=== PATIENT | male | born 1965 | race African-American/Black ===

== ENCOUNTER 2016-10-13 15:29 | Observation (INO) ==
[2016-10-13] MEDS ORDERED: BISACODYL 5 MG TABLET PO PRN (16:00)
[2016-10-13] MEDS ORDERED: DOCUSATE SODIUM 100 MG CAPSULE PO PRN (16:00)
[2016-10-13] MEDS ORDERED: ONDANSETRON 4 MG/2 ML VIAL IV PRN (16:00)
[2016-10-13] MEDS ORDERED: MAGNESIUM SULF RIDER 2 GM in PREMIX 1 EACH IV PRN (16:00)
[2016-10-13] MEDS ORDERED: MAGNESIUM SULF RIDER 4 GM in PREMIX 1 EACH IV PRN (16:00)
[2016-10-13] MEDS ORDERED: ZALEPLON 5 MG CAPSULE PO PRN (16:00)
[2016-10-13] MEDS ORDERED: ACETAMINOPHEN 325 MG TABLET PO PRN (16:00)
[2016-10-13] MEDS: FUROSEMIDE 40 MG/4 ML VIAL IV SCH (17:54)
[2016-10-13 17:57] LABS: Basophils % 0.6 % (0.0-0.8); Eosinophils # 0.1 10*3/uL (0.0-0.87); Eosinophils % 0.8 % (0.00-10.9); Hematocrit 37.4 VOL% (42.0-52.0); Hemoglobin 12.1 GM/DL (14.0-18.0); Immature Granulocytes % 0.4 %; Immature Granulocytes Absolute 0.03 #; Lymphocytes # 1.8 10*3/uL (1.4-4.0); Lymphocytes % 24.3 % (21.2-54.2); Mean Corpuscular HGB Conc 32.4 GM/DL (32-36); Mean Corpuscular Hemoglobin 22 PG (27-34); Mean Corpuscular Volume 68.5 FL (87-102); Mean Platelet Volume 10.6 FL (9.6-12.0); Monocytes # 0.6 10*3/uL (0.11-0.8); Monocytes % 7.9 % (1.7-12.7); NRBC # 0.02 10*3/uL; Neutrophils # 4.8 10*3/uL (1.4-7.4); Platelet Count 204 10*3/uL (130-400); Red Blood Count 5.46 10*6/uL (3.8-5.5); Red Cell Distribution Width 19.4 % (9.3-17.3); White Blood Count 7.2 10*3/uL (4.5-13.71)
--- NOTE | 2016-10-13 18:23 | XRay Report ---
Portable chest. Indication: Shortness of breath. Comparison: August 28, 2016. The cardiac silhouette is enlarged. The pulmonary vasculature is normal. There are mild basilar interstitial infiltrates and a small right pleural effusion. Impression: Findings suggesting congestive heart failure. PROCEDURE INTERPRETED AT [facility] DEPARTMENT OF RADIOLOGY Final Report Signed by: Dr. Libby Renee
[2016-10-13 18:26] LABS: Albumin 3.2 G/DL (3.4-5.0); Osmolality,Calculated 296.7 MOS/KG (273-304); Potassium 4.5 MMOL/L (3.5-5.1); Total Protein 6.6 G/DL (6.4-8.3)
[2016-10-13] MEDS: ENOXAPARIN 40 MG/0.4 ML SYRINGE SUBCUT SCH (18:36)
--- NOTE | 2016-10-13 22:26 | Cardiology History & Physical ---
Assessment and Plan - Time spent with patient Time spent with patient: Greater than 30 minutes (1) Acute on chronic systolic and diastolic heart failure, NYHA class 3 Status: Acute Assessment and plan: He is worsening heart failure is probably due to him not taking his medication and having no LV systolic and diastolic dysfunction. I am suspicious he has some sleep apnea and that may be exacerbating his diastolic dysfunction. Plan/ recommendation : Admit to a monitored bed. Restart home meds. Since he has tachycardia, will increase his carvedilol to 6.25 mg p.o. 4 times daily. We will adjusted to a twice daily dose at some point. Will consult social work regarding help with get medications paid for or supplied. Elevate head of bed. EKG now and every morning [address] Cathi Solitario regarding evaluation and treatment of obstructive sleep apnea. IV Lasix. Check albumin. Restart spironolactone. BMP every morning 3. Current Visit: No (2) Overweight Status: Acute Current Visit: Yes (3) Obstructive sleep apnea Status: Acute Current Visit: Yes (4) Bilateral lower extremity edema Status: Acute Current Visit: Yes (5) CHF exacerbation Status: Acute Current Visit: No Qualifiers: Congestive heart failure type: combined Qualified Code(s): I50.43 - Acute on chronic combined systolic (congestive) and diastolic (congestive) heart failure (6) CKD (chronic kidney disease) stage 2, GFR 60-89 ml/min Status: Acute Current Visit: No (7) Cardiomyopathy Status: Acute Current Visit: No (8) DM2 (diabetes mellitus, type 2) Status: Acute Current Visit: No History of Present Illness Chief complaint: I have been more short of breath and I am out of my medicines History of present illness: Mr. Drummond is a 51 year old male Cardiology: Dr. Bossman Mariano Patient is 51. He has a known nonischemic cardiomyopathy. He has been out of his meds lately. Apparently he was taken off Medicaid. He comes in to see Dr. Bossman Mariano. He has increasing swelling of his legs. He is more short of breath. He has to sleep propped up. Dr. Mariano send him over to be evaluated. He is admitted. He does have a cough. Otherwise no palpitations, syncope wheezing or phlegm. Does have snoring, apnea and excess daytime somnolence. Has never had an evaluation for sleep apnea Home Medications Medication Instructions Recorded Confirmed Type Ascorbic Acid Tab [Vitamin C Tab] 1,000 mg PO BID tablet 09/04/16 Rx Aspirin EC Tab 81 mg PO DAILY tablet 09/04/16 Rx Carvedilol [Coreg] 6.25 mg PO BID #60 tablet 09/04/16 Rx Furosemide Tab [Lasix Tab] 40 mg PO BID DIURETIC #60 tablet 09/04/16 Rx Potassium Chloride Cap/Tab [K Dur] 10 meq PO BID #60 tablet 09/04/16 Rx Spironolactone [Aldactone] 12.5 mg PO DAILY #30 tablet 09/04/16 Rx hydrALAZINE TAB [Apresoline Tab] 10 mg PO TID #90 tablet 09/04/16 Rx Allergies Allergy/AdvReac Type Severity Reaction Status Date / Time Shellfish Allergy SHORTNESS Verified 08/28/16 17:28 OF BREATH 12 point system: reviewed and no additional remarkable complaints except as stated (A 12 point review of systems is negative except for as mentioned in HPI. ) Medical,Surgical,& Family Hx - Medical History Cardio: History of: CHF, CAD, Hypertension, Cardiovascular Problems ("Two blocked arteries per Dr Mariano") No history of: [place], Pacemaker Psychological: No history of: Anxiety Disorders, Bipolar Disorder, Depression HEENT: No history of: Dental Problems Endocrine: No history of: Diabetes Mellitus (IDDM) (states he was told last admission DM but nothing follow up with), Diabetes Mellitus (NIDDM) Respiratory: History of: Asthma, Bronchitis No history of: Pulmonary Embolism, Pneumonia Renal: History of: Renal Failure (RI) No history of: Renal (Kidney) Cancer, Renal Problems Genitourinary: No history of: Bladder Problem, Kidney Stones Gastrointestinal: History of: GERD (recent just started having trouble with reflux) No history of: Hemorrhoids, Liver Problems Musculoskeletal: History of: Musculoskeletal Problems (Right Knee Surg) No history of: Amputation, Back/Neck Problems, Osteoporosis Hematology: No history of: Anemia, Blood Transfusion Reaction, Sickle Cell Disease, Blood Disorders Other: No history of: Anesthesia Reactions, HIV, MRSA, Skin Problems - Surgical History Cardiac Surgeries: Patient Denies: Cardiac Catheterization, Cardiac Surgery Thoracic Surgeries: Patient denies;: Organ Transplant, Lobectomy Neurologic Surgeries: Patient denies: Neurologic Surgery HEENT Surgeries: Patient denies: Tonsilectomy & Adenoidectomy Abdominal Surgeries: Patient denies: Abdominal Surgery Orthopedic Surgeries: Patient denies;: Total Knee Replacement - Family History Family History: Reports;: Family Cancer (mom, type unknown), Family Heart Disease (mom), Family Hypertension - Social History Smoking Status: Current some day smoker Frequency of Alcohol Use: None Type of Drug Use: None Functional capacity: independent ambulation Cardiology Physical Exam - Constitutional Vitals: Vital Signs Temp Pulse Resp BP Pulse Ox 96.7 F L 118 H 21 112/81 93 L 10/13/16 17:33 10/13/16 19:51 10/13/16 19:51 10/13/16 19:51 10/13/16 19:51 Intake and Output 10/13/16 10/13/16 10/13/16 07:59 15:59 23:59 Other: Weight 93.5 kg Patient Weight 10/13/16 23:59 Weight 93.5 kg Exam: HEENT: Pupils equal, reactive to light and accommodation Neck: NoJVD or bruit Lungs clear to auscultation Heart: Regular rhythm rate with normal S1 and S2. Apical S4, 2/6 systolic ejection murmur. Abdomen: No hepatosplenomegaly Spine/extremities: No clubbing, cyanosis, ; 2-3+ lower extremity edema. Neuro: Nonfocal Psych: No depression or anxiety Result/EKG - Labs CBC & BMP: 10/13/16 17:47 10/13/16 17:47 Lab Results: I have reviewed the past 24 hour labs Labs: Laboratory Results - last 24 hr 10/13/16 10/13/16 10/13/16 17:47 17:47 17:47 WBC 7.2 RBC 5.46 Hgb 12.1 L Hct 37.4 L MCV 68.5 L MCH 22 L MCHC 32.4 RDW 19.4 H Plt Count 204 MPV 10.6 Neut % (Auto) 66.0 Lymph % (Auto) 24.3 [place] % (Auto) 7.9 Eos % (Auto) 0.8 Baso % (Auto) 0.6 Neut # (Auto) 4.8 Lymph # (Auto) 1.8 [place] # (Auto) 0.6 Eos # (Auto) 0.1 Baso # (Auto) 0.0 Immature Gran % 0.4 Nucleated RBC % 0.3 Immature Gran # 0.03 Nucleated RBCs # 0.02 Sodium 145 Potassium 4.5 Chloride 109 H Carbon Dioxide 23 Anion Gap 17.5 H BUN 40 H Creatinine 2.10 H GFR Calculation 48 BUN/Creatinine Ratio 19.00 Glucose 83 Calculated Osmolality 296.7 Calcium 9.0 Total Bilirubin 3.00 H AST 75 H ALT 70 H Alkaline Phosphatase 143 H B-Natriuretic Peptide 1859 H Total Protein 6.6 Albumin 3.2 L Globulin 3.4 Albumin/Globulin Ratio 0.9 L TSH 3rd Generation 10/13/16 17:47 WBC RBC Hgb Hct MCV MCH MCHC RDW Plt Count MPV Neut % (Auto) Lymph % (Auto) [place] % (Auto) Eos % (Auto) Baso % (Auto) Neut # (Auto) Lymph # (Auto) [place] # (Auto) Eos # (Auto) Baso # (Auto) Immature Gran % Nucleated RBC % Immature Gran # Nucleated RBCs # Sodium Potassium Chloride Carbon Dioxide Anion Gap BUN Creatinine GFR Calculation BUN/Creatinine Ratio Glucose Calculated Osmolality Calcium Total Bilirubin AST ALT Alkaline Phosphatase B-Natriuretic Peptide Total Protein Albumin Globulin Albumin/Globulin Ratio TSH 3rd Generation 3.820 H
[2016-10-13] MEDS: CARVEDILOL 6.25 MG TABLET PO SCH (22:51)
[2016-10-14 04:57] LABS: Basophils % 0.3 % (0.0-0.8); Eosinophils # 0.1 10*3/uL (0.0-0.87); Hematocrit 33.3 VOL% (42.0-52.0); Hemoglobin 10.8 GM/DL (14.0-18.0); Immature Granulocytes % 0.5 %; Immature Granulocytes Absolute 0.03 #; Lymphocytes # 1.4 10*3/uL (1.4-4.0); Lymphocytes % 24.1 % (21.2-54.2); Mean Corpuscular HGB Conc 32.4 GM/DL (32-36); Mean Corpuscular Hemoglobin 22 PG (27-34); Mean Corpuscular Volume 66.5 FL (87-102); Mean Platelet Volume 10.9 FL (9.6-12.0); Monocytes # 0.4 10*3/uL (0.11-0.8); Monocytes % 7.3 % (1.7-12.7); NRBC # 0.02 10*3/uL; Neutrophils # 3.9 10*3/uL (1.4-7.4); Neutrophils % 66.8 % (38.7-73.9); Platelet Count 233 10*3/uL (130-400); Red Blood Count 5.01 10*6/uL (3.8-5.5); Red Cell Distribution Width 18.7 % (9.3-17.3); White Blood Count 5.9 10*3/uL (4.5-13.71)
[2016-10-14 05:31] LABS: Platelet Estimate Adequate; Target Cells 1+
[2016-10-14 05:32] LABS: Burr Cells Few; Polychromasia Slight
[2016-10-14 05:35] LABS: Albumin 2.6 G/DL (3.4-5.0); Bilirubin,Total 2.5 MG/DL (0.2-1.0); Calcium 8.2 MG/DL (8.5-10.1); Osmolality,Calculated 294.8 MOS/KG (273-304); Potassium 4.3 MMOL/L (3.5-5.1); Total Protein 5.7 G/DL (6.4-8.3)
[2016-10-14 05:36] LABS: Troponin I Only 0.107 NG/ML (0.00-0.045)
--- NOTE | 2016-10-14 07:38 | EKG Report ---
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
[2016-10-14] MEDS: FUROSEMIDE 40 MG/4 ML VIAL IV SCH ×2 (08:59→19:15)
[2016-10-14] MEDS ORDERED: INFLUENZA VIRUS VACCINE 0.5 ML SYRINGE IM ONE (09:00)
[2016-10-14] MEDS ORDERED: PNEUMOCOCCAL VACCINE (23 VALENT) 0.5 ML VIAL IM ONE (09:00)
[2016-10-14] MEDS: ASPIRIN EC 81 MG TABLET PO SCH (09:06)
[2016-10-14] MEDS: SPIRONOLACTONE 25 MG TABLET PO SCH (09:06)
[2016-10-14] MEDS: CARVEDILOL 6.25 MG TABLET PO SCH ×4 (09:07→20:41)
[2016-10-14] MEDS: PANTOPRAZOLE 40 MG TABLET PO SCH (09:07)
--- NOTE | 2016-10-14 11:12 | Cardiology Progress Note ---
Assessment and Plan - Time spent with patient Time spent with patient: Less than 30 minutes (1) NICM (nonischemic cardiomyopathy) Status: Acute Current Visit: Yes (2) CKD (chronic kidney disease) stage 2, GFR 60-89 ml/min Status: Acute Current Visit: No (3) Sleep disturbance Status: Chronic Assessment and plan: COnsider sleep study eval when patient has insurance benefits Current Visit: Yes (4) Tachycardia Status: Acute Assessment and plan: Improved with reintroduction of a beta niharika. Current Visit: Yes (5) Hypertension Status: Chronic Assessment and plan: Overall adequately controlled. Avoiding Jacoby inhibitors due to fear of worsening his renal insufficiency. Current Visit: Yes (6) Dyslipidemia Status: Chronic Assessment and plan: Continue current plan of care. Current Visit: Yes (7) CKD (chronic kidney disease) stage 3, GFR 30-59 ml/min Status: Chronic Assessment and plan: Improved overnight. Continue current plan of care. Current Visit: Yes (8) Bilateral lower extremity edema Status: Acute Current Visit: Yes (9) Acute on chronic systolic and diastolic heart failure, NYHA class 3 Status: Acute Assessment and plan: Continue with diuresis, strict I&O and daily weights. Tolerating beta- blockade. Avoiding Jacoby inhibitors due to fear of worsening his renal insufficiency. Current Visit: No (10) DM2 (diabetes mellitus, type 2) Status: Acute Current Visit: No Cardiology - PN: Subj Interval history: Mr. Drummond, 51-year-old [place] male, was directly admitted on recommendation from Dr. Leeroy Mariano. He was admitted last evening for CHF with history of nonischemic cardiomyopathy, EF 20%. This is an acute on chronic exacerbation secondary to severely reduced LVEF and medication noncompliance. On admission, he is considered [place] heart Association Classification III-IV. Overnight he has improved to NYHA Classication III. Atrial fibrillation and had been out of his medications as he was taken off of Medicaid. He had increased edema of his lower extremities and increased abdominal girth. He was orthopneic though no apparent jugular vein distention. He was admitted and has diuresed overnight. His breathing has improved. He remains orthopneic but this too has also improved. He states he actually slept relatively well last night for the first time in over one week. He denies chest pain, heaviness or tightness. ASSESSMENT/PLAN: 1. CHF - acute on chronic CHF secondary to severely reduced LVEF, 20%. Also secondary to medication noncompliance. He has diuresed well overnight losing 2 kg. At this point, will not repeat echo 2. NICM - continue current plan of care 3. Tachycardia - initially, upon arrival, patient's heart rate was in the 130s. Coreg has been reintroduced and it has improved. 4. Hypertension - overall adequately controlled 5. Non-compliance - asking Case Management to assist 6. CKD - improved overnight. Stage III. Continue current plan of care. 7. Hyperlipidemia - continue current plan of care. Exam (Progress Note) - Constitutional Vitals: Period Temp Pulse Resp BP Sys/English Pulse Ox Last 24 Hr 96.7 F-97.2 F 99-130 18-35 107-118/68-97 93-98 Exam: General: Appears well with no apparent distress. Pleasant and cooperative. Appears comfortable. HEENT: PERRL, normocephalic, atraumatic. Mucous membranes moist. No jaundice noted. Conjunctiva moist and clear, sclerae anicteric Neck: No JVD/HJR, no thyromegaly or lymphadenopathy noted. No carotid bruit appreciated Cardiac: Regular rate and rhythm. II/ YUMIKO heard best at BUSB. Lungs: Decreased sounds posteriorly without wheezing. Still requiring oxygen. Abdomen: Round, soft, bowel sounds normoactive. Nontender. No abdominal bruit or thrill noted. No masses noted. Musculoskeletal: No fluid collection. Decreased range of motion is noted. Extremities: No clubbing, cyanosis noted. 2+pitting edema. Upper extremity pulses 2+. Lower extremity pulses 2+. Capillary refill less than 3 seconds. Skin: No unusual lesions or rashes. No skin breakdown appreciated. Neuro: Awake, alert and oriented 3. Moves all extremities well without hemiparesis or paralysis. No essential tremor is appreciated. Result/EKG - Labs CBC & BMP: 10/14/16 04:47 10/14/16 04:47 Lab Results: I have reviewed the past 24 hour labs Labs: Laboratory Results - last 24 hr 10/13/16 10/13/16 10/13/16 17:47 17:47 17:47 WBC 7.2 RBC 5.46 Hgb 12.1 L Hct 37.4 L MCV 68.5 L MCH 22 L MCHC 32.4 RDW 19.4 H Plt Count 204 MPV 10.6 Neut % (Auto) 66.0 Lymph % (Auto) 24.3 [place] % (Auto) 7.9 Eos % (Auto) 0.8 Baso % (Auto) 0.6 Neut # (Auto) 4.8 Lymph # (Auto) 1.8 [place] # (Auto) 0.6 Eos # (Auto) 0.1 Baso # (Auto) 0.0 Immature Gran % 0.4 Nucleated RBC % 0.3 Immature Gran # 0.03 Nucleated RBCs # 0.02 Platelet Estimate Polychromasia Target Cells [place] Cells Sodium 145 Potassium 4.5 Chloride 109 H Carbon Dioxide 23 Anion Gap 17.5 H BUN 40 H Creatinine 2.10 H GFR Calculation 48 BUN/Creatinine Ratio 19.00 Glucose 83 Calculated Osmolality 296.7 Calcium 9.0 Total Bilirubin 3.00 H AST 75 H ALT 70 H Alkaline Phosphatase 143 H Total Creatine Kinase CK-MB (CK-2) Troponin I B-Natriuretic Peptide 1859 H Total Protein 6.6 Albumin 3.2 L Globulin 3.4 Albumin/Globulin Ratio 0.9 L TSH 3rd Generation 10/13/16 10/14/16 10/14/16 17:47 04:47 04:47 WBC 5.9 RBC 5.01 Hgb 10.8 L Hct 33.3 L MCV 66.5 L MCH 22 L MCHC 32.4 RDW 18.7 H Plt Count 233 MPV 10.9 Neut % (Auto) 66.8 Lymph % (Auto) 24.1 [place] % (Auto) 7.3 Eos % (Auto) 1.0 Baso % (Auto) 0.3 Neut # (Auto) 3.9 Lymph # (Auto) 1.4 [place] # (Auto) 0.4 Eos # (Auto) 0.1 Baso # (Auto) 0.0 Immature Gran % 0.5 Nucleated RBC % 0.3 Immature Gran # 0.03 Nucleated RBCs # 0.02 Platelet Estimate Adequate Polychromasia Slight Target Cells 1+ [place] Cells Few Sodium Potassium Chloride Carbon Dioxide Anion Gap BUN Creatinine GFR Calculation BUN/Creatinine Ratio Glucose Calculated Osmolality Calcium Total Bilirubin AST ALT Alkaline Phosphatase Total Creatine Kinase 106 CK-MB (CK-2) 1.7 Troponin I 0.107 H B-Natriuretic Peptide Total Protein Albumin Globulin Albumin/Globulin Ratio TSH 3rd Generation 3.820 H 10/14/16 10/14/16 04:47 04:47 WBC RBC Hgb Hct MCV MCH MCHC RDW Plt Count MPV Neut % (Auto) Lymph % (Auto) [place] % (Auto) Eos % (Auto) Baso % (Auto) Neut # (Auto) Lymph # (Auto) [place] # (Auto) Eos # (Auto) Baso # (Auto) Immature Gran % Nucleated RBC % Immature Gran # Nucleated RBCs # Platelet Estimate Polychromasia Target Cells [place] Cells Sodium 144 Potassium 4.3 Chloride 110 H Carbon Dioxide 21 Anion Gap 17.3 H BUN 41 H Creatinine 1.90 H GFR Calculation 54 BUN/Creatinine Ratio 21.00 H Glucose 83 Calculated Osmolality 294.8 Calcium 8.2 L Total Bilirubin 2.50 H AST 75 H ALT 73 H Alkaline Phosphatase 130 H Total Creatine Kinase CK-MB (CK-2) Troponin I B-Natriuretic Peptide 2615 H Total Protein 5.7 L Albumin 2.6 L Globulin 3.1 Albumin/Globulin Ratio 0.8 L TSH 3rd Generation - Diagnostic Findings Procedure: Chest x-ray: report reviewed by me - EKG EKG results: interpreted by me EKG shows: tachycardia
--- NOTE | 2016-10-14 17:32 | Sleep Medicine Consult ---
Assessment and Plan (1) Unspecified sleep apnea Status: Acute Assessment and plan: This patient certainly could have sleep apnea based on his history of physical features. With his cardiomyopathy, he may have primary central sleep apnea. This can be very difficult to treat and associated with poor prognosis. He usually is associated with severe cardiomyopathy. We will try to obtain HST evaluation on him while hospitalized. Current Visit: Yes (2) DM2 (diabetes mellitus, type 2) Status: Acute Assessment and plan: The prevalence rate for obstructive sleep apnea in patients with type 2 diabetes can be as high as 86%. Those patients with moderate to severe obstructive sleep apnea are at a greater risk for diabetic nephropathy and neuropathy. Compliance with CPAP therapy for these patients can lead to improvement in glycemic control and improvement in insulin sensitivity. Current Visit: No (3) CHF exacerbation Status: Acute Assessment and plan: Untreated obstructive sleep apnea can certainly be an exacerbating factor for CHF. Studies have shown the CPAP therapy can improve ejection fraction in those with systolic dysfunction. CPAP therapy has been shown in one study to reduce readmission rate in patients with MONY with CHF when compliant with CPAP compared to those noncompliant. Current Visit: No Qualifiers: Congestive heart failure type: combined Qualified Code(s): I50.43 - Acute on chronic combined systolic (congestive) and diastolic (congestive) heart failure History of Present Illness Chief complaint: sleep apnea History of present illness: Mr. Drummond is a 51 year old male with a history of ischemic cardiomyopathy. He has been admitted for congestive heart failure. He apparently had run out of his medications. He lost his insurance. He was noted to have a history of snoring and abnormal breathing during sleep with witnessed apneas. He also has problems with daytime fatigue and sleepiness, having an [place] sleepiness score of 15. He awakens from sleep short of breath. He is not aware of any restlessness of his legs or leg jerks. Home Medications Medication Instructions Recorded Confirmed Type Ascorbic Acid Tab [Vitamin C Tab] 1,000 mg PO BID tablet 09/04/16 10/14/16 Rx Aspirin EC Tab 81 mg PO DAILY tablet 09/04/16 10/14/16 Rx Carvedilol [Coreg] 6.25 mg PO BID #60 tablet 09/04/16 10/14/16 Rx Furosemide Tab [Lasix Tab] 40 mg PO BID DIURETIC #60 tablet 09/04/16 10/14/16 Rx Potassium Chloride Cap/Tab [K Dur] 10 meq PO BID #60 tablet 09/04/16 10/14/16 Rx Spironolactone [Aldactone] 12.5 mg PO DAILY #30 tablet 09/04/16 10/14/16 Rx hydrALAZINE TAB [Apresoline Tab] 10 mg PO TID #90 tablet 09/04/16 10/14/16 Rx Allergies Allergy/AdvReac Type Severity Reaction Status Date / Time Shellfish Allergy SHORTNESS Verified 08/28/16 17:28 OF BREATH Review of systems: Other than as noted in HPI and of that and Dr. Owusu's extensive review of systems, no other significant history is notable from a sleep standpoint. Exam (Pulmonay) H&P - Constitutional Vitals: Period Temp Pulse Resp BP Sys/English Pulse Ox Last 24 Hr 96.7 F-97.2 F 85-127 18-35 96-118/64-97 93-99 Exam: He is alert and responsive in no distress. Pupils equal round reactive to light and accommodation. Extraocular movements intact. Oropharynx with class IV Mallampati exam. Neck is supple without adenopathy or thyromegaly. No supraclavicular adenopathy is noted. Chest was symmetrical breath sounds without focal wheezes, rhonchi, or rales. Cardiac exam reveals a regular rhythm without murmur or gallop. Abdomen soft nontender without palpable hepatosplenomegaly or mass. Extremities with pitting edema bilaterally. Neurologically, he is grossly intact. He moves all extremities Medical,Surgical,& Family Hx - Medical History Cardio: History of: CHF, CAD, Hypertension, Cardiovascular Problems ("Two blocked arteries per Dr Mariano") No history of: [place], Pacemaker Psychological: No history of: Anxiety Disorders, Bipolar Disorder, Depression HEENT: No history of: Dental Problems Endocrine: No history of: Diabetes Mellitus (IDDM) (states he was told last admission DM but nothing follow up with), Diabetes Mellitus (NIDDM) Respiratory: History of: Asthma, Bronchitis No history of: Pulmonary Embolism, Pneumonia Renal: History of: Renal Failure (RI) No history of: Renal (Kidney) Cancer, Renal Problems Genitourinary: No history of: Bladder Problem, Kidney Stones Gastrointestinal: History of: GERD (recent just started having trouble with reflux) No history of: Hemorrhoids, Liver Problems Musculoskeletal: History of: Musculoskeletal Problems (Right Knee Surg) No history of: Amputation, Back/Neck Problems, Osteoporosis Hematology: No history of: Anemia, Blood Transfusion Reaction, Sickle Cell Disease, Blood Disorders Other: No history of: Anesthesia Reactions, HIV, MRSA, Skin Problems - Surgical History Cardiac Surgeries: Patient Denies: Cardiac Catheterization, Cardiac Surgery Thoracic Surgeries: Patient denies;: Organ Transplant, Lobectomy Neurologic Surgeries: Patient denies: Neurologic Surgery HEENT Surgeries: Patient denies: Tonsilectomy & Adenoidectomy Abdominal Surgeries: Patient denies: Abdominal Surgery Orthopedic Surgeries: Patient denies;: Total Knee Replacement - Family History Family History: Reports;: Family Cancer (mom, type unknown), Family Heart Disease (mom), Family Hypertension - Social History Smoking Status: Current some day smoker Frequency of Alcohol Use: None Type of Drug Use: None Results - Labs CBC & BMP: 10/14/16 04:47 10/14/16 04:47 Lab Results: I have reviewed the past 24 hour labs
[2016-10-14] MEDS: ENOXAPARIN 40 MG/0.4 ML SYRINGE SUBCUT SCH (19:15)
[2016-10-14] MEDS ORDERED: metOLazone 5 MG TABLET PO ONE (19:21)
[2016-10-15 06:20] LABS: Basophils % 0.4 % (0.0-0.8); Eosinophils # 0.1 10*3/uL (0.0-0.87); Eosinophils % 1.3 % (0.00-10.9); Hematocrit 35.1 VOL% (42.0-52.0); Hemoglobin 11.1 GM/DL (14.0-18.0); Immature Granulocytes % 0.2 %; Immature Granulocytes Absolute 0.01 #; Lymphocytes # 1.6 10*3/uL (1.4-4.0); Lymphocytes % 29.5 % (21.2-54.2); Mean Corpuscular HGB Conc 31.6 GM/DL (32-36); Mean Corpuscular Hemoglobin 21 PG (27-34); Monocytes # 0.5 10*3/uL (0.11-0.8); Monocytes % 9.3 % (1.7-12.7); Neutrophils # 3.2 10*3/uL (1.4-7.4); Neutrophils % 59.3 % (38.7-73.9); Platelet Count 252 10*3/uL (130-400); Red Blood Count 5.24 10*6/uL (3.8-5.5); White Blood Count 5.4 10*3/uL (4.5-13.71)
[2016-10-15 06:45] LABS: Hypochromasia Slight; Target Cells 2+
[2016-10-15 06:46] LABS: Platelet Estimate Normal
[2016-10-15 06:48] LABS: Calcium 8.2 MG/DL (8.5-10.1); Potassium 3.7 MMOL/L (3.5-5.1)
--- NOTE | 2016-10-15 10:02 | Discharge Summary ---
Diagnosis - Discharge Diagnosis (1) Acute on chronic systolic and diastolic heart failure, NYHA class 3 Status: Acute (2) Overweight Status: Acute (3) Obstructive sleep apnea Status: Acute (4) Bilateral lower extremity edema Status: Acute (5) CHF exacerbation Status: Acute (6) CKD (chronic kidney disease) stage 2, GFR 60-89 ml/min Status: Acute (7) Cardiomyopathy Status: Acute (8) DM2 (diabetes mellitus, type 2) Status: Acute Discharge Plan - Discharge Medications No Action Carvedilol [Coreg] 6.25 mg PO BID #60 tablet Spironolactone [Aldactone] 12.5 mg PO DAILY #30 tablet Ascorbic Acid Tab [Vitamin C Tab] 1,000 mg PO BID tablet Aspirin EC Tab 81 mg PO DAILY tablet Furosemide Tab [Lasix Tab] 40 mg PO BID DIURETIC #60 tablet Potassium Chloride Cap/Tab [K Dur] 10 meq PO BID #60 tablet hydrALAZINE TAB [Apresoline Tab] 10 mg PO TID #90 tablet - Follow Up or Referral - Forms/Instructions Exam - Constitutional Vitals: Period Temp Pulse Resp BP Sys/English Pulse Ox Last 24 Hr 96.4 F-97.8 F 73-92 18-20 96-107/64-76 96-100 Discharge Results Labs on day of discharge: Labs from last 24 hours 10/15/16 10/15/16 05:11 05:11 WBC 5.4 RBC 5.24 Hgb 11.1 L Hct 35.1 L MCV 67.0 L MCH 21 L MCHC 31.6 L RDW 19.0 H Plt Count 252 Neut % (Auto) 59.3 Lymph % (Auto) 29.5 [place] % (Auto) 9.3 Eos % (Auto) 1.3 Baso % (Auto) 0.4 Neut # (Auto) 3.2 Lymph # (Auto) 1.6 [place] # (Auto) 0.5 Eos # (Auto) 0.1 Baso # (Auto) 0.0 Immature Gran % 0.2 Nucleated RBC % 0.0 Immature Gran # 0.01 Nucleated RBCs # 0.00 Platelet Estimate Normal Hypochromasia Slight Target Cells 2+ Sodium 143 Potassium 3.7 Chloride 107 Carbon Dioxide 22 Anion Gap 17.7 H BUN 44 H Creatinine 2.00 H GFR Calculation 51 BUN/Creatinine Ratio 22.00 H Glucose 91 Calculated Osmolality 295.0 Calcium 8.2 L Magnesium 2.0 DS: Provider Date of admission: 10/13/16 16:00 Primary care physician: . No PCP Attending physician on admission: Leeroy Mariano MD Consults: 10/13/16 18:30 Consult to Case Mgmt/Social Srvs [CONS] Routine Reason for Case Mgmt/Social Srvs: Other Consult Comment: help with getting meds 10/13/16 18:33 Consult to Sleep Center [CONS] Routine Reason for Sleep Center: Sleep Center Physician Consult Comment: possible has sleep apnea, hx of CHF 10/13/16 19:03 Consult to Pharmacy [CONS] Routine Reason for Pharmacy Consult: Adjust Meds Renal Funct Discharging clinician: Nazario Owusu MD
[2016-10-15] MEDS: FUROSEMIDE 40 MG/4 ML VIAL IV SCH (11:20)
[2016-10-15] MEDS: SPIRONOLACTONE 25 MG TABLET PO SCH (11:20)
[2016-10-15] MEDS: ASPIRIN EC 81 MG TABLET PO SCH (11:21)
[2016-10-15] MEDS: CARVEDILOL 6.25 MG TABLET PO SCH (11:21)
[2016-10-15] MEDS: PANTOPRAZOLE 40 MG TABLET PO SCH (11:21)
[2016-10-15 12:12] VITALS: BP 101/70
--- NOTE | 2016-10-15 12:14 | Discharge Summary ---
Hospital Course - Hospital Course Hospital Course: Mr. Drummond, 51BM, admitted from Dr. Mariano's office for acute on chronic congestive heart failure. History of nonischemic cardiomyopathy. EF 20%. He was deemed that his acute congestive heart failure was secondary to severely reduced LVEF, 20% ejection fraction noted. Also contributed to his medication noncompliance as he had been out of his medications for several weeks due to loss of insurance. On arrival, we considered him [place] [employer] classification III-IV. At discharge today, he is considered [place] [employer] classification II. During the hospital stay, he was diuresed and responded appropriately. His electrolytes were monitored closely. We had a long discussion regarding medication compliance in the importance thereof. After reviewing his medications, he tells me that he can afford medications on the $4 list at [facility]. The records reflect that we will discharge him home on medications he can afford her [facility]. History of medications include the following: Aspirin 81 mg orally daily Furosemide 40 mg orally twice a day Coreg 12.5 mg orally twice a day Spironolactone 12.5mg orally daily Apresoline 10 mg orally 3 times a day Ascorbic Acid 1000mg orally BID Patient is being given a follow-up appointment with Dr. Mariano in approximately 2-3 weeks. At that visit the following labs will be obtained, BMP, magnesium Patient was also seen by Dr. Judith Solitario for possible sleep disorder. We will give him a follow-up appointment with Dr. Judith Solitario in approximately 2 -3 weeks as well. Having felt he met maximal medical therapy, patient is being discharged home in stable condition. - Time spent with patient Time with patient DS: Less than 30 minutes Diagnosis - Discharge Diagnosis (1) NICM (nonischemic cardiomyopathy) Status: Chronic (2) CKD (chronic kidney disease) stage 2, GFR 60-89 ml/min Status: Chronic (3) Sleep disturbance Status: Chronic (4) Tachycardia Status: Resolved (5) Hypertension Status: Chronic (6) Dyslipidemia Status: Chronic (7) CKD (chronic kidney disease) stage 3, GFR 30-59 ml/min Status: Chronic (8) Bilateral lower extremity edema Status: Resolved (9) Acute on chronic systolic and diastolic heart failure, NYHA class 3 Status: Acute (10) DM2 (diabetes mellitus, type 2) Status: Chronic Discharge Plan - Discharge Data Disposition: Disch To Home/Self Care Condition at Discharge: Stable Discharge Diet: heart healthy Activity: ambulate only with your walker Hygiene: no restrictions Weight Bearing at Discharge: full weight bearing Driving: not until seen by doctor Contact your physician if you experience:: fever over 101, Difficulty voiding, Redness or swelling, Nausea/Vomiting, Shortness of breath, Bleeding, pain uncontrolled by pain medications - Discharge Medications New Carvedilol [Coreg] 12.5 mg PO BID #60 tablet Continue Ascorbic Acid Tab [Vitamin C Tab] 1,000 mg PO BID #60 tablet Aspirin EC Tab 81 mg PO DAILY #30 tablet Furosemide Tab [Lasix Tab] 40 mg PO BID DIURETIC #60 tablet Spironolactone [Aldactone] 12.5 mg PO DAILY #30 tablet hydrALAZINE TAB [Apresoline Tab] 10 mg PO TID #90 tablet Discontinued Carvedilol [Coreg] 6.25 mg PO BID #60 tablet Potassium Chloride Cap/Tab [K Dur] 10 meq PO BID #60 tablet - Follow Up or Referral Follow Up: Leeroy Mariano MD [Physician] - (3-4 weeks. BMP, Mg) Judith Solitario MD [Physician] - (2-3 weeks) - Forms/Instructions Exam - Constitutional Vitals: Period Temp Pulse Resp BP Sys/English Pulse Ox Last 24 Hr 96.4 F-97.8 F 73-92 18-20 96-107/66-76 96-100 Exam: General: Appears well with no apparent distress. Pleasant and cooperative. Appears comfortable. HEENT: PERRL, normocephalic, atraumatic. Mucous membranes moist. No jaundice noted. Conjunctiva moist and clear, sclerae anicteric Neck: No JVD/HJR, no thyromegaly or lymphadenopathy noted. No carotid bruit appreciated Cardiac: Regular rate and rhythm. II/ YUMIKO heard best at BUSB. Lungs: Relatively "clear to auscultation and not requiring oxygen. Abdomen: Round, soft, bowel sounds normoactive. Nontender. No abdominal bruit or thrill noted. No masses noted. Musculoskeletal: No fluid collection. Decreased range of motion is noted. Extremities: No clubbing, cyanosis noted. Trace bilateral lower extremity edema. Upper extremity pulses 2+. Lower extremity pulses 2+. Capillary refill less than 3 seconds. Skin: No unusual lesions or rashes. No skin breakdown appreciated. Neuro: Awake, alert and oriented 3. Moves all extremities well without hemiparesis or paralysis. No essential tremor is appreciated. Discharge Results Labs on day of discharge: Labs from last 24 hours 10/15/16 10/15/16 05:11 05:11 WBC 5.4 RBC 5.24 Hgb 11.1 L Hct 35.1 L MCV 67.0 L MCH 21 L MCHC 31.6 L RDW 19.0 H Plt Count 252 Neut % (Auto) 59.3 Lymph % (Auto) 29.5 [place] % (Auto) 9.3 Eos % (Auto) 1.3 Baso % (Auto) 0.4 Neut # (Auto) 3.2 Lymph # (Auto) 1.6 [place] # (Auto) 0.5 Eos # (Auto) 0.1 Baso # (Auto) 0.0 Immature Gran % 0.2 Nucleated RBC % 0.0 Immature Gran # 0.01 Nucleated RBCs # 0.00 Platelet Estimate Normal Hypochromasia Slight Target Cells 2+ Sodium 143 Potassium 3.7 Chloride 107 Carbon Dioxide 22 Anion Gap 17.7 H BUN 44 H Creatinine 2.00 H GFR Calculation 51 BUN/Creatinine Ratio 22.00 H Glucose 91 Calculated Osmolality 295.0 Calcium 8.2 L Magnesium 2.0 DS: Provider Date of admission: 10/13/16 16:00 Primary care physician: . No PCP Dr. Bossman Mariano Attending physician on admission: Leeroy Mariano MD Consults: 10/13/16 18:30 Consult to Case Mgmt/Social Srvs [CONS] Routine Reason for Case Mgmt/Social Srvs: Other Consult Comment: help with getting meds 10/13/16 18:33 Consult to Sleep Center [CONS] Routine Reason for Sleep Center: Sleep Center Physician Consult Comment: possible has sleep apnea, hx of CHF 10/13/16 19:03 Consult to Pharmacy [CONS] Routine Reason for Pharmacy Consult: Adjust Meds Renal Funct Discharging clinician: Juju Torres NP Expected date of discharge: 10/15/16
--- NOTE | 2016-10-15 12:41 | Sleep Medicine Progress Note ---
Assessment and Plan (1) Unspecified sleep apnea Status: Acute Assessment and plan: This patient certainly could have sleep apnea based on his history of physical features. With his cardiomyopathy, he may have primary central sleep apnea. This can be very difficult to treat and associated with poor prognosis. It usually is associated with severe cardiomyopathy. Given discharge plans, he will be set up for outpatient polysomnography. Current Visit: Yes (2) DM2 (diabetes mellitus, type 2) Status: Chronic Current Visit: No (3) CHF exacerbation Status: Acute Current Visit: No Qualifiers: Congestive heart failure type: combined Qualified Code(s): I50.43 - Acute on chronic combined systolic (congestive) and diastolic (congestive) heart failure Sleep Medicine Subjective Interval history: Patient is being discharged today. Given his discharge plans, we will set up outpatient sleep study at the next available date. He certainly needs to be evaluated. Exam (Progress Note) - Constitutional Vitals: Period Temp Pulse Resp BP Sys/English Pulse Ox Last 24 Hr 96.4 F-97.8 F 73-92 18-20 96-107/66-76 94-100 Exam: He is alert and responsive in no acute distress. HEENT notable for class III Mallampati exam. Neck supple without adenopathy. Chest with good air movement and no focal wheezes, rhonchi, or rales. Cardiac exam reveals a regular rhythm without murmur or gallop. Abdomen soft nontender without palpable hepatosplenomegaly or mass. Extremities are without clubbing or cyanosis but he does have 1+ pitting edema. Neurologically, he is grossly intact. Results - Labs CBC & BMP: 10/15/16 05:11 10/15/16 05:11 Lab Results: I have reviewed the past 24 hour labs Specialty Discharge - Follow Up or Referrals Follow up with: Judith Solitario MD [Physician] - (2-3 weeks) Leeroy Mariano MD [Physician] - (3-4 weeks. BMP, Mg)
[2016-10-15] MEDS ORDERED: CARVEDILOL 12.5 MG TABLET PO SCH (21:00)
== END 2016-10-15 16:18 | disposition home or self-care (01) ==
LOC: N.ICU → PREINTOOBSV 17:11 → N.TELES 20:09
PROVIDERS: ADMIT Internal Medicine Cardiovascular Disease; ATTEND Internal Medicine Cardiovascular Disease

== ENCOUNTER 2016-11-21 11:50 | Inpatient (IN) ==
--- NOTE | 2016-11-21 12:29 | EKG Report ---
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
[2016-11-21 12:53] LABS: Basophils % 0.4 % (0.0-0.8); Eosinophils # 0.1 10*3/uL (0.0-0.87); Hematocrit 39.1 VOL% (42.0-52.0); Hemoglobin 12.3 GM/DL (14.0-18.0); Immature Granulocytes % 0.4 %; Immature Granulocytes Absolute 0.03 #; Lymphocytes # 1.7 10*3/uL (1.4-4.0); Lymphocytes % 22.9 % (21.2-54.2); Mean Corpuscular HGB Conc 31.5 GM/DL (32-36); Mean Corpuscular Hemoglobin 21 PG (27-34); Mean Corpuscular Volume 66.5 FL (87-102); Monocytes # 0.5 10*3/uL (0.11-0.8); Monocytes % 7.2 % (1.7-12.7); NRBC # 0.05 10*3/uL; Neutrophils % 68.1 % (38.7-73.9); Platelet Count 225 T/CUMM (130-400); Red Blood Count 5.88 MC/CUMM (3.8-5.5); Red Cell Distribution Width 21.7 % (9.3-17.3); White Blood Count 7.3 T/CUMM (4-12)
[2016-11-21 13:14] LABS: Albumin 2.6 G/DL (3.4-5.0); Bilirubin,Total 3.9 MG/DL (0.2-1.0); Calcium 8.7 MG/DL (8.5-10.1); Magnesium 1.9 MG/DL (1.8-2.4); Osmolality,Calculated 285.4 MOS/KG (273-304); Potassium 3.5 MMOL/L (3.5-5.1); Total Protein 6.9 G/DL (6.4-8.3)
[2016-11-21 13:16] LABS: Troponin I Only 0.371 NG/ML (0.00-0.045)
--- NOTE | 2016-11-21 14:34 | XRay Report ---
Exam: Chest 2 views Date: November 21, 2016 at 1:53 PM Comparison: Chest one view portable October 13, 2016 Reason: Shortness of breath, swelling of lower extremity Findings: The cardiac silhouette is again enlarged, and there is scattered calcified plaque at the thoracic aorta. Opacities are present at the right lung base and likely represent atelectasis and possibly pneumonia. There is also mild right pleural fluid, and there may be venous congestion. No pneumothorax is identified. The osseous structures appear stable. Impression: 1. Cardiomegaly. 2. Opacities are again present at the right lung base. This likely represents atelectasis and possibly pneumonia. There is also mild to moderate right pleural fluid, and there may be venous congestion. This is similar to before when considering differences in imaging technique. PROCEDURE INTERPRETED AT [facility] DEPARTMENT OF RADIOLOGY Final Report Signed by: Dr. Rosemarie Le
[2016-11-21] MEDS ORDERED: FUROSEMIDE 100 MG/10 ML VIAL IV STA (14:38)
[2016-11-21] MEDS ORDERED: FUROSEMIDE 100 MG/10 ML VIAL ONE (14:42)
--- NOTE | 2016-11-21 17:07 | Emergency Department Note ---
IFelton Sierra, am scribing for, and in the presence of, Justice Hamilton MD 14:28. Alfonso Rosales Doug C, MD, personally performed the services described in this documentation, ascribed by Christianne Ya in my presence, and it is both accurate and complete 707 . Arrival - Arrival Chief Complaint: Shortness of Breath Stated Complaint: SOB, fluid ED Nursing Triage Note: Pt c/o SOB with swelling in lower ext for a while now but worse recently. Mode of Arrival: Ambulatory Limitations: No Limitations Source: Patient - History of Present Illness HPI Narrative: Patient is a 51-year-old black male presents emergency room complaining of increasing edema and shortness of breath for the last 4-5 weeks. Denies any chest pain, nausea, vomiting, fever or increased sputum production. He has typical symptoms of PND and orthopnea. He has been told in the past that he had congestive heart failure. He has not seen the doctor in many months because he ran out of his Medicaid. Patient states he is very short of breath with exertion and has severe swelling of his lower extremities. Onset (ago): week(s) Consistency: constant Severity: mild, moderate Severity scale (1-10): 4 Quality: other Allergies/Adverse Reactions: Allergies Allergy/AdvReac Type Severity Reaction Status Date / Time Shellfish Allergy SHORTNESS Verified 08/28/16 17:28 OF BREATH Home Medications: Home Medications Medication Instructions Recorded Confirmed Type Ascorbic Acid Tab [Vitamin C Tab] 1,000 mg PO BID #60 tablet 10/15/16 11/21/16 Rx Aspirin EC Tab 81 mg PO DAILY #30 tablet 10/15/16 11/21/16 Rx Carvedilol [Coreg] 12.5 mg PO BID #60 tablet 10/15/16 11/21/16 Rx Furosemide Tab [Lasix Tab] 40 mg PO BID DIURETIC #60 tablet 10/15/16 11/21/16 Rx Spironolactone [Aldactone] 12.5 mg PO DAILY #30 tablet 10/15/16 11/21/16 Rx hydrALAZINE TAB [Apresoline Tab] 10 mg PO TID #90 tablet 10/15/16 11/21/16 Rx Potassium Chloride 10 meq PO BID 11/21/16 11/21/16 History Review of System - Review of System 12 point system: reviewed and no additional remarkable complaints except as stated - Review of System Constitutional: Present: other (unable to sleep). Absent: chills, fever Respiratory: Present: cough (dry cough), other (SOB) Cardiovascular: Absent: chest pain Gastrointestinal: Present: nausea (occassionally), vomiting (occassionally) Musculoskeletal: Present: other (right hand and bilateral leg swelling) Skin: Absent: rash Neurological: Absent: headache Psychiatric: Absent: anxiety Medical,Surgical,& Family Hx - Medical History Cardio: History of: CHF, CAD, Hypertension, Cardiovascular Problems ("Two blocked arteries per Dr Mariano") No history of: [place], Pacemaker Psychological: No history of: Anxiety Disorders, Bipolar Disorder, Depression HEENT: No history of: Dental Problems Endocrine: No history of: Diabetes Mellitus (IDDM) (states he was told last admission DM but nothing follow up with), Diabetes Mellitus (NIDDM) Respiratory: History of: Asthma, Bronchitis No history of: Pulmonary Embolism, Pneumonia Renal: History of: Renal Failure (RI) No history of: Renal (Kidney) Cancer, Renal Problems Genitourinary: No history of: Bladder Problem, Kidney Stones Gastrointestinal: History of: GERD (recent just started having trouble with reflux) No history of: Hemorrhoids, Liver Problems Musculoskeletal: History of: Musculoskeletal Problems (Right Knee Surg) No history of: Amputation, Back/Neck Problems, Osteoporosis Hematology: No history of: Anemia, Blood Transfusion Reaction, Sickle Cell Disease, Blood Disorders Other: No history of: Anesthesia Reactions, HIV, MRSA, Skin Problems - Surgical History Cardiac Surgeries: Patient Denies: Cardiac Catheterization, Cardiac Surgery Thoracic Surgeries: Patient denies;: Organ Transplant, Lobectomy Neurologic Surgeries: Patient denies: Neurologic Surgery HEENT Surgeries: Patient denies: Tonsilectomy & Adenoidectomy Abdominal Surgeries: Patient denies: Abdominal Surgery Orthopedic Surgeries: Surgical HX of;: Orthopedic Surgery (Knee surgery) Patient denies;: Total Knee Replacement - Family History Family History: Reports;: Family Cancer (mom, type unknown), Family Heart Disease (Mother of congestive heart failure), Family Hypertension - Social History Smoking Status: Former smoker Exam Vital Signs: Vital Signs Temperature 98.6 F 11/21/16 13:35 Pulse Rate 121 H 11/21/16 16:30 Respiratory Rate 20 11/21/16 16:30 Blood Pressure 93/61 11/21/16 16:30 O2 Sat by Pulse Oximetry 100 11/21/16 16:30 - General General appearance: alert, in no apparent distress - Head Head exam: Present: atraumatic, normocephalic - Eye Eye exam: Present: PERRL, EOMI - ENT ENT exam: Present: mucous membranes moist. Absent: mucous membranes dry - Neck Neck exam: Present: full ROM. Absent: tenderness - Chest Chest inspection: Present: symmetric chest wall rise. Absent: tenderness - Respiratory Respiratory exam: Present: rales (bilateral rales) - Cardiovascular Cardiovascular exam: Present: regular rate, normal rhythm, murmur (3/6 systolic ejection murmur at apex), +S3, other (spcala) - Abdominal Exam Abdominal exam: Present: soft. Absent: tenderness - Extremities Exam Extremities exam: Present: full ROM, other (4+ edema). Absent: tenderness - Back Exam Back exam: Present: full ROM. Absent: tenderness - Neurological Exam Neurological exam: Present: alert, oriented X3, CN II-XII intact. Absent: motor sensory deficit - Psychiatric Psychiatric exam: Present: normal affect, normal mood - Skin Skin exam: Present: warm, dry Course Course Narrative: Patient's clinical presentation, laboratory and radiographic findings were discussed with Dr. Morton, she will evaluate the patient for admission. Results - Labs CBC & BMP: 11/21/16 12:42 11/21/16 12:42 Lab Results: I have reviewed the patients labs Labs: Laboratory Tests 11/21/16 11/21/16 11/21/16 12:42 12:42 12:42 RBC 5.88 H Hgb 12.3 L Hct 39.1 L MCV 66.5 L MCH 21 L MCHC 31.5 L RDW 21.7 H Anion Gap 18.5 H BUN 36 H Creatinine 2.00 H Total Bilirubin 3.90 H Alkaline Phosphatase 170 H Troponin I 0.371 H B-Natriuretic Peptide 2018 H Albumin 2.6 L Globulin 4.3 H Albumin/Globulin Ratio 0.6 L - EKG EKG results: interpreted by ERMD, sinus rhythm EKG shows: tachycardia (122 bpm) - Diagnostic Findings Procedure: Chest x-ray: report reviewed by me (1. Cardiomegaly. 2. Opacities are again present at the right lung base. This likely represents atelectasis and possible pneumonia. There is also mild to moderates right pleural fluid, and there may be venous congestion. This is similar to before when considering differences in imaging techniques. ) Disposition Clinical Impression: CHF exacerbation Case discussed with: patient Disposition: Still a Patient Condition: Guarded Time of Disposition: 17:06
--- NOTE | 2016-11-21 17:51 | EKG Report ---
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
--- NOTE | 2016-11-21 18:03 | Hospitalist History & Physical ---
Assessment and Plan (1) CHF exacerbation Status: Acute Current Visit: No Qualifiers: Congestive heart failure type: combined Qualified Code(s): I50.43 - Acute on chronic combined systolic (congestive) and diastolic (congestive) heart failure (2) CKD (chronic kidney disease) stage 2, GFR 60-89 ml/min Status: Chronic Current Visit: No (3) Coronary artery disease Status: Acute Current Visit: No (4) Acute on chronic systolic and diastolic heart failure, NYHA class 3 Status: Acute Current Visit: No (5) Bilateral lower extremity edema Status: Resolved Current Visit: No (6) NICM (nonischemic cardiomyopathy) Status: Chronic Current Visit: No (7) Tachycardia Status: Resolved Assessment and plan: We will admit the patient for close observation in the unit. Patient has been tachycardic in the 120s with a low blood pressure and poor response to the Lasix. Very concerned about this patient and do feel that we need to watch him closely. Ailyn Burgos discussed the case with cardiology and they will see him today. He has a EF of 20% per last admission. We'll repeat the troponins and see with a trend. He does have chronic kidney disease. Overall he has a very poor prognosis giving his medical noncompliance. We will try to diurese him the best we can. And see if he can tolerate a low-dose beta niharika. Current Visit: No History of Present Illness Chief complaint: shortness of breath increase in lower extremity edema History of present illness: Mr. Drummond is a 51 year old male with past medical history significant for congestive heart failure and coronary artery disease who was discharged from the hospital approximately 6 weeks ago. Patient reports ever since that time he 's been short of breath dyspnea on exertion increased lower extremity edema. When I questioned him about compliance with medications he says it he takes them as he cannot afford them. Therefore I do not think the patient's been taking any medications. He says that he can't lie down at night he denies chest pain or pressure. He says he gets short winded with least exertion. I was consulted to admit him Home Medications Medication Instructions Recorded Confirmed Type Ascorbic Acid Tab [Vitamin C Tab] 1,000 mg PO BID #60 tablet 10/15/16 11/21/16 Rx Aspirin EC Tab 81 mg PO DAILY #30 tablet 01/19/17 02/25/17 Rx Carvedilol [Coreg] 12.5 mg PO BID #60 tablet 10/15/16 11/21/16 Rx Furosemide Tab [Lasix Tab] 40 mg PO BID DIURETIC #60 tablet 10/15/16 11/21/16 Rx Spironolactone [Aldactone] 12.5 mg PO DAILY #30 tablet 10/15/16 11/21/16 Rx hydrALAZINE TAB [Apresoline Tab] 10 mg PO TID #90 tablet 10/15/16 11/21/16 Rx Potassium Chloride 10 meq PO BID 11/21/16 11/21/16 History Allergies Allergy/AdvReac Type Severity Reaction Status Date / Time Shellfish Allergy SHORTNESS Verified 08/28/16 17:28 OF BREATH Medical,Surgical,& Family Hx - Medical History Cardio: History of: CHF, CAD, Hypertension, Cardiovascular Problems ("Two blocked arteries per Dr Mariano") No history of: [place], Pacemaker Psychological: No history of: Anxiety Disorders, Bipolar Disorder, Depression HEENT: No history of: Dental Problems Endocrine: No history of: Diabetes Mellitus (IDDM) (states he was told last admission DM but nothing follow up with), Diabetes Mellitus (NIDDM) Respiratory: History of: Asthma, Bronchitis No history of: Pulmonary Embolism, Pneumonia Renal: History of: Renal Failure (RI) No history of: Renal (Kidney) Cancer, Renal Problems Genitourinary: No history of: Bladder Problem, Kidney Stones Gastrointestinal: History of: GERD (recent just started having trouble with reflux) No history of: Hemorrhoids, Liver Problems Musculoskeletal: History of: Musculoskeletal Problems (Right Knee Surg) No history of: Amputation, Back/Neck Problems, Osteoporosis Hematology: No history of: Anemia, Blood Transfusion Reaction, Sickle Cell Disease, Blood Disorders Other: No history of: Anesthesia Reactions, HIV, MRSA, Skin Problems - Surgical History Cardiac Surgeries: Patient Denies: Cardiac Catheterization, Cardiac Surgery Thoracic Surgeries: Patient denies;: Organ Transplant, Lobectomy Neurologic Surgeries: Patient denies: Neurologic Surgery HEENT Surgeries: Patient denies: Tonsilectomy & Adenoidectomy Abdominal Surgeries: Patient denies: Abdominal Surgery Orthopedic Surgeries: Surgical HX of;: Orthopedic Surgery (Knee surgery) Patient denies;: Total Knee Replacement - Family History Family History: Reports;: Family Cancer (mom, type unknown), Family Heart Disease (Mother of congestive heart failure), Family Hypertension - Social History Smoking Status: Former smoker Frequency of Alcohol Use: None Type of Drug Use: None 12 point system: reviewed and no additional remarkable complaints except as stated Exam - Constitutional Vitals: Period Temp Pulse Resp BP Sys/English Pulse Ox Last 24 Hr 96.8 F-98.6 F 117-126 20-24 90-111/61-88 96-100 - General General appearance: alert, in no apparent distress - Head Head exam: Present: atraumatic, normocephalic - Eye Eye exam: Present: PERRL, EOMI - ENT ENT exam: Present: mucous membranes moist. Absent: mucous membranes dry - Neck Neck exam: Present: full ROM. Absent: tenderness - Chest Chest inspection: Present: symmetric chest wall rise. Absent: tenderness - Respiratory Respiratory exam: Present: rales (bilateral rales) - Cardiovascular Cardiovascular exam: Present: tackyrate, normal rhythm, murmur (3/6 systolic ejection murmur at apex), +S3, - Abdominal Exam Abdominal exam: Present: soft. Absent: tenderness - Extremities Exam Extremities exam: Present: full ROM, other (4+ edema). Absent: tenderness - Back Exam Back exam: Present: full ROM. Absent: tenderness - Neurological Exam Neurological exam: Present: alert, oriented X3, CN II-XII intact. Absent: motor sensory deficit - Psychiatric Psychiatric exam: Present: normal affect, normal mood - Skin Skin exam: Present: warm, dry Results - Labs CBC & BMP: 11/21/16 12:42 11/21/16 12:42
[2016-11-21] MEDS ORDERED: POTASSIUM CHLORIDE 20 MEQ TABLET PO PRN (18:09)
[2016-11-21] MEDS ORDERED: MAGNESIUM SULF RIDER 2 GM in PREMIX 1 EACH IV PRN (18:09)
[2016-11-21] MEDS ORDERED: MAGNESIUM SULF RIDER 4 GM in PREMIX 1 EACH IV PRN (18:09)
[2016-11-21] MEDS ORDERED: ALBUTEROL 2.5 MG/3 ML NEB RESP TX PRN (18:09)
[2016-11-21] MEDS ORDERED: ENOXAPARIN 40 MG/0.4 ML SYRINGE SUBCUT SCH (18:30)
[2016-11-21] MEDS: FUROSEMIDE 40 MG/4 ML VIAL IV SCH (19:40)
[2016-11-21 20:07] LABS: Troponin I Only 0.373 NG/ML (0.00-0.045)
[2016-11-21] MEDS: CARVEDILOL 3.125 MG TABLET PO SCH (21:00)
[2016-11-21] MEDS: ENOXAPARIN 40 MG/0.4 ML SYRINGE SUBCUT SCH (21:00)
[2016-11-21] MEDS: DILTIAZEM INJ 100 MG in SODIUM CHLORIDE 0.9% 100 ML IV SCH (22:15)
--- NOTE | 2016-11-21 22:33 | Cardiology Consult Note ---
Assessment and Plan (1) CHF exacerbation Status: Acute Current Visit: Yes (2) Cardiomyopathy Status: Chronic Current Visit: No (3) Obstructive sleep apnea Status: Chronic Current Visit: No (4) Overweight Status: Chronic Current Visit: No (5) CKD (chronic kidney disease) stage 3, GFR 30-59 ml/min Status: Chronic Current Visit: No (6) DM2 (diabetes mellitus, type 2) Status: Chronic Current Visit: No (7) Dyslipidemia Status: Chronic Current Visit: No (8) Hypertension Status: Chronic Current Visit: No (9) Tachycardia Status: Acute Current Visit: No (10) Mitral regurgitation Status: Chronic Current Visit: Yes History of Present Illness - Data of Consult Patient: known to practice within the last 3 years Consult date: 11/21/16 Requesting Physician: Jorge Alberto Swan - Consult Narrative Reason for consult: CHF History of present illness: Mr. Drummond is a 51 year old male who is usually followed by Dr. Mariano. He has a history of nonischemic cardiomyopathy that is secondary to hypertension and alcohol use. I do not have records of one the patient previously underwent cardiac catheterization but I am obtaining this information from a previous note by Dr. Mariano. Echocardiogram in August 2016 demonstrated ejection fraction 15-20% with moderate to severe mitral regurgitation and 4 chamber enlargement. He has had multiple admissions for congestive heart failure, and these always appear to be in the setting of medication noncompliance. He was discharged from the hospital 6 weeks ago with congestive heart failure. It is unclear how many of his medications he was actually taking at any point in time, but it seems that he was taking only his diuretics until he ran out. He has had progressive shortness of breath and bilateral lower extremity edema since his discharge. He denies chest pain. He has a chronic cough that has been occurring for over one year and is nonproductive. He denies fevers or chills. Impression and plan: 1. Congestive heart failure-this is acute on chronic secondary to hypertensive heart disease, systolic dysfunction, valvular heart disease, medication noncompliance and renal insufficiency. We will restart his medications. I have spent some time The Patient on the [place] Importance of Medication Compliance Given His Condition. 2. Medication noncompliance-I have stressed the importance of compliance. 3. Tachycardia-we will restart medications including beta blockers. I will also temporally put him on IV Cardizem to better control his rate. 4. Chronic renal insufficiency. CC: Renita Orozco MD - Home Medications and Allergies Home Medications: Home Medications Medication Instructions Recorded Confirmed Type Ascorbic Acid Tab [Vitamin C Tab] 1,000 mg PO BID #60 tablet 10/15/16 11/21/16 Rx Aspirin EC Tab 81 mg PO DAILY #30 tablet 10/15/16 11/21/16 Rx Carvedilol [Coreg] 12.5 mg PO BID #60 tablet 10/15/16 11/21/16 Rx Furosemide Tab [Lasix Tab] 40 mg PO BID DIURETIC #60 tablet 10/15/16 11/21/16 Rx Spironolactone [Aldactone] 12.5 mg PO DAILY #30 tablet 10/15/16 11/21/16 Rx hydrALAZINE TAB [Apresoline Tab] 10 mg PO TID #90 tablet 10/15/16 11/21/16 Rx Potassium Chloride 10 meq PO BID 11/21/16 11/21/16 History Allergies/Adverse Reactions: Allergies Allergy/AdvReac Type Severity Reaction Status Date / Time Shellfish Allergy SHORTNESS Verified 08/28/16 17:28 OF BREATH 12 point system: reviewed and no additional remarkable complaints except as stated Medical,Surgical,& Family Hx - Medical History Cardio: History of: Cardiac Dysrhythmia (sinus tach), CHF, CAD, Hypertension, Cardiovascular Problems ("Two blocked arteries per Dr Mariano") No history of: AR, Pacemaker Psychological: No history of: Anxiety Disorders, Bipolar Disorder, Depression HEENT: No history of: Dental Problems Endocrine: No history of: Diabetes Mellitus (IDDM) (states he was told last admission DM but nothing follow up with), Diabetes Mellitus (NIDDM) Rheumatology: History of;: Gout Respiratory: History of: Asthma, Bronchitis, Obstructive Sleep Apnea No history of: Pulmonary Embolism, Pneumonia Renal: History of: Renal Failure ([place]), Renal Problems No history of: Renal (Kidney) Cancer Genitourinary: No history of: Bladder Problem, Kidney Stones Gastrointestinal: History of: GERD (recent just started having trouble with reflux) No history of: Hemorrhoids, Liver Problems Musculoskeletal: History of: Musculoskeletal Problems (Right Knee Surg) No history of: Amputation, Back/Neck Problems, Osteoporosis Hematology: No history of: Anemia, Blood Transfusion Reaction, Sickle Cell Disease, Blood Disorders Other: No history of: Anesthesia Reactions, HIV, MRSA, Skin Problems - Surgical History Cardiac Surgeries: Patient Denies: Cardiac Catheterization, Cardiac Surgery Thoracic Surgeries: Patient denies;: Organ Transplant, Lobectomy Neurologic Surgeries: Patient denies: Neurologic Surgery HEENT Surgeries: Patient denies: Tonsilectomy & Adenoidectomy Abdominal Surgeries: Surgical HX of: Colonoscopy Patient denies: Abdominal Surgery, Appendectomy, Splenectomy Orthopedic Surgeries: Surgical HX of;: Orthopedic Surgery (Knee surgery) Patient denies;: Total Knee Replacement - Family History Family History: Reports;: Family Cancer (mom, type unknown), Family Heart Disease, Family Hypertension Comment Only: Additional Family History (mom has chf,) - Social History Smoking Status: Former smoker Frequency of Alcohol Use: None Type of Drug Use: None Functional capacity: independent ambulation Physical Examination Vital Signs Temp Pulse Resp BP Pulse Ox 96.8 F L 118 H 24 105/83 96 11/21/16 12:22 11/21/16 12:22 11/21/16 12:22 11/21/16 12:22 11/21/16 12:22 Other: General appearance: Obese, no acute distress - Head Head exam: Present: normal inspection, normocephalic, atraumatic. Absent: hematoma, laceration - Eye Eye exam: Present: EOMI. Absent: conjunctival injection, nystagmus, periorbital swelling, scleral icterus, laceration to eyelids Pupils: Absent: constricted, dilated, fixed, irregular, unequal - ENT ENT exam: Present: normal exam, normal external ear exam - Neck Neck exam: Present: Jugular venous distention. Absent: lymphadenopathy, meningismus, tenderness, thyromegaly - Respiratory Respiratory exam: Present: Crackles in the bilateral bases. Absent: accessory muscle use, chest wall tenderness - Cardiovascular Cardiovascular exam: Present: Tachycardic rate rate and regular rhythm. Absent : carotid bruit, gallop, rubs - GI/Abdominal GI/Abdominal exam: Present: normal bowel sounds, soft. Absent: distended, firm , guarding, hernia, mass, tenderness, rebound. - Extremities Exam Extremities exam: Present: 3+ edema. Absent: calf tenderness - Back Exam Back exam: Present: normal inspection. Absent: muscle spasm, vertebral tenderness - Neurological Exam Neurological exam: Present: alert, oriented X3, grossly intact without resting or intention tremor - Psychiatric Psychiatric exam: Present: normal affect, normal mood - Skin Skin exam: Present: normal color, warm, dry, intact. Absent: cyanosis, diaphoretic, rash, urticaria Result/EKG - Labs CBC & BMP: 11/21/16 12:42 11/21/16 12:42 Lab Results: I have reviewed the past 24 hour labs Labs: Laboratory Results - last 24 hr 11/21/16 19:29 Total Creatine Kinase 52 CK-MB (CK-2) < 1.0 Troponin I 0.373 H - EKG EKG results: interpreted by me, sinus rhythm (sinus tachycardia with premature ventricular contractions, nonspecific ST and T-wave changes, left ventricular hypertrophy)
[2016-11-21 23:02] LABS: Troponin I Only 0.364 NG/ML (0.00-0.045)
[2016-11-22 01:50] LABS: Basophils % 0.5 % (0.0-0.8); Eosinophils # 0.1 10*3/uL (0.0-0.87); Eosinophils % 1.2 % (0.00-10.9); Hematocrit 35.8 VOL% (42.0-52.0); Hemoglobin 11.5 GM/DL (14.0-18.0); Immature Granulocytes % 0.7 %; Immature Granulocytes Absolute 0.05 #; Lymphocytes # 1.7 10*3/uL (1.4-4.0); Lymphocytes % 22.8 % (21.2-54.2); Mean Corpuscular HGB Conc 32.1 GM/DL (32-36); Mean Corpuscular Hemoglobin 21 PG (27-34); Mean Corpuscular Volume 65.6 FL (87-102); Monocytes # 0.5 10*3/uL (0.11-0.8); Monocytes % 7.3 % (1.7-12.7); NRBC # 0.04 10*3/uL; Neutrophils % 67.5 % (38.7-73.9); Platelet Count 246 T/CUMM (130-400); Red Blood Count 5.46 MC/CUMM (3.8-5.5); Red Cell Distribution Width 21.2 % (9.3-17.3); White Blood Count 7.4 T/CUMM (4-12)
[2016-11-22 02:24] LABS: Calcium 8.8 MG/DL (8.5-10.1); Osmolality,Calculated 287.5 MOS/KG (273-304)
[2016-11-22 02:38] LABS: Troponin I Only 0.333 NG/ML (0.00-0.045)
[2016-11-22 03:44] LABS: Burr Cells 1+; Elliptocytes Few; Platelet Estimate Normal; Target Cells 1+
--- NOTE | 2016-11-22 07:40 | EKG Report ---
Stationary ECG Study [facility] Test Date: 11/22/2016 7:39:43 AM Pat Name: CARITO TOMAS Department: Room: 124 Gender: M [employer]: : 1965 Requested by: Jorge Alberto Swan Order Number: [id number] Reading MD: RULA PARIS Intervals [place] Rate: 94 P: 59 OK: 136 QRS: 3 QRSD: 126 T: 197 QT: 451 QTc: 502 Interpretive Statements SINUS RHYTHM MODERATE INTRAVENTRICULAR CONDUCTION DELAY ST DEVIATION AND MODERATE T-WAVE ABNORMALITY, CONSIDER LATERAL ISCHEMIA ST DEVIATION AND MODERATE T-WAVE ABNORMALITY, CONSIDER INFERIOR ISCHEMIA Electronically Signed On 11-22-16 21:52:30 [employer]ACHINE by RULA PARIS [email or web address]
[2016-11-22] MEDS: PANTOPRAZOLE 40 MG TABLET PO SCH (09:37)
[2016-11-22] MEDS: ASPIRIN CHEW 81 MG TABLET PO SCH (09:41)
[2016-11-22] MEDS: CARVEDILOL 3.125 MG TABLET PO SCH ×2 (09:41→21:32)
[2016-11-22] MEDS: FUROSEMIDE 40 MG/4 ML VIAL IV SCH ×2 (09:42→17:32)
--- NOTE | 2016-11-22 09:53 | Cardiology Progress Note ---
Assessment and Plan (1) CHF exacerbation Status: Acute Current Visit: Yes (2) Cardiomyopathy Status: Chronic Current Visit: No (3) Obstructive sleep apnea Status: Chronic Current Visit: No (4) Overweight Status: Chronic Current Visit: No (5) CKD (chronic kidney disease) stage 3, GFR 30-59 ml/min Status: Chronic Current Visit: No (6) DM2 (diabetes mellitus, type 2) Status: Chronic Current Visit: No (7) Dyslipidemia Status: Chronic Current Visit: No (8) Hypertension Status: Chronic Current Visit: No (9) Tachycardia Status: Acute Current Visit: No (10) Mitral regurgitation Status: Chronic Current Visit: Yes (11) Abnormal thyroid function test Status: Acute Current Visit: Yes Cardiology - PN: Subj Interval history: PMHX: Mr. Drummond is a 51 year old male who is usually followed by Dr. Mariano. He has a history of nonischemic cardiomyopathy that is secondary to hypertension and alcohol use. I do not have records of one the patient previously underwent cardiac catheterization but I am obtaining this information from a previous note by Dr. Mariano. Echocardiogram in August 2016 demonstrated ejection fraction 15-20% with moderate to severe mitral regurgitation and 4 chamber enlargement. Subjective: He was admitted to the hospital with shortness of breath, medication noncompliance. Clinically he feels improved today. He denies any chest pain and believes the shortness of breath is improved. He has no acute complaints. Impression and plan: 1. Congestive heart failure-this is acute on chronic secondary to hypertensive heart disease, systolic dysfunction, valvular heart disease, medication noncompliance and renal insufficiency. I have spent some time The Patient on the [place] Importance of Medication Compliance Given His Condition. 2. Medication noncompliance-I have stressed the importance of compliance. 3. Tachycardia-we will transition him from the IV Cardizem to increasing his oral beta niharika to see if this improves his tachycardia. We will also add digoxin. 4. Chronic renal insufficiency-stable. 5. Mitral regurgitation-chronic. 6. Abnormal thyroid function-defer to hospitalist management. Exam (Progress Note) - Constitutional Vitals: Period Temp Pulse Resp BP Sys/English Pulse Ox Last 24 Hr 97.2 F-97.9 F 91-124 11-24 84-139/50-98 92-100 Exam: General appearance: Obese, no acute distress - Head Head exam: Present: normal inspection, normocephalic, atraumatic. Absent: hematoma, laceration - Eye Eye exam: Present: EOMI. Absent: conjunctival injection, nystagmus, periorbital swelling, scleral icterus, laceration to eyelids Pupils: Present: RACHEAL. Absent: constricted, dilated, fixed, irregular, unequal - ENT ENT exam: Present: normal exam, normal external ear exam - Neck Neck exam: Present: Exam limited by habitus, overall normal inspection. Absent : lymphadenopathy, meningismus, tenderness, thyromegaly - Respiratory Respiratory exam: Present: Exam limited by habitus, overall clear to auscultation bilaterally. Absent: accessory muscle use, chest wall tenderness - Cardiovascular Cardiovascular exam: Present: Exam limited by habitus, tense in general distant but overall regular rate and rhythm. Absent: carotid bruit, gallop, JVD, rubs - GI/Abdominal GI/Abdominal exam: Present: Exam limited by habitus, overall normal bowel sounds. Absent: distended, firm, guarding, hernia, mass, tenderness, rebound, soft - Extremities Exam Extremities exam: Present: Mild bilateral lower extremity edema.. Absent: calf tenderness. - Back Exam Back exam: Present: normal inspection. Absent: muscle spasm, vertebral tenderness - Neurological Exam Neurological exam: Present: alert, oriented X3, grossly intact without resting or intention tremor - Psychiatric Psychiatric exam: Present: normal affect, normal mood - Skin Skin exam: Present: normal color, warm, dry, intact. Absent: cyanosis, diaphoretic, rash, urticaria Result/EKG - Labs CBC & BMP: 11/22/16 00:55 11/22/16 00:55 Lab Results: I have reviewed the past 24 hour labs Labs: Laboratory Results - last 24 hr 11/21/16 11/21/16 11/22/16 19:29 22:28 00:55 WBC RBC Hgb Hct MCV MCH MCHC RDW Plt Count Neut % (Auto) Lymph % (Auto) [place] % (Auto) Eos % (Auto) Baso % (Auto) Neut # (Auto) Lymph # (Auto) [place] # (Auto) Eos # (Auto) Baso # (Auto) Immature Gran % Nucleated RBC % Immature Gran # Nucleated RBCs # Platelet Estimate Anisocytosis Target Cells Mariano Cells Elliptocytes Sodium Potassium Chloride Carbon Dioxide Anion Gap BUN Creatinine GFR Calculation BUN/Creatinine Ratio Glucose Calculated Osmolality Calcium Magnesium Total Creatine Kinase 52 51 58 CK-MB (CK-2) < 1.0 < 1.0 < 1.0 Troponin I 0.373 H 0.364 H 0.333 H B-Natriuretic Peptide 11/22/16 11/22/16 11/22/16 00:55 00:55 00:55 WBC 7.4 RBC 5.46 Hgb 11.5 L Hct 35.8 L MCV 65.6 L MCH 21 L MCHC 32.1 RDW 21.2 H Plt Count 246 Neut % (Auto) 67.5 Lymph % (Auto) 22.8 [place] % (Auto) 7.3 Eos % (Auto) 1.2 Baso % (Auto) 0.5 Neut # (Auto) 5.0 Lymph # (Auto) 1.7 [place] # (Auto) 0.5 Eos # (Auto) 0.1 Baso # (Auto) 0.0 Immature Gran % 0.7 Nucleated RBC % 0.5 Immature Gran # 0.05 Nucleated RBCs # 0.04 Platelet Estimate Normal Anisocytosis Target Cells 1+ Mariano Cells 1+ Elliptocytes Few Sodium 139 Potassium 4.0 Chloride 101 Carbon Dioxide 20 L Anion Gap 22.0 H BUN 42 H Creatinine 2.10 H GFR Calculation 49 BUN/Creatinine Ratio 20.00 Glucose 90 Calculated Osmolality 287.5 Calcium 8.8 Magnesium Total Creatine Kinase CK-MB (CK-2) Troponin I B-Natriuretic Peptide 1934 H 11/22/16 00:55 WBC RBC Hgb Hct MCV MCH MCHC RDW Plt Count Neut % (Auto) Lymph % (Auto) [place] % (Auto) Eos % (Auto) Baso % (Auto) Neut # (Auto) Lymph # (Auto) [place] # (Auto) Eos # (Auto) Baso # (Auto) Immature Gran % Nucleated RBC % Immature Gran # Nucleated RBCs # Platelet Estimate Anisocytosis Target Cells Mariano Cells Elliptocytes Sodium Potassium Chloride Carbon Dioxide Anion Gap BUN Creatinine GFR Calculation BUN/Creatinine Ratio Glucose Calculated Osmolality Calcium Magnesium 1.9 Total Creatine Kinase CK-MB (CK-2) Troponin I B-Natriuretic Peptide
--- NOTE | 2016-11-22 12:00 | Hospitalist Progress Note ---
Assessment and Plan - Time spent with patient Time spent with patient: Greater than 30 minutes (1) CHF exacerbation Status: Acute Assessment and plan: Continue current management. History of severely reduced ejection fraction. Echocardiogram pending. Patient stable to transfer to telemetry. Current Visit: Yes (2) Hypothyroidism Status: Acute Assessment and plan: We'll initiate Synthroid. Current Visit: Yes (3) Coronary artery disease Status: Acute Assessment and plan: Cardiology is involved. Troponins appear to be plateaued. Continue medical management. Current Visit: No (4) Tachycardia Status: Acute Assessment and plan: Continue diltiazem drip. Current Visit: No (5) CKD (chronic kidney disease) stage 3, GFR 30-59 ml/min Status: Chronic Assessment and plan: Stable. Current Visit: No Hospitalist: Subjective Interval history: No complaints, he was admitted overnight for congestive heart failure exacerbation. Blood pressures have remained stable at around 90 systolic. Currently on a diltiazem drip for heart rate control. Exam - Constitutional Vitals: Period Temp Pulse Resp BP Sys/[place] Pulse Ox Last 24 Hr 97.2 F-97.9 F 91-124 11-28 84-139/50-98 92-100 General appearance: no acute distress - Head Head exam: Present: normocephalic, atraumatic - Eye Eye exam: Present: EOMI Pupils: Present: RACHEAL - ENT ENT exam: Present: normal exam - Neck Neck exam: Present: normal inspection - Respiratory Respiratory exam: Present: clear to auscultation bilaterally. Absent: rhonchi, wheezes - Cardiovascular Cardiovascular exam: Present: regular rate and rhythm. Absent: gallop, rubs, systolic murmur - GI/Abdominal GI/Abdominal exam: Present: normal bowel sounds, soft. Absent: distended, firm , guarding, tenderness, rebound - Extremities Exam Extremities exam: Present: edema (2+). Absent: calf tenderness Results - Labs CBC & BMP: 11/22/16 00:55 11/22/16 00:55 Lab Results: I have reviewed the past 24 hour labs
[2016-11-22] MEDS ORDERED: LEVOTHYROXINE 100 MCG VIAL IV ONE (12:05)
[2016-11-22] MEDS: DILTIAZEM INJ 100 MG in SODIUM CHLORIDE 0.9% 100 ML IV SCH (13:09)
[2016-11-22] MEDS: ENOXAPARIN 40 MG/0.4 ML SYRINGE SUBCUT SCH (21:38)
[2016-11-23 05:17] LABS: Basophils % 0.5 % (0.0-0.8); Eosinophils # 0.1 10*3/uL (0.0-0.87); Eosinophils % 1.4 % (0.00-10.9); Hematocrit 35.1 VOL% (42.0-52.0); Hemoglobin 11.4 GM/DL (14.0-18.0); Immature Granulocytes % 0.4 %; Immature Granulocytes Absolute 0.03 #; Lymphocytes # 1.8 10*3/uL (1.4-4.0); Lymphocytes % 23.4 % (21.2-54.2); Mean Corpuscular HGB Conc 32.5 GM/DL (32-36); Mean Corpuscular Hemoglobin 21 PG (27-34); Mean Corpuscular Volume 63.9 FL (87-102); Monocytes # 0.4 10*3/uL (0.11-0.8); Monocytes % 5.8 % (1.7-12.7); NRBC # 0.02 10*3/uL; Neutrophils # 5.2 10*3/uL (1.4-7.4); Neutrophils % 68.5 % (38.7-73.9); Platelet Count 278 T/CUMM (130-400); Red Blood Count 5.49 MC/CUMM (3.8-5.5); Red Cell Distribution Width 21.4 % (9.3-17.3); White Blood Count 7.6 T/CUMM (4-12)
[2016-11-23 05:49] LABS: Calcium 8.6 MG/DL (8.5-10.1); Osmolality,Calculated 287.7 MOS/KG (273-304); Potassium 3.9 MMOL/L (3.5-5.1)
[2016-11-23 05:57] LABS: Burr Cells Slight; Elliptocytes Few; Hypochromasia Slight; Platelet Estimate Adequate; Target Cells Few
[2016-11-23] MEDS: LEVOTHYROXINE 50 MCG TABLET PO SCH (06:36)
[2016-11-23] MEDS: FUROSEMIDE 40 MG/4 ML VIAL IV SCH (08:15)
[2016-11-23] MEDS: ASPIRIN CHEW 81 MG TABLET PO SCH (09:42)
[2016-11-23] MEDS: CARVEDILOL 3.125 MG TABLET PO SCH ×2 (09:42→20:26)
[2016-11-23] MEDS: PANTOPRAZOLE 40 MG TABLET PO SCH (09:42)
--- NOTE | 2016-11-23 11:25 | Physician Query Form ---
CLICK EDIT DOCUMENT TO SELECT QUERY ANSWER --> OK --> SIGN Melany Sosa RN Clinical Java Systems Analyst W) [phone] (f) [phone] [email or web address]: Make your selection(s) from the choices in EACH section by typing an "x" and enter comments in the comment section. Please use your independent medical judgment in providing your response. This request does not imply that any particular answer is desired or expected. CLINICAL INDICATORS: (Providers should not edit this section) Pt. admitted with CHF and diuresed with IV Lasix. Creatinine on admission of 2.00 and increased to 2.80 with a GFR of 35. Pt. has documented CKD stage 2. Clarify which of the following most accurately represents the patient's renal status: ( ) Acute kidney injury (non-traumatic) ( ) Acute renal failure ( ) Acute renal failure with underlying Chronic Kidney Disease (CKD) - please provide stage below (x ) CKD - please provide stage below ( ) Other, please specify: ( ) Clinically unable to determine Chronic Kidney Disease Stages Source: National Kidney Disease Foundation ( ) Stage I (eGFR > or = 90) ( ) Stage II (eGFR 60 - 89) (x ) Stage III (eGFR 30 - 59) ( ) Stage IV (eGFR 15 - 29) ( ) Stage V (eGFR < 15 or dialysis) COMMENTS: Use of terms such as suspected, likely, or probable (associated with a specific diagnosis that is being evaluated, monitored, or treated as if it exists) are acceptable and can be restated in the discharge summary if not ruled out. MTDD
--- NOTE | 2016-11-23 14:20 | Cardiology Progress Note ---
I, Libby Figueroa RN, am scribing for, and in the presence of, Regino Loaiza MD 14:20. Assessment and Plan (1) CHF exacerbation Status: Acute Assessment and plan: This is acute on chronic secondary to hypertensive heart disease, systolic dysfunction, valvular heart disease, medication noncompliance and renal insufficiency. He is having worsening abdominal girth issues and poor urine output and were going to go up on his Lasix and reviewed with him per kilo. His EKG looks a little concerning for an atrial tachycardia and we will observe this for now. Also consist this may be a tachycardia and is compensatory related to his severe LV dysfunction I have discussed in detail the particulars of this case and I have examined the patient and reviewed the patient's chart both current and old. I was directly involved in this patient's evaluation and management I completely agree with Libby Figueroa regarding this patient's evaluation and treatment plan Current Visit: Yes (2) Elevated troponin Status: Chronic Assessment and plan: Troponin has been bumped this admission. However, after reviewing past records it seems patient has a chronically elevated troponin. This is most likely secondary to patient's heart failure. Current Visit: Yes (3) Tachycardia Status: Acute Assessment and plan: This is mildly controlled. Patient is no longer requiring IV diltiazem. May consider increasing beta niharika for better rate control. Current Visit: No (4) Nonischemic cardiomyopathy Status: Chronic Assessment and plan: Most recent EF is noted to be 15-20%. Current Visit: Yes (5) Abnormal thyroid function test Status: Acute Assessment and plan: Defer to hospitalist management. Current Visit: Yes (6) Mitral regurgitation Status: Chronic Current Visit: Yes (7) DM2 (diabetes mellitus, type 2) Status: Chronic Assessment and plan: Continue current plan of care. Current Visit: No (8) Dyslipidemia Status: Chronic Assessment and plan: Continue current plan of care. Current Visit: No (9) Hypertension Status: Chronic Assessment and plan: This is currently well controlled. Will continue current plan of care. Current Visit: No (10) Obstructive sleep apnea Status: Chronic Current Visit: No (11) Overweight Status: Chronic Assessment and plan: Counseled patient on the importance of weight loss. Current Visit: No (12) Noncompliance with medication regimen Status: Acute Assessment and plan: I have stressed the importance of medication compliance. Current Visit: Yes (13) Chronic renal insufficiency Status: Chronic Assessment and plan: Creatinine today is 2.8, this seems to be patient's baseline. Current Visit: Yes Cardiology - PN: Subj Interval history: Mr. Drummond is a 51 year old male who is usually followed by Dr. Mariano. He has a history of nonischemic cardiomyopathy that is secondary to hypertension and alcohol use. Echocardiogram in August 2016 demonstrated ejection fraction 15- 20% with moderate to severe mitral regurgitation and 4 chamber enlargement. He was admitted to the hospital with shortness of breath, medication noncompliance. He is being diuresed with Lasix 40 mg IV twice daily. Creatinine today is noted to be 2.8, this seems to be patient's baseline. He is up one pound from yesterday. He remains mildly tachycardic with heart rate of 106. He is no longer requiring IV diltiazem. May consider increasing beta niharika for better rate control. He complains today of abdominal distention and fullness. On exam, his abdomen is distended but is not tender with palpitation. He reports that he last had a BM this morning. He denies abdominal pain. However , he reports that this distention is contributing to his shortness of breath. His vital signs are stable today. BNP yesterday was 1934. Troponin has been bumped this admission. However, patient seems to have a chronically elevated troponin. Exam (Progress Note) - Constitutional Vitals: Period Temp Pulse Resp BP Sys/English Pulse Ox Last 24 Hr 96.7 F-98 F 90-105 18-20 91-111/50-72 94-100 General appearance: no acute distress, over weight - Head Head exam: Present: normal inspection, normocephalic, atraumatic - Respiratory Respiratory exam: Present: clear to auscultation bilaterally. Absent: accessory muscle use, chest wall tenderness, rales, rhonchi, stridor, wheezes - Cardiovascular Cardiovascular exam: Present: systolic murmur, tachycardia, other (Regular rhythm). Absent: gallop, rubs - GI/Abdominal GI/Abdominal exam: Present: normal bowel sounds, distended, firm. Absent: tenderness - Extremities Exam Extremities exam: Present: normal capillary refill, edema (2+ bilateral lower extremity edema). Absent: calf tenderness - Neurological Exam Neurological exam: Present: alert, oriented X3, normal gait - Skin Skin exam: Present: normal color, warm, dry Result/EKG - Labs CBC & BMP: 11/23/16 04:54 11/23/16 04:54 Lab Results: I have reviewed the past 24 hour labs Labs: Laboratory Results - last 24 hr 11/23/16 11/23/16 04:54 04:54 WBC 7.6 RBC 5.49 Hgb 11.4 L Hct 35.1 L MCV 63.9 L MCH 21 L MCHC 32.5 RDW 21.4 H Plt Count 278 Neut % (Auto) 68.5 Lymph % (Auto) 23.4 [place] % (Auto) 5.8 Eos % (Auto) 1.4 Baso % (Auto) 0.5 Neut # (Auto) 5.2 Lymph # (Auto) 1.8 [place] # (Auto) 0.4 Eos # (Auto) 0.1 Baso # (Auto) 0.0 Immature Gran % 0.4 Nucleated RBC % 0.3 Immature Gran # 0.03 Nucleated RBCs # 0.02 Platelet Estimate Adequate Hypochromasia Slight Target Cells Few Mariano Cells Slight Elliptocytes Few Morphology Comment Sodium 138 Potassium 3.9 Chloride 98 Carbon Dioxide 22 Anion Gap 21.9 H BUN 53 H Creatinine 2.80 H GFR Calculation 35 BUN/Creatinine Ratio 18.00 Glucose 88 Calculated Osmolality 287.7 Calcium 8.6 - EKG EKG results: interpreted by me, sinus rhythm I, Regino Loaiza MD, personally performed the services described in this documentation, ascribed by Libby Figueroa RN in my presence, and it is both accurate and complete 420 .
[2016-11-23] MEDS ORDERED: ONDANSETRON 4 MG/2 ML VIAL IV PRN (14:28)
[2016-11-23] MEDS ORDERED: ALUMINUM/MAGNES/SIMETH MAX STR 30 ML UDCUP PO PRN (14:28)
[2016-11-23] MEDS ORDERED: DOBUTamine 500 MG/250 ML PREMIX IV SCH (14:30)
[2016-11-23] MEDS: DOBUTamine 500 MG/250 ML PREMIX IV SCH (14:38)
--- NOTE | 2016-11-23 14:57 | EKG Report ---
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
--- NOTE | 2016-11-23 15:35 | Gastrointestinal Consult Note ---
<Krystal Dillon - Last Filed: 11/23/16 15:30> Assessment and Plan (1) Abdominal distension Status: Acute Assessment and plan: 11/23-Several month history of abd distention, discomfort with associated SOB. Hx of CHF, CAD. Long standing hx of alcohol use with recent abstinence in last 6 months. Check abd US in morning, hepatitis panel, LFT. Plan and addendum to follow by DR Hidalgo. Current Visit: Yes History of Present Illness Chief complaint: Abd pain, distention History of present illness: Mr. Drummond is a 51 year old male who was admitted to the hospital with onset of SOB and edema. Pt states that he has a history of CHF and CAD. He was discharged from our facility 6 weeks ago with exacerbation of this. Pt is a fair historian therefore information also obtained from chart review. Pt states that over the last several months he has had ongoing problems with abdominal distention and increasing SOB. He states that his abdomen stays swollen most of the time however at times it will go down some on its own. When his abdomen swells, it increases his SOB. He states that he has never had a problem with this until recently. He denies any weight loss, fever or chills. Denies any pain , nausea or vomiting. States that he has a significant alcohol history with drinking a case of beer every day since he was 18 years old and only recently in the last 6 months stopped drinking. He also smokes THC regular but denies any other drug use. Pt states that he has had no melena or hematochezia. States his bowels move regular as well. He is noted to have EF of 20% on his last admission. He has a noted history of CKD as well.His bilirubin was elevated on admission at 3.9 with AST 22, ALT 20, alk phos 170. His troponins have remains elevated since admission with slight trend downward and BNP 1934. Takes Lasix and Aldactone at home with report noted of questionable med compliance at home with diuretic therapy. Home Medications Medication Instructions Recorded Confirmed Type Ascorbic Acid Tab [Vitamin C Tab] 1,000 mg PO BID #60 tablet 10/15/16 11/21/16 Rx Aspirin EC Tab 81 mg PO DAILY #30 tablet 10/15/16 11/21/16 Rx Carvedilol [Coreg] 12.5 mg PO BID #60 tablet 10/15/16 11/21/16 Rx Furosemide Tab [Lasix Tab] 40 mg PO BID DIURETIC #60 tablet 10/15/16 11/21/16 Rx Spironolactone [Aldactone] 12.5 mg PO DAILY #30 tablet 10/15/16 11/21/16 Rx hydrALAZINE TAB [Apresoline Tab] 10 mg PO TID #90 tablet 10/15/16 11/21/16 Rx Potassium Chloride 10 meq PO BID 11/21/16 11/21/16 History Allergies Allergy/AdvReac Type Severity Reaction Status Date / Time Shellfish Allergy SHORTNESS Verified 08/28/16 17:28 OF BREATH Medical,Surgical,& Family Hx - Medical History Cardio: History of: Cardiac Dysrhythmia (sinus tach), CHF, CAD, Hypertension, Cardiovascular Problems ("Two blocked arteries per Dr Mariano") No history of: AK, Pacemaker Psychological: No history of: Anxiety Disorders, Bipolar Disorder, Depression HEENT: No history of: Dental Problems Endocrine: No history of: Diabetes Mellitus (IDDM) (states he was told last admission DM but nothing follow up with), Diabetes Mellitus (NIDDM) Rheumatology: History of;: Gout Respiratory: History of: Asthma, Bronchitis, Obstructive Sleep Apnea No history of: Pulmonary Embolism, Pneumonia Renal: History of: Renal Failure (RI), Renal Problems No history of: Renal (Kidney) Cancer Genitourinary: No history of: Bladder Problem, Kidney Stones Gastrointestinal: History of: GERD (recent just started having trouble with reflux) No history of: Hemorrhoids, Liver Problems Musculoskeletal: History of: Musculoskeletal Problems (Right Knee Surg) No history of: Amputation, Back/Neck Problems, Osteoporosis Hematology: No history of: Anemia, Blood Transfusion Reaction, Sickle Cell Disease, Blood Disorders Other: No history of: Anesthesia Reactions, HIV, MRSA, Skin Problems - Surgical History Cardiac Surgeries: Patient Denies: Cardiac Catheterization, Cardiac Surgery Thoracic Surgeries: Patient denies;: Organ Transplant, Lobectomy Neurologic Surgeries: Patient denies: Neurologic Surgery HEENT Surgeries: Patient denies: Tonsilectomy & Adenoidectomy Abdominal Surgeries: Surgical HX of: Colonoscopy Patient denies: Abdominal Surgery, Appendectomy, Splenectomy Orthopedic Surgeries: Surgical HX of;: Orthopedic Surgery (Knee surgery) Patient denies;: Total Knee Replacement - Family History Family History: Reports;: Family Cancer (mom, type unknown), Family Heart Disease, Family Hypertension Comment Only: Additional Family History (mom has chf,) - Social History Smoking Status: Former smoker Frequency of Alcohol Use: None Type of Drug Use: None 12 point system: reviewed and no additional remarkable complaints except as stated - Constitutional Constitutional: Present: as per HPI - EENT Eyes: Present: as per HPI Ears: Present: as per HPI Nose, mouth and throat: Present: as per HPI - Cardiovascular Cardiovascular: Present: as per HPI, dyspnea - Respiratory Respiratory: Present: as per HPI - Gastrointestinal Gastrointestinal: Present: as per HPI, bloating - Genitourinary Genitourinary: Present: as per HPI - Musculoskeletal Musculoskeletal: Present: as per HPI - Neurological Neurological: Present: as per HPI - Psychiatric Psychiatric: Present: as per HPI - Endocrine Endocrine: Present: as per HPI - Hematologic/Lymphatic Hematologic/Lymphatic: Present: as per HPI Exam - Constitutional Vitals: Period Temp Pulse Resp BP Sys/English Pulse Ox Last 24 Hr 97 F-98 F 90-105 18-20 95-111/58-72 94-100 General appearance: normal weight, no acute distress - Head Head exam: Present: normal inspection, normocephalic - Eye Eye exam: Present: other (lids and conjunctiva unremarkable). Absent: scleral icterus - ENT ENT exam: Present: normal exam, normal oropharynx - Neck Neck exam: Present: normal inspection - Respiratory Respiratory exam: Present: clear to auscultation bilaterally. Absent: rales, rhonchi, wheezes - Cardiovascular Cardiovascular exam: Present: regular rate and rhythm. Absent: diastolic murmur , JVD, systolic murmur - GI/Abdominal GI/Abdominal exam: Present: normal bowel sounds, ascites, distended, soft. Absent: mass, organomegaly, tenderness - Extremities Exam Extremities exam: Present: normal inspection, full ROM - Back Exam Back exam: Present: normal inspection - Neurological Exam Neurological exam: Present: alert, oriented X3 - Psychiatric Psychiatric exam: Present: normal affect, normal mood - Skin Skin exam: Present: normal color, warm, dry Results - Labs CBC & BMP: 11/23/16 04:54 11/23/16 04:54 Lab Results: I have reviewed the past 24 hour labs <Yoni Hidalgo - Last Filed: 11/23/16 17:24> History of Present Illness History of present illness: Mr. Drummond is a 51 year old male Exam - Constitutional Vitals: Period Temp Pulse Resp BP Sys/English Pulse Ox Last 24 Hr 96.9 F-98 F 90-105 18-20 95-111/58-72 94-100 Results - Labs CBC & BMP: 11/23/16 04:54 11/23/16 04:54
[2016-11-23] MEDS ORDERED: FUROSEMIDE 40 MG/4 ML VIAL IV SCH (16:00)
[2016-11-23 17:01] LABS: Hepatitis A Ab IgM Quant 0.11 Index; Hepatitis A Ab IgM Result Negative (Negative); Hepatitis B Core IgM Quant 0.31 Index; Hepatitis B Core IgM Result Negative (Negative); Hepatitis B Surface Ag Quant < 0.10 Index; Hepatitis B Surface Ag Result Negative (Negative); Hepatitis C Virus Ab Quant 0.17 Index; Hepatitis C Virus Ab Result Negative (Negative)
--- NOTE | 2016-11-23 17:51 | Hospitalist Progress Note ---
Assessment and Plan - Time spent with patient Time spent with patient: Greater than 30 minutes (1) CHF exacerbation Status: Acute Assessment and plan: Continue management as per cardiology. Current Visit: Yes (2) Hypothyroidism Status: Acute Assessment and plan: We'll initiate Synthroid. Current Visit: Yes (3) Coronary artery disease Status: Acute Assessment and plan: Cardiology is involved. Troponins appear to be plateaued. Continue medical management. Current Visit: No (4) Tachycardia Status: Acute Assessment and plan: Continue diltiazem drip. Current Visit: No (5) CKD (chronic kidney disease) stage 3, GFR 30-59 ml/min Status: Chronic Assessment and plan: Stable. Current Visit: No (6) Abdominal distension Status: Acute Assessment and plan: Gastroenterology involved for evaluation of gastric distention. This is concerning for congestive hepatopathy with ascites. Current Visit: Yes Hospitalist: Subjective Interval history: No complaints, no overnight events. Exam - Constitutional Vitals: Period Temp Pulse Resp BP Sys/English Pulse Ox Last 24 Hr 96.9 F-98 F 90-105 18-20 95-111/58-72 94-100 General appearance: no acute distress - Head Head exam: Present: normocephalic, atraumatic - Eye Eye exam: Present: EOMI Pupils: Present: RACHEAL - ENT ENT exam: Present: normal exam - Neck Neck exam: Present: normal inspection - Respiratory Respiratory exam: Present: clear to auscultation bilaterally. Absent: rhonchi, wheezes - Cardiovascular Cardiovascular exam: Present: regular rate and rhythm. Absent: gallop, rubs, systolic murmur - GI/Abdominal GI/Abdominal exam: Present: normal bowel sounds, soft. Absent: distended, firm , guarding, tenderness, rebound - Extremities Exam Extremities exam: Present: edema. Absent: calf tenderness Results - Labs CBC & BMP: 11/23/16 04:54 11/23/16 04:54 Lab Results: I have reviewed the past 24 hour labs
[2016-11-23] MEDS: DILTIAZEM INJ 100 MG in SODIUM CHLORIDE 0.9% 100 ML IV SCH ×2 (19:07→21:01)
[2016-11-23] MEDS: ENOXAPARIN 40 MG/0.4 ML SYRINGE SUBCUT SCH (20:26)
[2016-11-24] MEDS: DOBUTamine 500 MG/250 ML PREMIX IV SCH ×2 (01:53→13:13)
[2016-11-24 04:59] LABS: Basophils % 0.5 % (0.0-0.8); Eosinophils # 0.2 10*3/uL (0.0-0.87); Eosinophils % 2.3 % (0.00-10.9); Hematocrit 33.1 VOL% (42.0-52.0); Hemoglobin 10.9 GM/DL (14.0-18.0); Immature Granulocytes % 0.3 %; Immature Granulocytes Absolute 0.02 #; Lymphocytes # 1.6 10*3/uL (1.4-4.0); Mean Corpuscular HGB Conc 32.9 GM/DL (32-36); Mean Corpuscular Hemoglobin 21 PG (27-34); Monocytes # 0.5 10*3/uL (0.11-0.8); Monocytes % 7.2 % (1.7-12.7); Neutrophils # 4.3 10*3/uL (1.4-7.4); Neutrophils % 64.7 % (38.7-73.9); Platelet Count 201 T/CUMM (130-400); Red Blood Count 5.17 MC/CUMM (3.8-5.5); Red Cell Distribution Width 20.9 % (9.3-17.3); White Blood Count 6.6 T/CUMM (4-12)
[2016-11-24 05:22] LABS: Elliptocytes Few; Hypochromasia Slight; Platelet Estimate Normal; Schistocytes Few; Target Cells 1+
[2016-11-24 05:23] LABS: Burr Cells Few
[2016-11-24 05:45] LABS: Calcium 8.6 MG/DL (8.5-10.1); Osmolality,Calculated 292.5 MOS/KG (273-304); Potassium 3.5 MMOL/L (3.5-5.1)
[2016-11-24 05:48] LABS: Albumin 2.3 G/DL (3.4-5.0); Bilirubin,Direct 1.5 MG/DL (0.0-0.20); Bilirubin,Indirect 0.9 MG/DL (0.0-1.0); Bilirubin,Total 2.4 MG/DL (0.2-1.0); Total Protein 6.2 G/DL (6.4-8.3)
[2016-11-24] MEDS: LEVOTHYROXINE 50 MCG TABLET PO SCH (06:01)
--- NOTE | 2016-11-24 07:28 | EKG Report ---
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
[2016-11-24] MEDS ORDERED: FUROSEMIDE 40 MG TABLET PO SCH (08:00)
--- NOTE | 2016-11-24 08:00 | Ultrasound Report ---
Exam: US abdomen Date:11/24/2016 643 AM Indication: Abdominal distention and ascites Comparison: 03/04/2010 Findings: Liver: 16 cm. There is an 11 x 13 x 12 mm cyst in the left hepatic lobe. The liver is slightly shrunken in appearance with increased echogenicity. The hepatic and portal veins appear patent Gallbladder: Normal size and configuration without stones CBD: 5 mm Pancreas: Visualized portion is unremarkable. Incompletely evaluated Kidneys Right kidney: 8.5 x 3.6 x 4 cm. No hydronephrosis perinephric fluid collections or focal mass Left kidney: 9.3 x 5.2 x 5.4 cm. No hydronephrosis or perinephric fluid collections or focal mass Aorta IVC: No obvious aneurysm. IVC is patent Spleen: 9.7 x 3.7 x 3.4 cm. No focal abnormalities. Ascites present in all 4 quadrants with small right pleural effusion Impression: 1. Ascites present. 2. Cirrhosis with simple appearing cyst in the left hepatic lobe. If further evaluation is warranted 3 phase liver evaluation with CT imaging may be beneficial and correlated lab values 3. Right base pleural effusion . Ultrasound images were stored and captured The Ultrasound images were captured and stored. PROCEDURE INTERPRETED AT [facility] DEPARTMENT OF RADIOLOGY Final Report Signed by: Dr. Venu Kulkarni
[2016-11-24] MEDS: FUROSEMIDE 40 MG/4 ML VIAL IV SCH ×2 (08:40→18:10)
[2016-11-24] MEDS: PANTOPRAZOLE 40 MG TABLET PO SCH (08:46)
[2016-11-24] MEDS: CARVEDILOL 3.125 MG TABLET PO SCH ×2 (08:46→20:23)
[2016-11-24] MEDS: ASPIRIN CHEW 81 MG TABLET PO SCH (08:46)
--- NOTE | 2016-11-24 09:23 | Gastrointestinal Progress Note ---
<So Dillonher Coy - Last Filed: 11/24/16 09:20> Assessment and Plan (1) Abdominal distension Status: Acute Assessment and plan: 11/24-Continued abd distention. US results noted. Consult IR for paracentesis with albumin and cell count. Plan and addendum to follow by DR Irizarry. 11/23-Several month history of abd distention, discomfort with associated SOB. Hx of CHF, CAD. Long standing hx of alcohol use with recent abstinence in last 6 months. Check abd US in morning, hepatitis panel, LFT. Plan and addendum to follow by DR Hidalgo. Current Visit: Yes Gastroenterology - PN: Subj Interval history: CC: Ascites Pt is seen sitting up in chair, awake and alert. States he is feeling about the same at this time. He states he is having continued abdominal pain, distention. He had abd US this morning and noted to have ascites and cirrhosis with simple appearing cyst in the left hepatic lobe. He complains of continued SOB and discomfort. Will consult IR for paracentesis today. Abdomen is distended, mild tenderness. Creatnine 2.7, rising at present time. Weight essentially unchanged. ROS: Denies SOB other than from abd distention, no acute distress Exam (Progress Note) - Constitutional Vitals: Period Temp Pulse Resp BP Sys/English Pulse Ox Last 24 Hr 96.9 F-98 F 92-105 20-22 100-149/67-76 98-100 General appearance: normal weight, no acute distress - Head Head exam: Present: normal inspection, normocephalic - Eye Eye exam: Present: other (lids and conjunctiva unremarkable). Absent: scleral icterus - ENT ENT exam: Present: normal exam, normal oropharynx - Neck Neck exam: Present: normal inspection - Respiratory Respiratory exam: Present: clear to auscultation bilaterally. Absent: rales, rhonchi, wheezes - Cardiovascular Cardiovascular exam: Present: regular rate and rhythm. Absent: diastolic murmur , JVD, systolic murmur - GI/Abdominal GI/Abdominal exam: Present: normal bowel sounds, ascites, distended, tenderness , soft. Absent: mass, organomegaly - Extremities Exam Extremities exam: Present: normal inspection, full ROM - Back Exam Back exam: Present: normal inspection - Neurological Exam Neurological exam: Present: alert, oriented X3 - Psychiatric Psychiatric exam: Present: normal affect, normal mood - Skin Skin exam: Present: normal color, warm, dry Results - Labs CBC & BMP: 11/24/16 04:32 11/24/16 04:32 Lab Results: I have reviewed the past 24 hour labs <Yoni Hidalgo - Last Filed: 11/24/16 22:14> Exam (Progress Note) - Constitutional Vitals: Period Temp Pulse Resp BP Sys/English Pulse Ox Last 24 Hr 96.3 F-97.2 F 88-97 18-22 97-121/62-83 98-100 Results - Labs CBC & BMP: 11/24/16 04:32 11/24/16 04:32
--- NOTE | 2016-11-24 13:55 | Cardiology Progress Note ---
I, Libby Figueroa RN, am scribing for, and in the presence of, Regino Loaiza MD 13:55. Assessment and Plan (1) CHF exacerbation Status: Acute Assessment and plan: This is acute on chronic secondary to hypertensive heart disease, systolic dysfunction, valvular heart disease, medication noncompliance and renal insufficiency. He was having worsening abdominal girth issues and poor urine output yesterday, Lasix was increased to 80 mg twice daily. He diuresing well with this and is clinically improved today. We will continue current plan of care with Lasix and dobutamine drip. 11/24/16: Patient reportedly is improved on intravenous dobutamine. He currently is down for a paracentesis. We will continue his currently otherwise. I have discussed in detail the particulars of this case and I have examined the patient and reviewed the patient's chart both current and old. I was directly involved in this patient's evaluation and management I completely agree with Libby Figueroa regarding this patient's evaluation and treatment plan Current Visit: Yes (2) Elevated troponin Status: Chronic Assessment and plan: Troponin has been bumped this admission. However, after reviewing past records it seems patient has a chronically elevated troponin. This is most likely secondary to patient's heart failure. Current Visit: Yes (3) Tachycardia Status: Acute Assessment and plan: EKG yesterday revealed sinus tachycardia. This is better controlled today. Heart rate ranging from 90-100. Current Visit: No (4) Nonischemic cardiomyopathy Status: Chronic Assessment and plan: Most recent EF is noted to be 15-20%. Current Visit: Yes (5) Abnormal thyroid function test Status: Acute Assessment and plan: Defer to hospitalist management. Current Visit: Yes (6) Mitral regurgitation Status: Chronic Current Visit: Yes (7) DM2 (diabetes mellitus, type 2) Status: Chronic Assessment and plan: Continue current plan of care. Current Visit: No (8) Dyslipidemia Status: Chronic Assessment and plan: Continue current plan of care. Current Visit: No (9) Hypertension Status: Chronic Assessment and plan: This is currently well controlled. Will continue current plan of care. Current Visit: No (10) Obstructive sleep apnea Status: Chronic Current Visit: No (11) Overweight Status: Chronic Assessment and plan: Counseled patient on the importance of weight loss. Current Visit: No (12) Noncompliance with medication regimen Status: Acute Assessment and plan: I have stressed the importance of medication compliance. Current Visit: Yes (13) Chronic renal insufficiency Status: Chronic Assessment and plan: Creatinine today is 2.7, this seems to be patient's baseline. Current Visit: Yes Cardiology - PN: Subj Interval history: Patient was seen on telemetry. He was sitting up on some of the bed giving himself a bath with no acute distress. He is clinically much better today. He reports that his abdominal distention has greatly improved and is no longer causing him to be short of breath. Dobutamine drip is currently infusing at 7.5 mcg/kg/min. He is being diuresed with 80 mg of Lasix IV twice daily, with good results. He has lost 1 pound overnight. GI was consulted yesterday and plans to do paracentesis with albumin and cell count this admission. Abdominal ultrasound was done yesterday and revealed ascites and cirrhosis with simple appearing cyst in the left hepatic lobe. Currently, he denies shortness of breath, chest pain and palpitations. Vital signs are stable. Heart rate is better controlled today. Creatinine is noted to be 2.7 today and potassium is 3.5. He has sinus rhythm with heart rates in the 90s without any overt arrhythmias noted. Exam (Progress Note) - Constitutional Vitals: Period Temp Pulse Resp BP Sys/English Pulse Ox Last 24 Hr 96.9 F-98 F 92-105 20-22 100-149/67-76 98-100 General appearance: no acute distress, over weight - Head Head exam: Present: normal inspection, normocephalic, atraumatic - Respiratory Respiratory exam: Present: rales (Bilateral lower lobes). Absent: accessory muscle use, chest wall tenderness, rhonchi, stridor, wheezes - Cardiovascular Cardiovascular exam: Present: regular rate and rhythm. Absent: gallop, rubs - GI/Abdominal GI/Abdominal exam: Present: ascites, distended, firm. Absent: tenderness - Extremities Exam Extremities exam: Present: normal capillary refill, edema (2+ bilateral lower extremity edema). Absent: calf tenderness - Neurological Exam Neurological exam: Present: alert, oriented X3, normal gait - Psychiatric Psychiatric exam: Present: normal affect, normal mood. Absent: agitated, anxious, depressed - Skin Skin exam: Present: normal color, warm, dry Result/EKG - Labs CBC & BMP: 11/24/16 04:32 11/24/16 04:32 Lab Results: I have reviewed the past 24 hour labs Labs: Laboratory Results - last 24 hr 11/23/16 11/24/16 11/24/16 04:54 04:32 04:32 WBC 6.6 RBC 5.17 Hgb 10.9 L Hct 33.1 L MCV 64.0 L MCH 21 L MCHC 32.9 RDW 20.9 H Plt Count 201 D Neut % (Auto) 64.7 Lymph % (Auto) 25.0 [place] % (Auto) 7.2 Eos % (Auto) 2.3 Baso % (Auto) 0.5 Neut # (Auto) 4.3 Lymph # (Auto) 1.6 [place] # (Auto) 0.5 Eos # (Auto) 0.2 Baso # (Auto) 0.0 Immature Gran % 0.3 Nucleated RBC % 0.0 Immature Gran # 0.02 Nucleated RBCs # 0.00 Platelet Estimate Normal Hypochromasia Slight Anisocytosis Target Cells 1+ [place] Cells Few Elliptocytes Few Schistocytes Few Sodium Potassium Chloride Carbon Dioxide Anion Gap BUN Creatinine GFR Calculation BUN/Creatinine Ratio Glucose Calculated Osmolality Calcium Total Bilirubin 2.40 H Direct Bilirubin 1.5 H Indirect Bilirubin 0.9 AST 24 ALT 19 Alkaline Phosphatase 147 H Total Protein 6.2 L Albumin 2.3 L Hepatitis A IgM Ab Negative Hep Bs Antigen Negative Hep B Core IgM Ab Negative Hepatitis C Antibody Negative 11/24/16 04:32 WBC RBC Hgb Hct MCV MCH MCHC RDW Plt Count Neut % (Auto) Lymph % (Auto) [place] % (Auto) Eos % (Auto) Baso % (Auto) Neut # (Auto) Lymph # (Auto) [place] # (Auto) Eos # (Auto) Baso # (Auto) Immature Gran % Nucleated RBC % Immature Gran # Nucleated RBCs # Platelet Estimate Hypochromasia Anisocytosis Target Cells [place] Cells Elliptocytes Schistocytes Sodium 139 Potassium 3.5 Chloride 98 Carbon Dioxide 25 Anion Gap 19.5 H BUN 56 H Creatinine 2.70 H GFR Calculation 37 BUN/Creatinine Ratio 20.00 Glucose 97 Calculated Osmolality 292.5 Calcium 8.6 Total Bilirubin Direct Bilirubin Indirect Bilirubin AST ALT Alkaline Phosphatase Total Protein Albumin Hepatitis A IgM Ab Hep Bs Antigen Hep B Core IgM Ab Hepatitis C Antibody - EKG EKG results: interpreted by me, sinus rhythm I, Regino Loaiza MD, personally performed the services described in this documentation, ascribed by Libby Figeuroa RN in my presence, and it is both accurate and complete 355 .
--- NOTE | 2016-11-24 15:05 | Post Interventional Procedure ---
Pre-op diagnosis: ascites, heart failure Post-op diagnosis: same Procedure: u/s guided paracentesis Contrast: none Flouroscopy: none Radiologist: Fransico Flores Anesthesia: local Specimens: other (samples sent for any requested studies) Estimated blood loss: none Complications: none Condition: stable Description/Findings: Right lower quadrant access for paracentesis with ultrasound guidance. A total of 2300 mL of serous yellow-colored fluid was removed. The patient tolerated the procedure well.
--- NOTE | 2016-11-24 15:08 | Ultrasound Report ---
Exam: Ultrasound-guided paracentesis Clinical history: Heart failure with ascites. Physician: Dr. Flores. Procedure: Informed consent was obtained prior to procedure. A formal timeout was performed. Maximum sterile barrier technique was used. The right lower quadrant was prepped and draped in sterile fashion. Under sonographic guidance, a 6 [place] safety centesis catheter and needle were advanced into the ascites using trocar technique. A captured sonographic image documents needle position. The needle was removed. Through the catheter, we obtained a total of 2300 cc of straw-colored ascites. No additional fluid could be obtained. Therefore, the catheter was removed. A bandage was placed at the puncture site. The patient tolerated the procedure well. Complications: None. Estimated blood loss: Less than 5 mL. Impression: Technically successful ultrasound guided paracentesis. PROCEDURE INTERPRETED AT [facility] DEPARTMENT OF RADIOLOGY Final Report Signed by: Fransico Flores
--- NOTE | 2016-11-24 16:42 | Hospitalist Progress Note ---
Assessment and Plan - Time spent with patient Time spent with patient: Greater than 30 minutes (1) CHF exacerbation Status: Acute Assessment and plan: Continue management as per cardiology. Current Visit: Yes (2) Coronary artery disease Status: Acute Assessment and plan: Cardiology is involved. Troponins appear to be plateaued. Continue medical management. Current Visit: No (3) CKD (chronic kidney disease) stage 3, GFR 30-59 ml/min Status: Chronic Assessment and plan: Stable. Current Visit: No (4) Cirrhosis Status: Acute Assessment and plan: With ascites. S/P paracentesis. Current Visit: Yes (5) Hypothyroidism Status: Acute Assessment and plan: We'll initiate Synthroid. Current Visit: Yes Hospitalist: Subjective Interval history: No overnight events, patient had a paracentesis this morning with 2 L removed. Exam - Constitutional Vitals: Period Temp Pulse Resp BP Sys/English Pulse Ox Last 24 Hr 96.3 F-97.2 F 88-97 18-22 97-149/62-83 98-100 General appearance: no acute distress - Head Head exam: Present: normocephalic, atraumatic - Eye Eye exam: Present: EOMI Pupils: Present: RACHEAL - ENT ENT exam: Present: normal exam - Neck Neck exam: Present: normal inspection - Respiratory Respiratory exam: Present: clear to auscultation bilaterally. Absent: rhonchi, wheezes - Cardiovascular Cardiovascular exam: Present: regular rate and rhythm. Absent: gallop, rubs, systolic murmur - GI/Abdominal GI/Abdominal exam: Present: normal bowel sounds, soft. Absent: distended, firm , guarding, tenderness, rebound - Extremities Exam Extremities exam: Present: edema. Absent: calf tenderness Results - Labs CBC & BMP: 11/24/16 04:32 11/24/16 04:32 Lab Results: I have reviewed the past 24 hour labs
[2016-11-24 16:58] LABS: Neutrophils,Peritoneal Fluid 72 %
[2016-11-24] MEDS: ACETAMINOPHEN 325 MG TABLET PO PRN (17:02)
[2016-11-24 17:05] LABS: RBC,Peritoneal Fluid 1372 T/CUMM
[2016-11-24] MEDS: ENOXAPARIN 40 MG/0.4 ML SYRINGE SUBCUT SCH (20:23)
[2016-11-24] MEDS: DILTIAZEM INJ 100 MG in SODIUM CHLORIDE 0.9% 100 ML IV SCH (23:18)
[2016-11-25] MEDS: DOBUTamine 500 MG/250 ML PREMIX IV SCH ×3 (02:29→21:26)
[2016-11-25] MEDS: LEVOTHYROXINE 50 MCG TABLET PO SCH (06:46)
--- NOTE | 2016-11-25 09:10 | Gastrointestinal Progress Note ---
<Krystal Dillon - Last Filed: 11/25/16 09:08> Assessment and Plan (1) Abdominal distension Status: Acute Assessment and plan: 11/25-Abd distention improved, post paracentesis on yesterday. 2300 ml removed. Plan and addendum to follow by Dr Hidalgo. 11/24-Continued abd distention. US results noted. Consult IR for paracentesis with albumin and cell count. Plan and addendum to follow by DR Irizarry. 11/23-Several month history of abd distention, discomfort with associated SOB. Hx of CHF, CAD. Long standing hx of alcohol use with recent abstinence in last 6 months. Check abd US in morning, hepatitis panel, LFT. Plan and addendum to follow by DR Hidalgo. Current Visit: Yes Gastroenterology - PN: Subj Interval history: CC: Cirrhosis Pt is seen sitting up in chair, awake, alert. States that he is feeling better today. He underwent paracentesis on yesterday with 2300 ml of serous yellow fluid removed. Albumin gradient 1.3. He states he is breathing better today as well. Has a fairly good appetite. Abdomen is soft, nontender. ROS: Denies SOB or chest pain Exam (Progress Note) - Constitutional Vitals: Period Temp Pulse Resp BP Sys/English Pulse Ox Last 24 Hr 96.3 F-98.2 F 88-105 18-22 97-121/62-83 98-100 General appearance: normal weight, no acute distress - Head Head exam: Present: normal inspection, normocephalic - Eye Eye exam: Present: other (lids and conjunctiva unremarkable). Absent: scleral icterus - ENT ENT exam: Present: normal exam, normal oropharynx - Neck Neck exam: Present: normal inspection - Respiratory Respiratory exam: Present: clear to auscultation bilaterally. Absent: rales, rhonchi, wheezes - Cardiovascular Cardiovascular exam: Present: regular rate and rhythm. Absent: diastolic murmur , JVD, systolic murmur - GI/Abdominal GI/Abdominal exam: Present: normal bowel sounds, soft. Absent: ascites, distended, mass, organomegaly, tenderness - Extremities Exam Extremities exam: Present: normal inspection, full ROM - Back Exam Back exam: Present: normal inspection - Neurological Exam Neurological exam: Present: alert, oriented X3 - Psychiatric Psychiatric exam: Present: normal affect, normal mood - Skin Skin exam: Present: normal color, warm, dry Results - Labs CBC & BMP: 11/24/16 04:32 11/24/16 04:32 Lab Results: I have reviewed the past 24 hour labs <Yoni Hidalgo - Last Filed: 11/25/16 18:22> Exam (Progress Note) - Constitutional Vitals: Period Temp Pulse Resp BP Sys/English Pulse Ox Last 24 Hr 97.3 F-98.6 F 91-105 18-22 99-124/70-80 97-100 Results - Labs CBC & BMP: 11/24/16 04:32 11/24/16 04:32
[2016-11-25] MEDS: CARVEDILOL 3.125 MG TABLET PO SCH ×2 (10:26→21:21)
[2016-11-25] MEDS: ASPIRIN CHEW 81 MG TABLET PO SCH (10:26)
[2016-11-25] MEDS: PANTOPRAZOLE 40 MG TABLET PO SCH (10:26)
[2016-11-25] MEDS: FUROSEMIDE 40 MG/4 ML VIAL IV SCH ×2 (10:26→16:06)
[2016-11-25] MEDS: SPIRONOLACTONE 25 MG TABLET PO SCH ×2 (14:00→21:22)
--- NOTE | 2016-11-25 14:59 | Cardiology Progress Note ---
Henry Rosales Rachel, RN, am scribing for, and in the presence of, Regino Loaiza MD 14:58. Assessment and Plan (1) CHF exacerbation Status: Acute Assessment and plan: This is acute on chronic secondary to hypertensive heart disease, systolic dysfunction, valvular heart disease, medication noncompliance and renal insufficiency. 11/23/16- Worsening abdominal girth issues and poor urine output, Lasix increased to 80 mg twice daily and dobutamine drip was initiated. He diuresing well with this and is clinically improved. GI was consulted for ascites. 11/24/16- Patient had paracentesis and 2300 mL was removed. He has clinically improved after initiation of dobutamine drip and is diuresing well with Lasix 80 IV twice daily. Will continue current plan of care. 11/25/16 -Patient continues to diurese well with Lasix. He is status post paracentesis yesterday and had 2300 mL removed. He is clinically much better today and reports that his shortness of breath and abdominal distention is much better. Current Visit: Yes (2) Elevated troponin Status: Chronic Assessment and plan: Troponin has been bumped this admission. However, after reviewing past records it seems patient has a chronically elevated troponin. This is most likely secondary to patient's heart failure. Current Visit: Yes (3) Tachycardia Status: Acute Assessment and plan: EKG yesterday revealed sinus tachycardia. This is better controlled today. Heart rate ranging from 90-100. Current Visit: No (4) Nonischemic cardiomyopathy Status: Chronic Assessment and plan: Most recent EF is noted to be 15-20%. Current Visit: Yes (5) Abnormal thyroid function test Status: Acute Assessment and plan: Defer to hospitalist management. Current Visit: Yes (6) Mitral regurgitation Status: Chronic Current Visit: Yes (7) DM2 (diabetes mellitus, type 2) Status: Chronic Assessment and plan: Continue current plan of care. Current Visit: No (8) Dyslipidemia Status: Chronic Assessment and plan: Continue current plan of care. Current Visit: No (9) Hypertension Status: Chronic Assessment and plan: This is currently well controlled. Will continue current plan of care. Current Visit: No (10) Obstructive sleep apnea Status: Chronic Current Visit: No (11) Overweight Status: Chronic Assessment and plan: Counseled patient on the importance of weight loss. Current Visit: No (12) Noncompliance with medication regimen Status: Acute Assessment and plan: I have stressed the importance of medication compliance. Current Visit: Yes (13) Chronic renal insufficiency Status: Chronic Assessment and plan: Creatinine is 2.7, this seems to be patient's baseline. Current Visit: Yes Cardiology - PN: Subj Interval history: Patient was seen on telemetry. He is sitting up in chair watching TV in no acute distress. He did well overnight and is without any new cardiac complaints. He is status post paracentesis yesterday, 2300 mL was removed. He reports that his shortness of breath and abdominal distention is much better today. He denies chest pain, tightness and heaviness. He also denies chest pain or palpitations. He is currently on a dobutamine drip at 7.5 mics per kilo per minute. He is being diuresed with 80 mg Lasix IV twice daily. According to his I's and O's, he is diuresing well with this. His vital signs are stable this morning. No new labs to review today. He is currently in sinus rhythm with heart rates in the 90s without any overt arrhythmias or ectopy noted. He is slowly improving with good diuresis and is much more comfortable after paracentesis. I have discussed in detail the particulars of this case and I have examined the patient and reviewed the patient's chart both current and old. I was directly involved in this patient's evaluation and management I completely agree with Libby Figueroa regarding this patient's evaluation and treatment plan Exam (Progress Note) - Constitutional Vitals: Period Temp Pulse Resp BP Sys/English Pulse Ox Last 24 Hr 96.3 F-98.2 F 88-105 18-22 97-121/62-83 98-100 General appearance: no acute distress, over weight - Head Head exam: Present: normal inspection, normocephalic, atraumatic - Respiratory Respiratory exam: Present: clear to auscultation bilaterally. Absent: accessory muscle use, chest wall tenderness, rales, rhonchi, stridor, wheezes - Cardiovascular Cardiovascular exam: Present: regular rate and rhythm, systolic murmur. Absent : gallop, rubs - GI/Abdominal GI/Abdominal exam: Present: normal bowel sounds, ascites, distended. Absent: tenderness - Extremities Exam Extremities exam: Present: normal capillary refill, edema (2+ lower extremity edema), other (Normal upper and lower extremity pulses). Absent: calf tenderness - Neurological Exam Neurological exam: Present: alert, oriented X3, normal gait - Psychiatric Psychiatric exam: Present: normal affect, normal mood - Skin Skin exam: Present: normal color, warm, dry. Absent: cyanosis Result/EKG - Labs CBC & BMP: 11/24/16 04:32 11/24/16 04:32 Lab Results: I have reviewed the past 24 hour labs Labs: Laboratory Results - last 24 hr 11/24/16 11/24/16 Unknown Unknown Peritoneal WBC 203 Peritoneal RBC [address] Cells [address] 100 Periton Neutrophils 72 Periton Lymphocytes 22 Peritoneal Monocytes 6 Peritoneal Albumin 1.3 IJosse Wesley, MD, personally performed the services described in this documentation, ascribed by Libby Figueroa RN in my presence, and it is both accurate and complete 458 .
--- NOTE | 2016-11-25 15:30 | Hospitalist Progress Note ---
Assessment and Plan (1) CHF exacerbation Status: Acute Assessment and plan: Continue current course per cardiology Current Visit: No Qualifiers: Congestive heart failure type: combined Qualified Code(s): I50.43 - Acute on chronic combined systolic (congestive) and diastolic (congestive) heart failure (2) CKD (chronic kidney disease) stage 2, GFR 60-89 ml/min Status: Chronic Current Visit: No Hospitalist: Subjective Interval history: Reports feeling much better this morning. Feels that his lower extremity edema is improving. Denies shortness of breath Exam - Constitutional Vitals: Period Temp Pulse Resp BP Sys/English Pulse Ox Last 24 Hr 97.3 F-98.2 F 91-105 18-22 99-112/70-80 99-100 General appearance: no acute distress, over weight - Head Head exam: Present: normocephalic, atraumatic - Eye Eye exam: Present: EOMI Pupils: Present: RACHEAL - ENT ENT exam: Present: normal exam, normal oropharynx - Neck Neck exam: Present: normal inspection. Absent: lymphadenopathy, tenderness - Respiratory Respiratory exam: Present: clear to auscultation bilaterally - Cardiovascular Cardiovascular exam: Present: regular rate and rhythm - GI/Abdominal GI/Abdominal exam: Present: normal bowel sounds. Absent: firm, tenderness - Extremities Exam Extremities exam: Present: edema - Back Exam Back exam: Present: normal inspection - Neurological Exam Neurological exam: Present: alert, oriented X3 - Psychiatric Psychiatric exam: Present: normal mood - Skin Skin exam: Present: warm, intact Results - Labs CBC & BMP: 11/24/16 04:32 11/24/16 04:32
[2016-11-25] MEDS: ENOXAPARIN 40 MG/0.4 ML SYRINGE SUBCUT SCH (21:21)
[2016-11-25] MEDS: DILTIAZEM INJ 100 MG in SODIUM CHLORIDE 0.9% 100 ML IV SCH (21:22)
[2016-11-26] MEDS: DOBUTamine 500 MG/250 ML PREMIX IV SCH (01:45)
[2016-11-26 05:57] LABS: Calcium 8.3 MG/DL (8.5-10.1)
[2016-11-26 05:58] LABS: Osmolality,Calculated 282.7 MOS/KG (273-304); Potassium 3.1 MMOL/L (3.5-5.1)
[2016-11-26] MEDS: LEVOTHYROXINE 50 MCG TABLET PO SCH (06:11)
[2016-11-26 06:26] LABS: Basophils % 0.5 % (0.0-0.8); Eosinophils # 0.1 10*3/uL (0.0-0.87); Eosinophils % 2.1 % (0.00-10.9); Hematocrit 33.3 VOL% (42.0-52.0); Hemoglobin 10.8 GM/DL (14.0-18.0); Immature Granulocytes % 0.6 %; Immature Granulocytes Absolute 0.04 #; Lymphocytes % 16.1 % (21.2-54.2); Mean Corpuscular HGB Conc 32.4 GM/DL (32-36); Mean Corpuscular Hemoglobin 21 PG (27-34); Mean Corpuscular Volume 65.4 FL (87-102); Monocytes # 0.5 10*3/uL (0.11-0.8); Neutrophils # 4.6 10*3/uL (1.4-7.4); Neutrophils % 72.7 % (38.7-73.9); Platelet Count 189 T/CUMM (130-400); Red Blood Count 5.09 MC/CUMM (3.8-5.5); Red Cell Distribution Width 21.1 % (9.3-17.3); White Blood Count 6.3 T/CUMM (4-12)
[2016-11-26 06:29] LABS: Elliptocytes Few; Hypochromasia 1+; Platelet Estimate Normal; Target Cells Few
[2016-11-26] MEDS ORDERED: FUROSEMIDE 100 MG/10 ML VIAL ONE (09:39)
[2016-11-26] MEDS: SPIRONOLACTONE 25 MG TABLET PO SCH ×2 (09:58→21:30)
[2016-11-26] MEDS: ASPIRIN CHEW 81 MG TABLET PO SCH (09:58)
[2016-11-26] MEDS: CARVEDILOL 3.125 MG TABLET PO SCH ×2 (09:58→21:30)
[2016-11-26] MEDS: PANTOPRAZOLE 40 MG TABLET PO SCH (09:58)
[2016-11-26] MEDS: FUROSEMIDE 40 MG/4 ML VIAL IV SCH ×2 (09:59→16:40)
--- NOTE | 2016-11-26 10:33 | Gastrointestinal Progress Note ---
<WilmaKrystal Coy - Last Filed: 11/26/16 10:31> Assessment and Plan (1) Abdominal distension Status: Acute Assessment and plan: 11/26-No abd pain, nausea, vomiting. Creatnine improved at 1.6. Good UOP. Plan and addendum to follow by Dr Hidalgo. 11/25-Abd distention improved, post paracentesis on yesterday. 2300 ml removed. Plan and addendum to follow by Dr Hidalgo. 11/24-Continued abd distention. US results noted. Consult IR for paracentesis with albumin and cell count. Plan and addendum to follow by DR Irizarry. 11/23-Several month history of abd distention, discomfort with associated SOB. Hx of CHF, CAD. Long standing hx of alcohol use with recent abstinence in last 6 months. Check abd US in morning, hepatitis panel, LFT. Plan and addendum to follow by DR Hidalgo. Current Visit: Yes Gastroenterology - PN: Subj Interval history: CC: Cirrhosis Pt is seen, sitting up in chair. States he is feeling a little better today. Denies any abdominal pain. Denies SOB, nausea or vomiting. Abdomen is soft, nontender. Creatnine is down to 1.6 today. He is having good urine output. ROS: Denies SOB or chest pain Exam (Progress Note) - Constitutional Vitals: Period Temp Pulse Resp BP Sys/English Pulse Ox Last 24 Hr 97.7 F-98.8 F 94-101 16-20 105-126/67-73 95-100 General appearance: normal weight, no acute distress - Head Head exam: Present: normal inspection, normocephalic - Eye Eye exam: Present: other (lids and conjuncitva unremarkable). Absent: scleral icterus - ENT ENT exam: Present: normal exam, normal oropharynx - Neck Neck exam: Present: normal inspection - Respiratory Respiratory exam: Present: clear to auscultation bilaterally. Absent: rales, rhonchi, wheezes - Cardiovascular Cardiovascular exam: Present: regular rate and rhythm. Absent: diastolic murmur , JVD, systolic murmur - GI/Abdominal GI/Abdominal exam: Present: normal bowel sounds, soft. Absent: ascites, distended, mass, organomegaly, tenderness - Extremities Exam Extremities exam: Present: normal inspection, full ROM - Back Exam Back exam: Present: normal inspection - Neurological Exam Neurological exam: Present: alert, oriented X3 - Psychiatric Psychiatric exam: Present: normal affect, normal mood - Skin Skin exam: Present: normal color, warm, dry Results - Labs CBC & BMP: 11/26/16 04:31 11/26/16 04:31 Lab Results: I have reviewed the past 24 hour labs <Yoni Hidalgo - Last Filed: 11/26/16 17:26> Exam (Progress Note) - Constitutional Vitals: Period Temp Pulse Resp BP Sys/English Pulse Ox Last 24 Hr 97.6 F-98.8 F 94-99 16-20 105-126/67-74 95-100 Results - Labs CBC & BMP: 11/26/16 04:31 11/26/16 04:31
[2016-11-26] MEDS ORDERED: POTASSIUM CHLORIDE RIDER 10 MEQ in PREMIX 1 EACH IV PRN (11:04)
--- NOTE | 2016-11-26 12:27 | Hospitalist Progress Note ---
Assessment and Plan - Time spent with patient Time spent with patient: Less than 30 minutes (1) CHF exacerbation Status: Acute Assessment and plan: Continue current course per cardiology Current Visit: No Qualifiers: Congestive heart failure type: combined Qualified Code(s): I50.43 - Acute on chronic combined systolic (congestive) and diastolic (congestive) heart failure (2) CKD (chronic kidney disease) stage 2, GFR 60-89 ml/min Status: Chronic Current Visit: No (3) Abdominal distension Status: Acute Assessment and plan: GI following Started on spironolactone Current Visit: Yes Hospitalist: Subjective Interval history: Continues to feel better. Edema is improving. Denies sob Exam - Constitutional Vitals: Period Temp Pulse Resp BP Sys/English Pulse Ox Last 24 Hr 97.7 F-98.8 F 94-97 16-20 108-126/67-73 95-99 General appearance: normal weight - Head Head exam: Present: normocephalic, atraumatic - Eye Eye exam: Present: EOMI Pupils: Present: RACHEAL - ENT ENT exam: Present: normal exam - Neck Neck exam: Present: normal inspection. Absent: lymphadenopathy, tenderness - Respiratory Respiratory exam: Present: clear to auscultation bilaterally - Cardiovascular Cardiovascular exam: Present: regular rate and rhythm - GI/Abdominal GI/Abdominal exam: Present: normal bowel sounds, tenderness - Extremities Exam Extremities exam: Present: edema - Back Exam Back exam: Present: normal inspection - Neurological Exam Neurological exam: Present: alert, oriented X3 - Psychiatric Psychiatric exam: Present: normal affect, normal mood - Skin Skin exam: Present: normal color, intact Results - Labs CBC & BMP: 11/26/16 04:31 11/26/16 04:31
[2016-11-26] MEDS: POTASSIUM CHLORIDE 20 MEQ TABLET PO PRN ×3 (12:32→16:40)
--- NOTE | 2016-11-26 14:48 | Cardiology Progress Note ---
Henry Rosales Rachel, RN, am scribing for, and in the presence of, Regino Loaiza MD 14:48. Assessment and Plan (1) CHF exacerbation Status: Acute Assessment and plan: This is acute on chronic secondary to hypertensive heart disease, systolic dysfunction, valvular heart disease, medication noncompliance and renal insufficiency. 11/23/16- Worsening abdominal girth issues and poor urine output, Lasix increased to 80 mg twice daily and dobutamine drip was initiated. He diuresing well with this and is clinically improved. GI was consulted for ascites. 11/24/16- Patient had paracentesis and 2300 mL was removed. He has clinically improved after initiation of dobutamine drip and is diuresing well with Lasix 80 IV twice daily. Will continue current plan of care. 11/25/16 -Patient continues to diurese well with Lasix. He is status post paracentesis yesterday and had 2300 mL removed. He is clinically much better today and reports that his shortness of breath and abdominal distention is much better. 11/26/16- Patient has continued to improve. He continues to diurese well with Lasix. Will begin to titrate dobutamine off. Current Visit: Yes (2) Elevated troponin Status: Chronic Assessment and plan: Troponin has been bumped this admission. However, after reviewing past records it seems patient has a chronically elevated troponin. This is most likely secondary to patient's heart failure. Current Visit: Yes (3) Tachycardia Status: Acute Assessment and plan: EKG yesterday revealed sinus tachycardia. This is better controlled today. Heart rate ranging from 90-100. Current Visit: No (4) Nonischemic cardiomyopathy Status: Chronic Assessment and plan: Most recent EF is noted to be 15-20%. Current Visit: Yes (5) Abnormal thyroid function test Status: Acute Assessment and plan: Defer to hospitalist management. Current Visit: Yes (6) Mitral regurgitation Status: Chronic Current Visit: Yes (7) DM2 (diabetes mellitus, type 2) Status: Chronic Assessment and plan: Continue current plan of care. Current Visit: No (8) Dyslipidemia Status: Chronic Assessment and plan: Continue current plan of care. Current Visit: No (9) Hypertension Status: Chronic Assessment and plan: This is currently well controlled. Will continue current plan of care. Current Visit: No (10) Obstructive sleep apnea Status: Chronic Current Visit: No (11) Overweight Status: Chronic Assessment and plan: Counseled patient on the importance of weight loss. Current Visit: No (12) Noncompliance with medication regimen Status: Acute Assessment and plan: I have stressed the importance of medication compliance. Current Visit: Yes (13) Chronic renal insufficiency Status: Chronic Assessment and plan: Creatinine is 2.7, this seems to be patient's baseline. Current Visit: Yes Cardiology - PN: Subj Interval history: Patient was seen on telemetry He was resting in chair in no acute distress. He is currently not requiring any oxygen. He did well overnight is without all complaints this morning. He is status post paracentesis. Dobutamine is infusing at 7.5 mcg/kg/min. We will begin to titrate this off today. He is diuresing well with Lasix 80 mg IV twice daily. According to his I's and O's, he has lost 8 pounds since admission. He denies chest pain, shortness of breath and palpitations. Potassium is noted to be 3.1 today, will replace per IV protocol. He is currently in sinus rhythm with heart rates in the 90's without any overt arrhythmias or ectopy noted. Vital signs are stable. Patient is slowly improving. We are going to hopefully be able to discharge him tomorrow after we get him off of his dobutamine infusion. I have discussed in detail the particulars of this case and I have examined the patient and reviewed the patient's chart both current and old. I was directly involved in the patient's evaluation and management and I completely agree with Libby Figueroa RN regarding this patient's evaluation and treatment plan. Exam (Progress Note) - Constitutional Vitals: Period Temp Pulse Resp BP Sys/English Pulse Ox Last 24 Hr 97.7 F-98.8 F 94-101 16-20 105-126/67-73 95-100 - Other Additional findings: - Head Head exam: Present: normal inspection, normocephalic, atraumatic - Respiratory Respiratory exam: Present: clear to auscultation bilaterally. Absent: accessory muscle use, chest wall tenderness, rales, rhonchi, stridor, wheezes - Cardiovascular Cardiovascular exam: Present: regular rate and rhythm, systolic murmur. Absent : gallop, rubs - GI/Abdominal GI/Abdominal exam: Present: normal bowel sounds, ascites, distended. Absent: tenderness - Extremities Exam Extremities exam: Present: normal capillary refill, edema (2+ lower extremity edema), other (Normal upper and lower extremity pulses). Absent: calf tenderness - Neurological Exam Neurological exam: Present: alert, oriented X3, normal gait - Psychiatric Psychiatric exam: Present: normal affect, normal mood - Skin Skin exam: Present: normal color, warm, dry. Absent: cyanosis Result/EKG - Labs CBC & BMP: 11/26/16 04:31 11/26/16 04:31 Lab Results: I have reviewed the past 24 hour labs Labs: Laboratory Results - last 24 hr 11/26/16 11/26/16 04:31 04:31 WBC 6.3 RBC 5.09 Hgb 10.8 L Hct 33.3 L MCV 65.4 L MCH 21 L MCHC 32.4 RDW 21.1 H Plt Count 189 Neut % (Auto) 72.7 Lymph % (Auto) 16.1 L Bowie % (Auto) 8.0 Eos % (Auto) 2.1 Baso % (Auto) 0.5 Neut # (Auto) 4.6 Lymph # (Auto) 1.0 L Bowie # (Auto) 0.5 Eos # (Auto) 0.1 Baso # (Auto) 0.0 Immature Gran % 0.6 Nucleated RBC % 0.0 Immature Gran # 0.04 Nucleated RBCs # 0.00 Platelet Estimate Normal Hypochromasia 1+ Target Cells Few Elliptocytes Few Sodium 138 Potassium 3.1 L Chloride 98 Carbon Dioxide 27 Anion Gap 16.1 H BUN 38 H Creatinine 1.60 H GFR Calculation 69 BUN/Creatinine Ratio 23.00 H Glucose 85 Calculated Osmolality 282.7 Calcium 8.3 L - EKG EKG results: interpreted by me, sinus rhythm I, Regino Loaiza MD, personally performed the services described in this documentation, ascribed by Libby Figueroa RN in my presence, and it is both accurate and complete 448 .
[2016-11-26] MEDS: ENOXAPARIN 40 MG/0.4 ML SYRINGE SUBCUT SCH (21:30)
[2016-11-27] MEDS: DILTIAZEM INJ 100 MG in SODIUM CHLORIDE 0.9% 100 ML IV SCH ×2 (00:20→22:10)
[2016-11-27 06:30] LABS: Calcium 8.4 MG/DL (8.5-10.1); Magnesium 1.7 MG/DL (1.8-2.4); Potassium 3.5 MMOL/L (3.5-5.1)
[2016-11-27] MEDS: FUROSEMIDE 40 MG/4 ML VIAL IV SCH ×2 (08:08→15:55)
[2016-11-27] MEDS: LEVOTHYROXINE 50 MCG TABLET PO SCH (08:11)
[2016-11-27] MEDS: PANTOPRAZOLE 40 MG TABLET PO SCH (08:11)
[2016-11-27] MEDS: CARVEDILOL 3.125 MG TABLET PO SCH ×2 (08:12→20:56)
[2016-11-27] MEDS: ASPIRIN CHEW 81 MG TABLET PO SCH (08:12)
[2016-11-27] MEDS: SPIRONOLACTONE 25 MG TABLET PO SCH ×2 (09:35→20:57)
--- NOTE | 2016-11-27 13:48 | Cardiology Progress Note ---
I, Libby Figueroa RN, am scribing for, and in the presence of, Regino Loaiza MD 13:47. Assessment and Plan (1) CHF exacerbation Status: Acute Assessment and plan: This is acute on chronic secondary to hypertensive heart disease, systolic dysfunction, valvular heart disease, medication noncompliance and renal insufficiency. 11/23/16- Worsening abdominal girth issues and poor urine output, Lasix increased to 80 mg twice daily and dobutamine drip was initiated. He diuresing well with this and is clinically improved. GI was consulted for ascites. 11/24/16- Patient had paracentesis and 2300 mL was removed. He has clinically improved after initiation of dobutamine drip and is diuresing well with Lasix 80 IV twice daily. Will continue current plan of care. 11/25/16 -Patient continues to diurese well with Lasix. He is status post paracentesis yesterday and had 2300 mL removed. He is clinically much better today and reports that his shortness of breath and abdominal distention is much better. 11/26/16- Patient has continued to improve. He continues to diurese well with Lasix. Will begin to titrate dobutamine off. 11/27/16 -dobutamine has been titrated off this morning. Patient's heart failure symptoms are clinically stable. He continues to be diuresed with Lasix 80 mg twice daily. However, the nurse reports that after dobutamine drip was discontinued his urine output trended downward. He reports that he has urinated twice this morning. According to his I's and O's, he has also a total of 22 pounds since admission. Currently he is sinus tach with heart rates ranging from 110-120 per monitoring engineer. Will adjust medications as needed. His dyspnea markedly improved and he lost significant amount of volume. We will discontinue to be in the morning and hopefully can discharge tomorrow. I have discussed in detail the particulars of this case and I have examined the patient and reviewed the patient's chart both current and old. I was directly involved in the patient's evaluation and management and I completely agree with Libby Figueroa RN regarding this patient's evaluation and treatment plan. Current Visit: Yes (2) Elevated troponin Status: Chronic Assessment and plan: Troponin has been bumped this admission. However, after reviewing past records it seems patient has a chronically elevated troponin. This is most likely secondary to patient's heart failure. Current Visit: Yes (3) Tachycardia Status: Acute Assessment and plan: Sinus tachycardia noted with rate ranging from 110-120. Will adjust medications as needed. Current Visit: No (4) Nonischemic cardiomyopathy Status: Chronic Assessment and plan: Most recent EF is noted to be 15-20%. Current Visit: Yes (5) Abnormal thyroid function test Status: Acute Assessment and plan: Defer to hospitalist management. Current Visit: Yes (6) Mitral regurgitation Status: Chronic Current Visit: Yes (7) DM2 (diabetes mellitus, type 2) Status: Chronic Assessment and plan: Continue current plan of care. Current Visit: No (8) Dyslipidemia Status: Chronic Assessment and plan: Continue current plan of care. Current Visit: No (9) Hypertension Status: Chronic Assessment and plan: This is currently well controlled. Will continue current plan of care. Current Visit: No (10) Obstructive sleep apnea Status: Chronic Current Visit: No (11) Overweight Status: Chronic Assessment and plan: Counseled patient on the importance of weight loss. Current Visit: No (12) Noncompliance with medication regimen Status: Acute Assessment and plan: I have stressed the importance of medication compliance. Current Visit: Yes (13) Chronic renal insufficiency Status: Chronic Assessment and plan: Creatinine is 1.6, this seems to be patient's baseline. Current Visit: Yes Cardiology - PN: Subj Interval history: Patient was seen on telemetry. He is resting in his bed in no acute distress. Currently not requiring any oxygen. He is dobutamine drip was turned off this morning around 10 AM. His heart failure symptoms continue to be well controlled. He continues to be diuresed with Lasix 80 mg twice daily. However , the nurse reports that after dobutamine drip was discontinued his urine output trended downward. He reports that he has urinated twice this morning. Patient denies shortness of breath, palpitations and chest pain. According to his I's and O's, he has also a total of 22 pounds since admission. He is currently in sinus tach with heart rate ranging from 110-120 without any overt arrhythmias or ectopy noted. Will adjust medications as needed in order to obtain rate control. Vital signs are stable. Exam (Progress Note) - Constitutional Vitals: Period Temp Pulse Resp BP Sys/English Pulse Ox Last 24 Hr 97.6 F-99.1 F 94-125 16-20 91-118/65-74 97-100 - Other Additional findings: - Head Head exam: Present: normal inspection, normocephalic, atraumatic - Respiratory Respiratory exam: Present: clear to auscultation bilaterally. Absent: accessory muscle use, chest wall tenderness, rales, rhonchi, stridor, wheezes - Cardiovascular Cardiovascular exam: Present: regular rate and rhythm, systolic murmur. Absent : gallop, rubs - GI/Abdominal GI/Abdominal exam: Present: normal bowel sounds, distended. Absent: tenderness - Extremities Exam Extremities exam: Present: normal capillary refill, edema (2+ lower extremity edema), other (Normal upper and lower extremity pulses). Absent: calf tenderness - Neurological Exam Neurological exam: Present: alert, oriented X3, normal gait - Psychiatric Psychiatric exam: Present: normal affect, normal mood - Skin Skin exam: Present: normal color, warm, dry. Absent: cyanosis Result/EKG - Labs CBC & BMP: 11/26/16 04:31 11/27/16 05:00 Lab Results: I have reviewed the past 24 hour labs Labs: Laboratory Results - last 24 hr 11/27/16 05:00 Sodium 136 Potassium 3.5 Chloride 97 L Carbon Dioxide 28 Anion Gap 14.5 BUN 31 H Creatinine 1.60 H GFR Calculation 66 BUN/Creatinine Ratio 19.00 Glucose 108 H Calculated Osmolality 279.0 Calcium 8.4 L Magnesium 1.7 L I, Regino Loaiza MD, personally performed the services described in this documentation, ascribed by Libby Figueroa RN in my presence, and it is both accurate and complete [id number] .
--- NOTE | 2016-11-27 14:13 | Hospitalist Progress Note ---
Assessment and Plan (1) CHF exacerbation Status: Acute Assessment and plan: Patient now off dobutamine. Sinus tachycardia noted today, started on Coreg per cardiology. Current Visit: No Qualifiers: Congestive heart failure type: combined Qualified Code(s): I50.43 - Acute on chronic combined systolic (congestive) and diastolic (congestive) heart failure (2) CKD (chronic kidney disease) stage 2, GFR 60-89 ml/min Status: Chronic Current Visit: No (3) Abdominal distension Status: Acute Assessment and plan: GI following Continue spironolactone Current Visit: Yes Hospitalist: Subjective Interval history: Patient reports decreased urine output today. Does note improvement in his bilateral lower extremity edema. Exam - Constitutional Vitals: Period Temp Pulse Resp BP Sys/English Pulse Ox Last 24 Hr 97.6 F-99.1 F 94-125 16-24 91-118/65-68 97-100 General appearance: over weight - Head Head exam: Present: normocephalic, atraumatic - Eye Eye exam: Present: EOMI Pupils: Present: RACHEAL - ENT ENT exam: Present: normal exam, normal oropharynx - Neck Neck exam: Present: normal inspection - Respiratory Respiratory exam: Present: clear to auscultation bilaterally - Cardiovascular Cardiovascular exam: Present: tachycardia - GI/Abdominal GI/Abdominal exam: Present: normal bowel sounds, soft. Absent: tenderness - Extremities Exam Extremities exam: Present: normal inspection - Back Exam Back exam: Present: normal inspection - Neurological Exam Neurological exam: Present: alert, oriented X3 - Psychiatric Psychiatric exam: Present: normal affect, normal mood - Skin Skin exam: Present: warm, intact Results - Labs CBC & BMP: 11/26/16 04:31 11/27/16 05:00
[2016-11-27] MEDS: BENZONATATE 100 MG CAPSULE PO PRN (19:08)
[2016-11-27] MEDS: ENOXAPARIN 80 MG/0.8 ML SYRINGE SUBCUT SCH (20:56)
[2016-11-27] MEDS: ENOXAPARIN 40 MG/0.4 ML SYRINGE SUBCUT SCH (21:01)
[2016-11-28 05:00] LABS: Basophils % 0.5 % (0.0-0.8); Eosinophils # 0.2 10*3/uL (0.0-0.87); Eosinophils % 2.2 % (0.00-10.9); Hematocrit 35.5 VOL% (42.0-52.0); Hemoglobin 11.5 GM/DL (14.0-18.0); Immature Granulocytes % 0.4 %; Immature Granulocytes Absolute 0.03 #; Lymphocytes % 25.2 % (21.2-54.2); Mean Corpuscular HGB Conc 32.4 GM/DL (32-36); Mean Corpuscular Hemoglobin 21 PG (27-34); Mean Corpuscular Volume 64.5 FL (87-102); Monocytes # 0.7 10*3/uL (0.11-0.8); Monocytes % 8.3 % (1.7-12.7); Neutrophils % 63.4 % (38.7-73.9); Platelet Count 209 T/CUMM (130-400); White Blood Count 7.8 T/CUMM (4-12)
[2016-11-28 05:23] LABS: Calcium 8.6 MG/DL (8.5-10.1); Osmolality,Calculated 283.7 MOS/KG (273-304); Potassium 4.2 MMOL/L (3.5-5.1)
[2016-11-28 05:36] LABS: Target Cells 2+
[2016-11-28 05:37] LABS: Helmet Cells Few; Ovalocytes Few; Platelet Estimate Normal; Poikilocytosis 2+; Tear Drop Cells Few
[2016-11-28] MEDS: LEVOTHYROXINE 50 MCG TABLET PO SCH (06:11)
[2016-11-28] MEDS: FUROSEMIDE 40 MG/4 ML VIAL IV SCH ×2 (09:06→16:53)
[2016-11-28] MEDS: SPIRONOLACTONE 25 MG TABLET PO SCH ×2 (09:08→20:30)
[2016-11-28] MEDS: CARVEDILOL 3.125 MG TABLET PO SCH ×2 (09:09→20:30)
[2016-11-28] MEDS: PANTOPRAZOLE 40 MG TABLET PO SCH (09:09)
[2016-11-28] MEDS: ASPIRIN CHEW 81 MG TABLET PO SCH (09:09)
--- NOTE | 2016-11-28 11:30 | Cardiology Progress Note ---
Assessment and Plan (1) CHF exacerbation Status: Acute Assessment and plan: This is acute on chronic secondary to hypertensive heart disease, systolic dysfunction, valvular heart disease, medication noncompliance and renal insufficiency. 11/23/16- Worsening abdominal girth issues and poor urine output, Lasix increased to 80 mg twice daily and dobutamine drip was initiated. He diuresing well with this and is clinically improved. GI was consulted for ascites. 11/24/16- Patient had paracentesis and 2300 mL was removed. He has clinically improved after initiation of dobutamine drip and is diuresing well with Lasix 80 IV twice daily. Will continue current plan of care. 11/25/16 -Patient continues to diurese well with Lasix. He is status post paracentesis yesterday and had 2300 mL removed. He is clinically much better today and reports that his shortness of breath and abdominal distention is much better. 11/26/16- Patient has continued to improve. He continues to diurese well with Lasix. Will begin to titrate dobutamine off. 11/27/16 -dobutamine has been titrated off this morning. Patient's heart failure symptoms are clinically stable. He continues to be diuresed with Lasix 80 mg twice daily. However, the nurse reports that after dobutamine drip was discontinued his urine output trended downward. He reports that he has urinated twice this morning. According to his I's and O's, he has also a total of 22 pounds since admission. Currently he is sinus tach with heart rates ranging from 110-120 per brand ambassador. Will adjust medications as needed. His dyspnea markedly improved and he lost significant amount of volume. We will discontinue to be in the morning and hopefully can discharge tomorrow. I have discussed in detail the particulars of this case and I have examined the patient and reviewed the patient's chart both current and old. I was directly involved in the patient's evaluation and management and I completely agree with Libby Figueroa RN regarding this patient's evaluation and treatment plan. 3: He is gaining weight and we will add Zaroxolyn. Current Visit: Yes (2) Elevated troponin Status: Chronic Assessment and plan: Troponin has been bumped this admission. However, after reviewing past records it seems patient has a chronically elevated troponin. This is most likely secondary to patient's heart failure. Current Visit: Yes (3) Tachycardia Status: Acute Assessment and plan: Sinus tachycardia noted with rate ranging from 110-120. Will adjust medications as needed. Current Visit: No (4) Nonischemic cardiomyopathy Status: Chronic Assessment and plan: Most recent EF is noted to be 15-20%. Current Visit: Yes (5) Abnormal thyroid function test Status: Acute Assessment and plan: Defer to hospitalist management. Current Visit: Yes (6) Mitral regurgitation Status: Chronic Current Visit: Yes (7) DM2 (diabetes mellitus, type 2) Status: Chronic Assessment and plan: Continue current plan of care. Current Visit: No (8) Dyslipidemia Status: Chronic Assessment and plan: Continue current plan of care. Current Visit: No (9) Hypertension Status: Chronic Assessment and plan: This is currently well controlled. Will continue current plan of care. Current Visit: No (10) Obstructive sleep apnea Status: Chronic Current Visit: No (11) Overweight Status: Chronic Assessment and plan: Counseled patient on the importance of weight loss. Current Visit: No (12) Noncompliance with medication regimen Status: Acute Assessment and plan: I have stressed the importance of medication compliance. Current Visit: Yes (13) Chronic renal insufficiency Status: Chronic Assessment and plan: Creatinine is 1.6, this seems to be patient's baseline. Current Visit: Yes Cardiology - PN: Subj Interval history: Patient is steadily gaining weight now off of dobutamine. I will increase his diuresis and add Zaroxolyn to see if we can increase his volume output. He is without complaints this morning. Exam (Progress Note) - Constitutional Vitals: Period Temp Pulse Resp BP Sys/English Pulse Ox Last 24 Hr 97.6 F-98.4 F 113-120 16-24 93-115/55-78 94-100 Exam: General:no acute distress. alert and oriented, mood and affect are normal HEENT: no new lesions, sclerae are clear, mouth and pharynx benign Neck: supple, trachea midline, no JVD noted Lungs: no rales ronchi or wheeze is noted. pt comfortable without accesory muscle use to assist with breathing CV: RRR no murmur rub or gallop is noted. Abd: soft and nontender, BSNA, protuberant no masses. Ext: no cyanosis, clubbing or edema Neuro: grossly intact without focal neurologic deficit. Result/EKG - Labs CBC & BMP: 11/28/16 04:39 11/28/16 04:39 Labs: Laboratory Results - last 24 hr 11/28/16 11/28/16 04:39 04:39 WBC 7.8 RBC 5.50 Hgb 11.5 L Hct 35.5 L MCV 64.5 L MCH 21 L MCHC 32.4 RDW 21.0 H Plt Count 209 Neut % (Auto) 63.4 Lymph % (Auto) 25.2 [place] % (Auto) 8.3 Eos % (Auto) 2.2 Baso % (Auto) 0.5 Neut # (Auto) 5.0 Lymph # (Auto) 2.0 [place] # (Auto) 0.7 Eos # (Auto) 0.2 Baso # (Auto) 0.0 Immature Gran % 0.4 Nucleated RBC % 0.0 Immature Gran # 0.03 Nucleated RBCs # 0.00 Platelet Estimate Normal Poikilocytosis 2+ Target Cells 2+ Tear Drop Cells Few Ovalocytes Few Helmet Cells Few Sodium 138 Potassium 4.2 Chloride 98 Carbon Dioxide 24 Anion Gap 20.2 H BUN 39 H Creatinine 1.90 H GFR Calculation 53 BUN/Creatinine Ratio 20.00 Glucose 98 Calculated Osmolality 283.7 Calcium 8.6
[2016-11-28] MEDS ORDERED: SIMETHICONE CHEW 125 MG TABLET PO PRN (13:43)
--- NOTE | 2016-11-28 13:46 | Hospitalist Progress Note ---
Assessment and Plan (1) CHF exacerbation Status: Acute Assessment and plan: Patient now off dobutamine. Increase in weight today. Cardiology managing. Started on metolazone. Current Visit: No Qualifiers: Congestive heart failure type: combined Qualified Code(s): I50.43 - Acute on chronic combined systolic (congestive) and diastolic (congestive) heart failure (2) CKD (chronic kidney disease) stage 2, GFR 60-89 ml/min Status: Chronic Current Visit: No (3) Abdominal distension Status: Acute Assessment and plan: GI following Continue spironolactone Current Visit: Yes Hospitalist: Subjective Interval history: Patient complains of gas this afternoon. Exam - Constitutional Vitals: Period Temp Pulse Resp BP Sys/English Pulse Ox Last 24 Hr 97 F-98.4 F 113-120 16-20 93-115/55-78 94-100 General appearance: over weight - Head Head exam: Present: normal inspection, normocephalic - Eye Eye exam: Present: EOMI Pupils: Present: RACHEAL - ENT ENT exam: Present: normal exam - Neck Neck exam: Present: normal inspection. Absent: tenderness - Respiratory Respiratory exam: Present: clear to auscultation bilaterally - Cardiovascular Cardiovascular exam: Present: regular rate and rhythm - GI/Abdominal GI/Abdominal exam: Present: normal bowel sounds, soft - Extremities Exam Extremities exam: Present: normal inspection - Back Exam Back exam: Present: normal inspection - Neurological Exam Neurological exam: Present: alert, oriented X3 - Psychiatric Psychiatric exam: Present: normal affect, normal mood - Skin Skin exam: Present: warm, intact Results - Labs CBC & BMP: 11/28/16 04:39 11/28/16 04:39
[2016-11-28] MEDS: ENOXAPARIN 80 MG/0.8 ML SYRINGE SUBCUT SCH (20:30)
[2016-11-28] MEDS: DILTIAZEM INJ 100 MG in SODIUM CHLORIDE 0.9% 100 ML IV SCH (22:17)
[2016-11-29 04:07] LABS: Basophils # 0.1 10*3/uL (0.0-0.2); Basophils % 0.8 % (0.0-0.8); Eosinophils # 0.2 10*3/uL (0.0-0.87); Eosinophils % 2.5 % (0.00-10.9); Hematocrit 34.1 VOL% (42.0-52.0); Hemoglobin 11.3 GM/DL (14.0-18.0); Immature Granulocytes % 0.5 %; Immature Granulocytes Absolute 0.03 #; Lymphocytes # 1.8 10*3/uL (1.4-4.0); Mean Corpuscular HGB Conc 33.1 GM/DL (32-36); Mean Corpuscular Hemoglobin 21 PG (27-34); Mean Corpuscular Volume 63.1 FL (87-102); Monocytes # 0.6 10*3/uL (0.11-0.8); Monocytes % 9.5 % (1.7-12.7); Neutrophils # 3.8 10*3/uL (1.4-7.4); Neutrophils % 58.7 % (38.7-73.9); Platelet Count 284 T/CUMM (130-400); White Blood Count 6.4 T/CUMM (4-12)
[2016-11-29 04:30] LABS: Calcium 9.2 MG/DL (8.5-10.1); Magnesium 2.2 MG/DL (1.8-2.4); Osmolality,Calculated 281.1 MOS/KG (273-304); Potassium 4.3 MMOL/L (3.5-5.1)
[2016-11-29 05:20] LABS: Acanthocytes Moderate; Anisocytosis 1+
[2016-11-29 05:21] LABS: Target Cells 2+
[2016-11-29 05:23] LABS: Platelet Estimate Adequate; Schistocytes 1+
[2016-11-29] MEDS: LEVOTHYROXINE 50 MCG TABLET PO SCH (06:13)
[2016-11-29] MEDS: ASPIRIN CHEW 81 MG TABLET PO SCH (08:35)
[2016-11-29] MEDS: PANTOPRAZOLE 40 MG TABLET PO SCH (08:35)
[2016-11-29] MEDS: SPIRONOLACTONE 25 MG TABLET PO SCH ×2 (08:35→20:47)
[2016-11-29] MEDS: CARVEDILOL 3.125 MG TABLET PO SCH ×2 (08:36→20:47)
[2016-11-29] MEDS: metOLazone 5 MG TABLET PO SCH (08:36)
[2016-11-29] MEDS: FUROSEMIDE 40 MG/4 ML VIAL IV SCH ×2 (08:57→16:07)
--- NOTE | 2016-11-29 09:56 | Cardiology Progress Note ---
Assessment and Plan (1) CHF exacerbation Status: Acute Assessment and plan: This is acute on chronic secondary to hypertensive heart disease, systolic dysfunction, valvular heart disease, medication noncompliance and renal insufficiency. 11/23/16- Worsening abdominal girth issues and poor urine output, Lasix increased to 80 mg twice daily and dobutamine drip was initiated. He diuresing well with this and is clinically improved. GI was consulted for ascites. 11/24/16- Patient had paracentesis and 2300 mL was removed. He has clinically improved after initiation of dobutamine drip and is diuresing well with Lasix 80 IV twice daily. Will continue current plan of care. 11/25/16 -Patient continues to diurese well with Lasix. He is status post paracentesis yesterday and had 2300 mL removed. He is clinically much better today and reports that his shortness of breath and abdominal distention is much better. 11/26/16- Patient has continued to improve. He continues to diurese well with Lasix. Will begin to titrate dobutamine off. 11/27/16 -dobutamine has been titrated off this morning. Patient's heart failure symptoms are clinically stable. He continues to be diuresed with Lasix 80 mg twice daily. However, the nurse reports that after dobutamine drip was discontinued his urine output trended downward. He reports that he has urinated twice this morning. According to his I's and O's, he has also a total of 22 pounds since admission. Currently he is sinus tach with heart rates ranging from 110-120 per sustainable systems analyst. Will adjust medications as needed. His dyspnea markedly improved and he lost significant amount of volume. We will discontinue to be in the morning and hopefully can discharge tomorrow. I have discussed in detail the particulars of this case and I have examined the patient and reviewed the patient's chart both current and old. I was directly involved in the patient's evaluation and management and I completely agree with Libby Figueroa RN regarding this patient's evaluation and treatment plan. 34: He is gaining weight and we will add Zaroxolyn. 11/29: Patient feels well. We will follow his creatinine closely. His renal function is worsening with increasing diuresis as expected. Current Visit: Yes (2) Elevated troponin Status: Chronic Assessment and plan: Troponin has been bumped this admission. However, after reviewing past records it seems patient has a chronically elevated troponin. This is most likely secondary to patient's heart failure. Current Visit: Yes (3) Tachycardia Status: Acute Assessment and plan: Sinus tachycardia noted with rate ranging from 110-120. Will adjust medications as needed. Current Visit: No (4) Nonischemic cardiomyopathy Status: Chronic Assessment and plan: Most recent EF is noted to be 15-20%. Current Visit: Yes (5) Abnormal thyroid function test Status: Acute Assessment and plan: Defer to hospitalist management. Current Visit: Yes (6) Mitral regurgitation Status: Chronic Current Visit: Yes (7) DM2 (diabetes mellitus, type 2) Status: Chronic Assessment and plan: Continue current plan of care. Current Visit: No (8) Dyslipidemia Status: Chronic Assessment and plan: Continue current plan of care. Current Visit: No (9) Hypertension Status: Chronic Assessment and plan: This is currently well controlled. Will continue current plan of care. Current Visit: No (10) Obstructive sleep apnea Status: Chronic Current Visit: No (11) Overweight Status: Chronic Assessment and plan: Counseled patient on the importance of weight loss. Current Visit: No (12) Noncompliance with medication regimen Status: Acute Assessment and plan: I have stressed the importance of medication compliance. Current Visit: Yes (13) Chronic renal insufficiency Status: Chronic Assessment and plan: Creatinine is 1.6, this seems to be patient's baseline. Current Visit: Yes Cardiology - PN: Subj Interval history: Mr. Drummond is doing a little better. He is getting more diuresis. His renal function is worse this morning this will need to be watched. His creatinine is up to 2.5 and I will repeat a BMP in the morning. Exam (Progress Note) - Constitutional Vitals: Period Temp Pulse Resp BP Sys/English Pulse Ox Last 24 Hr 97 F-98.7 F 100-114 18-20 96-130/62-94 96-100 Exam: General:no acute distress. alert and oriented, mood and affect are normal HEENT: no new lesions, sclerae are clear, mouth and pharynx benign Neck: supple, trachea midline, no JVD noted Lungs: no rales ronchi or wheeze is noted. pt comfortable without accesory muscle use to assist with breathing CV: RRR no murmur rub or gallop is noted. Abd: soft and nontender, BSNA, protuberant no masses. Ext: no cyanosis, clubbing or edema Neuro: grossly intact without focal neurologic deficit. Result/EKG - Labs CBC & BMP: 11/29/16 03:21 11/29/16 03:21 Labs: Laboratory Results - last 24 hr 11/29/16 11/29/16 03:21 03:21 WBC 6.4 RBC 5.40 Hgb 11.3 L Hct 34.1 L MCV 63.1 L MCH 21 L MCHC 33.1 RDW 21.0 H Plt Count 284 D Neut % (Auto) 58.7 Lymph % (Auto) 28.0 [place] % (Auto) 9.5 Eos % (Auto) 2.5 Baso % (Auto) 0.8 Neut # (Auto) 3.8 Lymph # (Auto) 1.8 [place] # (Auto) 0.6 Eos # (Auto) 0.2 Baso # (Auto) 0.1 Immature Gran % 0.5 Nucleated RBC % 0.0 Immature Gran # 0.03 Nucleated RBCs # 0.00 Platelet Estimate Adequate Anisocytosis 1+ Target Cells 2+ Acanthocytes (Spur) Moderate Schistocytes 1+ Sodium 135 L Potassium 4.3 Chloride 98 Carbon Dioxide 23 Anion Gap 18.3 H BUN 47 H Creatinine 2.50 H GFR Calculation 39 BUN/Creatinine Ratio 18.00 Glucose 105 Calculated Osmolality 281.1 Calcium 9.2 Magnesium 2.2
--- NOTE | 2016-11-29 12:18 | Hospitalist Progress Note ---
Assessment and Plan (1) CHF exacerbation Status: Acute Assessment and plan: Cardiology managing. On lasix and metolazone. Weight unchanged today. Current Visit: No Qualifiers: Congestive heart failure type: combined Qualified Code(s): I50.43 - Acute on chronic combined systolic (congestive) and diastolic (congestive) heart failure (2) CKD (chronic kidney disease) stage 2, GFR 60-89 ml/min Status: Chronic Current Visit: No (3) Abdominal distension Status: Acute Assessment and plan: GI following Continue spironolactone Current Visit: Yes (4) MELODY (acute kidney injury) Status: Acute Assessment and plan: Acute Kidney Injury on Chronic Kidney Disease Secondary to lasix, monitor closely Current Visit: Yes Hospitalist: Subjective Interval history: No acute events overnight. Reports that he feels a little better today. Exam - Constitutional Vitals: Period Temp Pulse Resp BP Sys/English Pulse Ox Last 24 Hr 97 F-98.7 F 100-113 18-20 96-130/62-94 96-100 General appearance: over weight - Head Head exam: Present: normocephalic, atraumatic - Eye Eye exam: Present: EOMI Pupils: Present: RACHEAL - ENT ENT exam: Present: normal exam - Neck Neck exam: Present: normal inspection. Absent: lymphadenopathy, tenderness - Respiratory Respiratory exam: Present: clear to auscultation bilaterally - Cardiovascular Cardiovascular exam: Present: regular rate and rhythm - GI/Abdominal GI/Abdominal exam: Present: normal bowel sounds, soft - Extremities Exam Extremities exam: Present: normal inspection - Back Exam Back exam: Present: normal inspection - Neurological Exam Neurological exam: Present: alert, oriented X3 - Psychiatric Psychiatric exam: Present: normal affect, normal mood - Skin Skin exam: Present: warm, intact Results - Labs CBC & BMP: 11/29/16 03:21 11/29/16 03:21
[2016-11-29] MEDS: ENOXAPARIN 80 MG/0.8 ML SYRINGE SUBCUT SCH (20:47)
[2016-11-30] MEDS: DILTIAZEM INJ 100 MG in SODIUM CHLORIDE 0.9% 100 ML IV SCH ×2 (03:28→22:22)
[2016-11-30 05:02] LABS: Basophils # 0.1 10*3/uL (0.0-0.2); Eosinophils # 0.2 10*3/uL (0.0-0.87); Eosinophils % 3.2 % (0.00-10.9); Hematocrit 36.1 VOL% (42.0-52.0); Hemoglobin 11.4 GM/DL (14.0-18.0); Immature Granulocytes % 0.5 %; Immature Granulocytes Absolute 0.03 #; Lymphocytes # 1.6 10*3/uL (1.4-4.0); Lymphocytes % 25.8 % (21.2-54.2); Mean Corpuscular HGB Conc 31.6 GM/DL (32-36); Mean Corpuscular Hemoglobin 21 PG (27-34); Mean Corpuscular Volume 65.4 FL (87-102); Monocytes # 0.5 10*3/uL (0.11-0.8); Monocytes % 7.7 % (1.7-12.7); Neutrophils # 3.9 10*3/uL (1.4-7.4); Neutrophils % 61.8 % (38.7-73.9); Platelet Count 283 T/CUMM (130-400); Red Blood Count 5.52 MC/CUMM (3.8-5.5); Red Cell Distribution Width 21.3 % (9.3-17.3); White Blood Count 6.2 T/CUMM (4-12)
[2016-11-30 05:27] LABS: Burr Cells Slight; Elliptocytes Few; Hypochromasia 1+; Platelet Estimate Adequate; Target Cells Few
[2016-11-30 05:32] LABS: Calcium 8.8 MG/DL (8.5-10.1); Magnesium 2.3 MG/DL (1.8-2.4); Osmolality,Calculated 290.7 MOS/KG (273-304); Osmolality,Calculated 291.5 MOS/KG (273-304); Potassium 4.1 MMOL/L (3.5-5.1)
[2016-11-30] MEDS: LEVOTHYROXINE 50 MCG TABLET PO SCH (06:51)
[2016-11-30] MEDS: CARVEDILOL 3.125 MG TABLET PO SCH ×2 (09:56→22:21)
[2016-11-30] MEDS: ASPIRIN CHEW 81 MG TABLET PO SCH (09:57)
[2016-11-30] MEDS: metOLazone 5 MG TABLET PO SCH (09:57)
[2016-11-30] MEDS: PANTOPRAZOLE 40 MG TABLET PO SCH (09:57)
[2016-11-30] MEDS: FUROSEMIDE 40 MG/4 ML VIAL IV SCH ×2 (09:57→17:53)
[2016-11-30] MEDS: SPIRONOLACTONE 25 MG TABLET PO SCH ×2 (09:57→22:15)
--- NOTE | 2016-11-30 10:27 | Hospitalist Progress Note ---
Assessment and Plan (1) CHF exacerbation Status: Acute Assessment and plan: Cardiology managing. On lasix and metolazone. Weight unchanged today. Current Visit: No Qualifiers: Congestive heart failure type: combined Qualified Code(s): I50.43 - Acute on chronic combined systolic (congestive) and diastolic (congestive) heart failure (2) CKD (chronic kidney disease) stage 2, GFR 60-89 ml/min Status: Chronic Current Visit: No (3) Abdominal distension Status: Acute Assessment and plan: s/p paracentesis, managed by GI Continue spironolactone Current Visit: Yes (4) MELODY (acute kidney injury) Status: Acute Assessment and plan: Acute Kidney Injury on Chronic Kidney Disease Secondary to lasix, monitor closely Current Visit: Yes Hospitalist: Subjective Interval history: Reports that he feels a little better today. No acute events overnight. Weight unchanged from yesterday. Feels that he is urinating more now. Has MELODY secondary to lasix use, monitoring for now. Exam - Constitutional Vitals: Period Temp Pulse Resp BP Sys/English Pulse Ox Last 24 Hr 97.9 F-98 F 100-107 18-20 86-112/65-82 94-98 Results - Labs CBC & BMP: 11/30/16 04:22 11/30/16 04:22
--- NOTE | 2016-11-30 16:45 | Cardiology Progress Note ---
Henry Rosales Rachel, RN, am scribing for, and in the presence of, Rocky Warner MD 16:45. Assessment and Plan (1) CHF exacerbation Status: Acute Current Visit: Yes (2) Elevated troponin Status: Chronic Assessment and plan: Current Visit: Yes (3) Tachycardia Status: Acute Current Visit: No (4) Nonischemic cardiomyopathy Status: Chronic Current Visit: Yes (5) Abnormal thyroid function test Status: Acute Assessment and plan: Current Visit: Yes (6) Mitral regurgitation Status: Chronic Current Visit: Yes (7) DM2 (diabetes mellitus, type 2) Status: Chronic Assessment and plan: . Current Visit: No (8) Dyslipidemia Status: Chronic Current Visit: No (9) Hypertension Status: Chronic Current Visit: No (10) Obstructive sleep apnea Status: Chronic Current Visit: No (11) Overweight Status: Chronic Current Visit: No (12) Noncompliance with medication regimen Status: Acute Current Visit: Yes (13) Chronic renal insufficiency Status: Chronic Current Visit: Yes Cardiology - PN: Subj Interval history: Patient did well overnight. He is no longer requiring dobutamine drip. He reports that his urine output picked up significantly last night after Zaroxolyn was initiated. Creatinine this morning is elevated at 2.7. Will continue to monitor creatinine closely. He is being diuresed with Lasix 80 mg IV BID. According to his I's and O's, he has lost a total of 10 pounds since admission and put out a total of 500 ml this morning. Tolerating Aldactone 75 mg BID well, potassium stable. Blood pressure is borderline low this morning at 96/65, patient is asymptomatic. She is currently in sinus rhythm with heart rate ranging from 90-110 without any overt arrhythmias or ectopy noted. Review of labs-creatinine is 2.7, BUN 54, magnesium 2.3, potassium 4.1, sodium 138, and chloride 96 Assessment/Plan: 1. CHF exacerbation- Patient is no longer requiring Dobutamine infusion. This is was titrated off Wednesday morning. Due to weight gain over the weekend and Zaroxolyn was added. He is currently receiving Lasix 80 milligrams IV twice daily and Aldactone 75 mg twice daily. Creatinine this morning is 2.7 we will continue to monitor creatinine closely. His renal function is worsening with increasing diuresis as expected. 2. Elevated troponin--Troponin has been bumped this admission. However, after reviewing past records it seems patient has a chronically elevated troponin. This is most likely secondary to patient's heart failure. 3. Nonischemic cardiomyopathy - Most recent EF is noted to be 15-20%. 4. Mitral regurgitation 5. Diabetes--this is been well controlled, continue current plan of care. 6. Hypertension--blood pressure today is borderline low at 96/65. Will adjust medications as needed. 7. Obstructive sleep apnea--continue current plan of care. 8. Obesity - Counseled patient on the importance of weight loss. 9. Noncompliance with medication regimen--counseled patient on the importance of medication compliance. 10. Chronic renal insufficiency--creatinine today is 2.7. His renal function is worsening with increasing diuresis as expected. We will continue to monitor creatinine closely. 11. Hypothyroidism- continue current plan of care with Synthroid. Cardiology note addendum patient examined and chart reviewed Status post congestive heart failure 1 week ago. Ejection fraction 20% range. Status post 2.3 L paracentesis last week Telemetry shows sinus rhythm in the 90s Admission weight 220 pounds. Weight today down to 209 pounds. Labs noted. For discharge today. Office visit with Dr. Mariano 1 week with BMP and mag level Exam (Progress Note) - Constitutional Vitals: Period Temp Pulse Resp BP Sys/English Pulse Ox Last 24 Hr 97.9 F-98 F 100-107 18-20 86-112/65-82 94-98 General appearance: over weight - Head Head exam: Present: normal inspection, normocephalic, atraumatic - Neck Neck exam: Present: normal inspection. Absent: lymphadenopathy, tenderness, thyromegaly - Respiratory Respiratory exam: Present: clear to auscultation bilaterally. Absent: accessory muscle use, chest wall tenderness, rales, rhonchi, stridor, wheezes - Cardiovascular Cardiovascular exam: Present: systolic murmur, tachycardia. Absent: gallop, rubs - GI/Abdominal GI/Abdominal exam: Present: normal bowel sounds, distended, soft. Absent: mass , tenderness - Extremities Exam Extremities exam: Present: normal inspection, normal capillary refill, edema (1 + edema to bilateral lower extremities), other (Normal lower extremity pulses). Absent: calf tenderness - Neurological Exam Neurological exam: Present: alert, oriented X3, normal gait - Psychiatric Psychiatric exam: Present: normal affect, normal mood. Absent: agitated, anxious, depressed - Skin Skin exam: Present: normal color, warm, dry. Absent: cyanosis Result/EKG - Labs CBC & BMP: 11/30/16 04:22 11/30/16 04:22 Lab Results: I have reviewed the past 24 hour labs Labs: Laboratory Results - last 24 hr 11/29/16 11/30/16 11/30/16 19:21 04:22 04:22 WBC 6.2 RBC 5.52 H Hgb 11.4 L Hct 36.1 L MCV 65.4 L MCH 21 L MCHC 31.6 L RDW 21.3 H Plt Count 283 Neut % (Auto) 61.8 Lymph % (Auto) 25.8 [place] % (Auto) 7.7 Eos % (Auto) 3.2 Baso % (Auto) 1.0 H Neut # (Auto) 3.9 Lymph # (Auto) 1.6 [place] # (Auto) 0.5 Eos # (Auto) 0.2 Baso # (Auto) 0.1 Immature Gran % 0.5 Nucleated RBC % 0.0 Immature Gran # 0.03 Nucleated RBCs # 0.00 Platelet Estimate Adequate Hypochromasia 1+ Target Cells Few Mariano Cells Slight Elliptocytes Few Morphology Comment Sodium 139 Potassium 4.0 Chloride 96 L Carbon Dioxide 24 Anion Gap 23.0 H BUN 51 H Creatinine 2.70 H GFR Calculation 36 BUN/Creatinine Ratio 18.00 Glucose 116 H POC Glucose 162 H Calculated Osmolality 291.5 Calcium 8.8 Magnesium 11/30/16 04:22 WBC RBC Hgb Hct MCV MCH MCHC RDW Plt Count Neut % (Auto) Lymph % (Auto) [place] % (Auto) Eos % (Auto) Baso % (Auto) Neut # (Auto) Lymph # (Auto) [place] # (Auto) Eos # (Auto) Baso # (Auto) Immature Gran % Nucleated RBC % Immature Gran # Nucleated RBCs # Platelet Estimate Hypochromasia Target Cells [place] Cells Elliptocytes Morphology Comment Sodium 138 Potassium 4.1 Chloride 96 L Carbon Dioxide 25 Anion Gap 21.1 H BUN 54 H Creatinine 2.70 H GFR Calculation 36 BUN/Creatinine Ratio 20.00 Glucose 118 H POC Glucose Calculated Osmolality 290.7 Calcium 9.0 Magnesium 2.3 - EKG EKG results: interpreted by me, sinus rhythm I, Rocky Warner MD, personally performed the services described in this documentation, ascribed by Libby Figueroa RN in my presence, and it is both accurate and complete .
[2016-11-30] MEDS: ENOXAPARIN 80 MG/0.8 ML SYRINGE SUBCUT SCH (22:21)
[2016-12-01 05:06] LABS: Basophils # 0.1 10*3/uL (0.0-0.2); Basophils % 0.8 % (0.0-0.8); Eosinophils # 0.3 10*3/uL (0.0-0.87); Eosinophils % 3.7 % (0.00-10.9); Hematocrit 32.4 VOL% (42.0-52.0); Hemoglobin 10.7 GM/DL (14.0-18.0); Immature Granulocytes % 0.3 %; Immature Granulocytes Absolute 0.02 #; Lymphocytes # 1.8 10*3/uL (1.4-4.0); Lymphocytes % 24.1 % (21.2-54.2); Mean Corpuscular Hemoglobin 21 PG (27-34); Mean Corpuscular Volume 62.9 FL (87-102); Monocytes # 0.6 10*3/uL (0.11-0.8); Monocytes % 8.3 % (1.7-12.7); Neutrophils # 4.6 10*3/uL (1.4-7.4); Neutrophils % 62.8 % (38.7-73.9); Platelet Count 305 T/CUMM (130-400); Red Blood Count 5.15 MC/CUMM (3.8-5.5); Red Cell Distribution Width 21.2 % (9.3-17.3); White Blood Count 7.4 T/CUMM (4-12)
[2016-12-01 05:29] LABS: Burr Cells Slight; Elliptocytes Few; Hypochromasia 1+; Platelet Estimate Adequate; Target Cells Few
[2016-12-01 05:42] LABS: Magnesium 2.1 MG/DL (1.8-2.4); Osmolality,Calculated 288.7 MOS/KG (273-304); Potassium 4.1 MMOL/L (3.5-5.1)
[2016-12-01] MEDS: LEVOTHYROXINE 50 MCG TABLET PO SCH (06:54)
[2016-12-01] MEDS: PANTOPRAZOLE 40 MG TABLET PO SCH (09:41)
[2016-12-01] MEDS: ASPIRIN CHEW 81 MG TABLET PO SCH (09:41)
[2016-12-01] MEDS: CARVEDILOL 3.125 MG TABLET PO SCH ×2 (09:42→20:45)
[2016-12-01] MEDS: FUROSEMIDE 40 MG/4 ML VIAL IV SCH ×2 (09:42→17:14)
[2016-12-01] MEDS: SPIRONOLACTONE 25 MG TABLET PO SCH ×2 (09:50→20:45)
[2016-12-01] MEDS: metOLazone 5 MG TABLET PO SCH (09:54)
--- NOTE | 2016-12-01 10:50 | Hospitalist Progress Note ---
Assessment and Plan (1) Nonischemic cardiomyopathy Status: Chronic Assessment and plan: Unverified history of "blockages" objective reports are no coronary disease. Has recent medication non-compliance. Current Visit: Yes (2) Hypothyroidism Status: Chronic Assessment and plan: Possible interruption of therapy last fall with rising TSH Current Visit: Yes Hospitalist: Subjective Interval history: 51 yo male with nonischemic cardiomyopathy presenting with volume overload. Had similar presentation in August and September. Progressive rise in TSH over these visits most recent 9.9. Continues to diuresis with evolving pre-renal changes. No dyspnea and holding sinus rhythm. Exam - Constitutional Vitals: Period Temp Pulse Resp BP Sys/English Pulse Ox Last 24 Hr 97 F-98.6 F 97-109 18-20 91-109/69-78 92-100 General appearance: normal weight, no acute distress - Respiratory Respiratory exam: Present: clear to auscultation bilaterally. Absent: rales, rhonchi, wheezes - Cardiovascular Cardiovascular exam: Present: regular rate and rhythm, systolic murmur (3/6 mitral regurgitation to apex) - Extremities Exam Extremities exam: Present: edema (1+) - Neurological Exam Neurological exam: Present: alert, oriented X3 Results - Labs CBC & BMP: 12/01/16 04:39 12/01/16 04:39
--- NOTE | 2016-12-01 17:05 | Cardiology Progress Note ---
Henry Rosales Rachel, RN, am scribing for, and in the presence of, Rocky Warner MD 17:03. Assessment and Plan (1) CHF exacerbation Status: Acute Current Visit: Yes (2) Elevated troponin Status: Chronic Assessment and plan: Current Visit: Yes (3) Tachycardia Status: Acute Current Visit: No (4) Nonischemic cardiomyopathy Status: Chronic Current Visit: Yes (5) Abnormal thyroid function test Status: Acute Assessment and plan: Current Visit: Yes (6) Mitral regurgitation Status: Chronic Current Visit: Yes (7) DM2 (diabetes mellitus, type 2) Status: Chronic Assessment and plan: . Current Visit: No (8) Dyslipidemia Status: Chronic Current Visit: No (9) Hypertension Status: Chronic Current Visit: No (10) Obstructive sleep apnea Status: Chronic Current Visit: No (11) Overweight Status: Chronic Current Visit: No (12) Noncompliance with medication regimen Status: Acute Current Visit: Yes (13) Chronic renal insufficiency Status: Chronic Current Visit: Yes Cardiology - PN: Subj Interval history: Cardiology note: Patient seen and examined on telemetry. Patient sitting up in chair in no acute distress. Currently not requiring any oxygen. He did well overnight and is without cardiac complaints this morning. According to his I's and O's, he is up 2 pounds from yesterday. However, he is diuresing well with Zaroxolyn, Aldactone and Lasix 80 IV twice daily. He has lost a total of 7 pounds since admission. He is status post paracentesis last week. Creatinine is down to 2.5 today from 2.7 yesterday. We will continue to monitor his creatinine closely. Blood pressure remains borderline low at 99/70. She is asymptomatic with this. Patient denies chest pain, heaviness or tightness. He reports that his breathing seems to be back to baseline. He is currently in sinus tach with heart rates ranging from 90s-110 without any overt arrhythmias or ectopy noted. Review of labs--white blood cell count of 7.4, H&H 10.7 and 32.4, creatinine 2.5 with BUN 53, potassium 4.1, magnesium 2.1, sodium 138 and chloride 98. Impression: Status post CHF exacerbation 1 week ago. Nonischemic cardiomyopathy, most recent ejection fraction noted to be 15-20% Status post 2.3 L paracentesis last week Mitral regurgitation Chronic renal insufficiency Hypertension Diabetes Obesity Obstructive sleep apnea Noncompliance with medication regimen Hypothyroidism Telemetry shows sinus rhythm in the 90s-110 Admission weight 220 pounds. Weight today down to 211 pounds. Labs noted. Plan: Weight 88 kg on November 27. Weight today 95 kg December 01. Status post 2.3 L abdominal paracentesis November 24 Ejection fraction 20% with CHF and ascites Hemoglobin 10.7 potassium 4.1 BUN 53 creatinine 2.50 Blood pressure 100/64 O2 sat 93% on 2 L Continue IV Lasix 80 mg twice daily and Zaroxolyn 5 mg every morning Patient will need another paracentesis prior to discharge Exam (Progress Note) - Constitutional Vitals: Period Temp Pulse Resp BP Sys/English Pulse Ox Last 24 Hr 97 F-98.6 F 97-109 18-20 91-109/69-78 92-100 General appearance: no acute distress, over weight - Head Head exam: Present: normal inspection, normocephalic, atraumatic - Respiratory Respiratory exam: Present: wheezes. Absent: accessory muscle use, chest wall tenderness, rales, rhonchi, stridor - Cardiovascular Cardiovascular exam: Present: regular rate and rhythm, systolic murmur, tachycardia. Absent: gallop, rubs - GI/Abdominal GI/Abdominal exam: Present: normal bowel sounds, distended. Absent: mass, tenderness - Extremities Exam Extremities exam: Present: normal inspection, edema (2+ bilateral lower extremity edema), other (Normal upper and lower extremity pulses). Absent: calf tenderness - Neurological Exam Neurological exam: Present: alert, oriented X3, normal gait - Psychiatric Psychiatric exam: Present: normal affect, normal mood. Absent: agitated, anxious, depressed - Skin Skin exam: Present: normal color, warm, dry. Absent: cyanosis, erythema Result/EKG - Labs CBC & BMP: 12/01/16 04:39 12/01/16 04:39 Lab Results: I have reviewed the past 24 hour labs Labs: Laboratory Results - last 24 hr 12/01/16 12/01/16 04:39 04:39 WBC 7.4 RBC 5.15 Hgb 10.7 L Hct 32.4 L MCV 62.9 L MCH 21 L MCHC 33.0 RDW 21.2 H Plt Count 305 Neut % (Auto) 62.8 Lymph % (Auto) 24.1 [place] % (Auto) 8.3 Eos % (Auto) 3.7 Baso % (Auto) 0.8 Neut # (Auto) 4.6 Lymph # (Auto) 1.8 [place] # (Auto) 0.6 Eos # (Auto) 0.3 Baso # (Auto) 0.1 Immature Gran % 0.3 Nucleated RBC % 0.0 Immature Gran # 0.02 Nucleated RBCs # 0.00 Platelet Estimate Adequate Hypochromasia 1+ Target Cells Few Mariano Cells Slight Elliptocytes Few Sodium 138 Potassium 4.1 Chloride 98 Carbon Dioxide 25 Anion Gap 19.1 H BUN 53 H Creatinine 2.50 H GFR Calculation 39 BUN/Creatinine Ratio 21.00 H Glucose 101 Calculated Osmolality 288.7 Calcium 9.0 Magnesium 2.1 Timmy Rosales Thomas, MD, personally performed the services described in this documentation, ascribed by Libby Figueroa RN in my presence, and it is both accurate and complete 704 .
[2016-12-01] MEDS: ENOXAPARIN 80 MG/0.8 ML SYRINGE SUBCUT SCH (20:45)
[2016-12-02 04:50] LABS: Calcium 9.5 MG/DL (8.5-10.1); Osmolality,Calculated 288.8 MOS/KG (273-304); Potassium 4.9 MMOL/L (3.5-5.1)
[2016-12-02] MEDS: LEVOTHYROXINE 50 MCG TABLET PO SCH (06:27)
--- NOTE | 2016-12-02 09:43 | Hospitalist Progress Note ---
Assessment and Plan (1) Nonischemic cardiomyopathy Status: Chronic Assessment and plan: Unverified history of "blockages" objective reports are no coronary disease. Has recent medication non-compliance. Episode of monomorphic ventricular tachycardia 12/01 Current Visit: Yes (2) Hypothyroidism Status: Chronic Assessment and plan: Possible interruption of therapy last fall with rising TSH Current Visit: Yes (3) Cirrhosis Status: Chronic Assessment and plan: Paracentesis completed 11/24, ultrasound showed hepatic cirrhosis. Current Visit: Yes Hospitalist: Subjective Interval history: 51 yo male with nonischemic cardiomyopathy with recurrent episodes of volume overload, other medication features support compliance issues. He is undergoing diuresis after a course of dobutamine and an abdominal paracentesis. 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 Last PM period of sustained wide complex tachycardia consistent with ventricular tachycardia. Exam - Constitutional Vitals: Period Temp Pulse Resp BP Sys/English Pulse Ox Last 24 Hr 97.3 F-97.9 F 18-115 16-20 98-121/58-91 93-100 General appearance: normal weight - Respiratory Respiratory exam: Present: clear to auscultation bilaterally, other (low tidal volume). Absent: rales, rhonchi, wheezes - Cardiovascular Cardiovascular exam: Present: regular rate and rhythm, systolic murmur (2/6 mitral regurgitation at apex) - GI/Abdominal GI/Abdominal exam: Present: ascites. Absent: tenderness - Extremities Exam Extremities exam: Present: edema - Neurological Exam Neurological exam: Present: alert, other (mild asterixis) - Psychiatric Psychiatric exam: Present: depressed Results - Labs CBC & BMP: 12/01/16 04:39 12/02/16 03:56
[2016-12-02] MEDS: metOLazone 5 MG TABLET PO SCH (09:54)
[2016-12-02] MEDS: SPIRONOLACTONE 25 MG TABLET PO SCH ×2 (09:54→21:05)
[2016-12-02] MEDS: BENZONATATE 100 MG CAPSULE PO PRN (09:54)
[2016-12-02] MEDS: ASPIRIN CHEW 81 MG TABLET PO SCH (09:55)
[2016-12-02] MEDS: FUROSEMIDE 40 MG/4 ML VIAL IV SCH ×2 (09:55→16:29)
[2016-12-02] MEDS: PANTOPRAZOLE 40 MG TABLET PO SCH (09:55)
[2016-12-02] MEDS: CARVEDILOL 3.125 MG TABLET PO SCH ×2 (09:57→21:05)
--- NOTE | 2016-12-02 11:12 | Post Interventional Procedure ---
Pre-op diagnosis: CHF, acites Post-op diagnosis: same Procedure: US guided RLQ paracentesis Radiologist: Jorge Alberto Evans Anesthesia: local Specimens: other (1800 cc straw colored ascites) Estimated blood loss: none Complications: none Condition: stable
--- NOTE | 2016-12-02 12:26 | Cardiology Progress Note ---
Henry Rosales Rachel RN, am scribing for, and in the presence of, Rocky Warner MD 12:26. Assessment and Plan (1) CHF exacerbation Status: Acute Current Visit: Yes (2) Elevated troponin Status: Chronic Assessment and plan: Current Visit: Yes (3) Tachycardia Status: Acute Current Visit: No (4) Nonischemic cardiomyopathy Status: Chronic Current Visit: Yes (5) Abnormal thyroid function test Status: Acute Assessment and plan: Current Visit: Yes (6) Mitral regurgitation Status: Chronic Current Visit: Yes (7) DM2 (diabetes mellitus, type 2) Status: Chronic Assessment and plan: . Current Visit: No (8) Dyslipidemia Status: Chronic Current Visit: No (9) Hypertension Status: Chronic Current Visit: No (10) Obstructive sleep apnea Status: Chronic Current Visit: No (11) Overweight Status: Chronic Current Visit: No (12) Noncompliance with medication regimen Status: Acute Current Visit: Yes (13) Chronic renal insufficiency Status: Chronic Current Visit: Yes (14) Ascites Status: Acute Current Visit: Yes (15) Nonsustained ventricular tachycardia Status: Resolved Current Visit: Yes Cardiology - PN: Subj Interval history: Patient seen on telemetry. Patient reports a worsening shortness of breath overnight He also confirms worsening of his abdominal distention and ascites. Will notify GI and plan for paracentesis. According to his I's and O's, he has gained 2 pounds overnight. He is being diuresed with 80 mg IV twice daily, Zaroxolyn and Aldactone and he is diuresing well. He is also total 5 pounds since admission. Creatinine today is noted to be 2.7. This is increased from 2.5 yesterday. We will continue to monitor his creatinine closely. Patient seems to be more lethargic today. He is currently requiring oxygen at 2 L. Blood pressure is noted to be 99/79. Continue to monitor this closely. Patient had a run of nonsustained ventricular tachycardia last night around 10 PM. Currently, he is in sinus tachycardia with heart rates ranging from 110- 115 without any overt arrhythmias or ectopy noted. Review of labs--sodium 137, chloride 97, creatinine 2.7, potassium 4.9 and magnesium of 2.1. Impression: Status post CHF exacerbation 1 week ago. Nonischemic cardiomyopathy, most recent ejection fraction noted to be 15-20% Status post 2.3 L paracentesis last week Mitral regurgitation Chronic renal insufficiency Hypertension Diabetes Obesity Obstructive sleep apnea Noncompliance with medication regimen Hypothyroidism Telemetry shows sinus rhythm in the 90s-115 According to I's and O's, patient gained 2 pounds over 9 Telemetry reviewed, run of nonsustained ventricular tachycardia noted. Labs noted. Plan: Continue strict I's and O's and daily weights Status post 2.3 L abdominal paracentesis November 24 Ejection fraction 20% with CHF and ascites Hemoglobin 10.7 potassium 4.9 BUN 57 creatinine 2.7 Blood pressure 99/79 O2 sat 100% on 2 L Continue IV Lasix 80 mg twice daily and Zaroxolyn 5 mg every morning Paracentesis today Cardiology addendum Patient examined chart reviewed and discussed with nurse Libby Figueroa RN. Recurrent CHF and ascites. Status post 1.8 L abdominal paracentesis today. O2 sat 100% on 2 L cannula. Blood pressure is currently 94/66. Patient is comfortable lying flat but feels very weak Creatinine 2.70 potassium 4.9 Continue current regimen. Prognosis poor. Exam (Progress Note) - Constitutional Vitals: Period Temp Pulse Resp BP Sys/English Pulse Ox Last 24 Hr 97.3 F-97.9 F 18-115 16-22 98-121/58-91 93-100 General appearance: mild distress, over weight - Head Head exam: Present: normal inspection, normocephalic, atraumatic - Respiratory Respiratory exam: Present: decreased breath sounds. Absent: accessory muscle use, chest wall tenderness, rales, rhonchi, stridor, wheezes - Cardiovascular Cardiovascular exam: Present: regular rate and rhythm, systolic murmur, tachycardia. Absent: carotid bruit, gallop, rubs - GI/Abdominal GI/Abdominal exam: Present: ascites, distended, soft. Absent: mass, tenderness - Extremities Exam Extremities exam: Present: normal inspection, normal capillary refill, edema (2 + bilateral lower extremity edema), other (Normal lower and upper extremity pulses). Absent: calf tenderness - Neurological Exam Neurological exam: Present: alert, oriented X3, normal gait - Skin Skin exam: Present: normal color, warm, dry. Absent: cyanosis, erythema Result/EKG - Labs CBC & BMP: 12/01/16 04:39 12/02/16 03:56 Lab Results: I have reviewed the past 24 hour labs Labs: Laboratory Results - last 24 hr 12/02/16 03:56 Sodium 137 Potassium 4.9 Chloride 97 L Carbon Dioxide 23 Anion Gap 21.9 H BUN 57 H Creatinine 2.70 H GFR Calculation 36 BUN/Creatinine Ratio 21.00 H Glucose 96 Calculated Osmolality 288.8 Calcium 9.5 I, Rocky Warner MD, personally performed the services described in this documentation, ascribed by Libby Figueroa RN in my presence, and it is both accurate and complete .
--- NOTE | 2016-12-02 15:47 | Ultrasound Report ---
US paracentesis abd w/image Indication: CHF. Recurrent ascites. Ultrasound-guided paracentesis Description: A formal timeout was performed. Maximum sterile barrier technique was used. The right lower quadrant was prepped and draped in sterile fashion. Under sonographic guidance, a 6 [place] pigtail catheter was advanced into the ascites using trocar technique. A captured sonographic image documents needle position. The needle was removed. Through the catheter, we obtained a total of 1800 cc of straw-colored ascites. No additional fluid could be obtained. Therefore, the catheter was removed. A bandage was placed at the puncture site. The patient tolerated the procedure well. Impression: Ultrasound-guided paracentesis. PROCEDURE INTERPRETED AT [facility] DEPARTMENT OF RADIOLOGY Final Report Signed by: Jorge Alberto Evans M.D.
[2016-12-02] MEDS: ENOXAPARIN 80 MG/0.8 ML SYRINGE SUBCUT SCH (21:04)
[2016-12-03 06:30] LABS: Calcium 9.3 MG/DL (8.5-10.1); Osmolality,Calculated 285.2 MOS/KG (273-304); Potassium 4.8 MMOL/L (3.5-5.1)
[2016-12-03] MEDS: LEVOTHYROXINE 50 MCG TABLET PO SCH (06:52)
[2016-12-03] MEDS: FUROSEMIDE 40 MG/4 ML VIAL IV SCH ×2 (08:12→15:56)
[2016-12-03] MEDS: PANTOPRAZOLE 40 MG TABLET PO SCH (08:15)
[2016-12-03] MEDS: SPIRONOLACTONE 25 MG TABLET PO SCH ×2 (08:15→20:31)
[2016-12-03] MEDS: metOLazone 5 MG TABLET PO SCH (08:15)
[2016-12-03] MEDS: CARVEDILOL 3.125 MG TABLET PO SCH ×2 (08:15→20:31)
[2016-12-03] MEDS: ASPIRIN CHEW 81 MG TABLET PO SCH (08:15)
--- NOTE | 2016-12-03 09:19 | Cardiology Progress Note ---
Henry Rosales Rachel, RN, am scribing for, and in the presence of, Rocky Warner MD 09:18. Assessment and Plan (1) CHF exacerbation Status: Acute Current Visit: Yes (2) Elevated troponin Status: Chronic Assessment and plan: Current Visit: Yes (3) Tachycardia Status: Acute Current Visit: No (4) Nonischemic cardiomyopathy Status: Chronic Current Visit: Yes (5) Abnormal thyroid function test Status: Acute Assessment and plan: Current Visit: Yes (6) Mitral regurgitation Status: Chronic Current Visit: Yes (7) DM2 (diabetes mellitus, type 2) Status: Chronic Assessment and plan: . Current Visit: No (8) Dyslipidemia Status: Chronic Current Visit: No (9) Hypertension Status: Chronic Current Visit: No (10) Obstructive sleep apnea Status: Chronic Current Visit: No (11) Overweight Status: Chronic Current Visit: No (12) Noncompliance with medication regimen Status: Acute Current Visit: Yes (13) Chronic renal insufficiency Status: Chronic Current Visit: Yes (14) Ascites Status: Acute Current Visit: Yes (15) Nonsustained ventricular tachycardia Status: Resolved Current Visit: Yes Cardiology - PN: Subj Interval history: Patient was seen on telemetry. He is sitting up in chair in no acute distress. He is currently requiring oxygen at 2L NC. He is status post paracentesis yesterday. 1800 ml was removed. Patient tolerated well and reports that his breathing is better today. He denies chest pain, heaviness or tightness. His weight is down this morning to 196. He is diuresing well with Lasix 80 bid, Zaroxolyn and Aldactone. Potassium is stable at 4.8. Blood pressure is stable this morning at 106/65. He remains tachycardic with heart rates ranging from 95- 105. Currently, he is sinus rhythm without any overt arrhythmias or ectopy noted. Creatinine today is up to 2.8, we will continue to monitor creatinine closely. Telemetry has been reviewed, no more runs of ventricular tachcardia noted. Will continue to monitor patient on tele. Review of labs-- sodium 134, chloride 96, potassium 4.8, mag 2.1, Creatinine 2.8 with BUN of 64. Impression: Status post CHF exacerbation 1 week ago. Nonischemic cardiomyopathy, most recent ejection fraction noted to be 15-20% Status post 2.3 L paracentesis last week, 1800 ml removed yesterday. Mitral regurgitation Chronic renal insufficiency, creatinine up to 2.8 today. Hypertension Diabetes Obesity Obstructive sleep apnea Noncompliance with medication regimen Hypothyroidism Telemetry shows sinus rhythm in the 90s-115 According to I's and O's, patient's weight is down from yesterday. He is diuresing well. Telemetry benign overnight. Labs noted. Plan: Continue strict I's and O's and daily weights Status post 2.3 L abdominal paracentesis November 24, 1799 removed yesterday. Ejection fraction 20% with CHF and ascites Hemoglobin 10.7 potassium 4.8 BUN 57 creatinine 2.8 Blood pressure 106/65 O2 sat 100% on 2 L Continue IV Lasix 80 mg twice daily and Zaroxolyn 5 mg every morning poor prognosis. Cardiology addendum. Patient examined and chart reviewed and discussed with nurse Libby Figueroa RN. Patient is lethargic today. Ammonia level 38. Will begin lactulose 30 mg 3 times daily Exam (Progress Note) - Constitutional Vitals: Period Temp Pulse Resp BP Sys/English Pulse Ox Last 24 Hr 97.4 F-98.6 F 96-115 16-24 88-118/59-79 92-100 - Other Additional findings: - Head Head exam: Present: normal inspection, normocephalic, atraumatic - Respiratory Respiratory exam: Present: decreased breath sounds. Absent: accessory muscle use, chest wall tenderness, rales, rhonchi, stridor, wheezes, currently using oxygen 2L NC. - Cardiovascular Cardiovascular exam: Present: regular rate and rhythm, systolic murmur, tachycardia. Absent: carotid bruit, gallop, rubs - GI/Abdominal GI/Abdominal exam: Present: ascites, distended, soft. Absent: mass, tenderness - Extremities Exam Extremities exam: Present: normal inspection, normal capillary refill, edema (2 + bilateral lower extremity edema), other (Normal lower and upper extremity pulses). Absent: calf tenderness - Neurological Exam Neurological exam: Present: alert, oriented X3, normal gait - Skin Skin exam: Present: normal color, warm, dry. Absent: cyanosis, erythema Result/EKG - Labs CBC & BMP: 12/01/16 04:39 12/03/16 05:53 Lab Results: I have reviewed the past 24 hour labs Labs: Laboratory Results - last 24 hr 12/03/16 12/03/16 04:06 05:53 Sodium Cancelled 134 L Potassium Cancelled 4.8 Chloride Cancelled 96 L Carbon Dioxide Cancelled 23 Anion Gap Cancelled 19.8 H BUN Cancelled 64 H Creatinine Cancelled 2.80 H GFR Calculation Cancelled 33 BUN/Creatinine Ratio Cancelled 22.00 H Glucose Cancelled 93 Calculated Osmolality Cancelled 285.2 Calcium Cancelled 9.3 Ammonia 38 H Timmy Rosales Thomas, MD, personally performed the services described in this documentation, ascribed by Libby Figueroa RN in my presence, and it is both accurate and complete 918 .
--- NOTE | 2016-12-03 09:56 | Hospitalist Progress Note ---
Assessment and Plan (1) Nonischemic cardiomyopathy Status: Chronic Assessment and plan: Unverified history of "blockages" objective reports are no coronary disease. Has recent medication non-compliance. Episode of monomorphic ventricular tachycardia 12/01 Current Visit: Yes (2) Hypothyroidism Status: Chronic Assessment and plan: Possible interruption of therapy last fall with rising TSH Current Visit: Yes (3) Cirrhosis Status: Chronic Assessment and plan: Paracentesis completed 11/24 and 12/02, ultrasound showed hepatic cirrhosis. Current Visit: Yes Qualifiers: Hepatic cirrhosis type: alcoholic cirrhosis Hospitalist: Subjective Interval history: 51 yo male non-ischemic cardiomyopathy with hepatic cirrhosis and recurrent episodes of volume overload in part reflective of compliance issues. He is breathing better after paracentesis yesterday. No recurrence of wide complex tachycardia over last 24 hours. Exam - Constitutional Vitals: Period Temp Pulse Resp BP Sys/English Pulse Ox Last 24 Hr 97 F-98.6 F 96-108 16-24 88-118/64-79 92-100 General appearance: normal weight - Respiratory Respiratory exam: Present: clear to auscultation bilaterally. Absent: rales, rhonchi, wheezes - Cardiovascular Cardiovascular exam: Present: regular rate and rhythm, systolic murmur (2/6 mitral regurgitation at apex) - GI/Abdominal GI/Abdominal exam: Present: normal bowel sounds, ascites. Absent: organomegaly , tenderness - Extremities Exam Extremities exam: Absent: edema - Neurological Exam Neurological exam: Present: alert, oriented X3 Results - Labs CBC & BMP: 12/01/16 04:39 12/03/16 05:53 Labs: ammonia 38
[2016-12-03] MEDS: LACTULOSE 20 GM/30 ML UDCUP PO SCH ×2 (15:56→20:31)
[2016-12-03] MEDS: ENOXAPARIN 80 MG/0.8 ML SYRINGE SUBCUT SCH (20:30)
[2016-12-04] MEDS: LEVOTHYROXINE 50 MCG TABLET PO SCH (06:19)
[2016-12-04] MEDS: PANTOPRAZOLE 40 MG TABLET PO SCH (08:53)
[2016-12-04] MEDS: metOLazone 5 MG TABLET PO SCH (08:53)
[2016-12-04] MEDS: FUROSEMIDE 40 MG/4 ML VIAL IV SCH ×2 (08:53→15:17)
[2016-12-04] MEDS: CARVEDILOL 3.125 MG TABLET PO SCH ×2 (08:53→21:56)
[2016-12-04] MEDS: LACTULOSE 20 GM/30 ML UDCUP PO SCH ×3 (08:53→21:56)
[2016-12-04] MEDS: SPIRONOLACTONE 25 MG TABLET PO SCH ×2 (08:54→21:56)
[2016-12-04] MEDS: ASPIRIN CHEW 81 MG TABLET PO SCH (08:54)
[2016-12-04 10:27] LABS: Calcium 9.6 MG/DL (8.5-10.1); Osmolality,Calculated 294.8 MOS/KG (273-304); Potassium 4.4 MMOL/L (3.5-5.1)
--- NOTE | 2016-12-04 10:50 | Cardiology Progress Note ---
Henry Rosales Rachel, RN, am scribing for, and in the presence of, Rocky Warner MD 10:50. Assessment and Plan (1) CHF exacerbation Status: Acute Current Visit: Yes (2) Elevated troponin Status: Chronic Assessment and plan: Current Visit: Yes (3) Tachycardia Status: Acute Current Visit: No (4) Nonischemic cardiomyopathy Status: Chronic Current Visit: Yes (5) Abnormal thyroid function test Status: Acute Assessment and plan: Current Visit: Yes (6) Mitral regurgitation Status: Chronic Current Visit: Yes (7) DM2 (diabetes mellitus, type 2) Status: Chronic Current Visit: No (8) Dyslipidemia Status: Chronic Current Visit: No (9) Hypertension Status: Chronic Current Visit: No (10) Obstructive sleep apnea Status: Chronic Current Visit: No (11) Overweight Status: Chronic Current Visit: No (12) Noncompliance with medication regimen Status: Acute Current Visit: Yes (13) Chronic renal insufficiency Status: Chronic Current Visit: Yes (14) Ascites Status: Acute Current Visit: Yes (15) Nonsustained ventricular tachycardia Status: Resolved Current Visit: Yes Cardiology - PN: Subj Interval history: Cardiology note: Patient was seen and examined on telemetry. He is currently resting in bed in no acute distress. Requiring oxygen at 2 L nasal cannula. Patient has been slow to improve. He is status post paracentesis December 01 with 1800 mL removed. Reports that his breathing is slowly improving. Lactulose 30 mg 3 times daily was initiated yesterday. Patient reports that this has significantly helped his symptoms. He denies chest pain, heaviness or tightness. His weight is up 1 pound this morning at 197 pounds. He continues to diurese well with Lasix 80 IV twice daily, Zaroxolyn and Aldactone. Blood pressure is better this morning at 112/80. Continues to be in sinus tachycardia with heart rates ranging from 90s-110 without any overt arrhythmias or ectopy noted. Impression: Status post CHF exacerbation 1 week ago. Nonischemic cardiomyopathy, most recent ejection fraction noted to be 15-20% Status post 2.3 L paracentesis last week, 1800 ml removed yesterday. Mitral regurgitation Chronic renal insufficiency, BMP pending Hypertension Diabetes Obesity Obstructive sleep apnea Noncompliance with medication regimen Hypothyroidism Telemetry shows sinus rhythm in the 90s-110's According to I's and O's, patient's weight is up 1 pound from yesterday at 197 pounds. Telemetry benign overnight. Ammonia of 38, lactulose initiated yesterday. Plan: Continue strict I's and O's and daily weights Status post 2.3 L abdominal paracentesis November 24, 1799 removed 12/01/16. Ejection fraction 20% with CHF and ascites BMP ordered Blood pressure 112/80 O2 sat 98% on 2 L Continue IV Lasix 80 mg twice daily and Zaroxolyn 5 mg every morning poor prognosis. Cardiology addendum Patient seen and examined and discussed with nurse Libby Figueroa RN. Weight today 89.3 kg O2 sat 98 on 2 L cannula Patient more alert today after lactulose started BP 108/70 Continue current management Exam (Progress Note) - Constitutional Vitals: Period Temp Pulse Resp BP Sys/English Pulse Ox Last 24 Hr 96.4 F-98.6 F 98-106 16-22 82-112/54-80 94-100 - Other Additional findings: - Head Head exam: Present: normal inspection, normocephalic, atraumatic - Respiratory Respiratory exam: Present: decreased breath sounds. Absent: accessory muscle use, chest wall tenderness, rales, rhonchi, stridor, wheezes, currently using oxygen 2L NC. - Cardiovascular Cardiovascular exam: Present: regular rate and rhythm, systolic murmur, tachycardia. Absent: carotid bruit, gallop, rubs - GI/Abdominal GI/Abdominal exam: Present: ascites, distended, soft. Absent: mass, tenderness - Extremities Exam Extremities exam: Present: normal inspection, normal capillary refill, edema (2 + bilateral lower extremity edema), other (Normal lower and upper extremity pulses). Absent: calf tenderness - Neurological Exam Neurological exam: Present: alert, oriented X3, normal gait - Skin Skin exam: Present: normal color, warm, dry. Absent: cyanosis, erythema Result/EKG - Labs CBC & BMP: 12/01/16 04:39 12/04/16 09:49 Lab Results: I have reviewed the past 24 hour labs Labs: Laboratory Results - last 24 hr 12/04/16 09:49 Sodium 137 Potassium 4.4 Chloride 97 L Carbon Dioxide 25 Anion Gap 19.4 H BUN 71 H Creatinine 3.30 H GFR Calculation 27 BUN/Creatinine Ratio 21.00 H Glucose 116 H Calculated Osmolality 294.8 Calcium 9.6 Timmy Rosales Thomas, MD, personally performed the services described in this documentation, ascribed by Libby Figueroa RN in my presence, and it is both accurate and complete .
--- NOTE | 2016-12-04 14:01 | Hospitalist Progress Note ---
Assessment and Plan (1) MELODY (acute kidney injury) Status: Acute Assessment and plan: His BUN and creatinine have increased from 54 and 2.7 respectively to 71 and 3.3 respectively. This is most probably secondary to diuresis. Current Visit: Yes (2) Ascites Status: Acute Assessment and plan: His ascites is significantly improved post paracentesis. He will most certainly require repeat paracenteses in the future as he re-accumulates ascites. Current Visit: Yes (3) Noncompliance with medication regimen Status: Acute Current Visit: Yes (4) Nonischemic cardiomyopathy Status: Chronic Assessment and plan: He has severe left ventricular dysfunction with LVEF 15-20%. He is on appropriate medications as tolerated. Current Visit: Yes (5) Nonsustained ventricular tachycardia Status: Resolved Assessment and plan: No further arrhythmias at the present time. Current Visit: Yes (6) Acute on chronic systolic and diastolic heart failure, NYHA class 3 Status: Acute Current Visit: No (7) CKD (chronic kidney disease) stage 3, GFR 30-59 ml/min Status: Chronic Current Visit: No (8) DM2 (diabetes mellitus, type 2) Status: Chronic Assessment and plan: His glucose is stable at 116 today. Current Visit: No Qualifiers: Diabetes mellitus complication status: with kidney complications Diabetes mellitus complication detail: with chronic kidney disease Chronic kidney disease stage: stage 3 (moderate) Hospitalist: Subjective Interval history: He is currently resting in bed in no acute distress. He is hospitalized with alcoholic cirrhosis with ascites and acute on chronic systolic CHF secondary to dilated cardiomyopathy with LVEF 15-20%. He is requiring oxygen at 2 L nasal cannula. Patient has been slow to improve. He is status post paracentesis December 01 with 1800 mL removed. Reports that his breathing is slowly improving. Lactulose 30 mg 3 times daily was initiated yesterday. Patient reports that this has significantly helped his symptoms. He denies chest pain, heaviness or tightness. His weight is up 1 pound this morning at 197 pounds. He continues to diurese well with Lasix 80 IV twice daily, Zaroxolyn and Aldactone. Blood pressure is better this morning at 112/80. Continues to be in sinus tachycardia with heart rates ranging from 90s-110 without any overt arrhythmias or ectopy noted. Exam - Constitutional Vitals: Period Temp Pulse Resp BP Sys/English Pulse Ox Last 24 Hr 96.4 F-98.6 F 76-106 16-22 82-113/54-82 95-100 General appearance: normal weight, no acute distress - Head Head exam: Present: normal inspection, normocephalic - Eye Eye exam: Present: EOMI Pupils: Present: RACHEAL - ENT ENT exam: Present: normal external ear exam - Neck Neck exam: Present: normal inspection - Respiratory Respiratory exam: Present: clear to auscultation bilaterally - Cardiovascular Cardiovascular exam: Present: regular rate and rhythm - GI/Abdominal GI/Abdominal exam: Present: normal bowel sounds, distended, soft, other (No palpable masses or hepatosplenomegaly. No tenderness.) - Extremities Exam Extremities exam: Present: normal inspection - Back Exam Back exam: Present: normal inspection - Neurological Exam Neurological exam: Present: alert, oriented X3 - Psychiatric Psychiatric exam: Present: normal affect, normal mood - Skin Skin exam: Present: normal color, warm, dry Results - Labs CBC & BMP: 12/01/16 04:39 12/04/16 09:49
[2016-12-04] MEDS: ENOXAPARIN 80 MG/0.8 ML SYRINGE SUBCUT SCH (21:56)
[2016-12-05] MEDS: LEVOTHYROXINE 50 MCG TABLET PO SCH (06:42)
[2016-12-05] MEDS: LACTULOSE 20 GM/30 ML UDCUP PO SCH ×4 (09:53→21:03)
[2016-12-05] MEDS: SPIRONOLACTONE 25 MG TABLET PO SCH ×2 (09:53→21:02)
[2016-12-05] MEDS: ASPIRIN CHEW 81 MG TABLET PO SCH (09:54)
[2016-12-05] MEDS: FUROSEMIDE 40 MG/4 ML VIAL IV SCH ×2 (09:54→16:24)
[2016-12-05] MEDS: PANTOPRAZOLE 40 MG TABLET PO SCH (09:54)
[2016-12-05] MEDS: CARVEDILOL 3.125 MG TABLET PO SCH ×2 (09:54→21:02)
--- NOTE | 2016-12-05 10:04 | Hospitalist Progress Note ---
Assessment and Plan (1) MELODY (acute kidney injury) Status: Acute Assessment and plan: His BUN and creatinine were 71 and 3.3 respectively yesterday. Repeat laboratory test results are pending. This is most probably secondary to diuresis. Current Visit: Yes (2) Ascites Status: Acute Assessment and plan: His ascites is significantly improved post paracentesis. He will most certainly require repeat paracenteses in the future as he re-accumulates ascites. Current Visit: Yes (3) Noncompliance with medication regimen Status: Acute Current Visit: Yes (4) Nonischemic cardiomyopathy Status: Chronic Assessment and plan: He has severe left ventricular dysfunction with LVEF 15-20%. He is on appropriate medications as tolerated. Current Visit: Yes (5) Nonsustained ventricular tachycardia Status: Resolved Assessment and plan: No further arrhythmias at the present time. Current Visit: Yes (6) Acute on chronic systolic and diastolic heart failure, NYHA class 3 Status: Acute Assessment and plan: He appears stable today with no evidence of active congestive heart failure. He continues to receive intravenous furosemide 80 mg twice daily. Current Visit: No (7) CKD (chronic kidney disease) stage 3, GFR 30-59 ml/min Status: Chronic Assessment and plan: His admission BUN and creatinine were 54 and 2.70 respectively. Laboratory results yesterday were 71 and 3.30 respectively Current Visit: No (8) DM2 (diabetes mellitus, type 2) Status: Chronic Assessment and plan: His glucose is stable at 116 today. Current Visit: No Qualifiers: Diabetes mellitus complication status: with kidney complications Diabetes mellitus complication detail: with chronic kidney disease Chronic kidney disease stage: stage 3 (moderate) (9) Cirrhosis Status: Chronic Assessment and plan: Stable Current Visit: Yes Qualifiers: Hepatic cirrhosis type: alcoholic cirrhosis Hospitalist: Subjective Interval history: He is currently resting in bed in no acute distress. He is hospitalized with alcoholic cirrhosis with ascites and acute on chronic systolic CHF secondary to dilated cardiomyopathy with LVEF 15-20%. He is requiring oxygen at 2 L nasal cannula. Patient has been slow to improve. He is status post paracentesis December 01 with 1800 mL removed. Reports that his breathing is slowly improving. Lactulose 30 mg 3 times daily was initiated 2 days ago. Patient reports that this has significantly helped his symptoms. He denies chest pain, heaviness or tightness. His weight is up 1 pound this morning at 197 pounds. He continues to diurese well with Lasix 80 IV twice daily, Zaroxolyn and Aldactone. Blood pressure is better this morning at 110/76. Continues to be in sinus rhythm with heart rate 78/minute without any overt arrhythmias or ectopy noted. Exam - Constitutional Vitals: Period Temp Pulse Resp BP Sys/English Pulse Ox Last 24 Hr 97.2 F-98.3 F 76-105 16-24 103-130/74-90 96-100 General appearance: no acute distress, under weight - Head Head exam: Present: normal inspection, normocephalic - Eye Eye exam: Present: EOMI Pupils: Present: RACHEAL - Neck Neck exam: Present: normal inspection - Respiratory Respiratory exam: Present: clear to auscultation bilaterally - Cardiovascular Cardiovascular exam: Present: regular rate and rhythm - GI/Abdominal GI/Abdominal exam: Present: normal bowel sounds, distended (mildly), soft, other (Nontender with no palpable masses or hepatosplenomegaly.) - Extremities Exam Extremities exam: Present: normal inspection - Back Exam Back exam: Present: normal inspection - Neurological Exam Neurological exam: Present: alert, oriented X3 - Psychiatric Psychiatric exam: Present: normal affect, normal mood - Skin Skin exam: Present: normal color, warm, dry Results - Labs CBC & BMP: 12/01/16 04:39 12/04/16 09:49
[2016-12-05] MEDS: metOLazone 5 MG TABLET PO SCH (10:10)
--- NOTE | 2016-12-05 11:17 | Cardiology Progress Note ---
Assessment and Plan - Time spent with patient Time spent with patient: Greater than 30 minutes (1) Ankle pain Status: Acute Assessment and plan: See plan of care listed below Current Visit: Yes Qualifiers: Laterality: right Chronicity: acute Qualified Code(s): M25.571 - Pain in right ankle and joints of right foot (2) CHF exacerbation Status: Acute Assessment and plan: See plan of care listed below. Acute on chronic CHF secondary to combined systoli and diastolic dysfucntion, EF 20%. NYHA Class III Current Visit: No Qualifiers: Congestive heart failure type: combined Qualified Code(s): I50.43 - Acute on chronic combined systolic (congestive) and diastolic (congestive) heart failure (3) CKD (chronic kidney disease) stage 2, GFR 60-89 ml/min Status: Chronic Assessment and plan: See plan of care listed below Current Visit: No (4) DM2 (diabetes mellitus, type 2) Status: Chronic Assessment and plan: See plan of care listed below Current Visit: No Qualifiers: Diabetes mellitus complication status: with kidney complications Diabetes mellitus complication detail: with chronic kidney disease Chronic kidney disease stage: stage 3 (moderate) (5) Cardiomyopathy Status: Chronic Assessment and plan: See plan of care listed below Current Visit: No (6) Coronary artery disease Status: Chronic Assessment and plan: See plan of care listed below Current Visit: No (7) Acute on chronic systolic and diastolic heart failure, NYHA class 3 Status: Acute Assessment and plan: See plan of care listed below Current Visit: No (8) Overweight Status: Chronic Assessment and plan: See plan of care listed below Current Visit: No (9) Obstructive sleep apnea Status: Chronic Assessment and plan: See plan of care listed below Current Visit: No (10) Bilateral lower extremity edema Status: Resolved Assessment and plan: See plan of care listed below Current Visit: No Cardiology - PN: Subj Interval history: Cardiology note: Patient was seen and examined on telemetry. He is sitting on side of bed in no acute distress. He is not requiring oxygen at this time but using intermittently. Patient has been slow to improve. He is status post paracentesis December 01 with 1800 mL removed. Reports that his breathing is slowly improving. Lactulose 30 mg 3 times daily was initiated and this seems to have helped his symptoms. He denies chest pain, heaviness or tightness. His weight is down by 2-1/2 kg overnight. He continues to diurese well with Lasix 80 IV twice daily, Zaroxolyn and Aldactone. Blood pressure is much improved at 110/76, heart rate 78. His biggest complaint is of right ankle pain which started this morning. Impression: Status post CHF exacerbation 1 week ago. Nonischemic cardiomyopathy, most recent ejection fraction noted to be 15-20% Status post 2.3 L paracentesis last week, 1800 ml removed . Mitral regurgitation Chronic renal insufficiency, BMP pending Hypertension Diabetes Obesity Obstructive sleep apnea Noncompliance with medication regimen Hypothyroidism Telemetry shows sinus rhythm in the 90s-100's According to I's and O's, patient's weight is down 2-1/2 kg overnight Telemetry benign overnight. Plan: Continue strict I's and O's and daily weights Status post 2.3 L abdominal paracentesis November 24, 1799 removed 12/01/16. Ejection fraction 20% with CHF and ascites BMP daily Blood pressure 110/76 Continue IV Lasix 80 mg twice daily and Zaroxolyn 5 mg every morning Poor prognosis. May need swing bed facility at discharge Will order x-ray of right ankle for ankle pain Exam (Progress Note) - Constitutional Vitals: Period Temp Pulse Resp BP Sys/English Pulse Ox Last 24 Hr 97.2 F-98.3 F 76-105 16-24 103-130/74-90 96-100 General: [Appears well with no apparent distress.] [Pleasant and cooperative. ] [Appears comfortable.] HEENT: [Normocephalic, atraumatic. Mucous membranes moist. No jaundice noted. Conjunctiva moist and clear, sclerae anicteric] Neck: No JVD/HJR, no thyromegaly or lymphadenopathy noted. No carotid bruit appreciated Cardiac: [Regular rate and rhythm.] [No obvious murmur rub or gallop.] Lungs: [Clear relatively clear but decreased sounds. No accessory muscle use to assist the respiratory pattern.] Using oxygen intermittently Abdomen: Soft, bowel sounds normoactive. Nontender and nondistended. No abdominal bruit or thrill noted. No masses noted. Musculoskeletal: No fluid collection. Decreased range of motion is noted. Extremities: No clubbing, cyanosis noted. [1+ pitting edema bilateral lower extremities] Upper extremity pulses 2+. Lower extremity pulses 1+. Skin: No unusual lesions or rashes. No skin breakdown appreciated. Neuro: Awake, alert and oriented 3. Moves all extremities well without hemiparesis or paralysis. No essential tremor is appreciated. Result/EKG - Labs CBC & BMP: 12/01/16 04:39 12/04/16 09:49 - EKG EKG results: interpreted by me EKG shows: sinus rhythm
--- NOTE | 2016-12-05 12:41 | XRay Report ---
Exam: XR ankle 2V RT Date: 12/05/2016 11:21 AM Comparison: None Indication: Ankle pain Technique:[AP and lateral right ankle] Findings: Joint space narrowing with sclerosis and osteophytes. Small calcaneal osteophyte at the plantar fascial insertion. Soft tissue swelling with vascular/soft tissue calcifications. Impression: Soft tissue swelling. Minimal DJD with small calcaneal osteophyte. No fracture or dislocation. PROCEDURE INTERPRETED AT [facility] DEPARTMENT OF RADIOLOGY Final Report Signed by: Dr. Kaylan Richmond
[2016-12-05] MEDS: ACETAMINOPHEN 325 MG TABLET PO PRN ×2 (13:26→21:01)
[2016-12-05] MEDS: ENOXAPARIN 80 MG/0.8 ML SYRINGE SUBCUT SCH (21:02)
[2016-12-06] MEDS: ACETAMINOPHEN 325 MG TABLET PO PRN ×2 (04:24→09:16)
[2016-12-06] MEDS: LEVOTHYROXINE 50 MCG TABLET PO SCH (07:00)
--- NOTE | 2016-12-06 08:12 | Cardiology Progress Note ---
<Juju Torres E - Last Filed: 12/06/16 08:40> Assessment and Plan - Time spent with patient Time spent with patient: Greater than 30 minutes (1) Ankle pain Status: Acute Assessment and plan: See plan of care listed below Current Visit: Yes Qualifiers: Laterality: right Chronicity: acute Qualified Code(s): M25.571 - Pain in right ankle and joints of right foot (2) CHF exacerbation Status: Acute Assessment and plan: See plan of care listed below. Acute on chronic CHF secondary to combined systoli and diastolic dysfucntion, EF 20%. NYHA Class III Current Visit: No Qualifiers: Congestive heart failure type: combined Qualified Code(s): I50.43 - Acute on chronic combined systolic (congestive) and diastolic (congestive) heart failure (3) CKD (chronic kidney disease) stage 2, GFR 60-89 ml/min Status: Chronic Assessment and plan: See plan of care listed below Current Visit: No (4) DM2 (diabetes mellitus, type 2) Status: Chronic Assessment and plan: See plan of care listed below Current Visit: No Qualifiers: Diabetes mellitus complication status: with kidney complications Diabetes mellitus complication detail: with chronic kidney disease Chronic kidney disease stage: stage 3 (moderate) (5) Cardiomyopathy Status: Chronic Assessment and plan: See plan of care listed below Current Visit: No (6) Coronary artery disease Status: Chronic Assessment and plan: See plan of care listed below Current Visit: No (7) Acute on chronic systolic and diastolic heart failure, NYHA class 3 Status: Acute Assessment and plan: See plan of care listed below Current Visit: No (8) Overweight Status: Chronic Assessment and plan: See plan of care listed below Current Visit: No (9) Obstructive sleep apnea Status: Chronic Assessment and plan: See plan of care listed below Current Visit: No (10) Bilateral lower extremity edema Status: Resolved Assessment and plan: See plan of care listed below Current Visit: No Cardiology - PN: Subj Interval history: Interval history: Cardiology note: Patient is lying in bed, appears comfortable. He is not requiring oxygen at this time but using intermittently. Patient has been slow to improve. He is status post paracentesis December 01 with 1800 mL removed. He states his breathing is slowly improving. He denies chest pain, heaviness or tightness. His weight is down by 1 kg overnight. Has diuresed well and in fact, may now be over diuresed. Last creatinine 3.3. Rechecking this morning. Making adjustments to diuretics todays. Blood pressure is much improved at 109/70, heart rate 106. Uric acid elevated - suspect gout. Ankle xray - soft tissue edema, no fracture. Impression: Status post CHF exacerbation 2 weeks ago. Nonischemic cardiomyopathy, most recent ejection fraction noted to be 15-20% Status post 2.3 L paracentesis last week, 1800 ml removed . Mitral regurgitation Chronic renal insufficiency, creatinine elevated at 3.3 Wednesday. BMP pending this morning Hypertension Diabetes Obesity Obstructive sleep apnea Noncompliance with medication regimen Hypothyroidism Telemetry shows sinus rhythm in the 90s-100's According to I's and O's, patient's weight is down 1kg overnight, 2 1/2 kg the previous day. Telemetry benign overnight. Plan: Continue strict I's and O's and daily weights Status post 2.3 L abdominal paracentesis November 24, 1799 removed 12/01/16. Ejection fraction 15% with CHF and ascites BMP daily Blood pressure 109/70 Stopping Zaroxyln, decreasing Spironolactone, decreasing Lasix. Poor prognosis. May need swing bed facility at discharge Will defer treatment of gout to Attending. Decreasing Lovenox to renal dose Nephrology consult tomorrow. Exam (Progress Note) - Constitutional Vitals: Period Temp Pulse Resp BP Sys/English Pulse Ox Last 24 Hr 96.2 F-98.5 F 78-116 16-24 91-120/60-92 92-98 Exam: General: [Appears well with no apparent distress.] [Pleasant and cooperative. ] [Appears comfortable.] HEENT: [Normocephalic, atraumatic. Mucous membranes moist. No jaundice noted. Conjunctiva moist and clear, sclerae anicteric] Neck: No JVD/HJR, no thyromegaly or lymphadenopathy noted. No carotid bruit appreciated Cardiac: [Regular rate and rhythm.] [No murmur rub or gallop.] Lungs: [Clear to auscultation without accessory muscle use to assist the respiratory pattern.] Using oxygen intermittently. Abdomen: Soft, bowel sounds normoactive. Nontender and nondistended. No abdominal bruit or thrill noted. No masses noted. Musculoskeletal: No fluid collection. Decreased range of motion is noted. Extremities: No clubbing, cyanosis noted. [1+ brawny edema lower extremities] Upper extremity pulses 2+. Lower extremity pulses 1+. Capillary refill less than 3 seconds. Skin: No unusual lesions or rashes. No skin breakdown appreciated. Neuro: Awake, alert and oriented 3. Moves all extremities well without hemiparesis or paralysis. No essential tremor is appreciated. Result/EKG - Labs CBC & BMP: 12/01/16 04:39 12/04/16 09:49 Lab Results: I have reviewed the past 24 hour labs Labs: Laboratory Results - last 24 hr 12/05/16 13:06 Uric Acid 16.6 H - EKG EKG results: interpreted by me EKG shows: sinus rhythm <Rocky Warner - Last Filed: 12/06/16 10:17> Assessment and Plan (1) CHF exacerbation Status: Acute Current Visit: Yes (2) Elevated troponin Status: Chronic Current Visit: Yes (3) Tachycardia Status: Acute Current Visit: No (4) Nonischemic cardiomyopathy Status: Chronic Current Visit: Yes (5) Abnormal thyroid function test Status: Acute Current Visit: Yes (6) Mitral regurgitation Status: Chronic Current Visit: Yes (7) DM2 (diabetes mellitus, type 2) Status: Chronic Current Visit: No Qualifiers: Diabetes mellitus complication status: with kidney complications Diabetes mellitus complication detail: with chronic kidney disease Chronic kidney disease stage: stage 3 (moderate) (8) Dyslipidemia Status: Chronic Current Visit: No (9) Hypertension Status: Chronic Current Visit: No (10) Obstructive sleep apnea Status: Chronic Current Visit: No (11) Overweight Status: Chronic Current Visit: No (12) Noncompliance with medication regimen Status: Acute Current Visit: Yes (13) Chronic renal insufficiency Status: Chronic Current Visit: Yes (14) Ascites Status: Acute Current Visit: Yes (15) Nonsustained ventricular tachycardia Status: Resolved Current Visit: Yes Cardiology - PN: Subj Interval history: Cardiology addendum. Patient examined and chart reviewed and discussed with nurse Juju mckay. Nonischemic cardiomyopathy EF 15-20% Ascites, status post abdominal paracentesis 2 Weight today 86.6 kg Weight 96.6 kg on December 02 However renal function is deteriorating. Creatinine today 3.20 potassium 4.6 Plan Adjusting diuretics as outlined BMP in a.m. and renal consult prognosis poor Exam (Progress Note) - Constitutional Vitals: Period Temp Pulse Resp BP Sys/English Pulse Ox Last 24 Hr 96.2 F-98.5 F 103-116 16-22 91-120/60-92 92-98 Result/EKG - Labs CBC & BMP: 12/06/16 08:37 12/06/16 08:37 Labs: Laboratory Results - last 24 hr 12/05/16 12/06/16 12/06/16 13:06 08:37 08:37 WBC 12.1 H RBC 5.44 Hgb 11.5 L Hct 35.1 L MCV 64.5 L MCH 21 L MCHC 32.8 RDW 21.1 H Plt Count 251 Neut % (Auto) 79.4 H Lymph % (Auto) 11.4 L Placer % (Auto) 7.4 Eos % (Auto) 0.9 Baso % (Auto) 0.2 Neut # (Auto) 9.6 H Lymph # (Auto) 1.4 Placer # (Auto) 0.9 H Eos # (Auto) 0.1 Baso # (Auto) 0.0 Immature Gran % 0.7 Nucleated RBC % 0.2 Immature Gran # 0.08 Nucleated RBCs # 0.02 Platelet Estimate Adequate Hypochromasia 1+ Target Cells Few Mcarthur Cells Slight Elliptocytes Few Morphology Comment Sodium 137 Potassium 4.6 Chloride 96 L Carbon Dioxide 25 Anion Gap 20.6 H BUN 70 H Creatinine 3.20 H GFR Calculation 28 BUN/Creatinine Ratio 21.00 H Glucose 95 Calculated Osmolality 293.8 Uric Acid 16.6 H Calcium 9.1 Magnesium 2.2
--- NOTE | 2016-12-06 09:00 | Hospitalist Progress Note ---
Assessment and Plan (1) MELODY (acute kidney injury) Status: Acute Assessment and plan: His BUN and creatinine were 71 and 3.3 respectively yesterday. Repeat laboratory test results are pending. This is most probably secondary to diuresis. Current Visit: Yes (2) Ascites Status: Acute Assessment and plan: His ascites is significantly improved post paracentesis. He will most certainly require repeat paracenteses in the future as he re-accumulates ascites. Current Visit: Yes (3) Noncompliance with medication regimen Status: Acute Current Visit: Yes (4) Nonischemic cardiomyopathy Status: Chronic Assessment and plan: He has severe left ventricular dysfunction with LVEF 15-20%. He is on appropriate medications as tolerated. Current Visit: Yes (5) Nonsustained ventricular tachycardia Status: Resolved Assessment and plan: No further arrhythmias at the present time. Current Visit: Yes (6) Acute on chronic systolic and diastolic heart failure, NYHA class 3 Status: Acute Assessment and plan: He appears stable today with no evidence of active congestive heart failure. He continues to receive intravenous furosemide daily. Current Visit: No (7) CKD (chronic kidney disease) stage 3, GFR 30-59 ml/min Status: Chronic Assessment and plan: His admission BUN and creatinine were 54 and 2.70 respectively. Laboratory results yesterday were 71 and 3.30 respectively Current Visit: No (8) DM2 (diabetes mellitus, type 2) Status: Chronic Assessment and plan: His glucose is stable at 116 today. Current Visit: No Qualifiers: Diabetes mellitus complication status: with kidney complications Diabetes mellitus complication detail: with chronic kidney disease Chronic kidney disease stage: stage 3 (moderate) (9) Cirrhosis Status: Chronic Assessment and plan: Stable Current Visit: Yes Qualifiers: Hepatic cirrhosis type: alcoholic cirrhosis (10) Debility Status: Acute Assessment and plan: As noted above, he will require placement post discharge. Current Visit: Yes (11) Hyperuricemia Status: Acute Assessment and plan: His uric acid is 16.6. I will start him on allopurinol 200 mg p.o. daily. Current Visit: Yes Hospitalist: Subjective Interval history: He is currently resting in bed in no acute distress. He is hospitalized with alcoholic cirrhosis with ascites and acute on chronic systolic CHF secondary to dilated cardiomyopathy with LVEF 15-20%. He is requiring oxygen at 2 L nasal cannula. Patient has been slow to improve. He is status post paracentesis December 01 with 1800 mL removed. His BUN and creatinine have increased from 53 and 2.5, respectively, to 71 and 3.3, respectively. I agree with cardiology that he is probably over diuresed at this point and is now experiencing prerenal azotemia. Cardiology has decreased his furosemide, metolazone, and spironolactone. I also agree with cardiology's assessment that he will probably require a swing bed on discharge from acute care. Exam - Constitutional Vitals: Period Temp Pulse Resp BP Sys/English Pulse Ox Last 24 Hr 96.2 F-98.5 F 78-116 16-24 91-120/60-92 92-98 General appearance: normal weight, no acute distress - Head Head exam: Present: normal inspection, normocephalic - Eye Eye exam: Present: EOMI Pupils: Present: RACHEAL - Neck Neck exam: Present: normal inspection - Respiratory Respiratory exam: Present: clear to auscultation bilaterally - Cardiovascular Cardiovascular exam: Present: regular rate and rhythm - GI/Abdominal GI/Abdominal exam: Present: normal bowel sounds, soft (Nontender with no palpable masses or hepatosplenomegaly.) - Extremities Exam Extremities exam: Present: normal inspection - Back Exam Back exam: Present: normal inspection - Neurological Exam Neurological exam: Present: alert, oriented X3 - Psychiatric Psychiatric exam: Present: normal affect, normal mood - Skin Skin exam: Present: normal color, warm, dry Results - Labs CBC & BMP: 12/01/16 04:39 12/04/16 09:49
[2016-12-06] MEDS: SPIRONOLACTONE 25 MG TABLET PO SCH ×2 (09:16→21:33)
[2016-12-06] MEDS: CARVEDILOL 3.125 MG TABLET PO SCH ×2 (09:17→21:34)
[2016-12-06] MEDS: PANTOPRAZOLE 40 MG TABLET PO SCH (09:17)
[2016-12-06] MEDS: ASPIRIN CHEW 81 MG TABLET PO SCH (09:17)
[2016-12-06] MEDS: FUROSEMIDE 40 MG/4 ML VIAL IV SCH ×2 (09:17→11:49)
[2016-12-06] MEDS: ALLOPURINOL 100 MG TABLET PO SCH (09:17)
[2016-12-06 09:18] LABS: Basophils % 0.2 % (0.0-0.8); Eosinophils # 0.1 10*3/uL (0.0-0.87); Eosinophils % 0.9 % (0.00-10.9); Hematocrit 35.1 VOL% (42.0-52.0); Hemoglobin 11.5 GM/DL (14.0-18.0); Immature Granulocytes % 0.7 %; Immature Granulocytes Absolute 0.08 #; Lymphocytes # 1.4 10*3/uL (1.4-4.0); Lymphocytes % 11.4 % (21.2-54.2); Mean Corpuscular HGB Conc 32.8 GM/DL (32-36); Mean Corpuscular Hemoglobin 21 PG (27-34); Mean Corpuscular Volume 64.5 FL (87-102); Monocytes # 0.9 10*3/uL (0.11-0.8); Monocytes % 7.4 % (1.7-12.7); NRBC # 0.02 10*3/uL; Neutrophils # 9.6 10*3/uL (1.4-7.4); Neutrophils % 79.4 % (38.7-73.9); Platelet Count 251 T/CUMM (130-400); Red Blood Count 5.44 MC/CUMM (3.8-5.5); Red Cell Distribution Width 21.1 % (9.3-17.3); White Blood Count 12.1 T/CUMM (4-12)
[2016-12-06] MEDS: LACTULOSE 20 GM/30 ML UDCUP PO SCH ×3 (09:18→21:34)
[2016-12-06 09:44] LABS: Hypochromasia 1+; Platelet Estimate Adequate; Target Cells Few
[2016-12-06 09:45] LABS: Burr Cells Slight; Elliptocytes Few
[2016-12-06 09:48] LABS: Calcium 9.1 MG/DL (8.5-10.1); Magnesium 2.2 MG/DL (1.8-2.4); Osmolality,Calculated 293.8 MOS/KG (273-304); Potassium 4.6 MMOL/L (3.5-5.1)
[2016-12-06] MEDS: ENOXAPARIN 30 MG/0.3 ML SYRINGE SUBCUT SCH (21:34)
[2016-12-07] MEDS: LEVOTHYROXINE 50 MCG TABLET PO SCH (06:25)
[2016-12-07 07:16] LABS: Basophils % 0.2 % (0.0-0.8); Eosinophils # 0.2 10*3/uL (0.0-0.87); Eosinophils % 1.4 % (0.00-10.9); Hematocrit 33.2 VOL% (42.0-52.0); Hemoglobin 10.9 GM/DL (14.0-18.0); Immature Granulocytes % 0.5 %; Immature Granulocytes Absolute 0.06 #; Lymphocytes # 1.4 10*3/uL (1.4-4.0); Lymphocytes % 11.5 % (21.2-54.2); Mean Corpuscular HGB Conc 32.8 GM/DL (32-36); Mean Corpuscular Hemoglobin 21 PG (27-34); Mean Corpuscular Volume 64.1 FL (87-102); Monocytes % 8.2 % (1.7-12.7); Neutrophils # 9.2 10*3/uL (1.4-7.4); Neutrophils % 78.2 % (38.7-73.9); Platelet Count 231 T/CUMM (130-400); Red Blood Count 5.18 MC/CUMM (3.8-5.5); Red Cell Distribution Width 20.8 % (9.3-17.3); White Blood Count 11.8 T/CUMM (4-12)
[2016-12-07 07:33] LABS: Calcium 9.1 MG/DL (8.5-10.1); Magnesium 2.1 MG/DL (1.8-2.4); Osmolality,Calculated 285.2 MOS/KG (273-304); Potassium 4.9 MMOL/L (3.5-5.1)
[2016-12-07] MEDS: ASPIRIN CHEW 81 MG TABLET PO SCH (09:50)
[2016-12-07] MEDS: SPIRONOLACTONE 25 MG TABLET PO SCH ×2 (09:50→21:24)
[2016-12-07] MEDS: PANTOPRAZOLE 40 MG TABLET PO SCH (09:50)
[2016-12-07] MEDS: ALLOPURINOL 100 MG TABLET PO SCH (09:50)
[2016-12-07] MEDS: CARVEDILOL 3.125 MG TABLET PO SCH ×2 (09:50→21:25)
[2016-12-07] MEDS: LACTULOSE 20 GM/30 ML UDCUP PO SCH ×4 (09:53→21:26)
[2016-12-07] MEDS: FUROSEMIDE 40 MG/4 ML VIAL IV SCH (10:43)
--- NOTE | 2016-12-07 11:30 | Nephrology Consult Note ---
History of Present Illness Chief complaint: CRF History of present illness: Mr. Drummond is a 51 year old male admitted to 11/01/16 with exacerbation of CHF. He has a dilated cardiomyopathy with ejection fraction 15-20%. He also has chronic renal insufficiency. He presented with shortness of breath and lower extremity edema. He was not taking his medications as an outpatient. He has been diuresed with Lasix Aldactone and metolazone. His weight has decreased by 14 kg since admission. Renal function has worsened. His diuretics were Adjusted yesterday. He has had paracentesis for ascites as well. He currently denies shortness of breath at rest. Home Medications Medication Instructions Recorded Confirmed Type Ascorbic Acid Tab [Vitamin C Tab] 1,000 mg PO BID #60 tablet 10/15/16 11/21/16 Rx Aspirin EC Tab 81 mg PO DAILY #30 tablet 10/15/16 11/21/16 Rx Carvedilol [Coreg] 12.5 mg PO BID #60 tablet 10/15/16 11/21/16 Rx Furosemide Tab [Lasix Tab] 40 mg PO BID DIURETIC #60 tablet 10/15/16 11/21/16 Rx Spironolactone [Aldactone] 12.5 mg PO DAILY #30 tablet 10/15/16 11/21/16 Rx hydrALAZINE TAB [Apresoline Tab] 10 mg PO TID #90 tablet 10/15/16 11/21/16 Rx Potassium Chloride 10 meq PO BID 11/21/16 11/21/16 History Allergies Allergy/AdvReac Type Severity Reaction Status Date / Time Shellfish Allergy SHORTNESS Verified 08/28/16 17:28 OF BREATH Medical,Surgical,& Family Hx - Medical History Cardio: History of: Cardiac Dysrhythmia (sinus tach), CHF, CAD, Hypertension, Cardiovascular Problems ("Two blocked arteries per Dr Mariano") No history of: [place], Pacemaker Psychological: No history of: Anxiety Disorders, Bipolar Disorder, Depression HEENT: No history of: Dental Problems Endocrine: No history of: Diabetes Mellitus (IDDM) (states he was told last admission DM but nothing follow up with), Diabetes Mellitus (NIDDM) Rheumatology: History of;: Gout Respiratory: History of: Asthma, Bronchitis, Obstructive Sleep Apnea No history of: Pulmonary Embolism, Pneumonia Renal: History of: Renal Failure ([place]), Renal Problems No history of: Renal (Kidney) Cancer Genitourinary: No history of: Bladder Problem, Kidney Stones Gastrointestinal: History of: GERD (recent just started having trouble with reflux) No history of: Hemorrhoids, Liver Problems Musculoskeletal: History of: Musculoskeletal Problems (Right Knee Surg) No history of: Amputation, Back/Neck Problems, Osteoporosis Hematology: No history of: Anemia, Blood Transfusion Reaction, Sickle Cell Disease, Blood Disorders Other: No history of: Anesthesia Reactions, HIV, MRSA, Skin Problems - Surgical History Cardiac Surgeries: Patient Denies: Cardiac Catheterization, Cardiac Surgery Thoracic Surgeries: Patient denies;: Organ Transplant, Lobectomy Neurologic Surgeries: Patient denies: Neurologic Surgery HEENT Surgeries: Patient denies: Tonsilectomy & Adenoidectomy Abdominal Surgeries: Surgical HX of: Colonoscopy Patient denies: Abdominal Surgery, Appendectomy, Splenectomy Orthopedic Surgeries: Surgical HX of;: Orthopedic Surgery (Knee surgery) Patient denies;: Total Knee Replacement - Family History Family History: Reports;: Family Cancer (mom, type unknown), Family Heart Disease, Family Hypertension Comment Only: Additional Family History (mom has chf,) - Social History Smoking Status: Light tobacco smoker Frequency of Alcohol Use: None Type of Drug Use: None Review of Systems 12 point system: reviewed and no additional remarkable complaints except as stated Exam - Vital Signs Vital signs: Period Temp Pulse Resp BP Sys/English Pulse Ox Last 24 Hr 96.9 F-98.5 F 75-110 16-20 87-131/61-80 93-100 Exam: Gen.: Alert and oriented x3. ENT: Pupils equal round reactive to light. EOMs intact. Mucous membranes moist. Neck: Supple. No JVD or bruit. Cardiovascular: Regular rate and rhythm. 2/6 systolic murmur Lungs: Clear Abdomen: Soft. Nontender. Positive bowel sounds. No organomegaly Extremities: 1-2+ edema Results - Labs CBC & BMP: 12/07/16 06:04 12/07/16 06:04 Assessment and Plan (1) Acute on chronic renal failure Status: Acute Assessment and plan: 51-year-old man admitted with: * Dilated cardiomyopathy. EF 15-20% * Chronic renal failure stage III * Acute on chronic renal failure. I agree this is due to aggressive diuresis. His weight is decreased 14 kg since admission. Diuretics were decreased yesterday * Diabetes mellitus * Hypertension. Blood pressure is borderline low now Current Visit: Yes (2) Ascites Status: Acute Current Visit: Yes (3) CHF exacerbation Status: Acute Current Visit: Yes (4) Noncompliance with medication regimen Status: Acute Current Visit: Yes (5) Chronic renal insufficiency Status: Chronic Current Visit: Yes (6) Cirrhosis Status: Chronic Current Visit: Yes Qualifiers: Hepatic cirrhosis type: alcoholic cirrhosis (7) Mitral regurgitation Status: Chronic Current Visit: Yes (8) Nonischemic cardiomyopathy Status: Chronic Current Visit: Yes (9) CKD (chronic kidney disease) stage 3, GFR 30-59 ml/min Status: Chronic Current Visit: No (10) DM2 (diabetes mellitus, type 2) Status: Chronic Current Visit: No Qualifiers: Diabetes mellitus complication status: with kidney complications Diabetes mellitus complication detail: with chronic kidney disease Chronic kidney disease stage: stage 3 (moderate)
--- NOTE | 2016-12-07 13:22 | Cardiology Progress Note ---
Henry Rosales Rachel, RN, am scribing for, and in the presence of, Leeroy Mariano MD 13:22. Assessment and Plan (1) CHF exacerbation Status: Acute Assessment and plan: Ejection fraction 15% with CHF and ascites. Continue strict I's and O's and daily weights. Continue diuresis with Lasix and Aldactone. Due to monitor creatinine closely with daily BMP. In the past, his cardiomyopathy improved with medical management, but he lost his health coverage and has not been taking his medication. Current Visit: Yes (2) Tachycardia Status: Acute Assessment and plan: Sinus tachycardia noted with rate ranging from 105-110. This is clinically stable. Will continue current plan of care. Current Visit: No (3) Nonischemic cardiomyopathy Status: Chronic Assessment and plan: Most recent EF is noted to be 15-20%. Current Visit: Yes (4) Abnormal thyroid function test Status: Acute Assessment and plan: Current Visit: Yes (5) Mitral regurgitation Status: Chronic Current Visit: Yes (6) DM2 (diabetes mellitus, type 2) Status: Chronic Assessment and plan: . Current Visit: No Qualifiers: Diabetes mellitus complication status: with kidney complications Diabetes mellitus complication detail: with chronic kidney disease Chronic kidney disease stage: stage 3 (moderate) (7) Dyslipidemia Status: Chronic Assessment and plan: Continue current plan of care. Current Visit: No (8) Hypertension Status: Chronic Assessment and plan: Continue current plan of care. Current Visit: No (9) Obstructive sleep apnea Status: Chronic Current Visit: No (10) Overweight Status: Chronic Assessment and plan: Counseled patient on the importance of weight loss. Current Visit: No (11) Noncompliance with medication regimen Status: Acute Assessment and plan: I have stressed the importance of medication compliance. Current Visit: Yes (12) Chronic renal insufficiency Status: Chronic Assessment and plan: Creatinine is 3.2 today. Diuretics have been adjusted over the weekend. Nephrology to see today. Current Visit: Yes (13) Ascites Status: Acute Current Visit: Yes (14) Nonsustained ventricular tachycardia Status: Resolved Current Visit: Yes Cardiology - PN: Subj Interval history: Patient was seen on telemetry. He is sitting up in bed in no acute distress eating lunch. He appears to be comfortable. Not requiring any oxygen at this time. Patient has been slow to improve. He is status post paracentesis December 01 with 1800 mL removed. He tells me that his breathing is slowly improving. He did well overnight and is without any new complaints this morning. His creatinine is noted to be 3.2 this morning with a BUN of 66. Lovenox was decreased to renal dialysis yesterday. Zaroxolyn was discontinued. Aldactone was decreased to 25 mg twice daily. Patient continues to diurese well. According to his I's and O's, he lost 1 pound overnight. Lactulose 30 mg 3 times daily was initiated , patient reports that this has significantly helped his symptoms. He denies chest pain, heaviness and tightness. Uric acid was elevated, gout as expected. Patient is sinus tachycardia with heart rates ranging from 100-105 without any overt arrhythmias or ectopy noted. Blood pressure is borderline low at 84/51 with a map of 60 noted. Patient is asymptomatic with this. Continue to monitor closely. Active Medications Acetaminophen (Tylenol Tab) 650 mg PO Q4H PRN PRN Reason: fever, headache/body aches Last Admin: 12/06/16 09:16 Dose: 650 mg Al Hydrox/Mg Hydrox/Simethicone (Mylanta Max Strength Liquid) 30 ml PO Q4H PRN PRN Reason: Dyspepsia Last Admin: 11/23/16 14:56 Dose: 30 ml Albuterol Sulfate (Proventil Neb) 2.5 mg RESP TX RT Q1H PRN PRN Reason: Shortness of Breath/Wheezing Allopurinol (Zyloprim) 200 mg PO DAILY [facility] Last Admin: 12/07/16 09:50 Dose: 200 mg Aspirin () 81 mg PO DAILY [facility] Last Admin: 12/07/16 09:50 Dose: 81 mg Benzonatate (Tessalon) 100 mg PO TID PRN PRN Reason: Cough Last Admin: 12/02/16 09:54 Dose: 100 mg Carvedilol (Coreg) 3.125 mg PO BID [facility] Last Admin: 12/07/16 09:50 Dose: 3.125 mg Enoxaparin Sodium (Lovenox) 30 mg SUBCUT Q24H [facility] Last Admin: 12/06/16 21:34 Dose: 30 mg Furosemide (Lasix Inj) 40 mg IV DAILY [facility] Last Admin: 12/07/16 10:43 Dose: 40 mg Magnesium Sulfate 2 gm/ Premix 50 mls @ 25 mls/hr IV .PER PROTOCOL PRN; Protocol PRN Reason: Per Protocol Last Infusion: 11/27/16 14:37 Dose: Infused Magnesium Sulfate 4 gm/ Premix 100 mls @ 25 mls/hr IV .PER PROTOCOL PRN; Protocol PRN Reason: Per Protocol Potassium Chloride 10 meq/ (Premix) 100 mls @ 100 mls/hr IV .PER PROTOCOL PRN PRN Reason: Per Protocol Lactulose (Chronulac) 30 gm PO TID [facility] Last Admin: 12/07/16 09:53 Dose: Not Given Levothyroxine Sodium (Synthroid Tab) 50 mcg PO DAILY@0700 [facility] Last Admin: 12/07/16 06:25 Dose: 50 mcg Ondansetron HCl (Zofran Inj) 4 mg IV Q6H PRN PRN Reason: Nausea/Vomiting Pantoprazole Sodium (Protonix Tab) 40 mg PO DAILY [facility] Last Admin: 12/07/16 09:50 Dose: 40 mg Potassium Chloride (K Dur) 20 meq PO .PER PROTOCOL PRN; Protocol PRN Reason: Per Protocol Last Admin: 11/26/16 16:40 Dose: 20 meq Simethicone (Mylanta Gas Max Str) 125 mg PO QID PRN PRN Reason: Gas Last Admin: 11/28/16 14:06 Dose: 125 mg Spironolactone (Aldactone) 25 mg PO BID [facility] Last Admin: 12/07/16 09:50 Dose: 25 mg Exam (Progress Note) - Constitutional Vitals: Period Temp Pulse Resp BP Sys/English Pulse Ox Last 24 Hr 96.9 F-98.5 F 75-110 16-20 84-131/51-80 93-100 - Other Additional findings: - Other Additional findings: - Head Head exam: Present: normal inspection, normocephalic, atraumatic - Respiratory Respiratory exam: Present: decreased breath sounds. Absent: accessory muscle use, chest wall tenderness, rales, rhonchi, stridor, wheezes, currently using oxygen 2L [place]. - Cardiovascular Cardiovascular exam: Present: regular rate and rhythm, systolic murmur, tachycardia. Absent: carotid bruit, gallop, rubs - GI/Abdominal GI/Abdominal exam: Present: ascites, distended, soft. Absent: mass, tenderness - Extremities Exam Extremities exam: Present: normal inspection, normal capillary refill, edema (2 + bilateral lower extremity edema), other (Normal lower and upper extremity pulses). Absent: calf tenderness - Neurological Exam Neurological exam: Present: alert, oriented X3, normal gait - Skin Skin exam: Present: normal color, warm, dry. Absent: cyanosis, erythema Result/EKG - Labs CBC & BMP: 12/07/16 06:04 12/07/16 06:04 Lab Results: I have reviewed the past 24 hour labs Labs: Laboratory Results - last 24 hr 12/07/16 12/07/16 06:04 06:04 WBC 11.8 RBC 5.18 Hgb 10.9 L Hct 33.2 L MCV 64.1 L MCH 21 L MCHC 32.8 RDW 20.8 H Plt Count 231 Neut % (Auto) 78.2 H Lymph % (Auto) 11.5 L [place] % (Auto) 8.2 Eos % (Auto) 1.4 Baso % (Auto) 0.2 Neut # (Auto) 9.2 H Lymph # (Auto) 1.4 Page # (Auto) 1.0 H Eos # (Auto) 0.2 Baso # (Auto) 0.0 Immature Gran % 0.5 Nucleated RBC % 0.0 Immature Gran # 0.06 Nucleated RBCs # 0.00 Sodium 134 L Potassium 4.9 Chloride 96 L Carbon Dioxide 24 Anion Gap 18.9 H BUN 66 H Creatinine 3.20 H GFR Calculation 28 BUN/Creatinine Ratio 20.00 Glucose 85 Calculated Osmolality 285.2 Calcium 9.1 Magnesium 2.1 - EKG EKG results: interpreted by me I, Leeroy Mariano MD, personally performed the services described in this documentation, ascribed by Libby Figueroa RN in my presence, and it is both accurate and complete 322 .
--- NOTE | 2016-12-07 15:17 | Hospitalist Progress Note ---
Assessment and Plan (1) MELODY (acute kidney injury) Status: Acute Assessment and plan: His BUN and creatinine are 66 and 3.20 respectively today. This represents a minimal decrease of his BUN. He is probably close to his baseline with stage III to IV chronic kidney disease. Current Visit: Yes (2) Ascites Status: Acute Assessment and plan: His ascites is significantly improved post paracentesis. Current Visit: Yes (3) Noncompliance with medication regimen Status: Acute Current Visit: Yes (4) Nonischemic cardiomyopathy Status: Chronic Assessment and plan: He has severe left ventricular dysfunction with LVEF 15-20%. He is on appropriate medications as tolerated. Current Visit: Yes (5) Nonsustained ventricular tachycardia Status: Resolved Assessment and plan: No further arrhythmias at the present time. Current Visit: Yes (6) Acute on chronic systolic and diastolic heart failure, NYHA class 3 Status: Resolved Assessment and plan: He appears stable today with no evidence of active congestive heart failure. He continues to receive intravenous furosemide daily. Current Visit: No (7) CKD (chronic kidney disease) stage 3, GFR 30-59 ml/min Status: Chronic Assessment and plan: His admission BUN and creatinine were 54 and 2.70 respectively. Laboratory results yesterday were 66and 3.20 respectively Current Visit: No (8) DM2 (diabetes mellitus, type 2) Status: Chronic Assessment and plan: His glucose is stable at 85 today. Current Visit: No Qualifiers: Diabetes mellitus complication status: with kidney complications Diabetes mellitus complication detail: with chronic kidney disease Chronic kidney disease stage: stage 3 (moderate) (9) Cirrhosis Status: Chronic Assessment and plan: Stable Current Visit: Yes Qualifiers: Hepatic cirrhosis type: alcoholic cirrhosis (10) Debility Status: Acute Assessment and plan: As noted above, he will require placement post discharge. Current Visit: Yes (11) Hyperuricemia Status: Acute Assessment and plan: His uric acid was 16.6. He was begun on allopurinol 200 mg p.o. daily. Current Visit: Yes Hospitalist: Subjective Interval history: He is currently resting in bed in no acute distress. He is hospitalized with alcoholic cirrhosis with ascites and acute on chronic systolic CHF secondary to dilated cardiomyopathy with LVEF 15-20%. He is status post paracentesis December 01 with 1800 mL removed. His BUN and creatinine have decreased from 70 and 3.2 to 66 and 3.2 today. He has lost 14.5 kg in the hospital from diuresis and paracentesis. He is close to discharge. He will probably require a swing bed after discharge. Exam - Constitutional Vitals: Period Temp Pulse Resp BP Sys/English Pulse Ox Last 24 Hr 96.9 F-98.5 F 75-110 16-20 84-131/51-80 93-100 General appearance: normal weight, no acute distress - Head Head exam: Present: normal inspection, normocephalic - Eye Eye exam: Present: EOMI Pupils: Present: RACHEAL - Neck Neck exam: Present: normal inspection - Respiratory Respiratory exam: Present: clear to auscultation bilaterally - Cardiovascular Cardiovascular exam: Present: regular rate and rhythm - GI/Abdominal GI/Abdominal exam: Present: normal bowel sounds, soft, other (Nontender with no palpable masses or hepatosplenomegaly.) - Extremities Exam Extremities exam: Present: normal inspection - Back Exam Back exam: Present: normal inspection - Neurological Exam Neurological exam: Present: alert, oriented X3 - Psychiatric Psychiatric exam: Present: normal affect, normal mood - Skin Skin exam: Present: normal color, warm, dry Results - Labs CBC & BMP: 12/07/16 06:04 12/07/16 06:04
[2016-12-07] MEDS: ENOXAPARIN 30 MG/0.3 ML SYRINGE SUBCUT SCH (21:24)
[2016-12-08 05:25] LABS: Basophils % 0.2 % (0.0-0.8); Eosinophils # 0.2 10*3/uL (0.0-0.87); Eosinophils % 2.5 % (0.00-10.9); Hematocrit 33.2 VOL% (42.0-52.0); Hemoglobin 10.8 GM/DL (14.0-18.0); Immature Granulocytes % 0.5 %; Immature Granulocytes Absolute 0.05 #; Lymphocytes # 1.2 10*3/uL (1.4-4.0); Lymphocytes % 12.7 % (21.2-54.2); Mean Corpuscular HGB Conc 32.5 GM/DL (32-36); Mean Corpuscular Hemoglobin 21 PG (27-34); Mean Corpuscular Volume 63.7 FL (87-102); Monocytes # 0.8 10*3/uL (0.11-0.8); Monocytes % 8.5 % (1.7-12.7); Neutrophils # 7.1 10*3/uL (1.4-7.4); Neutrophils % 75.6 % (38.7-73.9); Platelet Count 227 T/CUMM (130-400); Red Blood Count 5.21 MC/CUMM (3.8-5.5); Red Cell Distribution Width 20.9 % (9.3-17.3); White Blood Count 9.5 T/CUMM (4-12)
[2016-12-08 05:42] LABS: Schistocytes Slight; Target Cells 1+
[2016-12-08 05:43] LABS: Acanthocytes Few; Hypochromasia 1+; Microcytosis 1+
[2016-12-08 05:44] LABS: Platelet Estimate Adequate; Polychromasia Slight
[2016-12-08 06:00] LABS: Calcium 8.7 MG/DL (8.5-10.1); Osmolality,Calculated 293.7 MOS/KG (273-304); Potassium 4.8 MMOL/L (3.5-5.1)
[2016-12-08] MEDS: LEVOTHYROXINE 50 MCG TABLET PO SCH (06:04)
[2016-12-08] MEDS: FUROSEMIDE 40 MG/4 ML VIAL IV SCH (09:14)
[2016-12-08] MEDS: SPIRONOLACTONE 25 MG TABLET PO SCH ×2 (09:21→20:58)
[2016-12-08] MEDS: ALLOPURINOL 100 MG TABLET PO SCH (09:21)
[2016-12-08] MEDS: PANTOPRAZOLE 40 MG TABLET PO SCH (09:21)
[2016-12-08] MEDS: CARVEDILOL 3.125 MG TABLET PO SCH ×2 (09:21→20:58)
[2016-12-08] MEDS: LACTULOSE 20 GM/30 ML UDCUP PO SCH ×3 (09:22→21:00)
[2016-12-08] MEDS: ASPIRIN CHEW 81 MG TABLET PO SCH (09:24)
--- NOTE | 2016-12-08 11:22 | Nephrology Progress Note ---
Nephrology - PN: Subj Interval history: He denies shortness of breath at rest. He's had no chest pain Exam (PN)-Nephrology - Vital Signs Vital signs: Period Temp Pulse Resp BP Sys/English Pulse Ox Last 24 Hr 97.3 F-98.4 F 96-113 18-22 84-105/51-74 92-99 Exam: ENT: Normal Cardiovascular: Regular rate and rhythm. 2/6 systolic murmur Lungs: Clear Extremities: 1-2+ edema - Lab 12/08/16 04:57 12/08/16 04:57 Most recent lab results Calcium 8.7 MG/DL (8.5-10.1) 12/08/16 04:57 Magnesium 2.1 MG/DL (1.8-2.4) 12/07/16 06:04 Assessment and Plan (1) Acute on chronic renal failure Status: Acute Assessment and plan: 51-year-old man admitted with: * Dilated cardiomyopathy. EF 15-20% * Chronic renal failure stage III * Acute on chronic renal failure. I agree this is due to aggressive diuresis. His weight has fallen 1.1 kg since yesterday. Fluid balance is negative on lower doses of diuretics. Renal function is improving. * Diabetes mellitus * Hypertension. Blood pressure is borderline low now Current Visit: Yes (2) Ascites Status: Acute Current Visit: Yes (3) CHF exacerbation Status: Acute Current Visit: Yes (4) Noncompliance with medication regimen Status: Acute Current Visit: Yes (5) Chronic renal insufficiency Status: Chronic Current Visit: Yes (6) Cirrhosis Status: Chronic Current Visit: Yes (7) Mitral regurgitation Status: Chronic Current Visit: Yes (8) Nonischemic cardiomyopathy Status: Chronic Current Visit: Yes (9) CKD (chronic kidney disease) stage 3, GFR 30-59 ml/min Status: Chronic Current Visit: No (10) DM2 (diabetes mellitus, type 2) Status: Chronic Current Visit: No
--- NOTE | 2016-12-08 11:33 | Cardiology Progress Note ---
Assessment and Plan - Time spent with patient Time spent with patient: Greater than 30 minutes (1) Ankle pain Status: Acute Assessment and plan: See plan of care listed below Current Visit: Yes Qualifiers: Laterality: right Chronicity: acute Qualified Code(s): M25.571 - Pain in right ankle and joints of right foot (2) CHF exacerbation Status: Acute Assessment and plan: See plan of care listed below. Acute on chronic CHF secondary to combined systoli and diastolic dysfucntion, EF 20%. NYHA Class III Current Visit: No Qualifiers: Congestive heart failure type: combined Qualified Code(s): I50.43 - Acute on chronic combined systolic (congestive) and diastolic (congestive) heart failure (3) CKD (chronic kidney disease) stage 2, GFR 60-89 ml/min Status: Chronic Assessment and plan: See plan of care listed below Current Visit: No (4) DM2 (diabetes mellitus, type 2) Status: Chronic Assessment and plan: See plan of care listed below Current Visit: No Qualifiers: Diabetes mellitus complication status: with kidney complications Diabetes mellitus complication detail: with chronic kidney disease Chronic kidney disease stage: stage 3 (moderate) (5) Cardiomyopathy Status: Chronic Assessment and plan: See plan of care listed below Current Visit: No (6) Coronary artery disease Status: Chronic Assessment and plan: See plan of care listed below Current Visit: No (7) Acute on chronic systolic and diastolic heart failure, NYHA class 3 Status: Resolved Assessment and plan: See plan of care listed below Current Visit: No (8) Overweight Status: Chronic Assessment and plan: See plan of care listed below Current Visit: No (9) Obstructive sleep apnea Status: Chronic Assessment and plan: See plan of care listed below Current Visit: No (10) Bilateral lower extremity edema Status: Resolved Assessment and plan: See plan of care listed below Current Visit: No Cardiology - PN: Subj Interval history: Patient is lying in bed, appears comfortable. He is not requiring oxygen. He continues to improved. Denies chest pain, heaviness or tightness. Denies SOB. He has not been walking due to severe ankle pain thought to be related to gout. He is status post paracentesis December 01 with 1800 mL removed. He states his breathing is slowly improving. His weight is down by 5 kg since admission. Patient may have been overdiuresed at one point as his chronic renal insufficiency worsened, Creatinine peaked at 3.3 and this morning 2.8. Diurestics adjusted. Impression: Status post CHF exacerbation 2 1/2 weeks ago. Nonischemic cardiomyopathy, most recent ejection fraction noted to be 15-20% Status post 2.3 L paracentesis last week, 1800 ml removed last week. Mitral regurgitation Chronic renal insufficiency, creatinine elevated at 3.3 Wednesday now 2.8 Hypertension - adequately controlled Diabetes Obesity Obstructive sleep apnea Noncompliance with medication regimen, history of Hypothyroidism Telemetry shows sinus rhythm in the 90s-100's Telemetry benign overnight. Plan: Continue strict I's and O's and daily weights Ejection fraction 15% with CHF and ascites BMP daily Blood pressure stable Zaroxyln has been discontinued, decreased Spironolactone, changing lasix from IV to po. Poor prognosis. Being evaluated for swingbed however insurance approval pending. May be ready for discharge to home soon if SWB not option. Exam (Progress Note) - Constitutional Vitals: Period Temp Pulse Resp BP Sys/English Pulse Ox Last 24 Hr 97.3 F-98.4 F 96-113 18-22 84-105/51-74 92-99 Exam: General: [Appears well with no apparent distress.] [Pleasant and cooperative. ] [Appears comfortable.] HEENT: [Normocephalic, atraumatic. Mucous membranes moist. No jaundice noted. Conjunctiva moist and clear, sclerae anicteric] Neck: No JVD/HJR, no thyromegaly or lymphadenopathy noted. No carotid bruit appreciated Cardiac: [Regular rate and rhythm.] [No murmur rub or gallop.] Lungs: [Clear to auscultation without accessory muscle use to assist the respiratory pattern.] Not using oxygen. Abdomen: Soft, bowel sounds normoactive. Nontender and nondistended. No abdominal bruit or thrill noted. No masses noted. Musculoskeletal: No fluid collection. Decreased range of motion is noted. Extremities: No clubbing, cyanosis noted. [1+ brawny edema lower extremities] Upper extremity pulses 2+. Lower extremity pulses 1+. Capillary refill less than 3 seconds. Skin: No unusual lesions or rashes. No skin breakdown appreciated. Neuro: Awake, alert and oriented 3. Moves all extremities well without hemiparesis or paralysis. No essential tremor is appreciated. Result/EKG - Labs CBC & BMP: 12/08/16 04:57 12/08/16 04:57 Lab Results: I have reviewed the past 24 hour labs Labs: Laboratory Results - last 24 hr 12/08/16 12/08/16 04:57 04:57 WBC 9.5 RBC 5.21 Hgb 10.8 L Hct 33.2 L MCV 63.7 L MCH 21 L MCHC 32.5 RDW 20.9 H Plt Count 227 Neut % (Auto) 75.6 H Lymph % (Auto) 12.7 L [place] % (Auto) 8.5 Eos % (Auto) 2.5 Baso % (Auto) 0.2 Neut # (Auto) 7.1 Lymph # (Auto) 1.2 L [place] # (Auto) 0.8 Eos # (Auto) 0.2 Baso # (Auto) 0.0 Immature Gran % 0.5 Nucleated RBC % 0.0 Immature Gran # 0.05 Nucleated RBCs # 0.00 Platelet Estimate Adequate Polychromasia Slight Hypochromasia 1+ Microcytosis 1+ Target Cells 1+ Acanthocytes (Spur) Few Schistocytes Slight Sodium 138 Potassium 4.8 Chloride 99 Carbon Dioxide 21 Anion Gap 22.8 H BUN 65 H Creatinine 2.80 H GFR Calculation 32 BUN/Creatinine Ratio 23.00 H Glucose 91 Calculated Osmolality 293.7 Calcium 8.7 - EKG EKG results: interpreted by me EKG shows: sinus rhythm
--- NOTE | 2016-12-08 16:19 | Hospitalist Progress Note ---
Assessment and Plan - Time spent with patient Time spent with patient: Greater than 30 minutes (1) MELODY (acute kidney injury) Status: Acute Assessment and plan: Improving. Current Visit: Yes (2) CHF exacerbation Status: Acute Assessment and plan: Continue management, euvolemic. Current Visit: Yes (3) Coronary artery disease Status: Chronic Assessment and plan: Continue medical management. Current Visit: No (4) CKD (chronic kidney disease) stage 3, GFR 30-59 ml/min Status: Chronic Assessment and plan: Stable. Current Visit: No (5) Cirrhosis Status: Chronic Assessment and plan: With ascites. Current Visit: Yes Qualifiers: Hepatic cirrhosis type: alcoholic cirrhosis (6) Hypothyroidism Status: Chronic Assessment and plan: We'll initiate Synthroid. Current Visit: Yes (7) Hyperuricemia Status: Acute Assessment and plan: Continue management. Current Visit: Yes Hospitalist: Subjective Interval history: No complaints currently. Exam - Constitutional Vitals: Period Temp Pulse Resp BP Sys/English Pulse Ox Last 24 Hr 96.7 F-98.4 F 98-113 18-22 89-105/57-74 92-99 General appearance: no acute distress - Head Head exam: Present: normocephalic, atraumatic - Eye Eye exam: Present: EOMI Pupils: Present: RACHEAL - ENT ENT exam: Present: normal exam - Neck Neck exam: Present: normal inspection - Respiratory Respiratory exam: Present: clear to auscultation bilaterally. Absent: rhonchi, wheezes - Cardiovascular Cardiovascular exam: Present: regular rate and rhythm, systolic murmur. Absent : gallop, rubs - GI/Abdominal GI/Abdominal exam: Present: normal bowel sounds, ascites, soft. Absent: distended, firm, guarding, tenderness, rebound - Extremities Exam Extremities exam: Present: edema. Absent: calf tenderness Results - Labs CBC & BMP: 12/08/16 04:57 12/08/16 04:57 Lab Results: I have reviewed the past 24 hour labs
[2016-12-08] MEDS: ENOXAPARIN 30 MG/0.3 ML SYRINGE SUBCUT SCH (20:58)
[2016-12-09] MEDS: LEVOTHYROXINE 50 MCG TABLET PO SCH (06:10)
[2016-12-09 06:26] LABS: Basophils # 0.1 10*3/uL (0.0-0.2); Basophils % 0.7 % (0.0-0.8); Eosinophils # 0.3 10*3/uL (0.0-0.87); Eosinophils % 4.5 % (0.00-10.9); Hematocrit 33.5 VOL% (42.0-52.0); Hemoglobin 10.9 GM/DL (14.0-18.0); Immature Granulocytes % 0.5 %; Immature Granulocytes Absolute 0.04 #; Lymphocytes # 1.6 10*3/uL (1.4-4.0); Lymphocytes % 21.8 % (21.2-54.2); Mean Corpuscular HGB Conc 32.5 GM/DL (32-36); Mean Corpuscular Hemoglobin 21 PG (27-34); Mean Corpuscular Volume 63.3 FL (87-102); Monocytes # 0.7 10*3/uL (0.11-0.8); Neutrophils # 4.6 10*3/uL (1.4-7.4); Neutrophils % 62.5 % (38.7-73.9); Platelet Count 311 T/CUMM (130-400); Red Blood Count 5.29 MC/CUMM (3.8-5.5); Red Cell Distribution Width 21.6 % (9.3-17.3); White Blood Count 7.4 T/CUMM (4-12)
[2016-12-09 06:53] LABS: Macrocytosis 1+; Pappenheimer Bodies Few; Polychromasia Slight
[2016-12-09 06:54] LABS: Calcium 8.9 MG/DL (8.5-10.1); Osmolality,Calculated 293.7 MOS/KG (273-304)
--- NOTE | 2016-12-09 09:10 | Hospitalist Progress Note ---
Assessment and Plan - Time spent with patient Time spent with patient: Greater than 30 minutes (1) MELODY (acute kidney injury) Status: Acute Assessment and plan: Improving. Current Visit: Yes (2) CHF exacerbation Status: Acute Assessment and plan: Continue management, euvolemic. Current Visit: Yes (3) Coronary artery disease Status: Chronic Assessment and plan: Continue medical management. Current Visit: No (4) CKD (chronic kidney disease) stage 3, GFR 30-59 ml/min Status: Chronic Assessment and plan: Stable. Current Visit: No (5) Cirrhosis Status: Chronic Assessment and plan: With ascites. Current Visit: Yes Qualifiers: Hepatic cirrhosis type: alcoholic cirrhosis (6) Hypothyroidism Status: Chronic Assessment and plan: We'll initiate Synthroid. Current Visit: Yes (7) Hyperuricemia Status: Acute Assessment and plan: Continue management. Current Visit: Yes Hospitalist: Subjective Interval history: No complaints, no overnight events. Exam - Constitutional Vitals: Period Temp Pulse Resp BP Sys/English Pulse Ox Last 24 Hr 96.7 F-98.3 F 101-108 18-20 89-143/63-70 94-100 General appearance: no acute distress - Head Head exam: Present: normocephalic, atraumatic - Eye Eye exam: Present: EOMI Pupils: Present: RACHEAL - ENT ENT exam: Present: normal exam - Neck Neck exam: Present: normal inspection - Respiratory Respiratory exam: Present: clear to auscultation bilaterally. Absent: rhonchi, wheezes - Cardiovascular Cardiovascular exam: Present: regular rate and rhythm. Absent: gallop, rubs, systolic murmur - GI/Abdominal GI/Abdominal exam: Present: normal bowel sounds, ascites, soft. Absent: distended, firm, guarding, tenderness, rebound - Extremities Exam Extremities exam: Present: edema. Absent: calf tenderness Results - Labs CBC & BMP: 12/09/16 05:24 12/09/16 05:24 Lab Results: I have reviewed the past 24 hour labs
--- NOTE | 2016-12-09 10:09 | Cardiology Progress Note ---
<Juju Torres E - Last Filed: 12/09/16 10:13> Assessment and Plan - Time spent with patient Time spent with patient: Greater than 30 minutes (1) Ankle pain Status: Acute Assessment and plan: See plan of care listed below Current Visit: Yes Qualifiers: Laterality: right Chronicity: acute Qualified Code(s): M25.571 - Pain in right ankle and joints of right foot (2) CHF exacerbation Status: Acute Assessment and plan: See plan of care listed below. Acute on chronic CHF secondary to combined systoli and diastolic dysfucntion, EF 20%. NYHA Class III Current Visit: No Qualifiers: Congestive heart failure type: combined Qualified Code(s): I50.43 - Acute on chronic combined systolic (congestive) and diastolic (congestive) heart failure (3) CKD (chronic kidney disease) stage 2, GFR 60-89 ml/min Status: Chronic Assessment and plan: See plan of care listed below Current Visit: No (4) DM2 (diabetes mellitus, type 2) Status: Chronic Assessment and plan: See plan of care listed below Current Visit: No Qualifiers: Diabetes mellitus complication status: with kidney complications Diabetes mellitus complication detail: with chronic kidney disease Chronic kidney disease stage: stage 3 (moderate) (5) Cardiomyopathy Status: Chronic Assessment and plan: See plan of care listed below Current Visit: No (6) Coronary artery disease Status: Chronic Assessment and plan: See plan of care listed below Current Visit: No (7) Acute on chronic systolic and diastolic heart failure, NYHA class 3 Status: Resolved Assessment and plan: See plan of care listed below Current Visit: No (8) Overweight Status: Chronic Assessment and plan: See plan of care listed below Current Visit: No (9) Obstructive sleep apnea Status: Chronic Assessment and plan: See plan of care listed below Current Visit: No (10) Bilateral lower extremity edema Status: Resolved Assessment and plan: See plan of care listed below Current Visit: No Cardiology - PN: Subj Interval history: Interval history: Patient is lying in bed, appears comfortable. He is not requiring oxygen. He continues to improved. Denies chest pain, heaviness or tightness. Denies SOB. He has not been walking due to severe ankle pain thought to be related to gout. He is status post paracentesis December 01 with 1800 mL removed. He states his breathing is slowly improving. His weight is down by 5 kg since admission. Patient may have been overdiuresed at one point as his chronic renal insufficiency worsened, Creatinine peaked at 3.3 and this morning 2.7. Patient is doing great. He tells me he is ready for discharge home. He had been considered for swing bed however he does not have insurance at this time. He like to go home. From a cardiology standpoint, he stable for discharge and I will relate this information to the attending. Impression: Status post CHF exacerbation 2 1/2 weeks ago. Nonischemic cardiomyopathy, most recent ejection fraction noted to be 15-20% Status post 2.3 L paracentesis last week, 1800 ml removed last week. Mitral regurgitation Chronic renal insufficiency, creatinine elevated at 3.3 Wednesday now 2.7. Hypertension - adequately controlled Diabetes Obesity Obstructive sleep apnea Noncompliance with medication regimen, history of Hypothyroidism Telemetry shows sinus rhythm in the s-'s Plan: At this point, patient would like to be discharged home. Unfortunately, he has no insurance though his disability is pending. Originally, we discussed the possibility of swing bed however because of lack of coverage he would rather be discharged home today. I think that is reasonable from a cardiology standpoint. He is a cardiology patient of Dr. Leeroy Mariano. We will arrange for follow-up in clinic in approximately 2-3 weeks. Exam (Progress Note) - Constitutional Vitals: Period Temp Pulse Resp BP Sys/English Pulse Ox Last 24 Hr 96.7 F-98.3 F 101-108 18-20 89-143/63-70 94-100 Exam: General: [Appears well with no apparent distress.] [Pleasant and cooperative. ] [Appears comfortable.] HEENT: [Normocephalic, atraumatic. Mucous membranes moist. No jaundice noted. Conjunctiva moist and clear, sclerae anicteric] Neck: No JVD/HJR, no thyromegaly or lymphadenopathy noted. No carotid bruit appreciated Cardiac: [Regular rate and rhythm.] [No murmur rub or gallop.] Lungs: [Clear to auscultation without accessory muscle use to assist the respiratory pattern.] Not using oxygen. Abdomen: Soft, bowel sounds normoactive. Nontender and nondistended. No abdominal bruit or thrill noted. No masses noted. Musculoskeletal: No fluid collection. Decreased range of motion is noted. Extremities: No clubbing, cyanosis noted. [1+ brawny edema lower extremities] Upper extremity pulses 2+. Lower extremity pulses 1+. Capillary refill less than 3 seconds. Skin: No unusual lesions or rashes. No skin breakdown appreciated. Neuro: Awake, alert and oriented 3. Moves all extremities well without hemiparesis or paralysis. No essential tremor is appreciated. Result/EKG - Labs CBC & BMP: 12/09/16 05:24 12/09/16 05:24 Lab Results: I have reviewed the past 24 hour labs Labs: Laboratory Results - last 24 hr 12/09/16 12/09/16 05:24 05:24 WBC 7.4 RBC 5.29 Hgb 10.9 L Hct 33.5 L MCV 63.3 L MCH 21 L MCHC 32.5 RDW 21.6 H Plt Count 311 D Neut % (Auto) 62.5 Lymph % (Auto) 21.8 [place] % (Auto) 10.0 Eos % (Auto) 4.5 Baso % (Auto) 0.7 Neut # (Auto) 4.6 Lymph # (Auto) 1.6 [place] # (Auto) 0.7 Eos # (Auto) 0.3 Baso # (Auto) 0.1 Immature Gran % 0.5 Nucleated RBC % 0.0 Immature Gran # 0.04 Nucleated RBCs # 0.00 Polychromasia Slight Macrocytosis 1+ Pappenheimer Bodies Few Sodium 138 Potassium 5.0 Chloride 99 Carbon Dioxide 21 Anion Gap 23.0 H BUN 65 H Creatinine 2.70 H GFR Calculation 33 BUN/Creatinine Ratio 24.00 H Glucose 92 Calculated Osmolality 293.7 Calcium 8.9 - EKG EKG results: interpreted by nc EKG shows: sinus rhythm Specialty Discharge - Follow Up or Referrals Follow up with: Leeroy Mariano MD [Physician] - (2-3 weeks.) <Leeroy Mariano - Last Filed: 12/09/16 12:18> Assessment and Plan (1) CHF exacerbation Status: Acute Current Visit: Yes (2) Tachycardia Status: Acute Current Visit: No (3) Nonischemic cardiomyopathy Status: Chronic Current Visit: Yes (4) Abnormal thyroid function test Status: Acute Current Visit: Yes (5) Mitral regurgitation Status: Chronic Current Visit: Yes (6) DM2 (diabetes mellitus, type 2) Status: Chronic Current Visit: No Qualifiers: Diabetes mellitus complication status: with kidney complications Diabetes mellitus complication detail: with chronic kidney disease Chronic kidney disease stage: stage 3 (moderate) (7) Dyslipidemia Status: Chronic Current Visit: No (8) Hypertension Status: Chronic Current Visit: No (9) Obstructive sleep apnea Status: Chronic Current Visit: No (10) Overweight Status: Chronic Current Visit: No (11) Noncompliance with medication regimen Status: Acute Current Visit: Yes (12) Chronic renal insufficiency Status: Chronic Current Visit: Yes (13) Ascites Status: Acute Current Visit: Yes (14) Nonsustained ventricular tachycardia Status: Resolved Current Visit: Yes Cardiology - PN: Subj Interval history: I have seen, interviewed, examined the patient and reviewed his chart and discussed the case with the mid-level provider and agree with the plan as outlined in the note. Exam (Progress Note) - Constitutional Vitals: Period Temp Pulse Resp BP Sys/English Pulse Ox Last 24 Hr 96.7 F-98.3 F 101-109 18-20 89-143/63-79 96-100 Result/EKG - Labs CBC & BMP: 12/09/16 05:24 12/09/16 05:24 Labs: Laboratory Results - last 24 hr 12/09/16 12/09/16 05:24 05:24 WBC 7.4 RBC 5.29 Hgb 10.9 L Hct 33.5 L MCV 63.3 L MCH 21 L MCHC 32.5 RDW 21.6 H Plt Count 311 D Neut % (Auto) 62.5 Lymph % (Auto) 21.8 [place] % (Auto) 10.0 Eos % (Auto) 4.5 Baso % (Auto) 0.7 Neut # (Auto) 4.6 Lymph # (Auto) 1.6 [place] # (Auto) 0.7 Eos # (Auto) 0.3 Baso # (Auto) 0.1 Immature Gran % 0.5 Nucleated RBC % 0.0 Immature Gran # 0.04 Nucleated RBCs # 0.00 Polychromasia Slight Macrocytosis 1+ Pappenheimer Bodies Few Sodium 138 Potassium 5.0 Chloride 99 Carbon Dioxide 21 Anion Gap 23.0 H BUN 65 H Creatinine 2.70 H GFR Calculation 33 BUN/Creatinine Ratio 24.00 H Glucose 92 Calculated Osmolality 293.7 Calcium 8.9
--- NOTE | 2016-12-09 10:21 | Discharge Summary ---
Hospital Course - Hospital Course Hospital Course: Mr. Drummond presented with acute exacerbation of congestive heart failure. Previous echocardiogram revealed dilated cardiomyopathy and an ejection fraction of 15-20% with severe mitral valve regurg and tricuspid valve regurg. Cardiology was consulted and the patient's medications were adjusted. He was noted to have significant ascites which he had two paracenteses performed. Patient remained hospitalized for evaluation for placement to rehab however unfortunately he had no insurance and is pending disability. Patient opted to go home instead. He was counseled on the importance of medication compliance. - Time spent with patient Time with patient DS: Greater than 30 minutes Diagnosis - Discharge Diagnosis (1) MELODY (acute kidney injury) Status: Acute (2) CHF exacerbation Status: Acute (3) Coronary artery disease Status: Chronic (4) CKD (chronic kidney disease) stage 3, GFR 30-59 ml/min Status: Chronic (5) Cirrhosis Status: Chronic (6) Hypothyroidism Status: Chronic (7) Hyperuricemia Status: Acute Specialty Discharge - Follow Up or Referrals Follow up with: Leeroy Mariano MD [Physician] - (2-3 weeks.) Discharge Plan - Discharge Data Disposition: Disch To Home/Self Care Condition at Discharge: Stable Discharge Diet: advance to your usual diet Activity: resume usual activities as tolerated - Discharge Medications New Allopurinol [Zyloprim] 200 mg PO DAILY #60 tablet Pantoprazole Tab [Protonix Tab] 40 mg PO DAILY #30 tablet Carvedilol [Coreg] 3.125 mg PO BID #60 tablet Furosemide Tab [Lasix Tab] 40 mg PO DAILY #30 tablet Lactulose Liquid [Chronulac] 30 gm PO TID #90 packet Levothyroxine Tab [Synthroid Tab] 50 mcg PO DAILY@0700 #30 tablet Spironolactone [Aldactone] 25 mg PO BID #60 tablet Continue Aspirin EC Tab 81 mg PO DAILY #30 tablet Discontinued Carvedilol [Coreg] 12.5 mg PO BID #60 tablet Ascorbic Acid Tab [Vitamin C Tab] 1,000 mg PO BID #60 tablet Potassium Chloride 10 meq PO BID Furosemide Tab [Lasix Tab] 40 mg PO BID DIURETIC #60 tablet Spironolactone [Aldactone] 12.5 mg PO DAILY #30 tablet hydrALAZINE TAB [Apresoline Tab] 10 mg PO TID #90 tablet - Follow Up or Referral Follow Up: Leeroy Mariano MD [Physician] - (2-3 weeks.) - Forms/Instructions Exam - Constitutional Vitals: Period Temp Pulse Resp BP Sys/English Pulse Ox Last 24 Hr 96.7 F-98.3 F 101-108 18-20 89-143/63-70 94-100 Discharge Results Procedures and tests throughout hospitalization: Pending Orders 12/10/16 04:00 Basic Metabolic Panel IN AM Comp Blood Count Auto Diff IN AM 12/11/16 04:00 Basic Metabolic Panel IN AM Comp Blood Count Auto Diff IN AM 12/12/16 04:00 Basic Metabolic Panel IN AM Comp Blood Count Auto Diff IN AM 12/13/16 04:00 Basic Metabolic Panel IN AM Comp Blood Count Auto Diff IN AM Labs on day of discharge: Labs from last 24 hours 12/09/16 12/09/16 05:24 05:24 WBC 7.4 RBC 5.29 Hgb 10.9 L Hct 33.5 L MCV 63.3 L MCH 21 L MCHC 32.5 RDW 21.6 H Plt Count 311 D Neut % (Auto) 62.5 Lymph % (Auto) 21.8 [place] % (Auto) 10.0 Eos % (Auto) 4.5 Baso % (Auto) 0.7 Neut # (Auto) 4.6 Lymph # (Auto) 1.6 [place] # (Auto) 0.7 Eos # (Auto) 0.3 Baso # (Auto) 0.1 Immature Gran % 0.5 Nucleated RBC % 0.0 Immature Gran # 0.04 Nucleated RBCs # 0.00 Polychromasia Slight Macrocytosis 1+ Pappenheimer Bodies Few Sodium 138 Potassium 5.0 Chloride 99 Carbon Dioxide 21 Anion Gap 23.0 H BUN 65 H Creatinine 2.70 H GFR Calculation 33 BUN/Creatinine Ratio 24.00 H Glucose 92 Calculated Osmolality 293.7 Calcium 8.9 DS: Provider Date of admission: 11/21/16 18:09 Primary care physician: . No PCP Attending physician on admission: Renita Orozco MD Consults: 11/21/16 18:17 Consult to Pharmacy [CONS] Routine Reason for Pharmacy Consult: Adjust Meds Renal Funct 11/23/16 14:21 Consult to Physician [CONS] Routine Comment: ascites/abd distention Consulting Provider: Yoni Hidalgo Consult to Specialist Group: Gastroenterology Consult Notification Comment: TEXTED CONSULT TO CRISTHIAN AT 1520 12/06/16 08:42 Consult to Physician [CONS] Routine Comment: Tomorrow. Nephrology medicare contact specialist. RE: worsening creat Consulting Provider: Navarro Fu Consult to Specialist Group: Nephrology Person Notified: SASKIA Date Notified: 12/07/16 Time Notified: 09:10 12/06/16 09:04 Consult to Case Mgmt/Social Srvs [CONS] Routine Reason for Case Mgmt/Social Srvs: Swingbed/SNF/Long Term Discharging clinician: Renita Orozco MD Expected date of discharge: 12/09/16
[2016-12-09] MEDS: LACTULOSE 20 GM/30 ML UDCUP PO SCH ×3 (10:49→21:06)
[2016-12-09] MEDS: ALLOPURINOL 100 MG TABLET PO SCH (10:51)
[2016-12-09] MEDS: FUROSEMIDE 40 MG TABLET PO SCH (10:51)
[2016-12-09] MEDS: ASPIRIN CHEW 81 MG TABLET PO SCH (10:51)
[2016-12-09] MEDS: PANTOPRAZOLE 40 MG TABLET PO SCH (10:51)
[2016-12-09] MEDS: SPIRONOLACTONE 25 MG TABLET PO SCH ×2 (10:51→21:06)
[2016-12-09] MEDS: CARVEDILOL 3.125 MG TABLET PO SCH ×2 (10:52→21:05)
--- NOTE | 2016-12-09 13:43 | Nephrology Progress Note ---
Nephrology - PN: Subj Interval history: No shortness of breath at rest. No new symptoms. Exam (PN)-Nephrology - Vital Signs Vital signs: Period Temp Pulse Resp BP Sys/English Pulse Ox Last 24 Hr 96.7 F-98.3 F 101-109 18-20 89-143/63-79 96-100 Exam: ENT: Normal Cardiovascular: Regular rate and rhythm. No murmur rub or gallop Lungs: Clear Extremities: 1-2+ edema - Lab 12/09/16 05:24 12/09/16 05:24 Most recent lab results Calcium 8.9 MG/DL (8.5-10.1) 12/09/16 05:24 Magnesium 2.1 MG/DL (1.8-2.4) 12/07/16 06:04 Assessment and Plan (1) Acute on chronic renal failure Status: Acute Assessment and plan: 51-year-old man admitted with: * Dilated cardiomyopathy. EF 15-20% * Chronic renal failure stage III * Acute on chronic renal failure. Fluid balance remains negative on lower dose diuretics. Renal function improved. * Diabetes mellitus * Hypertension. Blood pressure is borderline low now Current Visit: Yes (2) Ascites Status: Acute Current Visit: Yes (3) CHF exacerbation Status: Acute Current Visit: Yes (4) Noncompliance with medication regimen Status: Acute Current Visit: Yes (5) Chronic renal insufficiency Status: Chronic Current Visit: Yes (6) Cirrhosis Status: Chronic Current Visit: Yes Qualifiers: Hepatic cirrhosis type: alcoholic cirrhosis (7) Mitral regurgitation Status: Chronic Current Visit: Yes (8) Nonischemic cardiomyopathy Status: Chronic Current Visit: Yes (9) CKD (chronic kidney disease) stage 3, GFR 30-59 ml/min Status: Chronic Current Visit: No (10) DM2 (diabetes mellitus, type 2) Status: Chronic Current Visit: No Qualifiers: Diabetes mellitus complication status: with kidney complications Diabetes mellitus complication detail: with chronic kidney disease Chronic kidney disease stage: stage 3 (moderate) Specialty Discharge - Follow Up or Referrals Follow up with: Leeroy Mariano MD [Physician] - (2-3 weeks.)
[2016-12-09] MEDS: ENOXAPARIN 30 MG/0.3 ML SYRINGE SUBCUT SCH (21:06)
[2016-12-10 05:44] LABS: Basophils # 0.1 10*3/uL (0.0-0.2); Basophils % 0.8 % (0.0-0.8); Eosinophils # 0.4 10*3/uL (0.0-0.87); Eosinophils % 6.1 % (0.00-10.9); Hematocrit 32.2 VOL% (42.0-52.0); Hemoglobin 10.6 GM/DL (14.0-18.0); Immature Granulocytes % 0.5 %; Immature Granulocytes Absolute 0.03 #; Lymphocytes # 1.6 10*3/uL (1.4-4.0); Mean Corpuscular HGB Conc 32.9 GM/DL (32-36); Mean Corpuscular Hemoglobin 21 PG (27-34); Mean Corpuscular Volume 62.4 FL (87-102); Monocytes # 0.6 10*3/uL (0.11-0.8); Monocytes % 9.4 % (1.7-12.7); Neutrophils # 3.9 10*3/uL (1.4-7.4); Neutrophils % 59.2 % (38.7-73.9); Platelet Count 235 T/CUMM (130-400); Red Blood Count 5.16 MC/CUMM (3.8-5.5); Red Cell Distribution Width 21.4 % (9.3-17.3); White Blood Count 6.6 T/CUMM (4-12)
[2016-12-10 06:14] LABS: Calcium 8.5 MG/DL (8.5-10.1); Potassium 4.9 MMOL/L (3.5-5.1)
[2016-12-10 06:19] LABS: Burr Cells Slight; Elliptocytes Few; Hypochromasia 1+; Macrocytosis Slight; Platelet Estimate Adequate; Target Cells Few
[2016-12-10] MEDS: ALLOPURINOL 100 MG TABLET PO SCH (09:50)
[2016-12-10] MEDS: LEVOTHYROXINE 50 MCG TABLET PO SCH (09:51)
[2016-12-10] MEDS: PANTOPRAZOLE 40 MG TABLET PO SCH (09:51)
[2016-12-10] MEDS: CARVEDILOL 3.125 MG TABLET PO SCH (09:52)
[2016-12-10] MEDS: ASPIRIN CHEW 81 MG TABLET PO SCH (09:52)
[2016-12-10] MEDS: SPIRONOLACTONE 25 MG TABLET PO SCH (09:52)
[2016-12-10] MEDS: FUROSEMIDE 40 MG TABLET PO SCH (09:52)
[2016-12-10] MEDS: LACTULOSE 20 GM/30 ML UDCUP PO SCH (09:52)
--- NOTE | 2016-12-10 10:57 | Cardiology Progress Note ---
<Juju Torres E - Last Filed: 12/10/16 10:57> Assessment and Plan - Time spent with patient Time spent with patient: Less than 30 minutes (1) Ankle pain Status: Acute Assessment and plan: See plan of care listed below Current Visit: Yes Qualifiers: Laterality: right Chronicity: acute Qualified Code(s): M25.571 - Pain in right ankle and joints of right foot (2) CHF exacerbation Status: Resolved Assessment and plan: See plan of care listed below. Acute on chronic CHF secondary to combined systoli and diastolic dysfucntion, EF 20%. NYHA Class III Current Visit: No Qualifiers: Congestive heart failure type: combined Qualified Code(s): I50.43 - Acute on chronic combined systolic (congestive) and diastolic (congestive) heart failure (3) CKD (chronic kidney disease) stage 2, GFR 60-89 ml/min Status: Chronic Assessment and plan: See plan of care listed below Current Visit: No (4) DM2 (diabetes mellitus, type 2) Status: Chronic Assessment and plan: See plan of care listed below Current Visit: No Qualifiers: Diabetes mellitus complication status: with kidney complications Diabetes mellitus complication detail: with chronic kidney disease Chronic kidney disease stage: stage 3 (moderate) (5) Cardiomyopathy Status: Chronic Assessment and plan: See plan of care listed below Current Visit: No (6) Coronary artery disease Status: Chronic Assessment and plan: See plan of care listed below Current Visit: No (7) Overweight Status: Chronic Assessment and plan: See plan of care listed below Current Visit: No (8) Obstructive sleep apnea Status: Chronic Assessment and plan: See plan of care listed below Current Visit: No Cardiology - PN: Subj Interval history: Interval history: Patient sitting on edge of bed without complaints of chest pain, heaviness or tightness. His breathing is nonlabored and he feels as if he is doing well from a cardiac standpoint. He is not using oxygen. Patient was scheduled for discharge yesterday, however, he has poor gait due to bilateral ankle pain related to gout. He has minimal help at home and for this reason his discharge was canceled. Unfortunately, he does not have insurance and he is not a candidate for swing bed or home health. He was given a wheelchair. He tells me he has been walking in his room some today and his pain has improved. Nephrology continues to follow. Creatinine unchanged overnight. At this point , from a cardiology standpoint he is stable for discharge. We will add low- dose Coreg 3.125 mg orally twice daily and hopefully he will be discharged home today or tomorrow. I will give him a follow-up appointment Dr. Leeroy Mariano in approximately 2-3 weeks. Impression: Status post CHF exacerbation 3 weeks ago, now recovered. Nonischemic cardiomyopathy, most recent ejection fraction noted to be 15-20% Status post 2.3 L paracentesis last week, 1800 ml removed last week. Mitral regurgitation Chronic renal insufficiency, creatinine elevated at 3.3 Wednesday now 2.7. Hypertension - adequately controlled Diabetes Obesity Obstructive sleep apnea Noncompliance with medication regimen, history of Hypothyroidism Telemetry shows sinus rhythm in the 90s-100's Plan: At this point, we will sign off and follow along only as needed if reconsulted. Exam (Progress Note) - Constitutional Vitals: Period Temp Pulse Resp BP Sys/English Pulse Ox Last 24 Hr 97.5 F-98.6 F 104-113 17-20 97-113/71-79 99-100 Exam: General: [Appears well with no apparent distress.] [Pleasant and cooperative. ] [Appears comfortable.] HEENT: [Normocephalic, atraumatic. Mucous membranes moist. No jaundice noted. Conjunctiva moist and clear, sclerae anicteric] Neck: No JVD/HJR, no thyromegaly or lymphadenopathy noted. No carotid bruit appreciated Cardiac: [Regular rate and rhythm.] [No murmur rub or gallop.] Lungs: [Clear to auscultation without accessory muscle use to assist the respiratory pattern.] Not using oxygen. Abdomen: Soft, bowel sounds normoactive. Nontender and nondistended. No abdominal bruit or thrill noted. No masses noted. Musculoskeletal: No fluid collection. Decreased range of motion is noted. Extremities: No clubbing, cyanosis noted. [1+ brawny edema lower extremities] Upper extremity pulses 2+. Lower extremity pulses 1+. Capillary refill less than 3 seconds. Skin: No unusual lesions or rashes. No skin breakdown appreciated. Neuro: Awake, alert and oriented 3. Moves all extremities well without hemiparesis or paralysis. No essential tremor is appreciated. Result/EKG - Labs CBC & BMP: 12/10/16 04:44 12/10/16 04:44 Lab Results: I have reviewed the past 24 hour labs Labs: Laboratory Results - last 24 hr 12/10/16 12/10/16 04:44 04:44 WBC 6.6 RBC 5.16 Hgb 10.6 L Hct 32.2 L MCV 62.4 L MCH 21 L MCHC 32.9 RDW 21.4 H Plt Count 235 D Neut % (Auto) 59.2 Lymph % (Auto) 24.0 [place] % (Auto) 9.4 Eos % (Auto) 6.1 Baso % (Auto) 0.8 Neut # (Auto) 3.9 Lymph # (Auto) 1.6 [place] # (Auto) 0.6 Eos # (Auto) 0.4 Baso # (Auto) 0.1 Immature Gran % 0.5 Nucleated RBC % 0.0 Immature Gran # 0.03 Nucleated RBCs # 0.00 Platelet Estimate Adequate Hypochromasia 1+ Macrocytosis Slight Target Cells Few [place] Cells Slight Elliptocytes Few Morphology Comment Sodium 136 Potassium 4.9 Chloride 98 Carbon Dioxide 22 Anion Gap 20.9 H BUN 68 H Creatinine 2.70 H GFR Calculation 33 BUN/Creatinine Ratio 25.00 H Glucose 92 Calculated Osmolality 291.0 Calcium 8.5 - EKG EKG results: interpreted by me EKG shows: sinus rhythm Specialty Discharge - Follow Up or Referrals Follow up with: Leeroy Mariano MD [Physician] - 12/24/16 9:40 am (2-3 weeks.) <Leeroy Mariano - Last Filed: 12/10/16 14:44> Assessment and Plan (1) CHF exacerbation Status: Acute Current Visit: Yes (2) Tachycardia Status: Acute Current Visit: No (3) Nonischemic cardiomyopathy Status: Chronic Current Visit: Yes (4) Abnormal thyroid function test Status: Acute Current Visit: Yes (5) Mitral regurgitation Status: Chronic Current Visit: Yes (6) DM2 (diabetes mellitus, type 2) Status: Chronic Current Visit: No Qualifiers: Diabetes mellitus complication status: with kidney complications Diabetes mellitus complication detail: with chronic kidney disease Chronic kidney disease stage: stage 3 (moderate) (7) Dyslipidemia Status: Chronic Current Visit: No (8) Hypertension Status: Chronic Current Visit: No (9) Obstructive sleep apnea Status: Chronic Current Visit: No (10) Overweight Status: Chronic Current Visit: No (11) Noncompliance with medication regimen Status: Acute Current Visit: Yes (12) Chronic renal insufficiency Status: Chronic Current Visit: Yes (13) Ascites Status: Acute Current Visit: Yes (14) Nonsustained ventricular tachycardia Status: Resolved Current Visit: Yes Cardiology - PN: Subj Interval history: I have seen, interviewed, examined the patient and reviewed his chart and discussed the case with the mid-level provider and agree with the plan as outlined in the note. Exam (Progress Note) - Constitutional Vitals: Period Temp Pulse Resp BP Sys/English Pulse Ox Last 24 Hr 97.7 F-98.6 F 104-113 17-20 97-105/71-76 99-100 Result/EKG - Labs CBC & BMP: 12/10/16 04:44 12/10/16 04:44 Labs: Laboratory Results - last 24 hr 12/10/16 12/10/16 04:44 04:44 WBC 6.6 RBC 5.16 Hgb 10.6 L Hct 32.2 L MCV 62.4 L MCH 21 L MCHC 32.9 RDW 21.4 H Plt Count 235 D Neut % (Auto) 59.2 Lymph % (Auto) 24.0 [place] % (Auto) 9.4 Eos % (Auto) 6.1 Baso % (Auto) 0.8 Neut # (Auto) 3.9 Lymph # (Auto) 1.6 [place] # (Auto) 0.6 Eos # (Auto) 0.4 Baso # (Auto) 0.1 Immature Gran % 0.5 Nucleated RBC % 0.0 Immature Gran # 0.03 Nucleated RBCs # 0.00 Platelet Estimate Adequate Hypochromasia 1+ Macrocytosis Slight Target Cells Few Mariano Cells Slight Elliptocytes Few Morphology Comment Sodium 136 Potassium 4.9 Chloride 98 Carbon Dioxide 22 Anion Gap 20.9 H BUN 68 H Creatinine 2.70 H GFR Calculation 33 BUN/Creatinine Ratio 25.00 H Glucose 92 Calculated Osmolality 291.0 Calcium 8.5
[2016-12-10 12:32] VITALS: BP 100/74
--- NOTE | 2016-12-10 14:08 | Hospitalist Progress Note ---
Assessment and Plan - Time spent with patient Time spent with patient: Greater than 30 minutes (1) MELODY (acute kidney injury) Status: Acute Assessment and plan: Resolved. Current Visit: Yes (2) CHF exacerbation Status: Acute Assessment and plan: Continue management, euvolemic. Current Visit: Yes (3) Coronary artery disease Status: Chronic Assessment and plan: Continue medical management. Current Visit: No (4) CKD (chronic kidney disease) stage 3, GFR 30-59 ml/min Status: Chronic Assessment and plan: Stable. Current Visit: No (5) Cirrhosis Status: Chronic Assessment and plan: With ascites. Current Visit: Yes Qualifiers: Hepatic cirrhosis type: alcoholic cirrhosis (6) Hypothyroidism Status: Chronic Assessment and plan: We'll initiate Synthroid. Current Visit: Yes (7) Hyperuricemia Status: Acute Assessment and plan: Continue management. Current Visit: Yes Hospitalist: Subjective Interval history: Discharge was held yesterday to arrange outpatient PT. No events overnight. No complaints. Please see discharge summary from yesterday. No changes to plan. Exam - Constitutional Vitals: Period Temp Pulse Resp BP Sys/English Pulse Ox Last 24 Hr 97.7 F-98.6 F 104-113 17-20 97-105/71-76 99-100 General appearance: no acute distress - Head Head exam: Present: normocephalic, atraumatic - Eye Eye exam: Present: EOMI Pupils: Present: RACHEAL - ENT ENT exam: Present: normal exam - Neck Neck exam: Present: normal inspection - Respiratory Respiratory exam: Present: clear to auscultation bilaterally. Absent: rhonchi, wheezes - Cardiovascular Cardiovascular exam: Present: regular rate and rhythm. Absent: gallop, rubs, systolic murmur - GI/Abdominal GI/Abdominal exam: Present: normal bowel sounds, soft. Absent: distended, firm , guarding, tenderness, rebound - Extremities Exam Extremities exam: Present: edema. Absent: calf tenderness Results - Labs CBC & BMP: 12/10/16 04:44 12/10/16 04:44 Lab Results: I have reviewed the past 24 hour labs Specialty Discharge - Follow Up or Referrals Follow up with: Leeroy Mariano MD [Physician] - 12/24/16 9:40 am (2-3 weeks.)
[2016-12-10] MEDS ORDERED: COLCHICINE 0.6 MG TABLET PO ONE (14:45)
[2016-12-10] MEDS ORDERED: COLCHICINE 0.6 MG TABLET PO SCH (21:00)
== END 2016-12-10 15:55 | disposition home or self-care (01) | DRG 291 ==
LOC: N.ED 11:50 → N.EDINP 18:09 → SUATTDRO 18:09 → N.CC 19:00 → N.TELEN 11-22 15:12
PROVIDERS: ADMIT Internal Medicine; ATTEND Internal Medicine
PROC: IRTHORA (2016-11-24 12:05)

== ENCOUNTER 2017-01-08 18:22 | Inpatient (IN) ==
[2017-01-08] MEDS ORDERED: ONDANSETRON 4 MG/2 ML VIAL IV STA (18:58)
--- NOTE | 2017-01-08 19:09 | Emergency Department Note ---
Arrival - Arrival Chief Complaint: Abdominal / Flank Pain Stated Complaint: Fluid on stomach ED Nursing Triage Note: C/o abd distention-onset two weeks ago. States he is here to have a paracentesis done. Mode of Arrival: Wheelchair Limitations: No Limitations Source: Patient Time Seen by Provider: 01/08/17 18:58 - History of Present Illness HPI Narrative: This 51-year-old black male presents approximately 1 month to the day since discharge for exacerbation of congestive heart failure from a dilated cardiomyopathy as well as chronic renal failure, cirrhosis, and hypothyroidism. Over the last several weeks he has taken some of his medications but not all because of cost and inevitably has gotten worse once again. He not only complaints of increasing abdominal girth from progressive ascites but likewise orthopnea, PND, dyspnea on exertion, and pedal edema. He denies chest pain or abdominal pain. Currently at rest in bed he is in no acute medical distress. Onset (ago): month(s) Consistency: constant Severity: severe Allergies/Adverse Reactions: Allergies Allergy/AdvReac Type Severity Reaction Status Date / Time Shellfish Allergy SHORTNESS Verified 08/28/16 17:28 OF BREATH Home Medications: Home Medications Medication Instructions Recorded Confirmed Type Aspirin EC Tab 81 mg PO DAILY #30 tablet 10/15/16 11/21/16 Rx Allopurinol [Zyloprim] 200 mg PO DAILY #60 tablet 12/09/16 Rx Carvedilol [Coreg] 3.125 mg PO BID #60 tablet 12/09/16 Rx Furosemide Tab [Lasix Tab] 40 mg PO DAILY #30 tablet 12/09/16 Rx Lactulose Liquid [Chronulac] 30 gm PO TID #90 packet 12/09/16 Rx Levothyroxine Tab [Synthroid Tab] 50 mcg PO DAILY@0700 #30 tablet 12/09/16 Rx Pantoprazole Tab [Protonix Tab] 40 mg PO DAILY #30 tablet 12/09/16 Rx Spironolactone [Aldactone] 25 mg PO BID #60 tablet 12/09/16 Rx Review of System - Review of System 12 point system: reviewed and no additional remarkable complaints except as stated - Review of System Constitutional: Present: as per HPI Respiratory: Present: as per HPI Cardiovascular: Present: as per HPI Gastrointestinal: Present: as per HPI Medical,Surgical,& Family Hx - Medical History Cardio: History of: Cardiac Dysrhythmia (sinus tach), CHF, CAD, Hypertension, Cardiovascular Problems ("Two blocked arteries per Dr Mariano") No history of: [place], Pacemaker Psychological: No history of: Anxiety Disorders, Bipolar Disorder, Depression HEENT: No history of: Dental Problems Endocrine: No history of: Diabetes Mellitus (IDDM) (states he was told last admission DM but nothing follow up with), Diabetes Mellitus (NIDDM) Rheumatology: History of;: Gout Respiratory: History of: Asthma, Bronchitis, Obstructive Sleep Apnea No history of: Pulmonary Embolism, Pneumonia Renal: History of: Renal Failure (RI), Renal Problems No history of: Renal (Kidney) Cancer Genitourinary: No history of: Bladder Problem, Kidney Stones Gastrointestinal: History of: GERD No history of: Hemorrhoids, Liver Problems Musculoskeletal: History of: Musculoskeletal Problems (Right Knee Surg) No history of: Amputation, Back/Neck Problems, Osteoporosis Hematology: No history of: Anemia, Blood Transfusion Reaction, Sickle Cell Disease, Blood Disorders Other: No history of: Anesthesia Reactions, HIV, MRSA, Skin Problems - Surgical History Cardiac Surgeries: Patient Denies: Cardiac Catheterization, Cardiac Surgery Thoracic Surgeries: Patient denies;: Organ Transplant, Lobectomy Neurologic Surgeries: Patient denies: Neurologic Surgery HEENT Surgeries: Patient denies: Tonsilectomy & Adenoidectomy Abdominal Surgeries: Surgical HX of: Colonoscopy Patient denies: Abdominal Surgery, Appendectomy, Splenectomy Orthopedic Surgeries: Surgical HX of;: Orthopedic Surgery (Knee surgery) Patient denies;: Total Knee Replacement - Family History Family History: Reports;: Family Cancer (mom, type unknown), Family Heart Disease, Family Hypertension - Social History Smoking Status: Light tobacco smoker Frequency of Alcohol Use: None Type of Drug Use: None Exam Physical Examination: GENERAL: Well developed, well nourished white male in no acute distress. HEENT: Normocephalic. No trauma. Moist mucous membranes. EOMI. PERRLA. ENT NML NECK: Supple. No adenopathy. CARDIAC: Regular. No murmurs. Heart rate 93 CHEST: Scattered rare expiratory rales with decreased breath sounds bibasilar. No respiratory distress. O2 sat 99% ABDOMEN: Soft. Firm but not tense from ascites with fluid wave noted. Active bowel sounds. EXTREMITIES: No trauma. Normal ROM. 1+ pedal edema SKIN: Warm and dry. No rash NEURO: Alert and oriented 3. Motor, sensory, vibratory intact. No asterixis. No focal deficits. Vital Signs: Vital Signs Temperature 97.9 F 01/08/17 18:50 Pulse Rate 93 H 01/08/17 18:50 Respiratory Rate 22 01/08/17 18:50 Blood Pressure 93/71 01/08/17 18:50 O2 Sat by Pulse Oximetry 99 01/08/17 18:27 Course - Reevaluation(s) Reevaluation #1: Advised patient of the necessity of hospitalization for diuresis. - Consultations Consultation #1: Discussed with hospitalist service who will admit for further evaluation treatment. Results - Labs CBC & BMP: 01/08/17 19:06 01/08/17 19:06 Labs: I reviewed the laboratory noted the low hematocrit and evidence of persistent azotemia with elevated creatinine and BUN. Also noted was the elevated ammonia and the bump in troponin to 0.158. - Diagnostic Findings Procedure: Chest x-ray: image reviewed by me, report reviewed by me ( Cardiomegaly with bilateral pleural effusions and moderate congestive heart failure) Disposition Clinical Impression: chf, Hepatic encephalopathy, Cirrhosis with ascites, Renal azotemia Case discussed with: patient Disposition: Still a Patient Condition: Stable Time of Disposition: 19:58
[2017-01-08] MEDS ORDERED: ONDANSETRON 4 MG/2 ML VIAL ONE (19:13)
[2017-01-08] MEDS ORDERED: FUROSEMIDE 40 MG/4 ML VIAL IV STA (19:13)
[2017-01-08] MEDS ORDERED: FUROSEMIDE 40 MG/4 ML VIAL ONE (19:15)
--- NOTE | 2017-01-08 19:19 | XRay Report ---
Portable chest Date: 01/08/2017 Clinical history: Generalized abdominal pain Comparison: 11/21/2016 Technique: Portable AP sitting chest Findings: The heart is moderately enlarged with more prominent pulmonary vasculature. Progressive diffuse parenchymal findings with larger small pleural effusions. Degenerative changes are noted. Impression: Moderate cardiomegaly with progressive [id number] CHF with larger small pleural effusions. Findings are more pronounced on the right. PROCEDURE INTERPRETED AT [facility] DEPARTMENT OF RADIOLOGY Final Report Signed by: Dr. Kaylan Richmond
[2017-01-08 19:25] LABS: Basophils % 0.7 % (0.0-0.8); Eosinophils # 0.2 10*3/uL (0.0-0.87); Eosinophils % 2.4 % (0.00-10.9); Hematocrit 33.6 VOL% (42.0-52.0); Hemoglobin 10.8 GM/DL (14.0-18.0); Immature Granulocytes % 0.3 %; Immature Granulocytes Absolute 0.02 #; Lymphocytes # 1.2 10*3/uL (1.4-4.0); Mean Corpuscular HGB Conc 32.1 GM/DL (32-36); Mean Corpuscular Hemoglobin 20 PG (27-34); Monocytes # 0.4 10*3/uL (0.11-0.8); Monocytes % 6.5 % (1.7-12.7); NRBC # 0.06 10*3/uL; Neutrophils # 4.3 10*3/uL (1.4-7.4); Neutrophils % 70.1 % (38.7-73.9); Platelet Count 257 T/CUMM (130-400); Red Blood Count 5.33 MC/CUMM (3.8-5.5); Red Cell Distribution Width 21.4 % (9.3-17.3); White Blood Count 6.1 T/CUMM (4-12)
[2017-01-08 19:39] LABS: Ammonia 60 UMOL/L (11-32)
[2017-01-08 19:45] LABS: Alanine Aminotransferase 26 U/L (16-61); Albumin 2.4 G/DL (3.4-5.0); Alkaline Phosphatase 182 U/L (45-117); Amylase 61 U/L (25-115); Aspartate Amino Transferase 31 U/L (0-37); Blood Urea Nitrogen 37 MG/DL (7-18); Calcium 8.4 MG/DL (8.5-10.1); Glucose 79 MG/DL (74-106); Osmolality,Calculated 277.1 MOS/KG (273-304); Potassium 3.8 MMOL/L (3.5-5.1); Sodium 135 MMOL/L (136-145); Total Protein 7.1 G/DL (6.4-8.3)
[2017-01-08 19:47] LABS: Troponin I Only 0.158 NG/ML (0.00-0.045)
--- NOTE | 2017-01-08 20:19 | Hospitalist History & Physical ---
Assessment and Plan (1) CHF exacerbation Status: Resolved Assessment and plan: Lasix 40 mg IV twice daily and spironolactone, unable to tolerate Coreg or DARLENE inhibitor due to low blood pressure. Current Visit: No Qualifiers: Congestive heart failure type: combined Qualified Code(s): I50.43 - Acute on chronic combined systolic (congestive) and diastolic (congestive) heart failure (2) CKD (chronic kidney disease) stage 2, GFR 60-89 ml/min Status: Chronic Assessment and plan: Continue to monitor Current Visit: No (3) DM2 (diabetes mellitus, type 2) Status: Chronic Assessment and plan: Hemoglobin A1c, insulin sliding scale Current Visit: No Qualifiers: Diabetes mellitus complication status: with kidney complications Diabetes mellitus complication detail: with chronic kidney disease Chronic kidney disease stage: stage 3 (moderate) (4) Cardiomyopathy Status: Chronic Assessment and plan: Vision has an EF of only 15-20% with severe mitral regurg and tricuspid regurg and severe pulmonary hypertension Current Visit: No (5) Obstructive sleep apnea Status: Chronic Assessment and plan: She cannot afford his CPAP machine and has severe pulmonary hypertension as a result Current Visit: No (6) Hypothyroidism Status: Chronic Assessment and plan: TSH and continue Synthroid Current Visit: No (7) Cirrhosis Status: Chronic Assessment and plan: Elevated ammonia will start lactulose every 4 hours Current Visit: No Qualifiers: Hepatic cirrhosis type: alcoholic cirrhosis History of Present Illness Chief complaint: sob History of present illness: Mr. Drummond is a 51 year old male with reoccurring admissions for ascites due to cirrhosis. Patient cannot afford his medications and was living with his mom who one week ago. Still trying to get on medicaid. He has a history of congestive heart failure from a dilated cardiomyopathy as well as chronic renal failure, cirrhosis, and hypothyroidism. He complains of fatigue and SOB with increasing abdominal girth from progressive ascites but likewise orthopnea, PND, dyspnea on exertion, and pedal edema. He denies chest pain or abdominal pain. Home Medications Medication Instructions Recorded Confirmed Type Aspirin EC Tab 81 mg PO DAILY #30 tablet 10/15/16 11/21/16 Rx Allopurinol [Zyloprim] 200 mg PO DAILY #60 tablet 12/09/16 Rx Carvedilol [Coreg] 3.125 mg PO BID #60 tablet 12/09/16 Rx Furosemide Tab [Lasix Tab] 40 mg PO DAILY #30 tablet 12/09/16 Rx Lactulose Liquid [Chronulac] 30 gm PO TID #90 packet 12/09/16 Rx Levothyroxine Tab [Synthroid Tab] 50 mcg PO DAILY@0700 #30 tablet 12/09/16 Rx Pantoprazole Tab [Protonix Tab] 40 mg PO DAILY #30 tablet 12/09/16 Rx Spironolactone [Aldactone] 25 mg PO BID #60 tablet 12/09/16 Rx Allergies Allergy/AdvReac Type Severity Reaction Status Date / Time Shellfish Allergy SHORTNESS Verified 08/28/16 17:28 OF BREATH Medical,Surgical,& Family Hx - Medical History Cardio: History of: Cardiac Dysrhythmia (sinus tach), CHF, CAD, Hypertension, Cardiovascular Problems ("Two blocked arteries per Dr Mariano") No history of: [place], Pacemaker Psychological: No history of: Anxiety Disorders, Bipolar Disorder, Depression HEENT: No history of: Dental Problems Endocrine: No history of: Diabetes Mellitus (IDDM) (states he was told last admission DM but nothing follow up with), Diabetes Mellitus (NIDDM) Rheumatology: History of;: Gout Respiratory: History of: Asthma, Bronchitis, Obstructive Sleep Apnea No history of: Pulmonary Embolism, Pneumonia Renal: History of: Renal Failure (RI), Renal Problems No history of: Renal (Kidney) Cancer Genitourinary: No history of: Bladder Problem, Kidney Stones Gastrointestinal: History of: GERD No history of: Hemorrhoids, Liver Problems Musculoskeletal: History of: Musculoskeletal Problems (Right Knee Surg) No history of: Amputation, Back/Neck Problems, Osteoporosis Hematology: No history of: Anemia, Blood Transfusion Reaction, Sickle Cell Disease, Blood Disorders Other: No history of: Anesthesia Reactions, HIV, MRSA, Skin Problems - Surgical History Cardiac Surgeries: Patient Denies: Cardiac Catheterization, Cardiac Surgery Thoracic Surgeries: Patient denies;: Organ Transplant, Lobectomy Neurologic Surgeries: Patient denies: Neurologic Surgery HEENT Surgeries: Patient denies: Tonsilectomy & Adenoidectomy Abdominal Surgeries: Surgical HX of: Colonoscopy Patient denies: Abdominal Surgery, Appendectomy, Splenectomy Orthopedic Surgeries: Surgical HX of;: Orthopedic Surgery (Knee surgery) Patient denies;: Total Knee Replacement - Family History Family History: Reports;: Family Cancer (mom, type unknown), Family Heart Disease, Family Hypertension - Social History Smoking Status: Light tobacco smoker Frequency of Alcohol Use: None Type of Drug Use: None - Constitutional Constitutional: Present: fatigue. Absent: chills, fever(s) - EENT Eyes: Absent: blurry vision, diplopia Ears: Absent: decreased hearing, ear discharge Nose, mouth and throat: Absent: headache(s), sore throat - Cardiovascular Cardiovascular: Present: dyspnea, dyspnea on exertion, edema, orthopnea, palpitations, PND. Absent: chest pain at rest, chest pain with activity - Respiratory Respiratory: Present: cough, dyspnea, dyspnea on exertion, snoring - Gastrointestinal Gastrointestinal: Present: constipation. Absent: diarrhea, nausea, vomiting - Genitourinary Genitourinary: Absent: difficulty urinating, dysuria - Neurological Neurological: Present: confusion. Absent: headache(s), syncope - Psychiatric Psychiatric: Present: anxiety, depression - Endocrine Endocrine: Present: fatigue. Absent: cold intolerance, heat intolerance - Hematologic/Lymphatic Hematologic/Lymphatic: Present: easy bleeding, easy bruising Exam - Constitutional Vitals: Period Temp Pulse Resp BP Sys/English Pulse Ox Last 24 Hr 97.9 F-97.9 F 93-93 22-22 93-93/71-71 99 General appearance: mild distress, over weight - Head Head exam: Present: normal inspection, normocephalic - Eye Eye exam: Present: EOMI. Absent: scleral icterus Pupils: Present: RACHEAL, normal accommodation - ENT ENT exam: Present: normal exam, normal external ear exam - Neck Neck exam: Absent: lymphadenopathy, thyromegaly - Respiratory Respiratory exam: Present: decreased breath sounds, rales. Absent: rhonchi, wheezes - Cardiovascular Cardiovascular exam: Present: regular rate and rhythm. Absent: systolic murmur - GI/Abdominal GI/Abdominal exam: Present: normal bowel sounds, ascites, distended. Absent: tenderness - Extremities Exam Extremities exam: Present: edema (2+) - Neurological Exam Neurological exam: Present: oriented X3, CN II-XII intact, reflexes normal. Absent: motor sensory deficit - Psychiatric Psychiatric exam: Present: depressed, flat affect - Skin Skin exam: Present: normal color. Absent: rash, vesicles Results - Labs CBC & BMP: 01/08/17 19:06 01/08/17 19:06 Lab Results: I have reviewed the past 24 hour labs - Diagnostic Findings Procedure: Chest x-ray: report reviewed by me (Enlarged heart with congestive heart failure and bilateral pleural effusion)
[2017-01-08] MEDS ORDERED: GLUCAGON 1 MG VIAL IM PRN (21:19)
[2017-01-08] MEDS ORDERED: MAGNESIUM SULF RIDER 2 GM in PREMIX 1 EACH IV PRN (21:19)
[2017-01-08] MEDS ORDERED: ONDANSETRON 4 MG/2 ML VIAL IV PRN (21:19)
[2017-01-08] MEDS ORDERED: MAGNESIUM SULF RIDER 4 GM in PREMIX 1 EACH IV PRN (21:19)
[2017-01-08] MEDS ORDERED: ACETAMINOPHEN 325 MG TABLET PO PRN (21:19)
[2017-01-08] MEDS ORDERED: DEXTROSE 50% 25 GM/50 ML VIAL IV PRN (21:19)
[2017-01-08] MEDS: INSULIN LISPRO 100 UNIT/ML SUBCUT SCH (21:45)
[2017-01-08 21:48] LABS: Magnesium 2.1 MG/DL (1.8-2.4); Thyroid Stimulating Hormone 20.9 uIU/ml (0.358-3.74)
[2017-01-08] MEDS: LACTULOSE 20 GM/30 ML UDCUP PO SCH (21:58)
[2017-01-09] MEDS: LACTULOSE 20 GM/30 ML UDCUP PO SCH ×6 (02:21→21:02)
[2017-01-09 03:31] LABS: Basophils % 0.5 % (0.0-0.8); Eosinophils # 0.2 10*3/uL (0.0-0.87); Eosinophils % 2.9 % (0.00-10.9); Hematocrit 31.9 VOL% (42.0-52.0); Hemoglobin 10.3 GM/DL (14.0-18.0); Immature Granulocytes % 0.3 %; Immature Granulocytes Absolute 0.02 #; Lymphocytes # 1.4 10*3/uL (1.4-4.0); Lymphocytes % 21.6 % (21.2-54.2); Mean Corpuscular HGB Conc 32.3 GM/DL (32-36); Mean Corpuscular Hemoglobin 20 PG (27-34); Mean Corpuscular Volume 62.7 FL (87-102); Monocytes # 0.4 10*3/uL (0.11-0.8); Monocytes % 6.8 % (1.7-12.7); NRBC # 0.06 10*3/uL; Neutrophils # 4.4 10*3/uL (1.4-7.4); Neutrophils % 67.9 % (38.7-73.9); Platelet Count 247 T/CUMM (130-400); Red Blood Count 5.09 MC/CUMM (3.8-5.5); Red Cell Distribution Width 20.8 % (9.3-17.3); White Blood Count 6.5 T/CUMM (4-12)
[2017-01-09 03:44] LABS: Calcium 8.3 MG/DL (8.5-10.1); Osmolality,Calculated 278.1 MOS/KG (273-304); Potassium 3.6 MMOL/L (3.5-5.1); Risk Ratio 4.38; VLDL CHOLESTEROL 18.8 MG/DL
[2017-01-09] MEDS ORDERED: LEVOTHYROXINE 50 MCG TABLET PO SCH (07:00)
[2017-01-09] MEDS: PANTOPRAZOLE 40 MG TABLET PO SCH (08:54)
[2017-01-09] MEDS: INSULIN LISPRO 100 UNIT/ML SUBCUT SCH ×4 (08:54→20:47)
[2017-01-09] MEDS: FUROSEMIDE 40 MG/4 ML VIAL IV SCH ×2 (08:54→15:20)
[2017-01-09] MEDS: SPIRONOLACTONE 25 MG TABLET PO SCH (08:54)
--- NOTE | 2017-01-09 09:42 | Hospitalist Progress Note ---
Assessment and Plan (1) CHF exacerbation Status: Resolved Assessment and plan: Lasix 40 mg IV twice daily and spironolactone, unable to tolerate Coreg or DARLENE inhibitor due to low blood pressure. Current Visit: No Qualifiers: Congestive heart failure type: combined Qualified Code(s): I50.43 - Acute on chronic combined systolic (congestive) and diastolic (congestive) heart failure (2) DM2 (diabetes mellitus, type 2) Status: Chronic Assessment and plan: Hemoglobin A1c 6.5, blood sugars controlled with insulin sliding scale Current Visit: No Qualifiers: Diabetes mellitus complication status: with kidney complications Diabetes mellitus complication detail: with chronic kidney disease Chronic kidney disease stage: stage 3 (moderate) (3) Cardiomyopathy Status: Chronic Assessment and plan: Dilated cardiomyopathy with an EF 15-20% with severe mitral regurg and tricuspid regurg and severe pulmonary hypertension, will check venous Dopplers Current Visit: No (4) Obstructive sleep apnea Status: Chronic Assessment and plan: She cannot afford his CPAP machine and has severe pulmonary hypertension as a result Current Visit: No (5) Hypothyroidism Status: Chronic Assessment and plan: Severe hypothyroidism due to noncompliance with medicine. Increase Synthroid. Will check a stat cortisol level. Current Visit: No (6) Cirrhosis Status: Chronic Assessment and plan: Elevated ammonia persist continue lactulose every 4 hours Current Visit: No Qualifiers: Hepatic cirrhosis type: alcoholic cirrhosis (7) CKD (chronic kidney disease) stage 3, GFR 30-59 ml/min Status: Chronic Assessment and plan: Multifactorial we will continue to monitor Current Visit: No Hospitalist: Subjective Interval history: Patient is a very sad case. He has severe congestive heart failure and a poor liver function. He is unable to afford most of his medications. We will see if we can get him some help. He should qualify for Medicaid Exam - Constitutional Vitals: Period Temp Pulse Resp BP Sys/English Pulse Ox Last 24 Hr 97.5 F-98.5 F 76-103 18-22 86-99/60-74 95-100 Exam: Heart Rate-[RRR] Lungs-[CTAB] GI-[+bs distended with ascites Ext-[2+ edema] Neuro [Motor 5/5], [alert and oriented times 3] psych [normal mood and affect] General [no acute distress] Results - Labs CBC & BMP: 01/09/17 02:42 01/09/17 02:42 Lab Results: I have reviewed the past 24 hour labs Labs: BNP 2723 and TSH is 20 - Diagnostic Findings Procedure: Chest x-ray: report reviewed by me (Cardiomegaly with congestive heart failure and bilateral pleural effusion)
--- NOTE | 2017-01-09 10:17 | EKG Report ---
Stationary ECG Study [facility] Test Date: 01/08/2017 8:57:27 PM Pat Name: CARITO TOMAS Department: Room: 534 Gender: M Supervisor Tower: : 1965 Requested by: Kleber Reaves Order Number: [id number] Reading MD: TYRA ELIZABETH Intervals [place] Rate: 93 P: 55 VT: 186 QRS: -34 QRSD: 116 T: 161 QT: 401 QTc: 451 Interpretive Statements SINUS RHYTHM MARKED LEFT AXIS DEVIATION POOR R-WAVE PROGRESSION BASELINE ARTIFACT Electronically Signed On 01-10-17 14:48:54 CDT by TYRA ELIZABETH [email or web address]
--- NOTE | 2017-01-09 10:31 | Ultrasound Report ---
Exam: Bilateral lower extremity venous Doppler ultrasound Comparison: 08/28/2016 Clinical history: Shortness of breath, lower extremity edema Technique: Duplex scan of the lower extremity veins using B-mode/grayscale scaled imaging and Doppler spectral analysis and color flow. Findings: Major venous structures of the lower extremities demonstrate a normal course and caliber. Normal spectral analysis. Pulsatile flow. There is normal compression and augmentation of bilateral common femoral, superficial femoral and popliteal veins. The proximal bilateral greater saphenous veins appear to be patent. Impression: No evidence to suggest deep venous thrombosis within either lower extremity. Pulsatile flow which may be related to heart failure. Ultrasound images were captured and stored. PROCEDURE INTERPRETED AT [facility] DEPARTMENT OF RADIOLOGY Final Report Signed by: Dr. Kaylan Richmond
[2017-01-09] MEDS: POTASSIUM CHLORIDE 10 MEQ TABLET PO SCH ×2 (10:34→20:31)
[2017-01-09] MEDS: LEVOTHYROXINE 100 MCG TABLET PO SCH (10:34)
[2017-01-09] MEDS: ALLOPURINOL 100 MG TABLET PO SCH (20:31)
[2017-01-10] MEDS: LACTULOSE 20 GM/30 ML UDCUP PO SCH ×6 (02:13→21:40)
[2017-01-10] MEDS: LEVOTHYROXINE 100 MCG TABLET PO SCH (06:09)
[2017-01-10 07:33] LABS: Basophils # 0.1 10*3/uL (0.0-0.2); Basophils % 0.7 % (0.0-0.8); Eosinophils # 0.1 10*3/uL (0.0-0.87); Eosinophils % 1.2 % (0.00-10.9); Hematocrit 33.5 VOL% (42.0-52.0); Hemoglobin 10.9 GM/DL (14.0-18.0); Immature Granulocytes % 0.5 %; Immature Granulocytes Absolute 0.04 #; Lymphocytes # 1.7 10*3/uL (1.4-4.0); Lymphocytes % 19.2 % (21.2-54.2); Mean Corpuscular HGB Conc 32.5 GM/DL (32-36); Mean Corpuscular Hemoglobin 20 PG (27-34); Mean Corpuscular Volume 62.3 FL (87-102); Monocytes # 0.7 10*3/uL (0.11-0.8); Monocytes % 7.8 % (1.7-12.7); Neutrophils # 6.3 10*3/uL (1.4-7.4); Neutrophils % 70.6 % (38.7-73.9); Platelet Count 202 T/CUMM (130-400); Red Blood Count 5.38 MC/CUMM (3.8-5.5); Red Cell Distribution Width 21.8 % (9.3-17.3); White Blood Count 8.9 T/CUMM (4-12)
[2017-01-10 08:09] LABS: Calcium 8.6 MG/DL (8.5-10.1); Osmolality,Calculated 278.1 MOS/KG (273-304); Potassium 3.9 MMOL/L (3.5-5.1)
[2017-01-10 08:24] LABS: Burr Cells 2+; Hypochromasia 1+; Macrocytosis 1+; Target Cells Slight
[2017-01-10] MEDS: INSULIN LISPRO 100 UNIT/ML SUBCUT SCH ×4 (08:56→20:55)
[2017-01-10] MEDS: POTASSIUM CHLORIDE 10 MEQ TABLET PO SCH ×2 (09:02→20:55)
[2017-01-10] MEDS: PANTOPRAZOLE 40 MG TABLET PO SCH (09:02)
[2017-01-10] MEDS: SPIRONOLACTONE 25 MG TABLET PO SCH ×2 (09:02→20:56)
[2017-01-10] MEDS: FUROSEMIDE 40 MG/4 ML VIAL IV SCH ×2 (09:02→17:11)
[2017-01-10] MEDS: ALLOPURINOL 100 MG TABLET PO SCH ×2 (09:02→20:54)
--- NOTE | 2017-01-10 11:10 | Hospitalist Progress Note ---
Assessment and Plan (1) CHF exacerbation Status: Resolved Assessment and plan: cont lasix 40 mg IV twice daily and increase spironolactone to 25 mg po bid, ef 15% Current Visit: No Qualifiers: Congestive heart failure type: combined Qualified Code(s): I50.43 - Acute on chronic combined systolic (congestive) and diastolic (congestive) heart failure (2) DM2 (diabetes mellitus, type 2) Status: Chronic Assessment and plan: Hemoglobin A1c 6.5, blood sugars controlled with insulin sliding scale Current Visit: No Qualifiers: Diabetes mellitus complication status: with kidney complications Diabetes mellitus complication detail: with chronic kidney disease Chronic kidney disease stage: stage 3 (moderate) (3) Cardiomyopathy Status: Chronic Assessment and plan: Dilated cardiomyopathy with an EF 15-20% with severe mitral regurg and tricuspid regurg and severe pulmonary hypertension Current Visit: No (4) Obstructive sleep apnea Status: Chronic Assessment and plan: She cannot afford his CPAP machine and has severe pulmonary hypertension as a result Current Visit: No (5) Hypothyroidism Status: Chronic Assessment and plan: Severe hypothyroidism due to noncompliance with medicine. cont Synthroid. Random cortisol level 26 Current Visit: No (6) Cirrhosis Status: Chronic Assessment and plan: Ammonia level is improved and 49 Current Visit: No Qualifiers: Hepatic cirrhosis type: alcoholic cirrhosis (7) CKD (chronic kidney disease) stage 3, GFR 30-59 ml/min Status: Chronic Assessment and plan: Multifactorial creatinine rising Current Visit: No Hospitalist: Subjective Interval history: Patient had a Casas placed last night not due to the fact that he had a lot of retained urine but he was allowing the nurses to monitor his urine output. He was getting up and using the toilet and then [facility] Patient had about 4 bowel movements yesterday. He needs to get in to see the liver transplant team at [facility] in [place]. Patient has an severe financial stress. Most of time he cannot afford his medications. He has frequent visits to the emergency room and frequent admissions due to lack of funding for his meds. We are trying to get him back on Medicaid. We will have elsewhere see him. Exam - Constitutional Vitals: Period Temp Pulse Resp BP Sys/English Pulse Ox Last 24 Hr 96.8 F-99 F 96-114 18-100 90-109/60-78 94-100 Exam: Heart Rate-[RRR] Lungs-[few crackles ] GI-[+bs distended with ascites but smaller today Ext-[1+ pitting edema] Neuro [Motor 5/5], [alert and oriented times 3] psych [normal mood and affect] General [no acute distress] Results - Labs CBC & BMP: 01/10/17 07:03 01/10/17 07:03 Lab Results: I have reviewed the past 24 hour labs - Diagnostic Findings Procedure: Ultrasound: report reviewed by me (no venous doppler )
[2017-01-10 14:24] LABS: Hepatitis A Ab IgM Quant 0.14 Index; Hepatitis A Ab IgM Result Negative (Negative); Hepatitis B Core IgM Quant 0.32 Index; Hepatitis B Core IgM Result Negative (Negative); Hepatitis B Surface Ag Quant < 0.10 Index; Hepatitis B Surface Ag Result Negative (Negative); Hepatitis C Virus Ab Quant 0.15 Index; Hepatitis C Virus Ab Result Negative (Negative)
[2017-01-10] MEDS: ERTAPENEM 1,000 MG in SODIUM CHLORIDE 0.9% 100 ML IV SCH (14:46)
[2017-01-10] MEDS: ZALEPLON 5 MG CAPSULE PO PRN (20:55)
[2017-01-11] MEDS: LACTULOSE 20 GM/30 ML UDCUP PO SCH ×7 (02:14→22:38)
[2017-01-11] MEDS: LEVOTHYROXINE 100 MCG TABLET PO SCH (06:05)
[2017-01-11 06:26] LABS: Basophils # 0.1 10*3/uL (0.0-0.2); Basophils % 0.7 % (0.0-0.8); Eosinophils # 0.1 10*3/uL (0.0-0.87); Hematocrit 32.5 VOL% (42.0-52.0); Hemoglobin 10.6 GM/DL (14.0-18.0); Immature Granulocytes % 0.3 %; Immature Granulocytes Absolute 0.02 #; Lymphocytes # 1.7 10*3/uL (1.4-4.0); Lymphocytes % 23.9 % (21.2-54.2); Mean Corpuscular HGB Conc 32.6 GM/DL (32-36); Mean Corpuscular Hemoglobin 20 PG (27-34); Mean Corpuscular Volume 62.4 FL (87-102); Monocytes # 0.6 10*3/uL (0.11-0.8); Monocytes % 8.2 % (1.7-12.7); NRBC # 0.03 10*3/uL; Neutrophils # 4.6 10*3/uL (1.4-7.4); Neutrophils % 64.9 % (38.7-73.9); Platelet Count 196 T/CUMM (130-400); Red Blood Count 5.21 MC/CUMM (3.8-5.5); Red Cell Distribution Width 21.4 % (9.3-17.3); White Blood Count 7.1 T/CUMM (4-12)
[2017-01-11 06:48] LABS: Burr Cells Slight; Hypochromasia Slight; Macrocytosis Slight; Ovalocytes Slight; Platelet Estimate Normal; Target Cells Few
[2017-01-11 06:49] LABS: Calcium 8.7 MG/DL (8.5-10.1)
[2017-01-11] MEDS: INSULIN LISPRO 100 UNIT/ML SUBCUT SCH ×4 (08:07→21:01)
[2017-01-11] MEDS: SPIRONOLACTONE 25 MG TABLET PO SCH ×2 (08:08→21:00)
[2017-01-11] MEDS: ALLOPURINOL 100 MG TABLET PO SCH ×2 (08:08→21:00)
[2017-01-11] MEDS: PANTOPRAZOLE 40 MG TABLET PO SCH (08:08)
[2017-01-11] MEDS: POTASSIUM CHLORIDE 10 MEQ TABLET PO SCH ×2 (08:08→21:05)
[2017-01-11] MEDS: FUROSEMIDE 40 MG/4 ML VIAL IV SCH ×2 (08:09→17:18)
--- NOTE | 2017-01-11 08:35 | XRay Report ---
Exam: XR chest 1V portable Date: 01/11/2017 7:55 AM Indication: CHF Comparison: 01/08/2017 Technical: AP portable Findings: Mild cardiac enlargement with ASVD present. Improving aeration with decreasing alveolar change and effusions when compared to previous study. ASVD is present. Mild degenerative change present AC joint. Impression: 1. Improving aeration with decreasing effusions with some residual alveolar edema in the right base. Resolving CHF 2. Underlying cardiomegaly PROCEDURE INTERPRETED AT [facility] DEPARTMENT OF RADIOLOGY Final Report Signed by: Dr. Venu Kulkarni
--- NOTE | 2017-01-11 13:25 | Physician Query Form ---
CLICK EDIT DOCUMENT TO SELECT QUERY ANSWER --> OK --> SIGN Zandra Mckeon RN Clinical [employer] W) [phone] (f) [phone] [email or web address]: Make your selection(s) from the choices in EACH section by typing an "x" and enter comments in the comment section. Please use your independent medical judgment in providing your response. This request does not imply that any particular answer is desired or expected. CLINICAL INDICATORS: (Providers should not edit this section) Based on history of renal failure. Creatinine from 2.00 to 2.60. GFR from 50 to 36. Monitored with serial lab checks. Clarify which of the following most accurately represents the patient's renal status: ( ) Acute kidney injury (non-traumatic) ( ) Acute renal failure (x ) Acute renal failure with underlying Chronic Kidney Disease (CKD) - please provide stage below ( ) Acute renal failure with pathological renal lesion ( ) Acute renal failure with necrosis ( ) tubular ( ) medullary ( ) cortical ( ) CKD - please provide stage below ( ) End Stage Renal Disease ( ) Acute interstitial nephritis ( ) Hepatorenal syndrome ( ) Other, please specify: ( ) Clinically unable to determine Chronic Kidney Disease Stages Source: National Kidney Disease Foundation ( ) Stage I (eGFR > or = 90) ( ) Stage II (eGFR 60 - 89) (x ) Stage III (eGFR 30 - 59) ( ) Stage IV (eGFR 15 - 29) ( ) Stage V (eGFR < 15 or dialysis) COMMENTS: Use of terms such as suspected, likely, or probable (associated with a specific diagnosis that is being evaluated, monitored, or treated as if it exists) are acceptable and can be restated in the discharge summary if not ruled out. MTDD
[2017-01-11] MEDS: ERTAPENEM 1,000 MG in SODIUM CHLORIDE 0.9% 100 ML IV SCH (15:15)
--- NOTE | 2017-01-11 16:17 | Hospitalist Progress Note ---
Assessment and Plan (1) CHF exacerbation Status: Acute Assessment and plan: 1)volume overload- he has acute on chronic systolic CHF with EF 15-20% and h/o NSVT. On dobutamine a few weeks ago. He is noncompliant with his meds by his report. He is feeling better due to diuresing with IV lasix- continue. consult GI, cards, renal if he does not respond as expected to treatment. 2)cirrhosis with ascites- paracentcesis today. On invanz for presumptive SBP. no fever, nontender. GI following. Since he has significant heart failure, it will make it hard for him to get a liver transplant. He stopped drinking he reports several months ago. 3)CKD- chronic renal failure- complicated by liver and heart failure. monitor while diuresing. 2.[address] Fu last month. 4)DM- use SSI- accuchceks ok. 5)MONY- severe pulmonary HTN, cannot afford his CPAP machine. 6)hypothyroidism- doesn't take his meds. Current Visit: No (2) Ascites Status: Acute Current Visit: No (3) Cirrhosis Status: Chronic Current Visit: No Qualifiers: Hepatic cirrhosis type: alcoholic cirrhosis (4) DM2 (diabetes mellitus, type 2) Status: Chronic Current Visit: No Qualifiers: Diabetes mellitus complication status: with kidney complications Diabetes mellitus complication detail: with chronic kidney disease Chronic kidney disease stage: stage 3 (moderate) (5) Overweight Status: Chronic Current Visit: No (6) Obstructive sleep apnea Status: Chronic Current Visit: No (7) Nonischemic cardiomyopathy Status: Chronic Current Visit: No (8) Acute on chronic renal failure Status: Acute Current Visit: No (9) Hypothyroidism Status: Chronic Current Visit: No Hospitalist: Subjective Interval history: Mr Drummond is feeing better today. He is breathing more easily. He was in the hospital a few weeks ago on a Dobutamine drip for his heart failure/volume overload. He sill have paracentesis today. Exam - Constitutional Vitals: Period Temp Pulse Resp BP Sys/English Pulse Ox Last 24 Hr 96.9 F-98.1 F 90-117 18-20 82-107/56-77 94-100 General appearance: no acute distress, over weight - Head Head exam: Present: normocephalic, atraumatic - Eye Eye exam: Present: EOMI. Absent: scleral icterus - Respiratory Respiratory exam: Present: decreased breath sounds (at bases, few crackles.). Absent: wheezes - Cardiovascular Cardiovascular exam: Present: regular rate and rhythm - GI/Abdominal GI/Abdominal exam: Present: normal bowel sounds, ascites, firm. Absent: tenderness - Extremities Exam Extremities exam: Present: edema (trace) - Neurological Exam Neurological exam: Present: alert, oriented X3 - Skin Skin exam: Present: warm, dry Results - Labs CBC & BMP: 01/11/17 05:55 01/11/17 05:55 Lab Results: I have reviewed the past 24 hour labs
--- NOTE | 2017-01-11 17:22 | Post Interventional Procedure ---
Pre-op diagnosis: CHF, cirrhosis and ascites Post-op diagnosis: same Procedure: u/s guided paracentesis Contrast: none Flouroscopy: none Radiologist: Fransico Flores Anesthesia: local Specimens: none sent Estimated blood loss: none Complications: none Condition: stable Description/Findings: 5000 milliliters serous straw-colored peritoneal fluid drained via a right lower quadrant approach with ultrasound guidance. Patient tolerated the procedure well. Assessment and Plan - Time spent with patient Time spent with patient: Less than 30 minutes
--- NOTE | 2017-01-11 17:24 | Ultrasound Report ---
Exam: Ultrasound-guided paracentesis Clinical history: Cirrhosis with recurrent ascites. Physician: Dr. Flores. Procedure: Informed consent was obtained prior to procedure. A formal timeout was performed. Maximum sterile barrier technique was used. The right lower quadrant was prepped and draped in sterile fashion. Under sonographic guidance, a 6 Romanian safety centesis catheter and needle were advanced into the ascites using trocar technique. A captured sonographic image documents needle position. The needle was removed. Through the catheter, we obtained a total of 5000 cc of straw-colored ascites. No additional fluid could be obtained. Therefore, the catheter was removed. A bandage was placed at the puncture site. The patient tolerated the procedure well. Complications: None. Estimated blood loss: Less than 5 mL. Total number of images for the procedure: 2 Impression: Technically successful ultrasound guided paracentesis. PROCEDURE INTERPRETED AT [facility] DEPARTMENT OF RADIOLOGY Final Report Signed by: Fransico Flores
[2017-01-11 17:28] LABS: RBC,Peritoneal Fluid 863 T/CUMM
[2017-01-11 20:02] LABS: Neutrophils,Peritoneal Fluid 49 %
[2017-01-11] MEDS: ZALEPLON 5 MG CAPSULE PO PRN (21:00)
[2017-01-12] MEDS: LACTULOSE 20 GM/30 ML UDCUP PO SCH ×6 (04:26→21:23)
[2017-01-12] MEDS: LEVOTHYROXINE 100 MCG TABLET PO SCH (06:14)
[2017-01-12 07:20] LABS: Basophils # 0.1 10*3/uL (0.0-0.2); Basophils % 0.9 % (0.0-0.8); Eosinophils # 0.2 10*3/uL (0.0-0.87); Eosinophils % 3.2 % (0.00-10.9); Hematocrit 34.3 VOL% (42.0-52.0); Hemoglobin 10.9 GM/DL (14.0-18.0); Immature Granulocytes % 0.6 %; Immature Granulocytes Absolute 0.04 #; Lymphocytes # 1.7 10*3/uL (1.4-4.0); Lymphocytes % 25.4 % (21.2-54.2); Mean Corpuscular HGB Conc 31.8 GM/DL (32-36); Mean Corpuscular Hemoglobin 20 PG (27-34); Mean Corpuscular Volume 63.3 FL (87-102); Monocytes # 0.6 10*3/uL (0.11-0.8); Monocytes % 8.9 % (1.7-12.7); NRBC # 0.05 10*3/uL; Neutrophils # 4.2 10*3/uL (1.4-7.4); Platelet Count 204 T/CUMM (130-400); Red Blood Count 5.42 MC/CUMM (3.8-5.5); Red Cell Distribution Width 21.8 % (9.3-17.3); White Blood Count 6.8 T/CUMM (4-12)
[2017-01-12 07:41] LABS: Burr Cells Slight; Elliptocytes Few; Hypochromasia 1+; Macrocytosis Slight; Platelet Estimate Adequate; Target Cells Few
[2017-01-12 07:47] LABS: Albumin 2.2 G/DL (3.4-5.0); Bilirubin,Total 2.3 MG/DL (0.2-1.0); Calcium 8.5 MG/DL (8.5-10.1); Magnesium 2.1 MG/DL (1.8-2.4); Osmolality,Calculated 280.1 MOS/KG (273-304); Phosphorous 3.9 MG/DL (2.5-4.9); Potassium 4.5 MMOL/L (3.5-5.1); Total Protein 6.1 G/DL (6.4-8.3)
--- NOTE | 2017-01-12 07:50 | XRay Report ---
XR chest 1V portable Indication: COPD Comparison: 11 January 2017 Findings: The heart and mediastinum are stable in size and configuration. The pulmonary vascularity is slightly increased with bilateral increased interstitial lung density. No other lung infiltrates, effusions, pneumothorax or other abnormality is demonstrated. Impression: Findings suggest mild cardiac decompensation similar to previous. PROCEDURE INTERPRETED AT [facility] DEPARTMENT OF RADIOLOGY Final Report Signed by: Dr. Garfield Parikh
[2017-01-12] MEDS: INSULIN LISPRO 100 UNIT/ML SUBCUT SCH ×4 (08:16→21:23)
[2017-01-12] MEDS: SPIRONOLACTONE 25 MG TABLET PO SCH ×2 (08:16→21:22)
[2017-01-12] MEDS: PANTOPRAZOLE 40 MG TABLET PO SCH (08:16)
[2017-01-12] MEDS: POTASSIUM CHLORIDE 10 MEQ TABLET PO SCH ×2 (08:16→21:22)
[2017-01-12] MEDS: ALLOPURINOL 100 MG TABLET PO SCH ×2 (08:16→21:22)
[2017-01-12] MEDS: FUROSEMIDE 40 MG/4 ML VIAL IV SCH (08:16)
--- NOTE | 2017-01-12 09:23 | Hospitalist Progress Note ---
Assessment and Plan (1) CHF exacerbation Status: Acute Assessment and plan: 1)volume overload due to acute on chronic systolic CHF and cirrhosis- he has diuresed nicely with lasix in addition to his usual spironalactone. I will dc his beckwith and change the lasix to po. anticipate DC on oral lasix. I mentioned transplant to him and he would like to be seen at [facility] transplant clinic for evaluation- I have asked SW to make a referral. He will continue to follow up with GI and cards as outpatient. Plan discharge in am. 2)cirrhosis- paracentesis ruled out SBP- I have stopped Invanz. he stopped drinking several months ago. 3)CKD- chronic- creatinine 2.7 last month. 4) DM- SSI 5)MONY- cannotn afford CPAP- social work looking into this. 6)hypothyroidism- doesn't take meds. Current Visit: No (2) Ascites Status: Acute Current Visit: No (3) Cirrhosis Status: Chronic Current Visit: No Qualifiers: Hepatic cirrhosis type: alcoholic cirrhosis (4) DM2 (diabetes mellitus, type 2) Status: Chronic Current Visit: No Qualifiers: Diabetes mellitus complication status: with kidney complications Diabetes mellitus complication detail: with chronic kidney disease Chronic kidney disease stage: stage 3 (moderate) (5) Overweight Status: Chronic Current Visit: No (6) Obstructive sleep apnea Status: Chronic Current Visit: No (7) Nonischemic cardiomyopathy Status: Chronic Current Visit: No (8) Acute on chronic renal failure Status: Acute Current Visit: No (9) Hypothyroidism Status: Chronic Current Visit: No Hospitalist: Subjective Interval history: Mr Drummond is feeling better this morning and wants his beckwith out. He is breathing comfortably and rested well. He reports that they removed 6 L at paracentesis yesterday. The fluid analysis showed less than 250 PMNs. Exam - Constitutional Vitals: Period Temp Pulse Resp BP Sys/English Pulse Ox Last 24 Hr 96.9 F-97.9 F 99-118 18-20 90-107/56-77 95-100 General appearance: no acute distress, over weight - Head Head exam: Present: normocephalic, atraumatic - Eye Eye exam: Present: EOMI. Absent: scleral icterus - Respiratory Respiratory exam: Present: clear to auscultation bilaterally - Cardiovascular Cardiovascular exam: Present: regular rate and rhythm - GI/Abdominal GI/Abdominal exam: Present: normal bowel sounds, soft. Absent: tenderness - Extremities Exam Extremities exam: Absent: edema - Neurological Exam Neurological exam: Present: alert, oriented X3 Results - Labs CBC & BMP: 01/12/17 06:19 01/12/17 06:19 Lab Results: I have reviewed the past 24 hour labs
[2017-01-12] MEDS: FUROSEMIDE 40 MG TABLET PO SCH (17:15)
[2017-01-12] MEDS: ZALEPLON 5 MG CAPSULE PO PRN (21:22)
[2017-01-13] MEDS: LACTULOSE 20 GM/30 ML UDCUP PO SCH ×4 (03:52→09:10)
[2017-01-13] MEDS: LEVOTHYROXINE 100 MCG TABLET PO SCH (06:27)
[2017-01-13] MEDS: INSULIN LISPRO 100 UNIT/ML SUBCUT SCH ×2 (08:07→11:02)
[2017-01-13] MEDS: PANTOPRAZOLE 40 MG TABLET PO SCH (09:09)
[2017-01-13] MEDS: FUROSEMIDE 40 MG TABLET PO SCH (09:09)
[2017-01-13] MEDS: POTASSIUM CHLORIDE 10 MEQ TABLET PO SCH (09:09)
[2017-01-13] MEDS: SPIRONOLACTONE 25 MG TABLET PO SCH (09:09)
[2017-01-13] MEDS: ALLOPURINOL 100 MG TABLET PO SCH (09:09)
--- NOTE | 2017-01-13 09:21 | Discharge Summary ---
<Germán Byers - Last Filed: 01/13/17 09:21> Hospital Course - Hospital Course Hospital Course: This is very unfortunate 51 year old male that presented to the ED at [facility] on 01/08 with a chief compliant of shortness of breath. The patient has a rather complicated medical history of congestive heart failure secondary to dilated cardiomyopathy, chronic kidney disease Stage III, liver cirrhosis, hypothyroidism, alcohol abuse, and medical non-compliance. At the time of admission, the patient was noted to be experincing profound dyspnea with very significant peripheral edema. His abdomen was grossly distended. The patient is well known to this facility; he has had several admissions to this facility for the above stated complaints. He is non-complaint with his medications. He reported that he does not have insurance and cannot afford his medications. He reported that his mother last week. She was his primary source of income. He was admitted to the hospitalist services for continuation of care. During the admission, the patient was diuresed with minimal improvement. On 01/11 , he underwent therapeutic ultrasound paracentesis in which 5 liter removal. His respiratory status improved dramatically. In my opinion, today, he is appropriate for discharge to follow-up with his PCP as directed. - Time spent with patient Time with patient DS: Less than 30 minutes Specialty Discharge - Follow Up or Referrals Follow up with: Leeroy Mariano MD [Physician] - 1 Week Yoni Hidalgo MD [Physician] - 1 Month Navarro Fu MD [Physician] - 1 Week (creatinine at 2.7 at discharge, on lasix ) [facility], liver transplant clinic [Other] Discharge Plan - Discharge Data Disposition: Home Health Service - Discharge Medications New Furosemide Tab [Lasix Tab] 40 mg PO BID DIURETIC #30 tablet Continue Pantoprazole Tab [Protonix Tab] 40 mg PO DAILY #30 tablet Allopurinol 100 mg PO BID Aspirin EC Tab 81 mg PO DAILY #30 tablet Lactulose Liquid [Chronulac] 30 gm PO TID #90 packet Levothyroxine Tab [Synthroid Tab] 50 mcg PO DAILY@0700 #30 tablet Spironolactone [Aldactone] 25 mg PO BID #60 tablet Potassium Chloride [Klor-Con Sprinkle] 10 meq PO BID Carvedilol [Coreg] 6.25 mg PO BID Discontinued Hydralazine HCl 10 mg PO TID - Follow Up or Referral - Forms/Instructions Exam - Constitutional Vitals: Period Temp Pulse Resp BP Sys/English Pulse Ox Last 24 Hr 97.6 F-98.3 F 108-116 17- 88-127/50-89 97-99 Discharge Results Procedures and tests throughout hospitalization: Pending Orders 01/11/17 08:00 Cytology Request Routine Labs on day of discharge: Labs from last 24 hours 01/13/17 01/12/17 01/12/17 07:14 20:39 15:51 POC Glucose 114 H 134 H 113 H 01/12/17 11:46 POC Glucose 123 H DS: Provider Date of admission: 01/08/17 19:58 Primary care physician: . No PCP Attending physician on admission: Gris Philip MD Consults: 01/08/17 21:19 Consult to Physical Therapy [CONS] Routine Reason for Physical Therapy: Weakness 01/10/17 11:08 Consult to Case Mgmt/Social Srvs [CONS] Routine Reason for Case Mgmt/Social Srvs: Other Consult Comment: needs appt for Liver transplant in [place] 01/10/17 11:10 Consult to Case Mgmt/Social Srvs [CONS] Routine Reason for Case Mgmt/Social Srvs: Other Consult Comment: needs medicaid and funding for meds Discharging clinician: Germán Byers CNP <Mary Álvarez - Last Filed: 01/13/17 09:49> Hospital Course - Hospital Course Hospital Course: I have seen and examined MR Drummond and formulated his discharge plan. I have reconciled his medicines. Total discharge time 38 minutes. When he presented with increased ascites and pulmonary edema he had not been taking all the meds he had been taking at discharge a month ago. He has lost his medicaid and medicare and is waiting for them to be reinstated. He is feeling much better now that his pulmonary edema has resolved and he had 6L paracentesis, but he complains of chronic fatigue due to his severe CHF. He understands that is is important to take his meds. He wasn't taking the synthroid either. His creatinine was 1.9 on arrival and is now 2.7 after diuresis which is where it was at discharge in November- I think that when his fluid is controlled his creatinine is a little higher as it is today. He is ready to go home and will follow up with Dr Mariano, Dr Hidalgo, Dr Fu and a [facility] transplant clinic has been made. Diagnosis - Discharge Diagnosis (1) CHF exacerbation Status: Resolved (2) Ascites Status: Chronic (3) Cirrhosis Status: Chronic (4) DM2 (diabetes mellitus, type 2) Status: Chronic (5) Overweight Status: Chronic (6) Obstructive sleep apnea Status: Chronic (7) Nonischemic cardiomyopathy Status: Chronic (8) Acute on chronic renal failure Status: Resolved (9) Hypothyroidism Status: Chronic Discharge Plan - Discharge Data Condition at Discharge: Stable Discharge Diet: diabetic diet, heart healthy, low salt diet Activity: resume usual activities as tolerated Exam - Constitutional General appearance: no acute distress, over weight - Head Head exam: Present: normocephalic, atraumatic - Eye Eye exam: Present: EOMI. Absent: scleral icterus - Respiratory Respiratory exam: Present: clear to auscultation bilaterally - Cardiovascular Cardiovascular exam: Present: regular rate and rhythm - GI/Abdominal GI/Abdominal exam: Present: normal bowel sounds, ascites, soft. Absent: tenderness - Extremities Exam Extremities exam: Present: edema (lower extremities with 1+ edema ) - Neurological Exam Neurological exam: Present: alert, oriented X3 - Skin Skin exam: Present: warm, dry
--- NOTE | 2017-01-13 10:46 | Pathology Report from [facility] ---
ACCESSION # : [id number] PATIENT NAME : Liban Drummond ORDERING DR : Fransico Flores MD CLINICAL HX: Alcoholic Cirrhosis POST-OP DX: Same SPECIMEN INFO: Fluid,Paracentesis - 1000 ml's straw colored, cloudy CLASS: I CLASS COMMENTS: Fibrin, chronic inflammatory cells and benign mesothelial cells.CELL BLOCK: Same CLASS LEGEND: CLASS 0 Material inadequate for diagnosis because of (see comment) CLASS I Absence of atypical or abnormal cells CLASS II Atypical Cytology but no evidence of malignancy CLASS III Cytology suggestive of but not conclusive for malignancy CLASS IV Cytology strongly suggestive of malignancy CLASS V Cytology conclusive for malignancy SERVICE DATE: 01/12/2017 REPORT DATE: 01/13/2017 PATHOLOGIST: Saniya Brasher III, M.D. MTDD
[2017-01-13 10:57] VITALS: BP 96/72
== END 2017-01-13 12:15 | disposition home or self-care (01) | DRG 432 ==
LOC: N.ED 18:22 → N.EDINP 19:58 → SUATTDRO 19:58 → N.5E 20:28
PROVIDERS: ADMIT Internal Medicine; ATTEND Internal Medicine

== ENCOUNTER 2017-02-09 17:31 | Inpatient (IN) ==
[2017-02-09] MEDS ORDERED: ONDANSETRON 4 MG/2 ML VIAL IV STA (17:55)
[2017-02-09] MEDS ORDERED: FUROSEMIDE 40 MG/4 ML VIAL IV STA (17:57)
[2017-02-09] MEDS ORDERED: SPIRONOLACTONE 100 MG TABLET PO SCH (18:00)
--- NOTE | 2017-02-09 18:01 | Emergency Department Note ---
Arrival - Arrival Chief Complaint: Abdominal / Flank Pain ED Nursing Triage Note: pt has had abd swelling for about 1 month. states now getting sob while up walking Mode of Arrival: Stretcher Limitations: No Limitations Source: Patient Time Seen by Provider: 02/09/17 17:55 - History of Present Illness HPI Narrative: This 51-year-old black male presents with complaints of progressive abdominal distention and shortness of breath associated with what he has been told is alcoholic cirrhosis and cardiogenic liver disease secondary to venous stasis. He was seen most recently by psych social worker in [facility] a week ago who told him that his heart was failing and to expect more problems. They would follow him up in April. Today he presents with complaints of expanding girth to his abdomen, orthopnea, and onset of jaundice of the eyes. He denies chest pain, nausea, vomiting, melena, or bright red blood per bowels. Currently he appears uncomfortable but in no acute medical distress. Onset (ago): week(s) (Patient presents several weeks post onset of symptoms) Allergies/Adverse Reactions: Allergies Allergy/AdvReac Type Severity Reaction Status Date / Time Shellfish Allergy SHORTNESS Verified 08/28/16 17:28 OF BREATH Home Medications: Home Medications Medication Instructions Recorded Confirmed Type Aspirin EC Tab 81 mg PO DAILY #30 tablet 10/15/16 01/08/17 Rx Lactulose Liquid [Chronulac] 30 gm PO TID #90 packet 12/09/16 01/08/17 Rx Levothyroxine Tab [Synthroid Tab] 50 mcg PO DAILY@0700 #30 tablet 12/09/1601/08 Rx Pantoprazole Tab [Protonix Tab] 40 mg PO DAILY #30 tablet 12/09/16 01/08/17 Rx Spironolactone [Aldactone] 25 mg PO BID #60 tablet 12/09/16 01/08/17 Rx Allopurinol 100 mg PO BID 01/08/17 01/08/17 History Carvedilol [Coreg] 6.25 mg PO BID 01/08/17 01/08/17 History Potassium Chloride [Klor-Con 10 meq PO BID 01/08/17 01/08/17 History Sprinkle] Furosemide Tab [Lasix Tab] 40 mg PO BID DIURETIC #30 tablet 01/13/17 Rx Review of System - Review of System 12 point system: reviewed and no additional remarkable complaints except as stated - Review of System Constitutional: Present: as per HPI Respiratory: Present: as per HPI Cardiovascular: Present: as per HPI Gastrointestinal: Present: as per HPI Skin: Present: as per HPI Medical,Surgical,& Family Hx - Medical History Cardio: History of: Cardiac Dysrhythmia (sinus tach), CHF, CAD, Hypertension, Cardiovascular Problems ("Two blocked arteries per Dr Mariano") No history of: SD, Pacemaker Psychological: No history of: Anxiety Disorders, Bipolar Disorder, Depression HEENT: No history of: Dental Problems Endocrine: History of: Diabetes Mellitus (IDDM) (states he was told last admission DM but nothing follow up with) No history of: Diabetes Mellitus (NIDDM) Rheumatology: History of;: Gout Respiratory: History of: Asthma, Bronchitis, Obstructive Sleep Apnea No history of: Pulmonary Embolism, Pneumonia Renal: History of: Renal Failure ([place]), Renal Problems No history of: Renal (Kidney) Cancer Genitourinary: No history of: Bladder Problem, Kidney Stones Gastrointestinal: History of: GERD, Liver Problems No history of: Hemorrhoids Musculoskeletal: History of: Musculoskeletal Problems (Right Knee Surg) No history of: Amputation, Back/Neck Problems, Osteoporosis Hematology: No history of: Anemia, Blood Transfusion Reaction, Sickle Cell Disease, Blood Disorders Other: No history of: Anesthesia Reactions, HIV, MRSA, Skin Problems - Surgical History Cardiac Surgeries: Patient Denies: Cardiac Catheterization, Cardiac Surgery Thoracic Surgeries: Patient denies;: Organ Transplant, Lobectomy Neurologic Surgeries: Patient denies: Neurologic Surgery HEENT Surgeries: Patient denies: Tonsilectomy & Adenoidectomy Abdominal Surgeries: Surgical HX of: Colonoscopy Patient denies: Abdominal Surgery, Appendectomy, Splenectomy Orthopedic Surgeries: Surgical HX of;: Orthopedic Surgery (Knee surgery) Patient denies;: Total Knee Replacement - Family History Family History: Reports;: Family Cancer (mom, type unknown), Family Heart Disease, Family Hypertension - Social History Smoking Status: Light tobacco smoker Frequency of Alcohol Use: None Type of Drug Use: None Exam Physical Examination: GENERAL: Well developed, well nourished black male in no acute distress. HEENT: Normocephalic. No trauma. Moist mucous membranes. EOMI. PERRLA. ENT NML NECK: Supple. No adenopathy. CARDIAC: Regular. No murmurs. Heart rate 115 CHEST: Clear to auscultation. No respiratory distress. O2 sat 95% ABDOMEN: Soft. Firm tender abdomen with positive fluid wave. Hypoactive bowel sounds. EXTREMITIES: No trauma. Normal ROM. No pedal edema. SKIN: No diaphoresis. No rash. NEURO: Alert. Oriented 3. Motor, sensory, vibratory intact. No asterixis, no focal deficits. Vital Signs: Vital Signs Temperature 97.0 F L 02/09/17 17:36 Pulse Rate 113 H 02/09/17 18:30 Respiratory Rate 18 02/09/17 18:30 Blood Pressure 101/80 02/09/17 18:30 O2 Sat by Pulse Oximetry 100 02/09/17 18:30 Course - Reevaluation(s) Reevaluation #1: Discussed with patient the need for hospitalization for diuresis and stabilization. - Consultations Consultation #1: Discussed with hospitalist service who will admit for further evaluation treatment. Results - Labs CBC & BMP: 02/09/17 18:32 02/09/17 18:32 Labs: I have reviewed the laboratory noted the low hematocrit, elevated ammonia, low proteins, and low potassium. - Impressions EKG: Sinus tachycardia at 110 with normal MO interval and QRS duration. Old inferior SD with lateral wall ischemia. No new acute injury pattern. - Diagnostic Findings Procedure: Chest x-ray: image reviewed by me, report reviewed by me ( Cardiomegaly early CHF.) Disposition Clinical Impression: Ascites, Alcoholic cirrhosis, Congestive heart failure Case discussed with: patient Disposition: Still a Patient Condition: Guarded Time of Disposition: 19:32
--- NOTE | 2017-02-09 18:14 | XRay Report ---
XR chest 1V portable Indication: abdominal pain Comparison: 12 January 2017 Findings: The heart and mediastinum are stable in size and configuration. The pulmonary vascularity is slightly increased with bilateral increased interstitial lung density. No other lung infiltrates, effusions, pneumothorax or other abnormality is demonstrated. Impression: Findings suggest mild cardiac decompensation. PROCEDURE INTERPRETED AT [facility] DEPARTMENT OF RADIOLOGY Final Report Signed by: Dr. Garfield Parikh
[2017-02-09] MEDS ORDERED: ONDANSETRON 4 MG/2 ML VIAL ONE (18:26)
[2017-02-09] MEDS ORDERED: FUROSEMIDE 100 MG/10 ML VIAL ONE (18:26)
[2017-02-09 18:51] LABS: Basophils % 0.5 % (0.0-0.8); Eosinophils # 0.4 10*3/uL (0.0-0.87); Eosinophils % 6.5 % (0.00-10.9); Hematocrit 31.9 VOL% (42.0-52.0); Hemoglobin 10.7 GM/DL (14.0-18.0); Immature Granulocytes % 0.4 %; Immature Granulocytes Absolute 0.02 #; Lymphocytes # 1.2 10*3/uL (1.4-4.0); Mean Corpuscular HGB Conc 33.5 GM/DL (32-36); Mean Corpuscular Hemoglobin 21 PG (27-34); Mean Corpuscular Volume 62.2 FL (87-102); Monocytes # 0.5 10*3/uL (0.11-0.8); Monocytes % 8.3 % (1.7-12.7); Neutrophils # 3.5 10*3/uL (1.4-7.4); Neutrophils % 62.3 % (38.7-73.9); Platelet Count 211 T/CUMM (130-400); Red Blood Count 5.13 MC/CUMM (3.8-5.5); Red Cell Distribution Width 23.8 % (9.3-17.3); White Blood Count 5.5 T/CUMM (4-12)
[2017-02-09 19:03] LABS: INR 1.2; Partial Thromboplastin Time 30.8 SECS (0-40)
[2017-02-09 19:15] LABS: Albumin 2.6 G/DL (3.4-5.0); Bilirubin,Total 3.5 MG/DL (0.2-1.0); Calcium 8.5 MG/DL (8.5-10.1); Osmolality,Calculated 275.8 MOS/KG (273-304); Potassium 3.4 MMOL/L (3.5-5.1); Total Protein 6.3 G/DL (6.4-8.3)
--- NOTE | 2017-02-09 20:07 | Hospitalist History & Physical ---
Assessment and Plan (1) Ascites Status: Chronic Assessment and plan: The patient is admitted to the hospital with worsening ascites. We will continue the patient's usual home medications and obtain paracentesis when available. Current Visit: No (2) DM2 (diabetes mellitus, type 2) Status: Chronic Current Visit: No Qualifiers: Diabetes mellitus complication status: with kidney complications Diabetes mellitus complication detail: with chronic kidney disease Chronic kidney disease stage: stage 3 (moderate) (3) CKD (chronic kidney disease) stage 3, GFR 30-59 ml/min Status: Chronic Current Visit: No History of Present Illness Chief complaint: Abdominal distention and shortness of breath History of present illness: Mr. Drummond is a 51 year old male with history of congestive heart failure with reduced ejection fraction. He was last hospitalized at [facility] about 4 weeks ago. The patient had similar symptoms during that hospitalization. Diuresis was ineffective. The patient had paracentesis with improvement of the symptoms. The patient states that since discharge home he has been compliant with oral medications. The patient states that he did follow up with the transplant doctors in [place] and he has another appointment with them in April. The patient denies fever, chills, angina, palpitations. The patient's shortness of breath and abdominal distention are moderate, continuous, and worsening. The patient is admitted to the hospital for therapeutic paracentesis Home Medications Medication Instructions Recorded Confirmed Type Aspirin EC Tab 81 mg PO DAILY #30 tablet 10/15/16 01/08/17 Rx Lactulose Liquid [Chronulac] 30 gm PO TID #90 packet 12/09/16 01/08/17 Rx Levothyroxine Tab [Synthroid Tab] 50 mcg PO DAILY@0700 #30 tablet 12/09/1601/08 Rx Pantoprazole Tab [Protonix Tab] 40 mg PO DAILY #30 tablet 12/09/16 01/08/17 Rx Spironolactone [Aldactone] 25 mg PO BID #60 tablet 12/09/16 01/08/17 Rx Allopurinol 100 mg PO BID 01/08/17 01/08/17 History Carvedilol [Coreg] 6.25 mg PO BID 01/08/17 01/08/17 History Potassium Chloride [Klor-Con 10 meq PO BID 01/08/17 01/08/17 History Sprinkle] Furosemide Tab [Lasix Tab] 40 mg PO BID DIURETIC #30 tablet 01/13/17 Rx Allergies Allergy/AdvReac Type Severity Reaction Status Date / Time Shellfish Allergy SHORTNESS Verified 08/28/16 17:28 OF BREATH Medical,Surgical,& Family Hx - Medical History Cardio: History of: Cardiac Dysrhythmia (sinus tach), CHF, CAD, Hypertension, Cardiovascular Problems ("Two blocked arteries per Dr Mariano") No history of: [place], Pacemaker Psychological: No history of: Anxiety Disorders, Bipolar Disorder, Depression HEENT: No history of: Dental Problems Endocrine: History of: Diabetes Mellitus (IDDM) (states he was told last admission DM but nothing follow up with) No history of: Diabetes Mellitus (NIDDM) Rheumatology: History of;: Gout Respiratory: History of: Asthma, Bronchitis, Obstructive Sleep Apnea No history of: Pulmonary Embolism, Pneumonia Renal: History of: Renal Failure (RI), Renal Problems No history of: Renal (Kidney) Cancer Genitourinary: No history of: Bladder Problem, Kidney Stones Gastrointestinal: History of: GERD, Liver Problems No history of: Hemorrhoids Musculoskeletal: History of: Musculoskeletal Problems (Right Knee Surg) No history of: Amputation, Back/Neck Problems, Osteoporosis Hematology: No history of: Anemia, Blood Transfusion Reaction, Sickle Cell Disease, Blood Disorders Other: No history of: Anesthesia Reactions, HIV, MRSA, Skin Problems - Surgical History Cardiac Surgeries: Patient Denies: Cardiac Catheterization, Cardiac Surgery Thoracic Surgeries: Patient denies;: Organ Transplant, Lobectomy Neurologic Surgeries: Patient denies: Neurologic Surgery HEENT Surgeries: Patient denies: Tonsilectomy & Adenoidectomy Abdominal Surgeries: Surgical HX of: Colonoscopy Patient denies: Abdominal Surgery, Appendectomy, Splenectomy Orthopedic Surgeries: Surgical HX of;: Orthopedic Surgery (Knee surgery) Patient denies;: Total Knee Replacement - Family History Family History: Reports;: Family Cancer (mom, type unknown), Family Heart Disease, Family Hypertension - Social History Smoking Status: Light tobacco smoker Frequency of Alcohol Use: None Type of Drug Use: None Marital Status: Lives With:: Spouse Functional capacity: independent ambulation 12 point system: reviewed and no additional remarkable complaints except as stated Exam - Constitutional Vitals: Period Temp Pulse Resp BP Sys/English Pulse Ox Last 24 Hr 97.0 F-97.0 F 113-126 12-20 94-106/76-82 95-100 Exam: Constitutional System: Mild distress. No tremulousness. Head: Normocephalic, atraumatic. Ears, Nose and Throat System: No evidence of Otitis or Mastoiditis. No epistaxis or discharge Eyes System: Pupils equal, round, and reactive. Extraocular muscles intact. Neck: Supple, without adenopathy, No jugular venous distention. No thyromegaly , neck mass, or prior surgery apparent. Respiratory System: Chest rales in bases to auscultation. Cardiovascular System: Heart with regular rate and rhythm. S4 murmur. GI System: Abdomen soft, moderately distended with fluid wave, generalized mild tenderness. Hypo-active bowel sounds present. Musculoskeletal System: limbs with no pedal edema. Full distal pulses. Neurological System: No discernable sensory deficit. No aphasia Psychiatric System: Conversation is rational Results - Labs CBC & BMP: 02/09/17 18:32 02/09/17 18:32 Lab Results: I have reviewed the past 24 hour labs
[2017-02-09] MEDS: LACTULOSE 20 GM/30 ML UDCUP PO SCH (23:37)
[2017-02-09] MEDS: POTASSIUM CHLORIDE 10 MEQ TABLET PO SCH (23:38)
[2017-02-09] MEDS: ALLOPURINOL 100 MG TABLET PO SCH (23:38)
[2017-02-09] MEDS: CARVEDILOL 6.25 MG TABLET PO SCH (23:38)
[2017-02-10 05:24] LABS: Apearance,Urine CLEAR (Clear); Bacteria,Urine Occasional /HPF (Few); Bilirubin,Urine Negative (Negative); Blood, Urine Negative (Negative); Glucose,Urine (UA) Negative (Negative); Hyaline Casts,Urine 9 /LPF (0-3); Ketones,Urine Negative (Negative); Mucus,Urine Occasional /LPF (Occasional); Nitrite,Urine Negative (Negative); Protein,Urine Negative; RBC,Urine 1 /HPF (0-4); Squamous Epithelial Cell,Urine Occasional /HPF (0-10); Urine Color Yellow (Yellow); Urine Specific Gravity 1.005 (1.001-1.035); WBC,Urine 3 /HPF (0-6)
[2017-02-10 06:09] LABS: Basophils % 0.4 % (0.0-0.8); Eosinophils # 0.3 10*3/uL (0.0-0.87); Eosinophils % 6.3 % (0.00-10.9); Hematocrit 31.1 VOL% (42.0-52.0); Hemoglobin 10.3 GM/DL (14.0-18.0); Immature Granulocytes % 0.6 %; Immature Granulocytes Absolute 0.03 #; Lymphocytes # 1.2 10*3/uL (1.4-4.0); Lymphocytes % 23.6 % (21.2-54.2); Mean Corpuscular HGB Conc 33.1 GM/DL (32-36); Mean Corpuscular Hemoglobin 21 PG (27-34); Monocytes # 0.5 10*3/uL (0.11-0.8); Monocytes % 10.2 % (1.7-12.7); NRBC # 0.02 10*3/uL; Neutrophils # 3.1 10*3/uL (1.4-7.4); Neutrophils % 58.9 % (38.7-73.9); Platelet Count 184 T/CUMM (130-400); Red Blood Count 5.02 MC/CUMM (3.8-5.5); Red Cell Distribution Width 23.8 % (9.3-17.3); White Blood Count 5.2 T/CUMM (4-12)
[2017-02-10 06:34] LABS: Burr Cells Slight; Hypochromasia 1+; Ovalocytes Slight; Platelet Estimate Normal; Target Cells Few
[2017-02-10 06:35] LABS: Calcium 8.6 MG/DL (8.5-10.1); Magnesium 1.9 MG/DL (1.8-2.4); Osmolality,Calculated 275.8 MOS/KG (273-304); Potassium 3.5 MMOL/L (3.5-5.1)
[2017-02-10] MEDS: LEVOTHYROXINE 50 MCG TABLET PO SCH (06:39)
--- NOTE | 2017-02-10 08:28 | EKG Report ---
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
--- NOTE | 2017-02-10 09:15 | Post Interventional Procedure ---
Pre-op diagnosis: Ascites Post-op diagnosis: same Procedure: Ultrasound-guided paracentesis Radiologist: Jorge Alberto Evans Anesthesia: local Specimens: other (4800 cc straw-colored ascites) Estimated blood loss: none Complications: none Condition: stable
[2017-02-10] MEDS: ALLOPURINOL 100 MG TABLET PO SCH ×2 (09:17→20:13)
[2017-02-10] MEDS: PANTOPRAZOLE 40 MG TABLET PO SCH (09:17)
[2017-02-10] MEDS: FUROSEMIDE 40 MG TABLET PO SCH ×2 (09:17→15:04)
[2017-02-10] MEDS: LACTULOSE 20 GM/30 ML UDCUP PO SCH ×3 (09:17→20:14)
[2017-02-10] MEDS: ASPIRIN EC 81 MG TABLET PO SCH (09:17)
[2017-02-10] MEDS: SPIRONOLACTONE 25 MG TABLET PO SCH ×2 (09:18→20:13)
[2017-02-10] MEDS: POTASSIUM CHLORIDE 10 MEQ TABLET PO SCH ×2 (09:18→20:13)
[2017-02-10] MEDS: CARVEDILOL 6.25 MG TABLET PO SCH ×2 (09:18→20:14)
--- NOTE | 2017-02-10 10:42 | Ultrasound Report ---
US paracentesis abd w/image Indication: Ascites. Ultrasound-guided paracentesis Description: A formal timeout was performed. Maximum sterile barrier technique was used. The right lower quadrant was prepped and draped in sterile fashion. Under sonographic guidance, a 6 Polish pigtail catheter was advanced into the ascites using trocar technique. A captured sonographic image documents needle position. The needle was removed. Through the catheter, we obtained a total of 4800 cc of straw-colored ascites. No additional fluid could be obtained. Therefore, the catheter was removed. A bandage was placed at the puncture site. The patient tolerated the procedure well. Impression: Ultrasound-guided paracentesis. PROCEDURE INTERPRETED AT [facility] DEPARTMENT OF RADIOLOGY Final Report Signed by: Jorge Alberto Evans M.D.
--- NOTE | 2017-02-10 18:05 | Hospitalist Progress Note ---
Assessment and Plan (1) Ascites Status: Chronic Assessment and plan: s/p uss- guided tap of 4800 cc straw-colored ascites. Current Visit: No (2) CKD (chronic kidney disease) stage 3, GFR 30-59 ml/min Status: Chronic Assessment and plan: stable Current Visit: No (3) Cirrhosis Status: Chronic Assessment and plan: leading to ascites s/p tap. Current Visit: No Qualifiers: Hepatic cirrhosis type: alcoholic cirrhosis (4) Hypothyroidism Status: Acute Assessment and plan: will get TSH continue with supplements Current Visit: Yes (5) CHF exacerbation Status: Resolved Assessment and plan: continue with diuretics Current Visit: No Qualifiers: Congestive heart failure type: combined Qualified Code(s): I50.43 - Acute on chronic combined systolic (congestive) and diastolic (congestive) heart failure Hospitalist: Subjective Interval history: Patient had an Ultrasound-guided paracentesis and 4800 cc straw-colored ascites was drained. Exam - Constitutional Vitals: Period Temp Pulse Resp BP Sys/English Pulse Ox Last 24 Hr 98.1 F-99.1 F 15-115 18-20 83-100/61-77 93-100 General appearance: no acute distress - Head Head exam: Present: normal inspection - Respiratory Respiratory exam: Present: clear to auscultation bilaterally - Cardiovascular Cardiovascular exam: Present: regular rate and rhythm - GI/Abdominal GI/Abdominal exam: Present: ascites - Extremities Exam Extremities exam: Present: normal inspection Results - Labs CBC & BMP: 02/10/17 05:07 02/10/17 05:07 Lab Results: I have reviewed the past 24 hour labs Quality Measures - VTE Contraindication to Pharmacological VTE Prophylaxis: High Risk of Bleeding
[2017-02-10] MEDS ORDERED: GLUCAGON 1 MG VIAL IM PRN (18:21)
[2017-02-10] MEDS ORDERED: DEXTROSE 50% 25 GM/50 ML VIAL IV PRN (18:21)
[2017-02-10 18:49] LABS: Free T4 (Free Thyroxine) 1.31 NG/DL (0.76-1.46); Thyroid Stimulating Hormone 20.4 uIU/ml (0.358-3.74)
[2017-02-10] MEDS: INSULIN REGULAR 100 UNIT/ML SUBCUT SCH (20:01)
[2017-02-11] MEDS: LEVOTHYROXINE 50 MCG TABLET PO SCH (06:02)
[2017-02-11] MEDS: INSULIN REGULAR 100 UNIT/ML SUBCUT SCH (08:25)
[2017-02-11] MEDS: FUROSEMIDE 40 MG TABLET PO SCH (09:16)
[2017-02-11] MEDS: CARVEDILOL 6.25 MG TABLET PO SCH (09:16)
[2017-02-11] MEDS: ASPIRIN EC 81 MG TABLET PO SCH (09:16)
[2017-02-11] MEDS: ALLOPURINOL 100 MG TABLET PO SCH (09:16)
[2017-02-11] MEDS: LACTULOSE 20 GM/30 ML UDCUP PO SCH (09:16)
[2017-02-11] MEDS: POTASSIUM CHLORIDE 10 MEQ TABLET PO SCH (09:16)
[2017-02-11] MEDS: PANTOPRAZOLE 40 MG TABLET PO SCH (09:16)
[2017-02-11] MEDS: SPIRONOLACTONE 25 MG TABLET PO SCH (09:16)
--- NOTE | 2017-02-11 09:45 | Discharge Summary ---
<Irlanda Byersda - Last Filed: 02/11/17 09:55> Hospital Course - Hospital Course Hospital Course: This is a very unfortunate 51 year old male that presented to the ED at [facility] on 02/09 for evaluation of shortness of breath and abdominal distension. The patient has very complex medical history significant for congestive heart failure, alcoholic liver cirrhosis, hypertension, coronary artery disease, gouty arthritis, asthma, bronchitis, renal failure, and GERD. He reports a recent hospitalization on last month for symptoms similar in nature in which he underwent a therapeutic paracentesis; in which his symptoms symptoms improved. On the day of presentation, he presented with shortness of breath and abdominal distention. The patient was subsequently admitted to the hospitalist service for continuation of care. On 02/10, the patient underwent uncomplicated therapeutic paracentesis in which 4.8 liters were removed. His respiratory status improved almost immediately. His vital signs are stable. He has not experienced any significant overnight events. Today, we feel that he is indeed appropriate for discharge to follow-up with his PCP and storeroom attendant as directed. Discharge Plan - Discharge Data Disposition: Disch To Home/Self Care - Discharge Medications Continue Pantoprazole Tab [Protonix Tab] 40 mg PO DAILY #30 tablet Allopurinol 100 mg PO BID Furosemide Tab [Lasix Tab] 40 mg PO BID DIURETIC #30 tablet Aspirin EC Tab 81 mg PO DAILY #30 tablet Lactulose Liquid [Chronulac] 30 gm PO TID #90 packet Levothyroxine Tab [Synthroid Tab] 50 mcg PO DAILY@0700 #30 tablet Spironolactone [Aldactone] 25 mg PO BID #60 tablet Potassium Chloride [Klor-Con Sprinkle] 10 meq PO BID Carvedilol [Coreg] 6.25 mg PO BID - Follow Up or Referral - Forms/Instructions Exam - Constitutional Vitals: Period Temp Pulse Resp BP Sys/English Pulse Ox Last 24 Hr 98.1 F-98.9 F 76-97 16-18 83-100/61-79 93-100 Discharge Results Labs on day of discharge: Labs from last 24 hours 02/11/17 02/10/17 02/10/17 07:16 19:53 05:07 POC Glucose 92 139 H Hemoglobin A1c 6.6 H Free T4 TSH 3rd Generation 02/10/17 05:07 POC Glucose Hemoglobin A1c Free T4 1.31 TSH 3rd Generation 20.400 H DS: Provider Date of admission: 02/09/17 19:47 Primary care physician: . No PCP Attending physician on admission: Eufemia Gonzalez MD Discharging clinician: Germán Byers CNP <Ana Paula [place] - Last Filed: 02/11/17 11:25> Hospital Course - Time spent with patient Time with patient DS: Greater than 30 minutes (Time spent: 35mins) Diagnosis - Discharge Diagnosis (1) Ascites Status: Chronic (2) CKD (chronic kidney disease) stage 3, GFR 30-59 ml/min Status: Chronic (3) Cirrhosis Status: Chronic (4) Hypothyroidism Status: Acute (5) CHF exacerbation Status: Resolved Discharge Plan - Discharge Data Condition at Discharge: Stable Discharge Diet: advance to your usual diet Activity: resume usual activities as tolerated - Forms/Instructions Additional Discharge Instructions: Follow with PCP in 1week, GI as scheduled Exam - Constitutional General appearance: no acute distress - Head Head exam: Present: normal inspection - ENT ENT exam: Present: normal exam - Respiratory Respiratory exam: Present: clear to auscultation bilaterally - Cardiovascular Cardiovascular exam: Present: regular rate and rhythm - GI/Abdominal GI/Abdominal exam: Present: ascites - Extremities Exam Extremities exam: Present: normal inspection
[2017-02-11 12:20] VITALS: BP 96/64
== END 2017-02-11 13:04 | disposition home or self-care (01) | DRG 432 ==
LOC: EDUNIT# → EDBD → N.ED 17:31 → N.EDINP 19:47 → SUATTDRO 19:47 → N.5E 21:05
PROVIDERS: ADMIT Family Medicine; ATTEND Internal Medicine

== ENCOUNTER 2017-02-19 18:46 | Inpatient (IN) ==
--- NOTE | 2017-02-19 19:09 | Emergency Department Note ---
Arrival - Arrival Chief Complaint: Abdominal / Flank Pain Stated Complaint: abdominal pain and swelling ED Nursing Triage Note: c/o abdominal pain and swelling pt hx of cirrhosis Mode of Arrival: Stretcher Limitations: No Limitations Source: Patient Time Seen by Provider: 02/19/17 18:57 - History of Present Illness HPI Narrative: Patient complains of abdominal swelling, pain, weakness and shortness of breath for the past week or 2. He has a history of cirrhosis and has had to have paracentesis 2 or 3 times in the past. He denies any nausea, vomiting, diarrhea or constipation. He denies any alcohol use although he has been a drinker in the past. He has a history of asthma, CHF and "two blocked arteries in the heart." Allergies/Adverse Reactions: Allergies Allergy/AdvReac Type Severity Reaction Status Date / Time Shellfish Allergy SHORTNESS Verified 08/28/16 17:28 OF BREATH Home Medications: Home Medications Medication Instructions Recorded Confirmed Type Aspirin EC Tab 81 mg PO DAILY #30 tablet 10/15/16 01/08/17 Rx Lactulose Liquid [Chronulac] 30 gm PO TID #90 packet 12/09/16 01/08/17 Rx Levothyroxine Tab [Synthroid Tab] 50 mcg PO DAILY@0700 #30 tablet 12/09/1601/08 Rx Pantoprazole Tab [Protonix Tab] 40 mg PO DAILY #30 tablet 12/09/16 01/08/17 Rx Spironolactone [Aldactone] 25 mg PO BID #60 tablet 12/09/16 01/08/17 Rx Allopurinol 100 mg PO BID 01/08/17 01/08/17 History Carvedilol [Coreg] 6.25 mg PO BID 01/08/17 01/08/17 History Potassium Chloride [Klor-Con 10 meq PO BID 01/08/17 01/08/17 History Sprinkle] Furosemide Tab [Lasix Tab] 40 mg PO BID DIURETIC #30 tablet 01/13/17 Rx Review of System - Review of System 12 point system: reviewed and no additional remarkable complaints except as stated - Review of System Constitutional: Absent: fever Head/Ears/Nose/Throat: Absent: nasal drainage Respiratory: Present: other (Dyspnea). Absent: cough Cardiovascular: Present: dyspnea on exertion, edema (Chronic, no worse than baseline). Absent: chest pain, palpitations Gastrointestinal: Present: abdominal pain. Absent: nausea, vomiting, diarrhea, constipation Medical,Surgical,& Family Hx - Medical History Cardio: History of: Cardiac Dysrhythmia (sinus tach), CHF, CAD, Hypertension, Cardiovascular Problems ("Two blocked arteries per Dr Mariano") No history of: [place], Pacemaker Psychological: No history of: Anxiety Disorders, Bipolar Disorder, Depression HEENT: No history of: Dental Problems Endocrine: History of: Diabetes Mellitus (IDDM) (states he was told last admission DM but nothing follow up with) No history of: Diabetes Mellitus (NIDDM) Rheumatology: History of;: Gout Respiratory: History of: Asthma, Bronchitis, Obstructive Sleep Apnea No history of: Pulmonary Embolism, Pneumonia Renal: History of: Renal Failure (RI), Renal Problems No history of: Renal (Kidney) Cancer Genitourinary: No history of: Bladder Problem, Kidney Stones Gastrointestinal: History of: GERD, Liver Problems No history of: Hemorrhoids Musculoskeletal: History of: Musculoskeletal Problems (Right Knee Surg) No history of: Amputation, Back/Neck Problems, Osteoporosis Hematology: No history of: Anemia, Blood Transfusion Reaction, Sickle Cell Disease, Blood Disorders Other: No history of: Anesthesia Reactions, HIV, MRSA, Skin Problems - Surgical History Cardiac Surgeries: Patient Denies: Cardiac Catheterization, Cardiac Surgery Thoracic Surgeries: Patient denies;: Organ Transplant, Lobectomy Neurologic Surgeries: Patient denies: Neurologic Surgery HEENT Surgeries: Patient denies: Tonsilectomy & Adenoidectomy Abdominal Surgeries: Surgical HX of: Colonoscopy Patient denies: Abdominal Surgery, Appendectomy, Splenectomy Orthopedic Surgeries: Surgical HX of;: Orthopedic Surgery (Knee surgery) Patient denies;: Total Knee Replacement - Family History Family History: Reports;: Family Cancer (mom - lung cancer), Family Heart Disease, Family Hypertension - Social History Smoking Status: Former smoker Exam Physical Examination: GENERAL: Alert. No acute distress. HEENT: Normocephalic and atraumatic. There is no nasal drainage. No pharyngeal erythema or exudate. NECK: Normal inspection. Supple. No lymphadenopathy or meningismus. LUNGS: No respiratory distress. Fair air movement. Wheezing bilaterally. HEART: Regular mild tachycardia. No murmurs. ABDOMEN: Distended with questionable fluid wave. Faint bowel sounds. Minimal diffuse tenderness. No guarding or rebound. BACK: Normal inspection. SKIN: Color normal. Warm and dry. EXTREMITIES: Nontender. Normal range of motion. Mild pitting edema to the mid tibias bilaterally. Patient states this is baseline for him. NEUROLOGICAL/PSYCHIATRIC: Alert and oriented -3 with normal mood and affect. Cranial nerves normal. No motor or sensory deficit. Vital Signs: Vital Signs Temperature 97.9 F 02/19/17 18:47 Pulse Rate 107 H 02/19/17 19:57 Respiratory Rate 20 02/19/17 19:57 Blood Pressure 116/87 02/19/17 18:47 O2 Sat by Pulse Oximetry 98 02/19/17 19:57 Course Course Narrative: Note: The multiple negatives in the past medical history were not marked by me. They are the result of the triage process, past medical records or other unknown causes. Due to time constraints, these were not all reviewed with the patient and the backslashes were not removed from the chart. They should be ignored. - Reevaluation(s) Reevaluation #1: Patient has remained stable in the ER. I think he will need paracentesis again and I think this is the cause of his dyspnea. His BNP is very elevated, however , his chest x-ray does not look bad. He also has a history of asthma and had some wheezing. This could be contributing to his dyspnea as well. His creatinine is slightly higher than it has been the last couple of admissions and he may be a little dehydrated since he has not been eating or drinking as much. I discussed patient with Dr. Myers who will see him in the ER and admit. Time: 20:24 Results - Labs CBC & BMP: 02/19/17 19:14 02/19/17 19:14 - Impressions Chest x-ray shows a mild right basilar atelectasis versus infiltrate which is actually improved from the previous. KUB shows no acute abdominal pathology. EKG shows a sinus tachycardia at 120 with some inferior Q waves. Disposition Clinical Impression: Alcoholic liver disease, Cirrhosis, Renal insufficiency, CHF (congestive heart failure), Tachycardia Case discussed with: patient Disposition: Still a Patient Condition: Stable Time of Disposition: 20:24
[2017-02-19] MEDS ORDERED: ALBUTEROL/IPRATROPIUM 3 ML NEB RESP TX STA (19:13)
[2017-02-19 19:21] LABS: Basophils # 0.1 10*3/uL (0.0-0.2); Basophils % 1.2 % (0.0-0.8); Eosinophils # 0.6 10*3/uL (0.0-0.87); Eosinophils % 7.9 % (0.00-10.9); Hematocrit 33.8 VOL% (42.0-52.0); Hemoglobin 11.4 GM/DL (14.0-18.0); Immature Granulocytes % 0.3 %; Immature Granulocytes Absolute 0.02 #; Lymphocytes # 1.6 10*3/uL (1.4-4.0); Lymphocytes % 21.5 % (21.2-54.2); Mean Corpuscular HGB Conc 33.7 GM/DL (32-36); Mean Corpuscular Hemoglobin 21 PG (27-34); Mean Corpuscular Volume 62.9 FL (87-102); Monocytes # 0.6 10*3/uL (0.11-0.8); Monocytes % 8.5 % (1.7-12.7); NRBC # 0.06 10*3/uL; Neutrophils # 4.4 10*3/uL (1.4-7.4); Neutrophils % 60.6 % (38.7-73.9); Platelet Count 244 T/CUMM (130-400); Red Blood Count 5.37 MC/CUMM (3.8-5.5); Red Cell Distribution Width 24.3 % (9.3-17.3); White Blood Count 7.3 T/CUMM (4-12)
--- NOTE | 2017-02-19 19:41 | XRay Report ---
History: Abdominal pain Date: 02/19/2017 Study: KUB Comparison exam: No previous similar The bowel gas pattern is nonobstructive without gross mass lesion. There is no radiopaque calculus. Osseous structures are unremarkable. Impression: No acute abdominal process PROCEDURE INTERPRETED AT [facility] DEPARTMENT OF RADIOLOGY Final Report Signed by: Dr. Sophia Brasher
--- NOTE | 2017-02-19 19:46 | XRay Report ---
History: Dyspnea Date: 02/19/2017 Study: Chest x-ray AP portable Comparison exam: February 09, 2017 There is continued cardiomegaly. There is no mediastinal mass. The pulmonary vasculature is upper normal. There is trace right pleural effusion. There is some mild patchy atelectasis/infiltrate in the medial right lung base. There is actually improved aeration in the right lung base compared to the previous study. The lungs are otherwise clear. Osseous structures are unremarkable. Impression: Cardiomegaly without overt CHF. Mild atelectasis/infiltrate right lung base. There is actually improved aeration in the right base compared to the previous study. Trace right-sided pleural effusion PROCEDURE INTERPRETED AT [facility] DEPARTMENT OF RADIOLOGY Final Report Signed by: Dr. Sophia Brasher
[2017-02-19 19:52] LABS: Albumin 2.6 G/DL (3.4-5.0); Bilirubin,Total 3.9 MG/DL (0.2-1.0); Calcium 8.8 MG/DL (8.5-10.1); Osmolality,Calculated 279.8 MOS/KG (273-304); Potassium 3.8 MMOL/L (3.5-5.1); Total Protein 6.6 G/DL (6.4-8.3)
[2017-02-19 19:53] LABS: Troponin I Only 0.079 NG/ML (0.00-0.045)
--- NOTE | 2017-02-19 20:55 | Hospitalist History & Physical ---
Assessment and Plan (1) CHF exacerbation Status: Resolved Current Visit: No Qualifiers: Congestive heart failure type: combined Qualified Code(s): I50.43 - Acute on chronic combined systolic (congestive) and diastolic (congestive) heart failure (2) CKD (chronic kidney disease) stage 3, GFR 30-59 ml/min Status: Chronic Current Visit: No (3) CHF exacerbation Status: Resolved Current Visit: No (4) Hypothyroidism Status: Chronic Current Visit: No (5) Nonischemic cardiomyopathy Status: Chronic Current Visit: No (6) Elevated troponin Status: Chronic Current Visit: No (7) Abdominal distension Status: Acute Current Visit: No (8) Acute on chronic renal failure Status: Resolved Current Visit: No (9) Alcoholic liver disease Status: Acute Current Visit: Yes (10) Cirrhosis Status: Acute Assessment and plan: My plan for this patient is admitting him to telemetry. I want consult cardiology due to a 2D echo to evaluate his heart function. I will continue his home meds because I do not think he is being compliant with with them. This is been an issue in the past. Patient only been discharged from this hospital 8 days. Go to monitor serial cardiac enzymes. Once we have his heart checked out we will continue with p.o. Lasix he if his symptoms improve. Repeat labs in the morning. Evaluate his thyroid function. He is tachycardic but I do not know if he is taking his medicines today. Patient generally is a poor historian relating to different stories to me in the ER physician. He told me he thought he was having a heart attack. He did not relate this information to the ER physician. After the heart evaluation recommend a paracentesis for symptomatic relief. Current Visit: Yes History of Present Illness Chief complaint: Chest pain, shortness of breath, abdominal distention History of present illness: Mr. Drummond is a 51 year old male with multiple medical problems including congestive heart failure, liver cirrhosis, ascites, coronary artery disease who presents to our hospital with some complaints. First he told the ER physician that he came in because of increased abdominal swelling. He says been steadily increasing over 2 weeks. Patient was recently hospitalized our hospital and discharged 8 days ago. At that time he had a paracentesis. He says it generally has become gradually weaker. The fluid seems like it has gotten bigger and is abdomen area. Today he developed chest pain. He describes it as sharp and it made him feel diaphoretic and shortness of breath and seem to radiate to his neck. He did not relate his history to the ER physician. I was consulted to admit him Home Medications Medication Instructions Recorded Confirmed Type Aspirin EC Tab 81 mg PO DAILY #30 tablet 10/15/16 01/08/17 Rx Lactulose Liquid [Chronulac] 30 gm PO TID #90 packet 12/09/16 01/08/17 Rx Levothyroxine Tab [Synthroid Tab] 50 mcg PO DAILY@0700 #30 tablet 12/09/1601/08 Rx Pantoprazole Tab [Protonix Tab] 40 mg PO DAILY #30 tablet 12/09/16 01/08/17 Rx Spironolactone [Aldactone] 25 mg PO BID #60 tablet 12/09/16 01/08/17 Rx Allopurinol 100 mg PO BID 01/08/17 01/08/17 History Carvedilol [Coreg] 6.25 mg PO BID 01/08/17 01/08/17 History Potassium Chloride [Klor-Con 10 meq PO BID 01/08/17 01/08/17 History Sprinkle] Furosemide Tab [Lasix Tab] 40 mg PO BID DIURETIC #30 tablet 01/13/17 Rx Allergies Allergy/AdvReac Type Severity Reaction Status Date / Time Shellfish Allergy SHORTNESS Verified 08/28/16 17:28 OF BREATH Medical,Surgical,& Family Hx - Medical History Cardio: History of: Cardiac Dysrhythmia (sinus tach), CHF, CAD, Hypertension, Cardiovascular Problems ("Two blocked arteries per Dr Mariano") No history of: [place], Pacemaker Psychological: No history of: Anxiety Disorders, Bipolar Disorder, Depression HEENT: No history of: Dental Problems Endocrine: History of: Diabetes Mellitus (IDDM) (states he was told last admission DM but nothing follow up with) No history of: Diabetes Mellitus (NIDDM) Rheumatology: History of;: Gout Respiratory: History of: Asthma, Bronchitis, Obstructive Sleep Apnea No history of: Pulmonary Embolism, Pneumonia Renal: History of: Renal Failure (RI), Renal Problems No history of: Renal (Kidney) Cancer Genitourinary: No history of: Bladder Problem, Kidney Stones Gastrointestinal: History of: GERD, Liver Problems No history of: Hemorrhoids Musculoskeletal: History of: Musculoskeletal Problems (Right Knee Surg) No history of: Amputation, Back/Neck Problems, Osteoporosis Hematology: No history of: Anemia, Blood Transfusion Reaction, Sickle Cell Disease, Blood Disorders Other: No history of: Anesthesia Reactions, HIV, MRSA, Skin Problems - Surgical History Cardiac Surgeries: Patient Denies: Cardiac Catheterization, Cardiac Surgery Thoracic Surgeries: Patient denies;: Organ Transplant, Lobectomy Neurologic Surgeries: Patient denies: Neurologic Surgery HEENT Surgeries: Patient denies: Tonsilectomy & Adenoidectomy Abdominal Surgeries: Surgical HX of: Colonoscopy Patient denies: Abdominal Surgery, Appendectomy, Splenectomy Orthopedic Surgeries: Surgical HX of;: Orthopedic Surgery (Knee surgery) Patient denies;: Total Knee Replacement - Family History Family History: Reports;: Family Cancer (mom - lung cancer), Family Heart Disease, Family Hypertension - Social History Smoking Status: Former smoker Frequency of Alcohol Use: None Type of Drug Use: None 12 point system: reviewed and no additional remarkable complaints except as stated Exam - Constitutional Vitals: Period Temp Pulse Resp BP Sys/English Pulse Ox Last 24 Hr 97.9 F-97.9 F 107-121 20-20 116-116/87-87 97-100 General appearance: no acute distress - Head Head exam: Present: normal inspection, normocephalic - Eye Eye exam: Present: EOMI Pupils: Present: RACHEAL - ENT ENT exam: Present: normal exam - Neck Neck exam: Present: normal inspection - Respiratory Respiratory exam: Present: wheezes (Slight) - Cardiovascular Cardiovascular exam: Present: tachycardia - GI/Abdominal GI/Abdominal exam: Present: normal bowel sounds, distended, hypoactive bowel sounds, soft. Absent: rebound - Extremities Exam Extremities exam: Present: other (She had appears to have chronic edema in lower extremities) - Back Exam Back exam: Present: normal inspection - Neurological Exam Neurological exam: Present: alert, oriented X3 - Psychiatric Psychiatric exam: Present: normal affect - Skin Skin exam: Present: normal color Results - Labs CBC & BMP: 02/19/17 19:14 02/19/17 19:14
[2017-02-19 22:03] LABS: Platelet Estimate Normal; Polychromasia Slight; Target Cells 1+
[2017-02-19 22:04] LABS: Acanthocytes Few; Anisocytosis 1+; Hypochromasia Slight; Poikilocytosis 1+
[2017-02-19] MEDS: SPIRONOLACTONE 25 MG TABLET PO SCH (22:13)
[2017-02-19] MEDS: POTASSIUM CHLORIDE 10 MEQ TABLET PO SCH (22:13)
[2017-02-19] MEDS: ALLOPURINOL 100 MG TABLET PO SCH (22:13)
[2017-02-19] MEDS: ENOXAPARIN 30 MG/0.3 ML SYRINGE SUBCUT SCH (22:14)
[2017-02-19] MEDS: CARVEDILOL 6.25 MG TABLET PO SCH (22:14)
[2017-02-19] MEDS: LACTULOSE 20 GM/30 ML UDCUP PO SCH (22:14)
[2017-02-20 03:13] LABS: Basophils # 0.1 10*3/uL (0.0-0.2); Basophils % 1.2 % (0.0-0.8); Eosinophils # 0.5 10*3/uL (0.0-0.87); Eosinophils % 8.2 % (0.00-10.9); Hematocrit 32.8 VOL% (42.0-52.0); Hemoglobin 10.8 GM/DL (14.0-18.0); Immature Granulocytes % 0.3 %; Immature Granulocytes Absolute 0.02 #; Lymphocytes # 1.5 10*3/uL (1.4-4.0); Lymphocytes % 25.9 % (21.2-54.2); Mean Corpuscular HGB Conc 32.9 GM/DL (32-36); Mean Corpuscular Hemoglobin 20 PG (27-34); Mean Corpuscular Volume 61.9 FL (87-102); Monocytes # 0.5 10*3/uL (0.11-0.8); NRBC # 0.04 10*3/uL; Neutrophils # 3.3 10*3/uL (1.4-7.4); Neutrophils % 56.4 % (38.7-73.9); Platelet Count 271 T/CUMM (130-400); Red Cell Distribution Width 24.1 % (9.3-17.3); White Blood Count 5.9 T/CUMM (4-12)
[2017-02-20 03:22] LABS: INR 1.3; PT Patient Result 13.7 SECS
[2017-02-20 03:42] LABS: Risk Ratio 5.5; VLDL CHOLESTEROL 19.6 MG/DL
[2017-02-20 03:43] LABS: Albumin 2.5 G/DL (3.4-5.0); Bilirubin,Total 3.8 MG/DL (0.2-1.0); Osmolality,Calculated 280.7 MOS/KG (273-304); Potassium 3.7 MMOL/L (3.5-5.1); Total Protein 6.5 G/DL (6.4-8.3)
[2017-02-20 03:46] LABS: Free T4 (Free Thyroxine) 1.29 NG/DL (0.76-1.46); Thyroid Stimulating Hormone 28.6 uIU/ml (0.358-3.74)
[2017-02-20 04:18] LABS: Acanthocytes Few; Anisocytosis 1+; Schistocytes 1+
[2017-02-20 04:19] LABS: Microcytosis 1+; Platelet Estimate Normal; Target Cells 1+
[2017-02-20] MEDS: LACTULOSE 20 GM/30 ML UDCUP PO SCH ×3 (09:36→20:09)
[2017-02-20] MEDS: PANTOPRAZOLE 40 MG TABLET PO SCH (09:36)
[2017-02-20] MEDS: ASPIRIN EC 81 MG TABLET PO SCH (09:37)
[2017-02-20] MEDS: CARVEDILOL 6.25 MG TABLET PO SCH ×2 (09:37→20:09)
[2017-02-20] MEDS: LEVOTHYROXINE 50 MCG TABLET PO SCH (09:37)
[2017-02-20] MEDS: SPIRONOLACTONE 25 MG TABLET PO SCH ×2 (09:37→20:08)
[2017-02-20] MEDS: POTASSIUM CHLORIDE 10 MEQ TABLET PO SCH ×2 (09:37→20:08)
[2017-02-20] MEDS: FUROSEMIDE 40 MG TABLET PO SCH ×2 (09:38→16:31)
[2017-02-20] MEDS: ALLOPURINOL 100 MG TABLET PO SCH ×2 (09:38→20:08)
--- NOTE | 2017-02-20 09:52 | EKG Report ---
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
--- NOTE | 2017-02-20 09:53 | EKG Report ---
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
--- NOTE | 2017-02-20 10:59 | Hospitalist Progress Note ---
Hospitalist: Subjective Interval history: hungry. reports abd swelling is some better with diuresis. No cp or SOB. No palpitations. Exam - Constitutional Vitals: Period Temp Pulse Resp BP Sys/English Pulse Ox Last 24 Hr 97.9 F-98.2 F 107-124 18-22 98-117/67-92 96-100 Exam: General : A and O x 3, chronically ill appearing. No acute distress Cardiovascular :regular rate and rhythm no obvious murmurs rubs or gallops Lungs :clear to auscultation bilaterally with good aeration nonlabored breathing noted Abdomen :soft, distended, hypoactive bowel sounds. Nontender to palpation. Difficult to assess for hepatosplenomegaly or masses given his body habitus Extremity :warm and well-perfused no clubbing cyanosis or edema Back: Right lower flank slightly tender to palpation without any overlying ecchymoses or erythema. No increased warmth. No raised lesions. No spinal tenderness. Results - Labs CBC & BMP: 02/20/17 02:43 02/20/17 02:44 - Impressions (1) CHF exacerbation Status: Resolved Current Visit: No Qualifiers: Congestive heart failure type: combined Qualified Code(s): I50.43 - Acute on chronic combined systolic (congestive) and diastolic (congestive) heart failure -Continue home medications. Continue diuresis per cardiology's recommendation. Follow-up echo. (2) CKD (chronic kidney disease) stage 3, GFR 30-59 ml/min Status: Chronic Current Visit: No - Serial labs (3) Abdominal distension/ascites Status: Acute Current Visit: No -Improving with diuresis. May require paracentesis. (4) Hypothyroidism Status: Chronic Current Visit: No -Continue chronic Synthroid (5) Elevated troponin Status: Chronic Current Visit: No -Management per cardiology (6) Alcoholic liver disease/cirrhosis Status: Acute Current Visit: Yes -Recommend continued alcohol cessation. Continue home medications (7) Medical noncompliance - compliance reinforced/ encouraged with patient. Discussed with cardiology. I will be away several days. 1 of my associates will follow in my absence.
--- NOTE | 2017-02-20 11:25 | EKG Report ---
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
--- NOTE | 2017-02-20 11:32 | Cardiology Consult Note ---
Assessment and Plan (1) CHF exacerbation Status: Chronic Current Visit: No Qualifiers: Congestive heart failure type: combined Qualified Code(s): I50.43 - Acute on chronic combined systolic (congestive) and diastolic (congestive) heart failure (2) Cardiomyopathy Status: Chronic Current Visit: No (3) Coronary artery disease Status: Chronic Current Visit: No (4) Tachycardia Status: Acute Current Visit: No (5) Hypertension Status: Chronic Current Visit: No (6) Dyslipidemia Status: Chronic Current Visit: No (7) Mitral regurgitation Status: Chronic Current Visit: No (8) Abnormal thyroid function test Status: Acute Current Visit: No (9) Noncompliance with medication regimen Status: Chronic Current Visit: No (10) Elevated troponin Status: Chronic Current Visit: No (11) Cirrhosis Status: Chronic Current Visit: No Qualifiers: Hepatic cirrhosis type: alcoholic cirrhosis (12) Ascites Status: Chronic Current Visit: No (13) DM2 (diabetes mellitus, type 2) Status: Chronic Current Visit: No Qualifiers: Diabetes mellitus complication status: with kidney complications Diabetes mellitus complication detail: with chronic kidney disease Chronic kidney disease stage: stage 3 (moderate) History of Present Illness - Data of Consult Patient: known to practice within the last 3 years Consult date: 02/20/17 Requesting Physician: Jessica Suarez - Consult Narrative Reason for consult: Shortness of breath History of present illness: Sign Wirer: Dr. Mariano The patient is a 51-year-old black male with a history of combined ischemic and nonischemic cardiomyopathy, coronary artery disease, cirrhosis, hypertension, hyperlipidemia, medication noncompliance. He has been hospitalized at least once a month since August, and was just discharged from the hospital 8 days ago. These hospitalizations of similar presentations with edema, ascites, shortness of breath, abdominal discomfort. He has had multiple paracentesis. He does not have insurance and has not been purchasing his medications at the time of discharge for any of these discharges. He was last seen in the clinic in September 2016. His last heart catheterization of record is 2009 where he had a 100% occluded obtuse marginal artery, 100% occluded right coronary artery, moderate disease of the LAD. Echocardiogram August 2016 demonstrated severe cardiomyopathy with severe MR. He again presents to the hospital with abdominal distention, shortness of breath , generalized malaise, shortness of breath. He has not obtained any of his medications. He has no other new complaints. Impression and plan: 1. Congestive heart failure: This is chronic secondary to cardiomyopathy with systolic dysfunction, valvular heart disease, medication noncompliance. I agree with reinitiating his medical therapy, although again this will be a limited maneuver given his constant medication noncompliance. On a more optimistic note he recently obtained disability and believes he may be able to afford his medication soon. 2. Cardiomyopathy-chronic. 3. Mitral valve disease-chronic. 4. 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 He reports that he does not drink anymore. 5. Medication noncompliance-I again reiterated the importance of medication use with his chronic disease conditions. 6. Elevated troponin-this is chronic, they are lower than usual for him. They are not in a peaking pattern, there is no evidence of an acute coronary syndrome. He is also medically noncompliant and not a candidate for invasive studies. CC: Jessica Suarez MD - Home Medications and Allergies Home Medications: Home Medications Medication Instructions Recorded Confirmed Type Aspirin EC Tab 81 mg PO DAILY #30 tablet 10/15/16 01/08/17 Rx Lactulose Liquid [Chronulac] 30 gm PO TID #90 packet 12/09/16 01/08/17 Rx Levothyroxine Tab [Synthroid Tab] 50 mcg PO DAILY@0700 #30 tablet 12/09/1601/08 Rx Pantoprazole Tab [Protonix Tab] 40 mg PO DAILY #30 tablet 12/09/16 01/08/17 Rx Spironolactone [Aldactone] 25 mg PO BID #60 tablet 12/09/16 02/19/17 Rx Allopurinol 100 mg PO BID 01/08/17 02/19/17 History Carvedilol [Coreg] 6.25 mg PO BID 01/08/17 02/19/17 History Potassium Chloride [Klor-Con 10 meq PO BID 01/08/17 02/19/17 History Sprinkle] Furosemide Tab [Lasix Tab] 40 mg PO BID DIURETIC #30 tablet 01/13/17 02/19/17 Rx Hydralazine HCl 10 mg PO TID 02/19/17 02/19/17 History Allergies/Adverse Reactions: Allergies Allergy/AdvReac Type Severity Reaction Status Date / Time Shellfish Allergy SHORTNESS Verified 08/28/16 17:28 OF BREATH 12 point system: reviewed and no additional remarkable complaints except as stated Medical,Surgical,& Family Hx - Medical History Cardio: History of: Cardiac Dysrhythmia (sinus tach), CHF, CAD, Hypertension, Cardiovascular Problems ("Two blocked arteries per Dr Mariano") No history of: [place], Pacemaker Psychological: No history of: Anxiety Disorders, Bipolar Disorder, Depression HEENT: No history of: Dental Problems Endocrine: History of: Diabetes Mellitus (IDDM) (states he was told last admission DM but nothing follow up with) No history of: Diabetes Mellitus (NIDDM) Rheumatology: History of;: Gout Respiratory: History of: Asthma, Bronchitis, Obstructive Sleep Apnea No history of: Pulmonary Embolism, Pneumonia Renal: History of: Renal Failure (RI), Renal Problems No history of: Renal (Kidney) Cancer Genitourinary: No history of: Bladder Problem, Kidney Stones Gastrointestinal: History of: GERD, Liver Problems No history of: Hemorrhoids Musculoskeletal: History of: Musculoskeletal Problems (Right Knee Surg) No history of: Amputation, Back/Neck Problems, Osteoporosis Hematology: No history of: Anemia, Blood Transfusion Reaction, Sickle Cell Disease, Blood Disorders Other: No history of: Anesthesia Reactions, HIV, MRSA, Skin Problems - Surgical History Cardiac Surgeries: Patient Denies: Cardiac Catheterization, Cardiac Surgery Thoracic Surgeries: Patient denies;: Organ Transplant, Lobectomy Neurologic Surgeries: Patient denies: Neurologic Surgery HEENT Surgeries: Patient denies: Tonsilectomy & Adenoidectomy Abdominal Surgeries: Surgical HX of: Colonoscopy Patient denies: Abdominal Surgery, Appendectomy, Splenectomy Orthopedic Surgeries: Surgical HX of;: Orthopedic Surgery (Knee surgery) Patient denies;: Total Knee Replacement - Family History Family History: Reports;: Family Cancer (mom - lung cancer), Family Heart Disease, Family Hypertension - Social History Smoking Status: Former smoker Frequency of Alcohol Use: None Type of Drug Use: None Physical Examination Vital Signs Temp Pulse Resp BP Pulse Ox 97.9 F 121 H 20 116/87 100 02/19/17 18:47 02/19/17 18:47 02/19/17 18:47 02/19/17 18:47 02/19/17 18:47 Other: General appearance: normal weight, no acute distress - Head Head exam: Present: normal inspection, normocephalic, atraumatic. Absent: hematoma, laceration - Eye Eye exam: Present: EOMI. Absent: conjunctival injection, nystagmus, periorbital swelling, scleral icterus, laceration to eyelids Pupils: Present: PERRL. Absent: constricted, dilated, fixed, irregular, unequal - ENT ENT exam: Present: normal exam, normal external ear exam - Neck Neck exam: Present: normal inspection. Absent: lymphadenopathy, meningismus, tenderness, thyromegaly - Respiratory Respiratory exam: Present: Decreased breath sounds in the bilateral bases. Absent: accessory muscle use, chest wall tenderness - Cardiovascular Cardiovascular exam: Present: regular rate and rhythm, distant tones, JVD. Absent: carotid bruit, gallop, rubs - GI/Abdominal GI/Abdominal exam: Present: normal bowel sounds, protuberant with ascites present. Absent: firm, guarding, hernia, mass, tenderness, rebound. - Extremities Exam Extremities exam: Present: Decreased pulses in the bilateral lower extremities, trace edema. Absent: calf tenderness. - Back Exam Back exam: Present: normal inspection. Absent: muscle spasm, vertebral tenderness - Neurological Exam Neurological exam: Present: alert, oriented X3, grossly intact without resting or intention tremor - Psychiatric Psychiatric exam: Present: normal affect, normal mood - Skin Skin exam: Present: normal color, warm, dry, intact. Absent: cyanosis, diaphoretic, rash, urticaria Result/EKG - Labs CBC & BMP: 02/20/17 02:43 02/20/17 02:44 Lab Results: I have reviewed the past 24 hour labs Labs: Laboratory Results - last 24 hr 02/19/17 02/19/17 02/19/17 19:14 19:14 19:14 WBC 7.3 RBC 5.37 Hgb 11.4 L Hct 33.8 L MCV 62.9 L MCH 21 L MCHC 33.7 RDW 24.3 H Plt Count 244 Neut % (Auto) 60.6 Lymph % (Auto) 21.5 Carver % (Auto) 8.5 Eos % (Auto) 7.9 Baso % (Auto) 1.2 H Neut # (Auto) 4.4 Lymph # (Auto) 1.6 Carver # (Auto) 0.6 Eos # (Auto) 0.6 Baso # (Auto) 0.1 Immature Gran % 0.3 Nucleated RBC % 0.8 Immature Gran # 0.02 Nucleated RBCs # 0.06 Platelet Estimate Normal Polychromasia Slight Hypochromasia Slight Poikilocytosis 1+ Anisocytosis 1+ Microcytosis Target Cells 1+ Acanthocytes (Spur) Few Schistocytes INR PT Patient/Control Mix Sodium 137 Potassium 3.8 Chloride 102 Carbon Dioxide 20 L Anion Gap 18.8 H BUN 31 H Creatinine 2.50 H GFR Calculation 37 BUN/Creatinine Ratio 12.00 Glucose 90 Calculated Osmolality 279.8 Calcium 8.8 Total Bilirubin 3.90 H AST 23 ALT 13 L Alkaline Phosphatase 173 H Total Creatine Kinase 87 CK-MB (CK-2) 1.3 Troponin I 0.079 H B-Natriuretic Peptide Total Protein 6.6 Albumin 2.6 L Globulin 4.0 H Albumin/Globulin Ratio 0.6 L Triglycerides Cholesterol LDL Cholesterol VLDL Cholesterol HDL Cholesterol Heart Disease Risk Ratio Amylase 39 Lipase 126.0 Free T4 TSH 3rd Generation 02/19/17 02/19/17 02/20/17 19:14 22:35 00:07 WBC RBC Hgb Hct MCV MCH MCHC RDW Plt Count Neut % (Auto) Lymph % (Auto) Carver % (Auto) Eos % (Auto) Baso % (Auto) Neut # (Auto) Lymph # (Auto) Carver # (Auto) Eos # (Auto) Baso # (Auto) Immature Gran % Nucleated RBC % Immature Gran # Nucleated RBCs # Platelet Estimate Polychromasia Hypochromasia Poikilocytosis Anisocytosis Microcytosis Target Cells Acanthocytes (Spur) Schistocytes INR PT Patient/Control Mix Sodium Potassium Chloride Carbon Dioxide Anion Gap BUN Creatinine GFR Calculation BUN/Creatinine Ratio Glucose Calculated Osmolality Calcium Total Bilirubin AST ALT Alkaline Phosphatase Total Creatine Kinase CK-MB (CK-2) Troponin I 0.075 H 0.077 H B-Natriuretic Peptide 2654 H Total Protein Albumin Globulin Albumin/Globulin Ratio Triglycerides Cholesterol LDL Cholesterol VLDL Cholesterol HDL Cholesterol Heart Disease Risk Ratio Amylase Lipase Free T4 TSH 3rd Generation 02/20/17 02/20/17 02/20/17 02:43 02:43 02:43 WBC 5.9 RBC 5.30 Hgb 10.8 L Hct 32.8 L MCV 61.9 L MCH 20 L MCHC 32.9 RDW 24.1 H Plt Count 271 Neut % (Auto) 56.4 Lymph % (Auto) 25.9 Carver % (Auto) 8.0 Eos % (Auto) 8.2 Baso % (Auto) 1.2 H Neut # (Auto) 3.3 Lymph # (Auto) 1.5 Carver # (Auto) 0.5 Eos # (Auto) 0.5 Baso # (Auto) 0.1 Immature Gran % 0.3 Nucleated RBC % 0.7 Immature Gran # 0.02 Nucleated RBCs # 0.04 Platelet Estimate Normal Polychromasia Hypochromasia Poikilocytosis Anisocytosis 1+ Microcytosis 1+ Target Cells 1+ Acanthocytes (Spur) Few Schistocytes 1+ INR 1.3 PT Patient/Control Mix 13.7 Sodium Potassium Chloride Carbon Dioxide Anion Gap BUN Creatinine GFR Calculation BUN/Creatinine Ratio Glucose Calculated Osmolality Calcium Total Bilirubin AST ALT Alkaline Phosphatase Total Creatine Kinase CK-MB (CK-2) Troponin I B-Natriuretic Peptide Total Protein Albumin Globulin Albumin/Globulin Ratio Triglycerides Cholesterol LDL Cholesterol VLDL Cholesterol HDL Cholesterol Heart Disease Risk Ratio Amylase Lipase Free T4 1.29 TSH 3rd Generation 28.600 H 02/20/17 02/20/17 02/20/17 02:44 02:44 02:44 WBC RBC Hgb Hct MCV MCH MCHC RDW Plt Count Neut % (Auto) Lymph % (Auto) Carver % (Auto) Eos % (Auto) Baso % (Auto) Neut # (Auto) Lymph # (Auto) Carver # (Auto) Eos # (Auto) Baso # (Auto) Immature Gran % Nucleated RBC % Immature Gran # Nucleated RBCs # Platelet Estimate Polychromasia Hypochromasia Poikilocytosis Anisocytosis Microcytosis Target Cells Acanthocytes (Spur) Schistocytes INR PT Patient/Control Mix Sodium 138 Potassium 3.7 Chloride 103 Carbon Dioxide 19 L Anion Gap 19.7 H BUN 32 H Creatinine 2.30 H GFR Calculation 41 BUN/Creatinine Ratio 13.00 Glucose 81 Calculated Osmolality 280.7 Calcium 9.0 Total Bilirubin 3.80 H AST 22 ALT 13 L Alkaline Phosphatase 164 H Total Creatine Kinase CK-MB (CK-2) Troponin I 0.071 H B-Natriuretic Peptide Total Protein 6.5 Albumin 2.5 L Globulin 4.0 H Albumin/Globulin Ratio 0.6 L Triglycerides 98 Cholesterol 143 LDL Cholesterol 110.0 VLDL Cholesterol 19.6 HDL Cholesterol 26 L Heart Disease Risk Ratio 5.50 Amylase Lipase Free T4 TSH 3rd Generation - EKG EKG results: sinus rhythm
--- NOTE | 2017-02-20 19:56 | ECHO Report ---
Liban Drummond Exam Date: 02/20/2017 10:30 Referring Physician: Technologist: Alyx Henriquez Age: 51 Ht (in): 67 Wt (lb): 185 Gender: M Exam Location: [facility] Echo Indications: tachycardia, CHF, renal insuff BP: 109 / 92 HR: 108 Rhythm: sinus tachycardia Technical Quality: Good IMPRESSIONS Severely reduced LV systolic function, ejection fraction 10% with global hypokinesis. Mild to moderate biventricular dilation with biventricular hypokinesis. Mild biatrial enlargement. Borderline left ventricular hypertrophy. Moderate to severe mitral and tricuspid regurgitation. Mild aortic regurgitation. Moderate pulmonic regurgitation. MEASUREMENTS (Male / Female) Normal Values 2D ECHO LV Diastolic Diameter PLAX 6.0 cm 4.2 - 5.9 / 3.9 - 5.3 cm LV Systolic Diameter PLAX 5.3 cm LV Fractional Shortening PLAX 12.2 % IVS Diastolic Thickness 1.1 cm 0.6 - 1.0 / 0.6 - 0.9 cm LVPW Diastolic Thickness 1.3 cm 0.6 - 1.0 / 0.6 - 0.9 cm RV Internal Dim ED PLAX 4.2 cm Aortic Root Diameter 2.7 cm LA Systolic Diameter LX 4.5 cm 3.0 - 4.0 / 2.7 - 3.8 cm DOPPLER TR Peak Velocity 271.0 cm/s TR Peak Gradient 29.4 mmHg FINDINGS Left Ventricle Mildly increased septal wall thickness. Mildly increased left ventricular diastolic diameter. Mild concentric left ventricular hypertrophy with diastolic dysfunction. Severely decreased left ventricular systolic function, left ventricular ejection fraction is at estimated at 10%. Right Ventricle Moderately dilated and hypokinetic. Right Atrium The right atrium is mildly enlarged. Left Atrium Mildly increased left atrial diameter. Mitral Valve Mild mitral valve sclerosis. Moderate to severe mitral valve regurgitation. Aortic Valve Mild aortic valve sclerosis. Mild aortic valve regurgitation. Tricuspid Valve Morphologically normal tricuspid valve. Moderate to severe tricuspid valve regurgitation. Tricuspid regurgitation velocities suggest a PAP of 39 mmHg. Pulmonic Valve Morphologically normal pulmonic valve. Moderate regurgitation. Pericardium No pericardial effusion. Aorta Normal size aortic root and proximal ascending aorta. Jovana Villa MD (Electronically Signed) Final Date: 20 Feb 2017 19:55
[2017-02-20] MEDS: ENOXAPARIN 30 MG/0.3 ML SYRINGE SUBCUT SCH (20:09)
[2017-02-21] MEDS: LEVOTHYROXINE 50 MCG TABLET PO SCH (06:24)
[2017-02-21] MEDS: ASPIRIN EC 81 MG TABLET PO SCH (09:13)
[2017-02-21] MEDS: ALLOPURINOL 100 MG TABLET PO SCH ×2 (09:13→22:27)
[2017-02-21] MEDS: FUROSEMIDE 40 MG TABLET PO SCH (09:13)
[2017-02-21] MEDS: LACTULOSE 20 GM/30 ML UDCUP PO SCH ×3 (09:13→20:37)
[2017-02-21] MEDS: SPIRONOLACTONE 25 MG TABLET PO SCH ×2 (09:13→20:38)
[2017-02-21] MEDS: PANTOPRAZOLE 40 MG TABLET PO SCH (09:13)
[2017-02-21] MEDS: POTASSIUM CHLORIDE 10 MEQ TABLET PO SCH ×2 (09:13→20:38)
[2017-02-21] MEDS: CARVEDILOL 6.25 MG TABLET PO SCH ×2 (09:13→20:38)
--- NOTE | 2017-02-21 10:55 | Hospitalist Progress Note ---
Assessment and Plan (1) CHF (congestive heart failure) Status: Acute Current Visit: Yes Qualifiers: Congestive heart failure type: combined Congestive heart failure chronicity : acute on chronic Qualified Code(s): I50.43 - Acute on chronic combined systolic (congestive) and diastolic (congestive) heart failure (2) Alcoholic liver disease Status: Acute Current Visit: Yes (3) Ascites Status: Chronic Current Visit: No (4) Cirrhosis Status: Chronic Current Visit: No Qualifiers: Hepatic cirrhosis type: alcoholic cirrhosis (5) DM2 (diabetes mellitus, type 2) Status: Chronic Current Visit: No Qualifiers: Diabetes mellitus complication status: with kidney complications Diabetes mellitus complication detail: with chronic kidney disease Chronic kidney disease stage: stage 3 (moderate) (6) Acute on chronic renal failure Status: Resolved Assessment and plan: -Continue diuresis with IV Lasix twice bid, monitor proBNP level -Cardiology consult, will follow recommendation -Continue chronic home prescription medications -Continue Spironolactone -The patient may require paracentesis for significant ascites Current Visit: No Hospitalist: Subjective Interval history: The patient is a 51-year-old male with alcoholic cirrhosis of the liver and congestive heart failure. He was admitted to the hospital with shortness of breath and chest pain secondary to acute systolic and diastolic congestive heart failure exacerbation. The patient reports some continued chest discomfort today but states that he feels better. He also complains of continued swelling of his abdomen despite significant diuresis. He denies any shortness of breath at the time of my examination. Exam - Constitutional Vitals: Period Temp Pulse Resp BP Sys/English Pulse Ox Last 24 Hr 97.6 F-9706 F 90-96 16-20 93-106/68-75 90-100 General appearance: other (Chronically ill-appearing male, appears older than his stated age) - Head Head exam: Present: normal inspection - Eye Eye exam: Present: EOMI. Absent: scleral icterus Pupils: Present: RACHEAL - ENT ENT exam: Present: normal exam - Neck Neck exam: Present: normal inspection - Respiratory Respiratory exam: Present: decreased breath sounds (Decreased breath sounds in lower lobes bilaterally, no rales rhonchi appreciated). Absent: rales, rhonchi - Cardiovascular Cardiovascular exam: Present: JVD, regular rate and rhythm - GI/Abdominal GI/Abdominal exam: Present: ascites, distended, hypoactive bowel sounds. Absent : tenderness - Extremities Exam Extremities exam: Present: normal inspection, full ROM, edema (1+ pitting edema in lower extremities bilaterally) - Neurological Exam Neurological exam: Present: alert, oriented X3 - Skin Skin exam: Present: normal color Results - Labs CBC & BMP: 02/21/17 11:21 02/21/17 11:21 Lab Results: I have reviewed the past 24 hour labs
[2017-02-21 11:29] LABS: Basophils # 0.1 10*3/uL (0.0-0.2); Basophils % 1.4 % (0.0-0.8); Eosinophils # 0.6 10*3/uL (0.0-0.87); Eosinophils % 11.7 % (0.00-10.9); Hematocrit 34.4 VOL% (42.0-52.0); Hemoglobin 11.5 GM/DL (14.0-18.0); Immature Granulocytes % 0.2 %; Immature Granulocytes Absolute 0.01 #; Lymphocytes # 1.5 10*3/uL (1.4-4.0); Lymphocytes % 29.2 % (21.2-54.2); Mean Corpuscular HGB Conc 33.4 GM/DL (32-36); Mean Corpuscular Hemoglobin 21 PG (27-34); Mean Corpuscular Volume 62.7 FL (87-102); Monocytes # 0.4 10*3/uL (0.11-0.8); Monocytes % 8.5 % (1.7-12.7); NRBC # 0.07 10*3/uL; Neutrophils # 2.4 10*3/uL (1.4-7.4); Platelet Count 223 T/CUMM (130-400); Red Blood Count 5.49 MC/CUMM (3.8-5.5); Red Cell Distribution Width 24.2 % (9.3-17.3)
--- NOTE | 2017-02-21 11:49 | Cardiology Progress Note ---
Assessment and Plan (1) CHF exacerbation Status: Chronic Current Visit: No Qualifiers: Congestive heart failure type: combined Qualified Code(s): I50.43 - Acute on chronic combined systolic (congestive) and diastolic (congestive) heart failure (2) Cardiomyopathy Status: Chronic Current Visit: No (3) Coronary artery disease Status: Chronic Current Visit: No (4) Tachycardia Status: Acute Current Visit: No (5) Hypertension Status: Chronic Current Visit: No (6) Dyslipidemia Status: Chronic Current Visit: No (7) Mitral regurgitation Status: Chronic Current Visit: No (8) Abnormal thyroid function test Status: Acute Current Visit: No (9) Noncompliance with medication regimen Status: Chronic Current Visit: No (10) Elevated troponin Status: Chronic Current Visit: No (11) Cirrhosis Status: Chronic Current Visit: No Qualifiers: Hepatic cirrhosis type: alcoholic cirrhosis (12) Ascites Status: Chronic Current Visit: No (13) DM2 (diabetes mellitus, type 2) Status: Chronic Current Visit: No Qualifiers: Diabetes mellitus complication status: with kidney complications Diabetes mellitus complication detail: with chronic kidney disease Chronic kidney disease stage: stage 3 (moderate) Cardiology - PN: Subj Interval history: 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 He has been hospitalized at least once a month since August, and was just discharged from the hospital 8 days ago. These hospitalizations are of similar presentations with edema, ascites, shortness of breath, abdominal discomfort. He has had multiple paracentesis. He does not have insurance and has not been purchasing his medications at the time of discharge for any of these discharges. He was last seen in the clinic in September 2016. His last heart catheterization of record is 2009 where he had a 100% occluded obtuse marginal artery, 100% occluded right coronary artery, moderate disease of the LAD. Echocardiogram August 2016 demonstrated severe cardiomyopathy with severe MR. He again presents to the hospital with abdominal distention, shortness of breath, generalized malaise, shortness of breath. He has not obtained any of his medications. He has no other new complaints. February 13, 2017: Overall symptoms are unchanged. His medications have been resumed , they are all oral. 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 Echocardiogram confirms ejection fraction 10%. Impression and plan: 1. Congestive heart failure: This is chronic secondary to cardiomyopathy with systolic dysfunction, valvular heart disease, medication noncompliance. I agree with reinitiating his medical therapy, although again this will be a limited maneuver given his constant medication noncompliance. On a more optimistic note he recently obtained disability and believes he may be able to afford his medication soon. We will give some IV Lasix to try to diurese him more quickly. 2. Cardiomyopathy-chronic. Not on an DARLENE inhibitor due to hypotension and renal insufficiency. 3. Mitral valve disease-chronic. 4. 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 He reports that he does not drink anymore. 5. Medication noncompliance-I again reiterated the importance of medication use with his chronic disease conditions. 6. Elevated troponin-this is chronic, they are lower than usual for him. They are not in a peaking pattern, there is no evidence of an acute coronary syndrome. He is also medically noncompliant and not a candidate for invasive studies. Exam (Progress Note) - Constitutional Vitals: Period Temp Pulse Resp BP Sys/English Pulse Ox Last 24 Hr 97.6 F-9706 F 90-96 16-20 93-106/68-75 90-100 Exam: General appearance: normal weight, no acute distress - Head Head exam: Present: normal inspection, normocephalic, atraumatic. Absent: hematoma, laceration - Eye Eye exam: Present: EOMI. Absent: conjunctival injection, nystagmus, periorbital swelling, scleral icterus, laceration to eyelids Pupils: Present: PERRL. Absent: constricted, dilated, fixed, irregular, unequal - ENT ENT exam: Present: normal exam, normal external ear exam - Neck Neck exam: Present: normal inspection. Absent: lymphadenopathy, meningismus, tenderness, thyromegaly - Respiratory Respiratory exam: Present: Decreased breath sounds in the bilateral bases. Absent: accessory muscle use, chest wall tenderness - Cardiovascular Cardiovascular exam: Present: regular rate and rhythm. Absent: carotid bruit, gallop, JVD, rubs - GI/Abdominal GI/Abdominal exam: Present: Protuberant but soft, ascites. Absent: firm, guarding, hernia, mass, tenderness, rebound. - Extremities Exam Extremities exam: Present: Trace edema, decreased pulses. Absent: calf tenderness - Back Exam Back exam: Present: normal inspection. Absent: muscle spasm, vertebral tenderness - Neurological Exam Neurological exam: Present: alert, oriented X3, grossly intact without resting or intention tremor - Psychiatric Psychiatric exam: Present: normal affect, normal mood - Skin Skin exam: Present: normal color, warm, dry, intact. Absent: cyanosis, diaphoretic, rash, urticaria Result/EKG - Labs CBC & BMP: 02/21/17 11:21 02/20/17 02:44 Lab Results: I have reviewed the past 24 hour labs Labs: Laboratory Results - last 24 hr 02/21/17 11:21 WBC 5.0 RBC 5.49 Hgb 11.5 L Hct 34.4 L MCV 62.7 L MCH 21 L MCHC 33.4 RDW 24.2 H Plt Count 223 Neut % (Auto) 49.0 Lymph % (Auto) 29.2 [place] % (Auto) 8.5 Eos % (Auto) 11.7 H Baso % (Auto) 1.4 H Neut # (Auto) 2.4 Lymph # (Auto) 1.5 [place] # (Auto) 0.4 Eos # (Auto) 0.6 Baso # (Auto) 0.1 Immature Gran % 0.2 Nucleated RBC % 1.4 Immature Gran # 0.01 Nucleated RBCs # 0.07
[2017-02-21 12:00] LABS: Calcium 8.4 MG/DL (8.5-10.1); Eosinophils 9 % (0-10); Lymphocytes 34 % (20-55); Nucleated Red Blood Cells 3 (0-5); Osmolality,Calculated 281.7 MOS/KG (273-304); Potassium 4.3 MMOL/L (3.5-5.1); Segmented Neutrophils 52 % (50-85); Total Cells Counted 100
[2017-02-21 12:04] LABS: Acanthocytes Few; Hypochromasia 1+; Microcytosis 1+; Target Cells 1+
[2017-02-21 12:06] LABS: Platelet Estimate Adequate
[2017-02-21] MEDS: FUROSEMIDE 40 MG/4 ML VIAL IV SCH ×2 (12:18→15:33)
[2017-02-21] MEDS: ENOXAPARIN 30 MG/0.3 ML SYRINGE SUBCUT SCH (20:37)
[2017-02-22 05:15] LABS: Basophils # 0.1 10*3/uL (0.0-0.2); Basophils % 1.5 % (0.0-0.8); Eosinophils # 0.4 10*3/uL (0.0-0.87); Eosinophils % 8.6 % (0.00-10.9); Hemoglobin 10.6 GM/DL (14.0-18.0); Immature Granulocytes % 0.4 %; Immature Granulocytes Absolute 0.02 #; Lymphocytes # 1.3 10*3/uL (1.4-4.0); Lymphocytes % 27.5 % (21.2-54.2); Mean Corpuscular HGB Conc 33.1 GM/DL (32-36); Mean Corpuscular Hemoglobin 21 PG (27-34); Monocytes # 0.4 10*3/uL (0.11-0.8); NRBC # 0.05 10*3/uL; Neutrophils # 2.5 10*3/uL (1.4-7.4); Platelet Count 278 T/CUMM (130-400); Red Blood Count 5.08 MC/CUMM (3.8-5.5); White Blood Count 4.8 T/CUMM (4-12)
[2017-02-22 05:48] LABS: Acanthocytes Few; Hypochromasia 2+; Microcytosis 1+; Platelet Estimate Normal; Target Cells Slight
[2017-02-22 05:49] LABS: Schistocytes Slight
[2017-02-22 05:54] LABS: Calcium 8.4 MG/DL (8.5-10.1); Magnesium 1.9 MG/DL (1.8-2.4); Potassium 4.3 MMOL/L (3.5-5.1)
[2017-02-22] MEDS: LEVOTHYROXINE 50 MCG TABLET PO SCH (06:00)
[2017-02-22] MEDS: FUROSEMIDE 40 MG/4 ML VIAL IV SCH (09:01)
[2017-02-22] MEDS: ASPIRIN EC 81 MG TABLET PO SCH (09:55)
[2017-02-22] MEDS: CARVEDILOL 6.25 MG TABLET PO SCH ×2 (09:55→20:30)
[2017-02-22] MEDS: PANTOPRAZOLE 40 MG TABLET PO SCH (09:55)
[2017-02-22] MEDS: SPIRONOLACTONE 25 MG TABLET PO SCH ×2 (09:55→20:30)
[2017-02-22] MEDS: ALLOPURINOL 100 MG TABLET PO SCH ×2 (09:55→20:30)
[2017-02-22] MEDS: POTASSIUM CHLORIDE 10 MEQ TABLET PO SCH ×2 (09:55→20:29)
[2017-02-22] MEDS: LACTULOSE 20 GM/30 ML UDCUP PO SCH ×3 (09:56→22:43)
--- NOTE | 2017-02-22 12:27 | Cardiology Progress Note ---
Scottie Rosales April RN, am scribing for, and in the presence of, Jovana Villa MD 12:27. Assessment and Plan (1) CHF exacerbation Status: Chronic Current Visit: Yes Qualifiers: Congestive heart failure type: combined Qualified Code(s): I50.43 - Acute on chronic combined systolic (congestive) and diastolic (congestive) heart failure (2) Cirrhosis Status: Chronic Current Visit: Yes (3) Tachycardia Status: Acute Current Visit: Yes (4) Ascites Status: Chronic Current Visit: Yes (5) Cardiomyopathy Status: Chronic Current Visit: Yes (6) Coronary artery disease Status: Chronic Current Visit: Yes (7) DM2 (diabetes mellitus, type 2) Status: Chronic Current Visit: Yes Qualifiers: Diabetes mellitus complication status: with kidney complications Diabetes mellitus complication detail: with chronic kidney disease Chronic kidney disease stage: stage 3 (moderate) (8) Dyslipidemia Status: Chronic Current Visit: Yes (9) Elevated troponin Status: Chronic Current Visit: Yes (10) Hypertension Status: Chronic Current Visit: No (11) Mitral regurgitation Status: Chronic Current Visit: Yes (12) Noncompliance with medication regimen Status: Chronic Current Visit: Yes Cardiology - PN: Subj Interval history: 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 He has been hospitalized at least once a month since August, and was just discharged from the hospital 8 days ago. These hospitalizations are of similar presentations with edema, ascites, shortness of breath, abdominal discomfort. He has had multiple paracentesis. He does not have insurance and has not been purchasing his medications at the time of discharge for any of these discharges. He was last seen in the clinic in September 2016. His last heart catheterization of record is 2009 where he had a 100% occluded obtuse marginal artery, 100% occluded right coronary artery, moderate disease of the LAD. Echocardiogram August 2016 demonstrated severe cardiomyopathy with severe MR. He again presents to the hospital with abdominal distention, shortness of breath, generalized malaise, shortness of breath. He has not obtained any of his medications. He has no other new complaints. February 22, 2017: Mr. Drummond is without complaints today except for related to his ascites. Blood pressure continues to run low, 81/54 this morning. He is still getting Lasix 40 mg IV twice daily. His creatinine is 2.7 today, this is up a little bit from 2.5 on admission. We will continue to monitor this. Most of his edema may be extravascular and more related to his hepatic ascites. Impression and plan: 1. Congestive heart failure: This is chronic secondary to cardiomyopathy with systolic dysfunction, valvular heart disease, medication noncompliance. I agree with reinitiating his medical therapy, although again this will be a limited maneuver given his constant medication noncompliance. On a more optimistic note he recently obtained disability and believes he may be able to afford his medication soon. We will convert him back to oral Lasix. 2. Cardiomyopathy-chronic. Not on an DARLENE inhibitor due to hypotension and renal insufficiency. 3. Mitral valve disease-chronic. 4. 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 He reports that he does not drink anymore. 5. Medication noncompliance-I again reiterated the importance of medication use with his chronic disease conditions. 6. Elevated troponin-this is chronic, they are lower than usual for him. They are not in a peaking pattern, there is no evidence of an acute coronary syndrome. He is also medically noncompliant and not a candidate for invasive studies. Exam (Progress Note) - Constitutional Vitals: Period Temp Pulse Resp BP Sys/English Pulse Ox Last 24 Hr 97.4 F-98.7 F 99-104 18-20 81-113/54-87 93-99 Exam: General appearance: normal weight, no acute distress - Head Head exam: Present: normal inspection, normocephalic, atraumatic. Absent: hematoma, laceration - Eye Eye exam: Present: EOMI. Absent: conjunctival injection, nystagmus, periorbital swelling, scleral icterus, laceration to eyelids Pupils: Present: PERRL. Absent: constricted, dilated, fixed, irregular, unequal - ENT ENT exam: Present: normal exam, normal external ear exam - Neck Neck exam: Present: normal inspection. Absent: lymphadenopathy, meningismus, tenderness, thyromegaly - Respiratory Respiratory exam: Present: Decreased breath sounds in the bilateral bases. Absent: accessory muscle use, chest wall tenderness - Cardiovascular Cardiovascular exam: Present: regular rate and rhythm, JVD. Absent: carotid bruit, gallop, rubs - GI/Abdominal GI/Abdominal exam: Present: Protuberant but soft, ascites. Absent: firm, guarding, hernia, mass, tenderness, rebound. - Extremities Exam Extremities exam: Present: Trace edema, decreased pulses. Absent: calf tenderness - Back Exam Back exam: Present: normal inspection. Absent: muscle spasm, vertebral tenderness - Neurological Exam Neurological exam: Present: alert, oriented X3, grossly intact without resting or intention tremor - Psychiatric Psychiatric exam: Present: normal affect, normal mood - Skin Skin exam: Present: normal color, warm, dry, intact. Absent: cyanosis, diaphoretic, rash, urticaria Result/EKG - Labs CBC & BMP: 02/22/17 03:54 02/22/17 03:54 Lab Results: I have reviewed the past 24 hour labs Labs: Laboratory Results - last 24 hr 02/21/17 02/21/17 02/22/17 11:21 11:21 03:54 WBC 5.0 4.8 RBC 5.49 5.08 Hgb 11.5 L 10.6 L Hct 34.4 L 32.0 L MCV 62.7 L 63.0 L MCH 21 L 21 L MCHC 33.4 33.1 RDW 24.2 H 24.0 H Plt Count 223 278 D Neut % (Auto) 49.0 53.0 Lymph % (Auto) 29.2 27.5 [place] % (Auto) 8.5 9.0 Eos % (Auto) 11.7 H 8.6 Baso % (Auto) 1.4 H 1.5 H Neut # (Auto) 2.4 2.5 Lymph # (Auto) 1.5 1.3 L [place] # (Auto) 0.4 0.4 Eos # (Auto) 0.6 0.4 Baso # (Auto) 0.1 0.1 Total Counted 100 Immature Gran % 0.2 0.4 Nucleated RBC % 1.4 1.1 Immature Gran # 0.01 0.02 Segmented Neutrophils 52 Lymphocytes 34 Monocytes 5 Eosinophils 9 Nucleated RBCs 3 Nucleated RBCs # 0.07 0.05 Platelet Estimate Adequate Normal Hypochromasia 1+ 2+ Microcytosis 1+ 1+ Target Cells 1+ Slight Acanthocytes (Spur) Few Few Schistocytes Slight Sodium 138 Potassium 4.3 Chloride 105 Carbon Dioxide 19 L Anion Gap 18.3 H BUN 33 H Creatinine 2.60 H GFR Calculation 35 BUN/Creatinine Ratio 12.00 Glucose 94 Calculated Osmolality 281.7 Calcium 8.4 L Magnesium 2.0 02/22/17 03:54 WBC RBC Hgb Hct MCV MCH MCHC RDW Plt Count Neut % (Auto) Lymph % (Auto) [place] % (Auto) Eos % (Auto) Baso % (Auto) Neut # (Auto) Lymph # (Auto) [place] # (Auto) Eos # (Auto) Baso # (Auto) Total Counted Immature Gran % Nucleated RBC % Immature Gran # Segmented Neutrophils Lymphocytes Monocytes Eosinophils Nucleated RBCs Nucleated RBCs # Platelet Estimate Hypochromasia Microcytosis Target Cells Acanthocytes (Spur) Schistocytes Sodium 136 Potassium 4.3 Chloride 102 Carbon Dioxide 20 L Anion Gap 18.3 H BUN 31 H Creatinine 2.70 H GFR Calculation 34 BUN/Creatinine Ratio 11.00 Glucose 74 Calculated Osmolality 277.0 Calcium 8.4 L Magnesium 1.9 - EKG EKG results: interpreted by me EKG shows: tachycardia, sinus rhythm IAllen Jennifer, MD, personally performed the services described in this documentation, ascribed by Nini Rubin RN in my presence, and it is both accurate and complete [id number] .
--- NOTE | 2017-02-22 16:09 | Hospitalist Progress Note ---
Assessment and Plan (1) Cirrhosis Status: Chronic Assessment and plan: The patient is admitted hospital with ascites and elevated troponin. The troponin values have not shown any spike or trend to indicate myocardial infarction. The patient does complain of abdominal distention but denies shortness of breath or chest pain. We hope to have paracentesis performed tomorrow to help his symptom improved. Current Visit: No Qualifiers: Hepatic cirrhosis type: alcoholic cirrhosis (2) DM2 (diabetes mellitus, type 2) Status: Chronic Current Visit: Yes Qualifiers: Diabetes mellitus complication status: with kidney complications Diabetes mellitus complication detail: with chronic kidney disease Chronic kidney disease stage: stage 3 (moderate) (3) CKD (chronic kidney disease) stage 3, GFR 30-59 ml/min Status: Chronic Current Visit: No (4) Nonischemic cardiomyopathy Status: Chronic Current Visit: No Hospitalist: Subjective Interval history: The patient complains of abdominal distention due to ascites. The patient states that he was disappointed to find that he could not have paracentesis today due to . The patient denies shortness of breath. Exam - Constitutional Vitals: Period Temp Pulse Resp BP Sys/English Pulse Ox Last 24 Hr 98.0 F-98.7 F 99-110 18-20 81-97/54-71 93-99 Exam: Constitutional System: Mild distress. No tremulousness. Head: Normocephalic, atraumatic. Ears, Nose and Throat System: No evidence of Otitis or Mastoiditis. No epistaxis or discharge Eyes System: Pupils equal, round, and reactive. Extraocular muscles intact. Neck: Supple, without adenopathy, No jugular venous distention. No thyromegaly , neck mass, or prior surgery apparent. Respiratory System: Chest clear to auscultation. Cardiovascular System: Heart with regular rate and rhythm. No murmur. GI System: Abdomen soft, distended, moderately and diffusely tender. Hypo- active bowel sounds present. Musculoskeletal System: limbs with trace pedal edema. Full distal pulses. Results - Labs CBC & BMP: 02/22/17 03:54 02/22/17 03:54 Lab Results: I have reviewed the past 24 hour labs
[2017-02-22] MEDS: ENOXAPARIN 30 MG/0.3 ML SYRINGE SUBCUT SCH (21:10)
[2017-02-23 05:39] LABS: Basophils # 0.1 10*3/uL (0.0-0.2); Eosinophils # 0.3 10*3/uL (0.0-0.87); Eosinophils % 6.5 % (0.00-10.9); Hematocrit 32.6 VOL% (42.0-52.0); Hemoglobin 11.1 GM/DL (14.0-18.0); Immature Granulocytes % 0.2 %; Immature Granulocytes Absolute 0.01 #; Lymphocytes # 1.6 10*3/uL (1.4-4.0); Lymphocytes % 32.1 % (21.2-54.2); Mean Corpuscular Hemoglobin 21 PG (27-34); Mean Corpuscular Volume 62.6 FL (87-102); Monocytes # 0.5 10*3/uL (0.11-0.8); Monocytes % 9.4 % (1.7-12.7); NRBC # 0.06 10*3/uL; Neutrophils # 2.6 10*3/uL (1.4-7.4); Neutrophils % 50.8 % (38.7-73.9); Platelet Count 213 T/CUMM (130-400); Red Blood Count 5.21 MC/CUMM (3.8-5.5); Red Cell Distribution Width 24.2 % (9.3-17.3); White Blood Count 5.1 T/CUMM (4-12)
[2017-02-23] MEDS: LEVOTHYROXINE 50 MCG TABLET PO SCH ×2 (05:40→08:07)
[2017-02-23 05:57] LABS: Calcium 8.7 MG/DL (8.5-10.1); Magnesium 2.1 MG/DL (1.8-2.4); Osmolality,Calculated 273.2 MOS/KG (273-304); Potassium 4.7 MMOL/L (3.5-5.1)
[2017-02-23 06:14] LABS: Burr Cells 1+; Hypochromasia 2+; Microcytosis 1+; Target Cells Slight
[2017-02-23] MEDS: POTASSIUM CHLORIDE 10 MEQ TABLET PO SCH ×3 (08:40→23:37)
[2017-02-23] MEDS: SPIRONOLACTONE 25 MG TABLET PO SCH ×2 (08:40→23:36)
[2017-02-23] MEDS: CARVEDILOL 6.25 MG TABLET PO SCH ×2 (08:40→23:37)
[2017-02-23] MEDS: ALLOPURINOL 100 MG TABLET PO SCH ×3 (08:40→23:38)
[2017-02-23] MEDS: PANTOPRAZOLE 40 MG TABLET PO SCH (08:40)
[2017-02-23] MEDS: ASPIRIN EC 81 MG TABLET PO SCH (08:40)
[2017-02-23] MEDS: FUROSEMIDE 40 MG TABLET PO SCH (08:40)
[2017-02-23] MEDS: LACTULOSE 20 GM/30 ML UDCUP PO SCH ×3 (08:41→23:37)
--- NOTE | 2017-02-23 14:27 | Hospitalist Progress Note ---
Assessment and Plan (1) Cirrhosis Status: Chronic Assessment and plan: The patient is admitted hospital with ascites and elevated troponin. The troponin values have not shown any spike or trend to indicate myocardial infarction. The patient does complain of abdominal distention but denies shortness of breath or chest pain. We hope to have paracentesis performed tomorrow to help his symptom improved. Current Visit: No Qualifiers: Hepatic cirrhosis type: alcoholic cirrhosis (2) DM2 (diabetes mellitus, type 2) Status: Chronic Current Visit: Yes Qualifiers: Diabetes mellitus complication status: with kidney complications Diabetes mellitus complication detail: with chronic kidney disease Chronic kidney disease stage: stage 3 (moderate) (3) CKD (chronic kidney disease) stage 3, GFR 30-59 ml/min Status: Chronic Current Visit: No (4) Nonischemic cardiomyopathy Status: Chronic Current Visit: No Hospitalist: Subjective Interval history: The patient states that his peripheral edema is improving. The patient continues with abdominal distention due to ascites. The patient does not complain of shortness of breath or palpitation today. Exam - Constitutional Vitals: Period Temp Pulse Resp BP Sys/English Pulse Ox Last 24 Hr 97.3 F-99.2 F 84-119 18-22 92-100/56-70 93-99 Exam: Constitutional System: No distress. No tremulousness. Head: Normocephalic, atraumatic. Ears, Nose and Throat System: No evidence of Otitis or Mastoiditis. No epistaxis or discharge Eyes System: Pupils equal, round, and reactive. Extraocular muscles intact. Neck: Supple, without adenopathy, No jugular venous distention. No thyromegaly , neck mass, or prior surgery apparent. Respiratory System: Chest clear to auscultation. Cardiovascular System: Heart with regular rate and rhythm. No murmur. GI System: Abdomen soft, distended, moderately and diffusely tender. Hypo- active bowel sounds present. Musculoskeletal System: limbs with trace pedal edema. Full distal pulses. Results - Labs CBC & BMP: 02/23/17 04:18 02/23/17 04:18 Lab Results: I have reviewed the past 24 hour labs
--- NOTE | 2017-02-23 15:49 | Post Interventional Procedure ---
Pre-op diagnosis: ascites, abdominal distention Post-op diagnosis: same Procedure: u/s guided paracentesis Contrast: none Flouroscopy: none Radiologist: Fransico Flores Anesthesia: local Specimens: none sent Estimated blood loss: none Complications: none Condition: stable Description/Findings: 4800 mL serous ascitic fluid removed without difficulty via a RLQ approach Assessment and Plan - Time spent with patient Time spent with patient: Less than 30 minutes
--- NOTE | 2017-02-23 15:52 | Ultrasound Report ---
Exam: Ultrasound-guided paracentesis Clinical history: recurrent ascites. Physician: Dr. Flores. Procedure: Informed consent was obtained prior to procedure. A formal timeout was performed. Maximum sterile barrier technique was used. The right lower quadrant was prepped and draped in sterile fashion. Under sonographic guidance, a 6 Ukrainian safety centesis catheter and needle were advanced into the ascites using trocar technique. A captured sonographic image documents needle position. The needle was removed. Through the catheter, we obtained a total of 4800 cc of straw-colored ascites. No additional fluid could be obtained. Therefore, the catheter was removed. A bandage was placed at the puncture site. The patient tolerated the procedure well. Complications: None. Estimated blood loss: Less than 5 mL. Impression: Technically successful ultrasound guided paracentesis. PROCEDURE INTERPRETED AT [facility] DEPARTMENT OF RADIOLOGY Final Report Signed by: Fransico Flores
--- NOTE | 2017-02-23 17:11 | Cardiology Progress Note ---
Scottie Rosales April RN, am scribing for, and in the presence of, Leeroy Mariano MD 17:11. Assessment and Plan (1) Ascites Status: Chronic Assessment and plan: This is now his biggest complaint. He's had multiple paracentesis for this. Hopefully this will help again. If we can get him to take him medications, perhaps recurrence will not occur so quickly. Current Visit: Yes (2) Cirrhosis Status: Chronic Current Visit: Yes (3) CHF exacerbation Status: Chronic Assessment and plan: Continue medical therapy. He usually tunes up with resumption of medication and paracentesis. Unfortunately, compliance has been an issue. Current Visit: Yes Qualifiers: Congestive heart failure type: combined Qualified Code(s): I50.43 - Acute on chronic combined systolic (congestive) and diastolic (congestive) heart failure (4) Tachycardia Status: Acute Current Visit: Yes (5) Cardiomyopathy Status: Chronic Assessment and plan: He is not on godfrey inhibitor due to hypotension and renal insufficiency. Current Visit: Yes (6) Coronary artery disease Status: Chronic Current Visit: Yes (7) DM2 (diabetes mellitus, type 2) Status: Chronic Current Visit: Yes Qualifiers: Diabetes mellitus complication status: with kidney complications Diabetes mellitus complication detail: with chronic kidney disease Chronic kidney disease stage: stage 3 (moderate) (8) Dyslipidemia Status: Chronic Current Visit: Yes (9) Elevated troponin Status: Chronic Current Visit: Yes (10) Hypertension Status: Chronic Current Visit: No (11) Mitral regurgitation Status: Chronic Current Visit: Yes (12) Noncompliance with medication regimen Status: Chronic Current Visit: Yes Cardiology - PN: Subj Interval history: Director Airport: Dr. Mariano The patient is a 51-year-old black male with a history of combined ischemic and nonischemic cardiomyopathy, coronary artery disease, cirrhosis, hypertension, hyperlipidemia, medication noncompliance. He has been hospitalized at least once a month since August, and was just discharged from the hospital 8 days ago. These hospitalizations are of similar presentations with edema, ascites, shortness of breath, abdominal discomfort. He has had multiple paracentesis. He does not have insurance and has not been purchasing his medications at the time of discharge for any of these discharges. He was last seen in the clinic in September 2016. His last heart catheterization of record is 2009 where he had a 100% occluded obtuse marginal artery, 100% occluded right coronary artery, moderate disease of the LAD. Echocardiogram August 2016 demonstrated severe cardiomyopathy with severe MR. He again presents to the hospital with abdominal distention, shortness of breath, generalized malaise, shortness of breath. He has not obtained any of his medications. He has no other new complaints. Mr. Drummond is seen resting in bed in no acute distress. He denies chest pain, palpitations, or dizziness. He states his breathing is doing pretty well, not noted to be tachypneic at present. His only complaint is about his "swollen belly." He tells me he signed a consent to get a paracentesis, he thinks this will be done tomorrow. Lasix has been changed from 40 mg IV twice daily to 40 mg p.o. daily. Creatinine continues to rise, it is 3.10 today. 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 Current Medications Allopurinol (Zyloprim) 100 mg PO BID [facility] Last Admin: 02/23/17 08:40 Dose: 100 mg Aspirin () 81 mg PO DAILY [facility] Last Admin: 02/23/17 08:40 Dose: 81 mg Carvedilol (Coreg) 6.25 mg PO BID [facility] Last Admin: 02/23/17 08:40 Dose: 6.25 mg Enoxaparin Sodium (Lovenox) 30 mg SUBCUT Q24H [facility] Last Admin: 02/22/17 21:10 Dose: 30 mg Furosemide (Lasix Tab) 40 mg PO DAILY [facility] Last Admin: 02/23/17 08:40 Dose: 40 mg Lactulose (Chronulac) 30 gm PO TID [facility] Last Admin: 02/23/17 08:41 Dose: Not Given Levothyroxine Sodium (Synthroid Tab) 50 mcg PO DAILY@0700 [facility] Last Admin: 02/23/17 08:07 Dose: Not Given Pantoprazole Sodium (Protonix Tab) 40 mg PO DAILY [facility] Last Admin: 02/23/17 08:40 Dose: 40 mg Potassium Chloride (K Dur) 10 meq PO BID [facility] Last Admin: 02/23/17 08:40 Dose: 10 meq Spironolactone (Aldactone) 25 mg PO BID [facility] Last Admin: 02/23/17 08:40 Dose: 25 mg Exam (Progress Note) - Constitutional Vitals: Period Temp Pulse Resp BP Sys/English Pulse Ox Last 24 Hr 97.3 F-99.2 F 84-119 18-22 92-100/56-70 93-99 General appearance: normal weight, no acute distress - Head Head exam: Absent: abrasion, hematoma - Eye Eye exam: Absent: periorbital swelling, laceration to eyelids - Respiratory Respiratory exam: Present: clear to auscultation bilaterally, decreased breath sounds. Absent: accessory muscle use, chest wall tenderness - Cardiovascular Cardiovascular exam: Present: regular rate and rhythm - GI/Abdominal GI/Abdominal exam: Present: ascites, hyperactive bowel sounds, soft. Absent: tenderness - Extremities Exam Extremities exam: Absent: calf tenderness, edema - Neurological Exam Neurological exam: Present: alert, oriented X3 - Psychiatric Psychiatric exam: Present: normal affect, normal mood - Skin Skin exam: Present: warm, dry Result/EKG - Labs CBC & BMP: 02/23/17 04:18 02/23/17 04:18 Lab Results: I have reviewed the past 24 hour labs Labs: Laboratory Results - last 24 hr 02/23/17 02/23/17 04:18 04:18 WBC 5.1 RBC 5.21 Hgb 11.1 L Hct 32.6 L MCV 62.6 L MCH 21 L MCHC 34.0 RDW 24.2 H Plt Count 213 D Neut % (Auto) 50.8 Lymph % (Auto) 32.1 [place] % (Auto) 9.4 Eos % (Auto) 6.5 Baso % (Auto) 1.0 H Neut # (Auto) 2.6 Lymph # (Auto) 1.6 [place] # (Auto) 0.5 Eos # (Auto) 0.3 Baso # (Auto) 0.1 Immature Gran % 0.2 Nucleated RBC % 1.2 Immature Gran # 0.01 Nucleated RBCs # 0.06 Hypochromasia 2+ Microcytosis 1+ Target Cells Slight [place] Cells 1+ Sodium 134 L Potassium 4.7 Chloride 101 Carbon Dioxide 18 L Anion Gap 19.7 H BUN 35 H Creatinine 3.10 H GFR Calculation 28 BUN/Creatinine Ratio 11.00 Glucose 67 L Calculated Osmolality 273.2 Calcium 8.7 Magnesium 2.1 - EKG EKG results: interpreted by me EKG shows: sinus rhythm García Rosales Michael, MD, personally performed the services described in this documentation, ascribed by Nini Rubin RN in my presence, and it is both accurate and complete .
[2017-02-23] MEDS: ENOXAPARIN 30 MG/0.3 ML SYRINGE SUBCUT SCH ×2 (19:53→23:38)
[2017-02-24 05:22] LABS: Basophils # 0.1 10*3/uL (0.0-0.2); Basophils % 1.2 % (0.0-0.8); Eosinophils # 0.4 10*3/uL (0.0-0.87); Eosinophils % 7.7 % (0.00-10.9); Hematocrit 33.5 VOL% (42.0-52.0); Hemoglobin 11.1 GM/DL (14.0-18.0); Immature Granulocytes % 0.6 %; Immature Granulocytes Absolute 0.03 #; Lymphocytes # 1.7 10*3/uL (1.4-4.0); Lymphocytes % 33.1 % (21.2-54.2); Mean Corpuscular HGB Conc 33.1 GM/DL (32-36); Mean Corpuscular Hemoglobin 21 PG (27-34); Mean Corpuscular Volume 62.4 FL (87-102); Monocytes # 0.5 10*3/uL (0.11-0.8); Monocytes % 8.7 % (1.7-12.7); NRBC # 0.05 10*3/uL; Neutrophils # 2.5 10*3/uL (1.4-7.4); Neutrophils % 48.7 % (38.7-73.9); Platelet Count 216 T/CUMM (130-400); Red Blood Count 5.37 MC/CUMM (3.8-5.5); Red Cell Distribution Width 24.2 % (9.3-17.3); White Blood Count 5.2 T/CUMM (4-12)
[2017-02-24 05:50] LABS: Acanthocytes Few; Hypochromasia 2+; Microcytosis 1+; Platelet Estimate Normal; Target Cells Few
[2017-02-24 05:51] LABS: Schistocytes Slight
[2017-02-24 05:52] LABS: Calcium 8.5 MG/DL (8.5-10.1); Magnesium 2.2 MG/DL (1.8-2.4); Osmolality,Calculated 275.2 MOS/KG (273-304); Potassium 5.1 MMOL/L (3.5-5.1)
[2017-02-24] MEDS: LEVOTHYROXINE 50 MCG TABLET PO SCH (06:27)
[2017-02-24 07:39] VITALS: BP 85/67
--- NOTE | 2017-02-24 09:50 | Discharge Summary ---
Hospital Course - Hospital Course Hospital Course: The patient was admitted to the hospital with shortness of breath, peripheral edema, and ascites. The patient was evaluated by executive administrator and machine tailer. The patient has chronic kidney disease stage III which limits diuresis. The patient was able to reduce his water weight and had paracentesis during the hospital stay to improve abdominal discomfort. The patient has reached maximum medical benefit and now discharged home on oral regimen. On the date of discharge, chest is clear and abdomen nontender. Heart has regular rate and rhythm. 32 minutes were required to prepared to start documents, educate patient concerning the discharge plan and perform examination. - Time spent with patient Time with patient DS: Greater than 30 minutes Diagnosis - Discharge Diagnosis (1) Cirrhosis Status: Chronic (2) DM2 (diabetes mellitus, type 2) Status: Chronic (3) CKD (chronic kidney disease) stage 3, GFR 30-59 ml/min Status: Chronic (4) Nonischemic cardiomyopathy Status: Chronic Discharge Plan - Discharge Data Disposition: Disch To Home/Self Care Condition at Discharge: Stable Discharge Diet: diabetic diet Activity: resume usual activities as tolerated - Discharge Medications Continue Pantoprazole Tab [Protonix Tab] 40 mg PO DAILY #30 tablet Allopurinol 100 mg PO BID Furosemide Tab [Lasix Tab] 40 mg PO BID DIURETIC #30 tablet Aspirin EC Tab 81 mg PO DAILY #30 tablet Lactulose Liquid [Chronulac] 30 gm PO TID #90 packet Levothyroxine Tab [Synthroid Tab] 50 mcg PO DAILY@0700 #30 tablet Spironolactone [Aldactone] 25 mg PO BID #60 tablet Potassium Chloride [Klor-Con Sprinkle] 10 meq PO BID Carvedilol [Coreg] 6.25 mg PO BID Discontinued Hydralazine HCl 10 mg PO TID - Follow Up or Referral - Forms/Instructions Exam - Constitutional Vitals: Period Temp Pulse Resp BP Sys/English Pulse Ox Last 24 Hr 97.3 F-98.1 F 63-90 14-20 81-104/49-80 96-100 Discharge Results Labs on day of discharge: Labs from last 24 hours 02/24/17 02/24/17 04:26 04:26 WBC 5.2 RBC 5.37 Hgb 11.1 L Hct 33.5 L MCV 62.4 L MCH 21 L MCHC 33.1 RDW 24.2 H Plt Count 216 Neut % (Auto) 48.7 Lymph % (Auto) 33.1 [place] % (Auto) 8.7 Eos % (Auto) 7.7 Baso % (Auto) 1.2 H Neut # (Auto) 2.5 Lymph # (Auto) 1.7 [place] # (Auto) 0.5 Eos # (Auto) 0.4 Baso # (Auto) 0.1 Immature Gran % 0.6 Nucleated RBC % 1.0 Immature Gran # 0.03 Nucleated RBCs # 0.05 Platelet Estimate Normal Hypochromasia 2+ Microcytosis 1+ Target Cells Few Acanthocytes (Spur) Few Schistocytes Slight Sodium 134 L Potassium 5.1 Chloride 102 Carbon Dioxide 19 L Anion Gap 18.1 H BUN 38 H Creatinine 3.40 H GFR Calculation 25 BUN/Creatinine Ratio 11.00 Glucose 87 Calculated Osmolality 275.2 Calcium 8.5 Magnesium 2.2 DS: Provider Date of admission: 02/19/17 20:26 Primary care physician: . No PCP Attending physician on admission: Jorge Alberto Swan MD Consults: 02/19/17 20:47 Consult to Physician [CONS] Routine Comment: Consulting Provider: Cardiology - [facility] Consult to Specialist Group: Cardiology When should Consulting Provider be notified: In am Discharging clinician: Qamar Cornell MD
[2017-02-24] MEDS: CARVEDILOL 6.25 MG TABLET PO SCH (09:57)
[2017-02-24] MEDS: ASPIRIN EC 81 MG TABLET PO SCH (09:57)
[2017-02-24] MEDS: PANTOPRAZOLE 40 MG TABLET PO SCH (09:57)
[2017-02-24] MEDS: FUROSEMIDE 40 MG TABLET PO SCH (09:57)
[2017-02-24] MEDS: SPIRONOLACTONE 25 MG TABLET PO SCH (09:57)
[2017-02-24] MEDS: POTASSIUM CHLORIDE 10 MEQ TABLET PO SCH (09:58)
[2017-02-24] MEDS: LACTULOSE 20 GM/30 ML UDCUP PO SCH (09:58)
[2017-02-24] MEDS: ALLOPURINOL 100 MG TABLET PO SCH (09:58)
--- NOTE | 2017-02-24 10:47 | Cardiology Progress Note ---
I, Nini Rubin RN, am scribing for, and in the presence of, Leeroy Mariano MD 10:47. Assessment and Plan (1) Ascites Status: Chronic Assessment and plan: Status post paracentesis yesterday that removed 4800 mL of fluid. From my standpoint he can be discharged home. We can follow-up with him in a couple of weeks. Current Visit: Yes (2) Cirrhosis Status: Chronic Current Visit: Yes (3) CHF exacerbation Status: Chronic Assessment and plan: Continue medical therapy. He usually tunes up with resumption of medication and paracentesis. Unfortunately, compliance has been an issue. Current Visit: Yes Qualifiers: Congestive heart failure type: combined Qualified Code(s): I50.43 - Acute on chronic combined systolic (congestive) and diastolic (congestive) heart failure (4) Tachycardia Status: Acute Current Visit: Yes (5) Cardiomyopathy Status: Chronic Assessment and plan: He is not on godfrey inhibitor due to hypotension and renal insufficiency. Current Visit: Yes (6) Coronary artery disease Status: Chronic Current Visit: Yes (7) DM2 (diabetes mellitus, type 2) Status: Chronic Current Visit: Yes Qualifiers: Diabetes mellitus complication status: with kidney complications Diabetes mellitus complication detail: with chronic kidney disease Chronic kidney disease stage: stage 3 (moderate) (8) Dyslipidemia Status: Chronic Current Visit: Yes (9) Elevated troponin Status: Chronic Current Visit: Yes (10) Hypertension Status: Chronic Current Visit: No (11) Mitral regurgitation Status: Chronic Current Visit: Yes (12) Noncompliance with medication regimen Status: Chronic Current Visit: Yes Cardiology - PN: Subj Interval history: Mr. Drummond is seen resting in bed in no acute distress. He had paracentesis yesterday afternoon with 4800 mL of serous ascites fluid removed. He reports he feels much better today. He denies any chest pain, shortness of breath, palpitations, or dizziness. Blood pressure continues to be on the low side, it is 85/67 this morning. Telemetry monitoring currently shows sinus rhythm with heart rates in the 80s. Creatinine is 3.4 today. Current Medications Allopurinol (Zyloprim) 100 mg PO BID [facility] Last Admin: 02/23/17 23:38 Dose: 100 mg Aspirin () 81 mg PO DAILY [facility] Last Admin: 02/23/17 08:40 Dose: 81 mg Carvedilol (Coreg) 6.25 mg PO BID [facility] Last Admin: 02/23/17 23:37 Dose: Not Given Enoxaparin Sodium (Lovenox) 30 mg SUBCUT Q24H [facility] Last Admin: 02/23/17 23:38 Dose: 30 mg Furosemide (Lasix Tab) 40 mg PO DAILY [facility] Last Admin: 02/23/17 08:40 Dose: 40 mg Lactulose (Chronulac) 30 gm PO TID [facility] Last Admin: 02/23/17 23:37 Dose: Not Given Levothyroxine Sodium (Synthroid Tab) 50 mcg PO DAILY@0700 [facility] Last Admin: 02/24/17 06:27 Dose: 50 mcg Pantoprazole Sodium (Protonix Tab) 40 mg PO DAILY [facility] Last Admin: 02/23/17 08:40 Dose: 40 mg Potassium Chloride (K Dur) 10 meq PO BID [facility] Last Admin: 02/23/17 23:37 Dose: 10 meq Spironolactone (Aldactone) 25 mg PO BID [facility] Last Admin: 02/23/17 23:36 Dose: Not Given Exam (Progress Note) - Constitutional Vitals: Period Temp Pulse Resp BP Sys/English Pulse Ox Last 24 Hr 97.3 F-98.1 F 63-90 14-20 81-104/49-80 96-100 General appearance: normal weight, no acute distress - Head Head exam: Absent: abrasion, hematoma - Eye Eye exam: Absent: periorbital swelling, laceration to eyelids - Neck Neck exam: Absent: tenderness - Respiratory Respiratory exam: Present: clear to auscultation bilaterally. Absent: accessory muscle use, chest wall tenderness - Cardiovascular Cardiovascular exam: Present: regular rate and rhythm - GI/Abdominal GI/Abdominal exam: Present: normal bowel sounds, soft. Absent: distended, tenderness - Extremities Exam Extremities exam: Absent: calf tenderness, edema - Neurological Exam Neurological exam: Present: alert, oriented X3 - Psychiatric Psychiatric exam: Present: normal affect, normal mood - Skin Skin exam: Present: warm, dry Result/EKG - Labs CBC & BMP: 02/24/17 04:26 02/24/17 04:26 Lab Results: I have reviewed the past 24 hour labs Labs: Laboratory Results - last 24 hr 02/24/17 02/24/17 04:26 04:26 WBC 5.2 RBC 5.37 Hgb 11.1 L Hct 33.5 L MCV 62.4 L MCH 21 L MCHC 33.1 RDW 24.2 H Plt Count 216 Neut % (Auto) 48.7 Lymph % (Auto) 33.1 [place] % (Auto) 8.7 Eos % (Auto) 7.7 Baso % (Auto) 1.2 H Neut # (Auto) 2.5 Lymph # (Auto) 1.7 [place] # (Auto) 0.5 Eos # (Auto) 0.4 Baso # (Auto) 0.1 Immature Gran % 0.6 Nucleated RBC % 1.0 Immature Gran # 0.03 Nucleated RBCs # 0.05 Platelet Estimate Normal Hypochromasia 2+ Microcytosis 1+ Target Cells Few Acanthocytes (Spur) Few Schistocytes Slight Sodium 134 L Potassium 5.1 Chloride 102 Carbon Dioxide 19 L Anion Gap 18.1 H BUN 38 H Creatinine 3.40 H GFR Calculation 25 BUN/Creatinine Ratio 11.00 Glucose 87 Calculated Osmolality 275.2 Calcium 8.5 Magnesium 2.2 - EKG EKG results: interpreted by me EKG shows: sinus rhythm IGarcía Michael, MD, personally performed the services described in this documentation, ascribed by Nini Rubin RN in my presence, and it is both accurate and complete 047 .
== END 2017-02-24 13:00 | disposition home or self-care (01) | DRG 291 ==
LOC: EDBD → EDUNIT# → N.ED 18:46 → N.EDINP 20:26 → SUATTDRO 20:26 → N.EDINP 21:28 → N.TELES 21:54
PROVIDERS: ADMIT Internal Medicine; ATTEND Internal Medicine

== ENCOUNTER 2017-03-05 16:57 | Inpatient (IN) ==
--- NOTE | 2017-03-05 18:47 | Emergency Department Note ---
Praveen Rosales Brittany, am scribing for, and in the presence of, Manisha Mariee DO 18:40. Kodi Rosales Debra, DO, personally performed the services described in this documentation, ascribed by Susy Morton in my presence, and it is both accurate and complete 847 . Arrival - Arrival Chief Complaint: Abdominal / Flank Pain Stated Complaint: SOB, Fluid on Stomach ED Nursing Triage Note: C/o abdominal distention-onset three weeks ago. Patient states that he needs a paracentesis, last paracentesis was 3 weeks ago. Mode of Arrival: Wheelchair Limitations: No Limitations Source: Patient, RN Notes Reviewed - History of Present Illness HPI Narrative: Mr. Drummond is a 51 y/o black male presenting to the ED with c/o abdominal distention with an onset of 3 weeks. Patient has a history significant for Cirrhosis of the Liver with which he has needed Paracentesis 2-3 times in the past, with the most recent being 3 weeks ago during his stay here under admission of the hospitalist. Patient reports having some associated shortness of breath, but denies any fever, chills, abdominal pain, nausea, vomiting, chest pain, or near syncope feeling. He states that he has been taking his Spirinolactone as prescribed, but these have not been able to successfully keep the fluid off. He states that fluid builds up on him and he requires Paracentesis every 2-3 weeks. He reports that his Cirrhosis is secondary to history of excessive ETOH use. He has since ceased use of ETOH. Patient notes that he has an appointment with a physician in [place], [place] in April about his Liver, but is unsure if there is possibility of transplant. Patient has no other complaint/pain. PMHx of HTN, CHF, CAD, IDDM, Gout, Asthma, Bronchitis, Obstructive Sleep Apnea, Renal Failure, Cirrhosis, and GERD. Onset (ago): week(s) (3) Consistency: constant Allergies/Adverse Reactions: Allergies Allergy/AdvReac Type Severity Reaction Status Date / Time Shellfish Allergy SHORTNESS Verified 08/28/16 17:28 OF BREATH Home Medications: Home Medications Medication Instructions Recorded Confirmed Type Aspirin EC Tab 81 mg PO DAILY #30 tablet 10/15/16 03/05/17 Rx Levothyroxine Tab [Synthroid Tab] 50 mcg PO DAILY@0700 #30 tablet 12/09/1603/05 Rx Pantoprazole Tab [Protonix Tab] 40 mg PO DAILY #30 tablet 12/09/16 03/05/17 Rx Allopurinol 100 mg PO BID 01/08/17 03/05/17 History Carvedilol [Coreg] 6.25 mg PO BID 01/08/17 03/05/17 History Potassium Chloride [Klor-Con 10 meq PO BID 01/08/17 03/05/17 History Sprinkle] Furosemide Tab [Lasix Tab] 40 mg PO BID [facility] #30 tablet 01/13/17 03/05/17 Rx Spironolactone [Aldactone] 12.5 mg PO BID 03/05/17 03/05/17 History Review of System - Review of System 12 point system: reviewed and no additional remarkable complaints except as stated - Review of System Constitutional: Absent: chills, fever Eyes: Absent: vision change Head/Ears/Nose/Throat: Absent: nasal drainage, sore throat Respiratory: Present: as per HPI, respiratory distress Cardiovascular: Absent: chest pain, palpitations Gastrointestinal: Present: as per HPI (abdominal distention). Absent: abdominal pain, nausea, vomiting, diarrhea, constipation Genitourinary male: Absent: urgency, dysuria, frequency Musculoskeletal: Absent: arm pain, back pain, leg pain, neck pain Skin: Absent: rash Neurological: Absent: headache Psychiatric: Absent: anxiety, depression Medical,Surgical,& Family Hx - Medical History Cardio: History of: Cardiac Dysrhythmia (sinus tach), CHF, CAD, Hypertension, Cardiovascular Problems ("Two blocked arteries per Dr Mariano") No history of: ID, Pacemaker Psychological: No history of: Anxiety Disorders, Bipolar Disorder, Depression HEENT: No history of: Dental Problems Endocrine: History of: Diabetes Mellitus (IDDM) (states he was told last admission DM but nothing follow up with) No history of: Diabetes Mellitus (NIDDM) Rheumatology: History of;: Gout Respiratory: History of: Asthma, Bronchitis, Obstructive Sleep Apnea No history of: Pulmonary Embolism, Pneumonia Renal: History of: Renal Failure ([place]), Renal Problems No history of: Renal (Kidney) Cancer Genitourinary: No history of: Bladder Problem, Kidney Stones Gastrointestinal: History of: GERD, Liver Problems (cirrhosis) No history of: Hemorrhoids Musculoskeletal: History of: Musculoskeletal Problems (Right Knee Surg) No history of: Amputation, Back/Neck Problems, Osteoporosis Hematology: No history of: Anemia, Blood Transfusion Reaction, Sickle Cell Disease, Blood Disorders Other: No history of: Anesthesia Reactions, HIV, MRSA, Skin Problems - Surgical History Cardiac Surgeries: Patient Denies: Cardiac Catheterization, Cardiac Surgery Thoracic Surgeries: Patient denies;: Organ Transplant, Lobectomy Neurologic Surgeries: Patient denies: Neurologic Surgery HEENT Surgeries: Patient denies: Tonsilectomy & Adenoidectomy Abdominal Surgeries: Surgical HX of: Colonoscopy Patient denies: Abdominal Surgery, Appendectomy, Splenectomy Orthopedic Surgeries: Surgical HX of;: Orthopedic Surgery (Knee surgery) Patient denies;: Total Knee Replacement - Family History Family History: Reports;: Family Cancer (mom - lung cancer), Family Heart Disease, Family Hypertension - Social History Smoking Status: Former smoker Frequency of Alcohol Use: None Type of Drug Use: Marijuana Exam Vital Signs: Vital Signs Temperature 97.3 F L 03/05/17 18:30 Pulse Rate 122 H 03/05/17 18:46 Respiratory Rate 20 03/05/17 18:46 Blood Pressure 100/65 03/05/17 18:46 O2 Sat by Pulse Oximetry 96 03/05/17 18:46 - General General appearance: alert, in no apparent distress - Head Head exam: Present: atraumatic, normocephalic, normal inspection - Eye Eye exam: Present: PERRL, EOMI, scleral icterus. Absent: normal appearance - ENT ENT exam: Present: normal exam, normal oropharynx - Neck Neck exam: Present: normal inspection, full ROM, trachea midline - Chest Chest inspection: Present: normal inspection, symmetric chest wall rise - Respiratory Respiratory exam: Present: normal lung sounds bilaterally - Cardiovascular Cardiovascular exam: Present: regular rate, normal rhythm, normal heart sounds - Abdominal Exam Abdominal exam: Present: soft, distention, tenderness (diffuse abdominal tenderness to palpation), normal bowel sounds - Extremities Exam Extremities exam: Present: normal inspection - Back Exam Back exam: Present: normal inspection - Neurological Exam Neurological exam: Present: alert, oriented X3, CN II-XII intact. Absent: motor sensory deficit - Psychiatric Psychiatric exam: Present: normal affect, normal mood - Skin Skin exam: Present: warm, dry, intact, normal color Course Course Narrative: spoke with hospitalist who will admit pt Results - Labs CBC & BMP: 03/05/17 19:12 03/05/17 19:12 Lab Results: I have reviewed the patients labs Labs: Laboratory Tests 08/28/16 03/05/17 19:09 19:12 WBC 5.4 RBC 5.97 H Hgb 12.5 L Hct 38.6 L MCV 64.7 L MCH 21 L RDW 25.3 H Plt Count 189 Baso % (Auto) 1.3 H Urine Color [place] Urine Appearance Slightly hazy Urine pH 5.0 Ur Specific [place] 1.017 Urine Protein 100 Urine Glucose (UA) Negative Urine Ketones Negative Urine Blood Negative Urine Nitrate Negative Urine Bilirubin Negative Urine Urobilinogen 4.0 H Urine Leukocytes Negative Urine RBC 1 Urine WBC <1 Ur Squamous Epith Cells Occasional Hyaline Casts 8 Urine Mucus Occasional Laboratory Tests 03/05/17 19:12 Sodium 135 L Potassium 5.4 H Chloride 103 Carbon Dioxide 18 L Anion Gap 19.4 H BUN 29 H Creatinine 2.20 H Glucose 89 Total Bilirubin 4.20 H Alkaline Phosphatase 186 H Albumin 2.8 L Globulin 4.3 H Albumin/Globulin Ratio 0.6 L - Diagnostic Findings Procedure: Abdominal x-ray: report reviewed by me (1. Ileus versus partial or early small bowel obstruction. Follow-up is recommended. 2. Findings suggest Ascites. 3. Cardiomegaly.) Disposition Clinical Impression: Ascites, Abdominal pain Case discussed with: patient Disposition: Still a Patient Condition: Stable Time of Disposition: 20:10
--- NOTE | 2017-03-05 19:09 | XRay Report ---
Abdomen, 2 views History is abdominal distention and short of breath Comparison 02/19/2017 Air-filled loops of small bowel measure up to 3 cm similar on the prior study. Small amount of air present throughout the colon Findings raising question of ascites again seen No organomegaly or free air identified The heart is enlarged Small scattered nonspecific air-fluid levels present. Impression: 1. Ileus versus partial or early small bowel obstruction. Follow-up recommended 2. findings suggesting ascites 3. Cardiomegaly PROCEDURE INTERPRETED AT [facility] DEPARTMENT OF RADIOLOGY Final Report Signed by: Dr. Juanita Renee
[2017-03-05 19:36] LABS: Basophils # 0.1 10*3/uL (0.0-0.2); Basophils % 1.3 % (0.0-0.8); Eosinophils # 0.5 10*3/uL (0.0-0.87); Eosinophils % 8.7 % (0.00-10.9); Hematocrit 38.6 VOL% (42.0-52.0); Hemoglobin 12.5 GM/DL (14.0-18.0); Immature Granulocytes % 0.4 %; Immature Granulocytes Absolute 0.02 #; Lymphocytes # 1.5 10*3/uL (1.4-4.0); Lymphocytes % 27.7 % (21.2-54.2); Mean Corpuscular HGB Conc 32.4 GM/DL (32-36); Mean Corpuscular Hemoglobin 21 PG (27-34); Mean Corpuscular Volume 64.7 FL (87-102); Monocytes # 0.5 10*3/uL (0.11-0.8); Monocytes % 8.9 % (1.7-12.7); NRBC # 0.08 10*3/uL; Neutrophils # 2.9 10*3/uL (1.4-7.4); Platelet Count 189 T/CUMM (130-400); Red Blood Count 5.97 MC/CUMM (3.8-5.5); Red Cell Distribution Width 25.3 % (9.3-17.3); White Blood Count 5.4 T/CUMM (4-12)
[2017-03-05 19:59] LABS: Albumin 2.8 G/DL (3.4-5.0); Bilirubin,Total 4.2 MG/DL (0.2-1.0); Calcium 9.6 MG/DL (8.5-10.1); Osmolality,Calculated 274.1 MOS/KG (273-304); Potassium 5.4 MMOL/L (3.5-5.1); Total Protein 7.1 G/DL (6.4-8.3)
[2017-03-05 20:33] LABS: Burr Cells Few; Microcytosis 2+; Platelet Estimate Normal; Poikilocytosis 2+; Target Cells Few; Tear Drop Cells Few
--- NOTE | 2017-03-05 21:05 | Hospitalist History & Physical ---
Assessment and Plan (1) Acute on chronic systolic heart failure Status: Acute Assessment and plan: Echo done within the last few weeks with an EF of 10%, severe global hypokinesis including biventricular hypokinesis History of nonsustained V. tach and does not have a device in place. Monitor on telemetry Patient is DNR. Has been prescribed goal directed medical therapy but has run out of his medications and not been taking them over the last week. Resume carvedilol, particularly given the tachycardia and his warm perfusion. Oral diuretics unlikely to be effective at this stage. Try 60 mg IV Lasix twice daily Ultimately he will need a paracentesis for the lion share of volume removal acutely Current Visit: Yes (2) Hyperkalemia, diminished renal excretion Status: Acute Assessment and plan: Likely secondary to renal failure, spironolactone, potassium supplement. Hold potassium and spironolactone. Lasix diuresis should low potassium Current Visit: Yes (3) Metabolic acidosis Status: Acute Assessment and plan: Increased anion gap likely secondary to chronic renal failure Current Visit: Yes (4) CKD (chronic kidney disease) stage 3, GFR 30-59 ml/min Status: Chronic Assessment and plan: Seems to be close to baseline, Lasix diuresis and hold spironolactone as above Current Visit: Yes (5) Cirrhosis Status: Chronic Assessment and plan: Bilirubin seems to be around baseline at 4. Decompensated with ascites. Last received paracentesis on 02/23 with 5 L and no SBP on fluid studies. We will make n.p.o. at midnight in case he can get the paracentesis tomorrow. Check coags in the morning IV Lasix diuresis will provide some benefit until then Current Visit: Yes Qualifiers: Hepatic cirrhosis type: alcoholic cirrhosis Ascites presence: with ascites Qualified Code(s): K70.31 - Alcoholic cirrhosis of liver with ascites (6) DM2 (diabetes mellitus, type 2) Status: Chronic Assessment and plan: Not on any controller medications at home. Serial fingerstick glucose with lispro sliding scale insulin. Current Visit: Yes Qualifiers: Diabetes mellitus complication status: with kidney complications Diabetes mellitus complication detail: with chronic kidney disease Diabetes mellitus usp insulin use: without usp use Chronic kidney disease stage: stage 3 (moderate) Qualified Code(s): E11.22 - Type 2 diabetes mellitus with diabetic chronic kidney disease; N18.3 - Chronic kidney disease, stage 3 ( moderate) (7) Hypothyroidism Status: Chronic Assessment and plan: Continue home levothyroxine Current Visit: Yes History of Present Illness Chief complaint: Abdominal distention History of present illness: Mr. Drummond is a 51 year old male with extensive past medical history that includes systolic heart failure, EF 10%, diabetes, coronary artery disease, CKD stage III, cirrhosis, sleep apnea, hypothyroidism, GERD, gout the presented with a chief complaint of abdominal distention. Onset gradual. Duration 2 weeks. Not alleviated by home diuretics, although he has run out of medicines within the last week and not taking anything. Associated with generalized weakness, shortness of breath for 1 day, dry cough. Not associated with any pain, fevers. He states that he has to get a paracentesis about every 2-3 weeks because of the same problem and his last per chart review was on 02/23 by IR here at [facility]. Fluid studies at that time did not show SBP. He also notes that his lower extremity edema is increasing since he stopped taking his medications. I discussed CODE STATUS with Mr. hilton and he preferred DNR, stating that he has been going through "this" for a while and is "tired of it." I have reviewed the workup performed in the emergency department including lab and imaging data. I discussed his case with emergency department providers. Home Medications Medication Instructions Recorded Confirmed Type Aspirin EC Tab 81 mg PO DAILY #30 tablet 10/15/16 03/05/17 Rx Levothyroxine Tab [Synthroid Tab] 50 mcg PO DAILY@0700 #30 tablet 12/09/1603/05 Rx Pantoprazole Tab [Protonix Tab] 40 mg PO DAILY #30 tablet 12/09/16 03/05/17 Rx Allopurinol 100 mg PO BID 01/08/17 03/05/17 History Carvedilol [Coreg] 6.25 mg PO BID 01/08/17 03/05/17 History Potassium Chloride [Klor-Con 10 meq PO BID 01/08/17 03/05/17 History Sprinkle] Furosemide Tab [Lasix Tab] 40 mg PO BID DIURETIC #30 tablet 01/13/17 03/05/17 Rx Spironolactone [Aldactone] 12.5 mg PO BID 03/05/17 03/05/17 History Allergies Allergy/AdvReac Type Severity Reaction Status Date / Time Shellfish Allergy SHORTNESS Verified 08/28/16 17:28 OF BREATH Medical,Surgical,& Family Hx - Medical History Cardio: History of: Cardiac Dysrhythmia (sinus tach), CHF, CAD, Hypertension, Cardiovascular Problems ("Two blocked arteries per Dr Mariano") No history of: CT, Pacemaker Psychological: No history of: Anxiety Disorders, Bipolar Disorder, Depression HEENT: No history of: Dental Problems Endocrine: History of: Diabetes Mellitus (IDDM) (states he was told last admission DM but nothing follow up with) No history of: Diabetes Mellitus (NIDDM) Rheumatology: History of;: Gout Respiratory: History of: Asthma, Bronchitis, Obstructive Sleep Apnea No history of: Pulmonary Embolism, Pneumonia Renal: History of: Renal Failure (RI), Renal Problems No history of: Renal (Kidney) Cancer Genitourinary: No history of: Bladder Problem, Kidney Stones Gastrointestinal: History of: GERD, Liver Problems (cirrhosis) No history of: Hemorrhoids Musculoskeletal: History of: Musculoskeletal Problems (Right Knee Surg) No history of: Amputation, Back/Neck Problems, Osteoporosis Hematology: No history of: Anemia, Blood Transfusion Reaction, Sickle Cell Disease, Blood Disorders Other: No history of: Anesthesia Reactions, HIV, MRSA, Skin Problems - Surgical History Cardiac Surgeries: Patient Denies: Cardiac Catheterization, Cardiac Surgery Thoracic Surgeries: Patient denies;: Organ Transplant, Lobectomy Neurologic Surgeries: Patient denies: Neurologic Surgery HEENT Surgeries: Patient denies: Tonsilectomy & Adenoidectomy Abdominal Surgeries: Surgical HX of: Colonoscopy Patient denies: Abdominal Surgery, Appendectomy, Splenectomy Orthopedic Surgeries: Surgical HX of;: Orthopedic Surgery (Knee surgery) Patient denies;: Total Knee Replacement - Family History Family History: Reports;: Family Cancer (mom - lung cancer), Family Heart Disease, Family Hypertension - Social History Smoking Status: Former smoker Have you smoked in the last 12 months: No Frequency of Alcohol Use: None (Quit several months ago but less than one year ago) Type of Drug Use: Marijuana Lives With:: Parent (Father) Functional capacity: uses cane/walker Review of systems: - Constitutional Constitutional: Absent: chills, fatigue, fever(s), night sweats, weight loss - EENT Eyes: Absent: blurry vision Ears: Absent: decreased hearing, ear pain Nose, mouth and throat: Absent: nasal congestion, sore throat - Cardiovascular Cardiovascular: Present: Orthopnea, edema, dyspnea on exertion absent: chest pain at rest, chest pain with activity - Respiratory Respiratory: Present: Dry cough, dyspnea absent: hemoptysis - Gastrointestinal Gastrointestinal: Present: Abdominal distention absent: abdominal pain, constipation, diarrhea, dysphagia, hematemesis, hematochezia, melena, nausea, vomiting - Genitourinary Genitourinary: Present: Is at baseline 2-3 times voiding daily absent: difficulty urinating, dysuria, hematuria - Musculoskeletal Musculoskeletal: Absent: arthralgias, joint swelling, myalgias - Neurological Neurological: Absent: confusion, dizziness, focal weakness, headache(s), numbness, paresthesias, syncope - Psychiatric Psychiatric: Absent: anxiety, depression - Endocrine Endocrine: Absent: cold intolerance, heat intolerance, polydipsia, polyuria - Hematologic/Lymphatic Hematologic/Lymphatic: Absent: easy bleeding, easy bruising, lymphadenopathy Exam - Constitutional Vitals: Period Temp Pulse Resp BP Sys/English Pulse Ox Last 24 Hr 97.3 F-97.3 F 119-122 20-20 94-100/65-77 95-99 General appearance: over weight, other (Middle-aged -Maur[place] male sitting up in stretcher, pleasant and cooperative) Exam: - Eye Eye exam: Present: EOMI, conjunctival icterus. Absent: conjunctival injection, Pupils: Present: RACHEAL - ENT ENT exam: Present: normal external ear exam, normal oropharynx - Expanded ENT Exam Mouth exam: Present: moist, poor dentition - Neck Neck exam: Present: normal inspection. Absent: lymphadenopathy, thyromegaly - Respiratory Respiratory exam: Present: Decreased breath sounds right lung base, otherwise clear to auscultation bilaterally. Absent: accessory muscle use, rales, rhonchi , wheezes - Cardiovascular Cardiovascular exam: Present: Tachycardia and regular rhythm, apical systolic murmur. - GI/Abdominal GI/Abdominal exam: Present: normal bowel sounds, tense, distended. Absent: hyperactive bowel sounds, hypoactive bowel sounds, organomegaly, tenderness, rebound - Extremities Exam Extremities exam: Present: Bilateral lower extremity edema - Neurological Exam Neurological exam: Present: alert, oriented X3, CN II-XII intact. Absent: motor sensory deficit - Psychiatric Psychiatric exam: Present: normal affect - Skin Skin exam: Present: warm, dry. Absent: diaphoretic, rash Results - Labs CBC & BMP: 03/05/17 19:12 03/05/17 19:12 - Diagnostic Findings Procedure: Abdominal x-ray: report reviewed by me, Chest x-ray: report reviewed by me
[2017-03-05] MEDS ORDERED: GLUCAGON 1 MG VIAL IM PRN (22:12)
[2017-03-05] MEDS ORDERED: DEXTROSE 50% 25 GM/50 ML VIAL IV PRN (22:12)
[2017-03-05] MEDS ORDERED: FUROSEMIDE 100 MG/10 ML VIAL ONE (22:29)
[2017-03-05] MEDS ORDERED: CARVEDILOL 6.25 MG TABLET ONE (22:30)
[2017-03-05] MEDS ORDERED: ALLOPURINOL 100 MG TABLET ONE (22:31)
[2017-03-05] MEDS: FUROSEMIDE 40 MG/4 ML VIAL IV SCH (22:34)
[2017-03-05] MEDS: ALLOPURINOL 100 MG TABLET PO SCH (22:35)
[2017-03-05] MEDS: CARVEDILOL 6.25 MG TABLET PO SCH (22:35)
[2017-03-06] MEDS: INSULIN LISPRO 100 UNIT/ML SUBCUT SCH ×4 (00:39→18:12)
[2017-03-06 05:00] LABS: INR 1.2; PT Patient Result 13.2 SECS; Partial Thromboplastin Time 29.7 SECS (0-40)
[2017-03-06 05:18] LABS: Calcium 8.6 MG/DL (8.5-10.1); Magnesium 2.2 MG/DL (1.8-2.4); Osmolality,Calculated 277.8 MOS/KG (273-304); Potassium 4.2 MMOL/L (3.5-5.1)
[2017-03-06] MEDS: LEVOTHYROXINE 50 MCG TABLET PO SCH (06:37)
--- NOTE | 2017-03-06 08:03 | Hospitalist Progress Note ---
Hospitalist: Subjective Interval history: Pt denies any chest pain. SOB is better. No fever. Abd distention better per pt. Chronic cough. He admits to eating more salt on food due to lack of taste. Exam - Constitutional Vitals: Period Temp Pulse Resp BP Sys/English Pulse Ox Last 24 Hr 97.0 F-97.8 F 90-122 16-24 90-100/56-77 95-100 Exam: A and O x 3, chronically ill appearing RRR CTAB nonlabored, diminished at the bases Soft, distended, NTTP, +BS Warm no c/c/e Results - Labs CBC & BMP: 03/05/17 19:12 03/06/17 03:48 - Impressions (1) Acute on chronic systolic heart failure Status: Acute Assessment and plan: - Echo done within the last few weeks with an EF of 10%, severe global hypokinesis including biventricular hypokinesis - Hx NSVT. Cards to decide about AICD. Monitor on telemetry - Patient is DNR. - Cont carvedilol, 60 mg IV Lasix twice daily. Consider restarting aldactone once K ok - Ultimately he may need a paracentesis for large volume removal acutely - Pt counseled on dietary and fluid restrictions and he expressed understanding Current Visit: Yes (2) Hyperkalemia, diminished renal excretion- resolved with diuresis Status: Acute Assessment and plan: - Likely secondary to renal failure, spironolactone, potassium supplement. - Hold potassium and spironolactone. - Serial labs Current Visit: Yes (3) Metabolic acidosis Status: Acute Assessment and plan: Increased anion gap likely secondary to chronic renal failure Current Visit: Yes - follow (4) CKD (chronic kidney disease) stage 3, GFR 30-59 ml/min Status: Chronic Assessment and plan: Seems to be close to baseline. - Cont Lasix diuresis and hold spironolactone as above Current Visit: Yes (5) Cirrhosis with ascites Status: Chronic Assessment and plan: - Bilirubin seems to be around baseline at 4. Decompensated with ascites. - Last received paracentesis on 02/23 with 5 L and no SBP on fluid studies. - start diet. since it is not emergent with hold on paracentesis today and plan for Wednesday. - Check coags in the morning - IV Lasix diuresis will provide some benefit until then Current Visit: Yes Qualifiers: Hepatic cirrhosis type: alcoholic cirrhosis Ascites presence: with ascites Qualified Code(s): K70.31 - Alcoholic cirrhosis of liver with ascites (6) DM2 (diabetes mellitus, type 2) Status: Chronic Assessment and plan: Not on any controller medications at home. Serial fingerstick glucose with lispro sliding scale insulin. Current Visit: Yes Qualifiers: Diabetes mellitus complication status: with kidney complications Diabetes mellitus complication detail: with chronic kidney disease Diabetes mellitus rn long term care insulin use: without rn long term care use Chronic kidney disease stage: stage 3 (moderate) Qualified Code(s): E11.22 - Type 2 diabetes mellitus with diabetic chronic kidney disease; N18.3 - Chronic kidney disease, stage 3 ( moderate) (7) Hypothyroidism Status: Chronic Assessment and plan: Continue home levothyroxine Current Visit: Yes Quality Measures - VTE Contraindication to Pharmacological VTE Prophylaxis: High Risk of Bleeding
[2017-03-06] MEDS: FUROSEMIDE 40 MG/4 ML VIAL IV SCH ×2 (08:27→16:48)
--- NOTE | 2017-03-06 08:50 | XRay Report ---
History short of breath Comparison 02/19/2017 The heart is moderately enlarged There are mildly increasing hazy and reticular right greater than left pulmonary opacities without more focal consolidation. Impression: Mild worsening of right greater than left infiltrates versus asymmetric edema PROCEDURE INTERPRETED AT [facility] DEPARTMENT OF RADIOLOGY Final Report Signed by: Dr. Juanita Renee
[2017-03-06] MEDS: CARVEDILOL 6.25 MG TABLET PO SCH ×2 (12:31→20:14)
[2017-03-06] MEDS: PANTOPRAZOLE 40 MG TABLET PO SCH (12:31)
[2017-03-06] MEDS: ALLOPURINOL 100 MG TABLET PO SCH ×2 (12:31→20:15)
[2017-03-06] MEDS: ASPIRIN EC 81 MG TABLET PO SCH (12:31)
[2017-03-07] MEDS: INSULIN LISPRO 100 UNIT/ML SUBCUT SCH ×4 (00:27→17:03)
[2017-03-07 04:25] LABS: Basophils # 0.1 10*3/uL (0.0-0.2); Eosinophils # 0.6 10*3/uL (0.0-0.87); Hemoglobin 10.2 GM/DL (14.0-18.0); Immature Granulocytes % 0.2 %; Immature Granulocytes Absolute 0.01 #; Lymphocytes % 19.9 % (21.2-54.2); Mean Corpuscular HGB Conc 32.9 GM/DL (32-36); Mean Corpuscular Hemoglobin 21 PG (27-34); Mean Corpuscular Volume 63.1 FL (87-102); Monocytes # 0.6 10*3/uL (0.11-0.8); Monocytes % 11.4 % (1.7-12.7); Neutrophils # 2.7 10*3/uL (1.4-7.4); Neutrophils % 54.5 % (38.7-73.9); Platelet Count 201 T/CUMM (130-400); Red Blood Count 4.91 MC/CUMM (3.8-5.5); Red Cell Distribution Width 23.9 % (9.3-17.3); White Blood Count 4.9 T/CUMM (4-12)
[2017-03-07 04:58] LABS: Albumin 2.2 G/DL (3.4-5.0); Bilirubin,Total 2.3 MG/DL (0.2-1.0); Calcium 8.5 MG/DL (8.5-10.1); Magnesium 1.9 MG/DL (1.8-2.4); Osmolality,Calculated 279.8 MOS/KG (273-304); Phosphorous 3.9 MG/DL (2.5-4.9); Potassium 3.9 MMOL/L (3.5-5.1); Total Protein 5.8 G/DL (6.4-8.3)
[2017-03-07 06:06] LABS: Anisocytosis 2+; Eosinophils 11 % (0-10); Lymphocytes 17 % (20-55); Platelet Estimate Normal; Polychromasia Slight; Segmented Neutrophils 67 % (50-85); Target Cells 1+; Tear Drop Cells Few; Total Cells Counted 100
[2017-03-07] MEDS: LEVOTHYROXINE 50 MCG TABLET PO SCH (06:15)
[2017-03-07] MEDS: PANTOPRAZOLE 40 MG TABLET PO SCH (09:08)
[2017-03-07] MEDS: ALLOPURINOL 100 MG TABLET PO SCH ×2 (09:08→20:33)
[2017-03-07] MEDS: ASPIRIN EC 81 MG TABLET PO SCH (09:08)
[2017-03-07] MEDS: FUROSEMIDE 40 MG/4 ML VIAL IV SCH ×2 (09:10→16:45)
[2017-03-07] MEDS: CARVEDILOL 6.25 MG TABLET PO SCH ×2 (09:10→20:33)
--- NOTE | 2017-03-07 11:52 | Hospitalist Progress Note ---
Hospitalist: Subjective Interval history: Pt denies any chest pain or SOB. Abd swelling better per pt. No BM yet. Tolerating po. No abd pain. No fever. Exam - Constitutional Vitals: Period Temp Pulse Resp BP Sys/English Pulse Ox Last 24 Hr 97.6 F-98 F 77-85 16-20 84-96/61-69 90-100 Exam: A and O x 3, chronically ill appearing RRR CTAB nonlabored, diminished at the bases Soft, distended, NTTP, +BS Warm no c/c/e Results - Labs CBC & BMP: 03/07/17 04:03 03/07/17 04:03 - Impressions (1) Acute on chronic systolic heart failure Status: Acute Assessment and plan: - Echo done within the last few weeks with an EF of 10%, severe global hypokinesis including biventricular hypokinesis - Hx NSVT. Cards to decide about AICD. Monitor on telemetry. F/u with Cards outpt - Patient is DNR. - Cont carvedilol, 60 mg IV Lasix twice daily. Add Albumin due to low BP and alb noted to be 2.1. Consider restarting aldactone if BP stablizes - Paracentesis in am for large volume removal acutely. NPO after MN and labs in am - Pt counseled on dietary and fluid restrictions and he expressed understanding Current Visit: Yes (2) Hyperkalemia, diminished renal excretion- resolved with diuresis Status: Acute Assessment and plan: - Likely secondary to renal failure, spironolactone, potassium supplement. - Hold potassium and spironolactone. - Serial labs Current Visit: Yes (3) Metabolic acidosis- resolved Status: Acute Assessment and plan: Increased anion gap likely secondary to chronic renal failure Current Visit: Yes - follow (4) CKD (chronic kidney disease) stage 3, GFR 30-59 ml/min Status: Chronic Assessment and plan: Seems to be close to baseline. - Cont Lasix diuresis and hold spironolactone as above Current Visit: Yes (5) Cirrhosis with ascites Status: Chronic Assessment and plan: - Bilirubin seems to be around baseline at 4. Decompensated with ascites. - Last received paracentesis on 02/23 with 5 L and no SBP on fluid studies. - start diet. since it is not emergent with hold on paracentesis today and plan for Wednesday. - Check coags in the morning - IV Lasix with Albumin diuresis will provide some benefit until then. Current Visit: Yes Qualifiers: Hepatic cirrhosis type: alcoholic cirrhosis Ascites presence: with ascites Qualified Code(s): K70.31 - Alcoholic cirrhosis of liver with ascites (6) DM2 (diabetes mellitus, type 2) Status: Chronic Assessment and plan: Not on any controller medications at home. Serial fingerstick glucose with lispro sliding scale insulin. 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 One of my associates will follow in my absence. D/W pt and nurse. Quality Measures - VTE Contraindication to Pharmacological VTE Prophylaxis: High Risk of Bleeding
[2017-03-07] MEDS ORDERED: ALBUMIN 25% 25 GM in PREMIX 1 EACH IV SCH (12:00)
[2017-03-07] MEDS ORDERED: LACTULOSE 20 GM/30 ML UDCUP PO PRN (12:37)
[2017-03-07] MEDS: ALBUMIN 25% 25 GM in PREMIX 1 EACH IV SCH (16:45)
[2017-03-08] MEDS: INSULIN LISPRO 100 UNIT/ML SUBCUT SCH ×4 (00:50→19:13)
[2017-03-08 04:59] LABS: Basophils % 0.4 % (0.0-0.8); Eosinophils # 0.8 10*3/uL (0.0-0.87); Hematocrit 31.1 VOL% (42.0-52.0); Hemoglobin 10.2 GM/DL (14.0-18.0); Immature Granulocytes % 0.2 %; Immature Granulocytes Absolute 0.01 #; Lymphocytes # 0.9 10*3/uL (1.4-4.0); Lymphocytes % 17.1 % (21.2-54.2); Mean Corpuscular HGB Conc 32.8 GM/DL (32-36); Mean Corpuscular Hemoglobin 21 PG (27-34); Mean Corpuscular Volume 63.3 FL (87-102); Monocytes # 0.6 10*3/uL (0.11-0.8); Monocytes % 10.7 % (1.7-12.7); NRBC # 0.02 10*3/uL; Neutrophils # 2.9 10*3/uL (1.4-7.4); Neutrophils % 56.6 % (38.7-73.9); Platelet Count 219 T/CUMM (130-400); Red Blood Count 4.91 MC/CUMM (3.8-5.5); Red Cell Distribution Width 23.8 % (9.3-17.3); White Blood Count 5.2 T/CUMM (4-12)
[2017-03-08 05:10] LABS: INR 1.2; PT Patient Result 13.1 SECS; Partial Thromboplastin Time 31.1 SECS (0-40)
[2017-03-08 05:29] LABS: Albumin 2.5 G/DL (3.4-5.0); Calcium 8.6 MG/DL (8.5-10.1); Osmolality,Calculated 279.7 MOS/KG (273-304); Phosphorous 3.6 MG/DL (2.5-4.9); Potassium 3.5 MMOL/L (3.5-5.1)
[2017-03-08 06:02] LABS: Eosinophils 14 % (0-10); Lymphocytes 15 % (20-55); Segmented Neutrophils 64 % (50-85); Total Cells Counted 100
[2017-03-08 06:03] LABS: Acanthocytes Few; Hypochromasia 2+; Microcytosis 2+; Target Cells 1+
[2017-03-08 06:04] LABS: Platelet Estimate Normal
[2017-03-08 06:06] LABS: Anisocytosis 2+
[2017-03-08] MEDS: LEVOTHYROXINE 50 MCG TABLET PO SCH (06:41)
[2017-03-08] MEDS: ALBUMIN 25% 25 GM in PREMIX 1 EACH IV SCH ×2 (12:31→18:05)
[2017-03-08] MEDS: CARVEDILOL 6.25 MG TABLET PO SCH ×2 (12:32→21:07)
[2017-03-08] MEDS: ASPIRIN EC 81 MG TABLET PO SCH (12:32)
[2017-03-08] MEDS: ALLOPURINOL 100 MG TABLET PO SCH ×2 (12:32→21:07)
[2017-03-08] MEDS: PANTOPRAZOLE 40 MG TABLET PO SCH (12:32)
[2017-03-08] MEDS: FUROSEMIDE 40 MG/4 ML VIAL IV SCH ×2 (12:32→18:06)
--- NOTE | 2017-03-08 13:25 | Ultrasound Report ---
US paracentesis abd w/image Indication: Ascites. Ultrasound-guided paracentesis Description: A formal timeout was performed. Maximum sterile barrier technique was used. The right lower quadrant was prepped and draped in sterile fashion. Under sonographic guidance, a 6 [place]ij[place] pigtail catheter was advanced into the ascites using trocar technique. A captured sonographic image documents needle position. The needle was removed. Through the catheter, we obtained a total of 4300 cc of straw-colored ascites. No additional fluid could be obtained. Therefore, the catheter was removed. A bandage was placed at the puncture site. The patient tolerated the procedure well. Impression: Ultrasound-guided paracentesis. PROCEDURE INTERPRETED AT [facility] DEPARTMENT OF RADIOLOGY Final Report Signed by: Jorge Alberto Evans M.D.
--- NOTE | 2017-03-08 15:26 | Hospitalist Progress Note ---
Assessment and Plan (1) CKD (chronic kidney disease) stage 3, GFR 30-59 ml/min Status: Chronic Assessment and plan: The patient is admitted to the hospital with ascites due to cirrhotic liver disease and cardiomyopathy. He had paracentesis today. He has had history of hypotension following paracentesis so we will allow him to equilibrate this evening and anticipate discharge home in the morning. Current Visit: Yes (2) Cirrhosis Status: Chronic Current Visit: Yes Qualifiers: Hepatic cirrhosis type: alcoholic cirrhosis Ascites presence: with ascites Qualified Code(s): K70.31 - Alcoholic cirrhosis of liver with ascites Hospitalist: Subjective Interval history: Mr. Drummond had paracentesis today and has less abdominal discomfort now. Exam - Constitutional Vitals: Period Temp Pulse Resp BP Sys/English Pulse Ox Last 24 Hr 97 F-99.1 F 60-92 18-20 86-109/50-81 90-100 Exam: Constitutional System: Mild distress on account of abdominal discomfort and shortness of breath. No tremulousness. Head: Normocephalic, atraumatic. Ears, Nose and Throat System: No evidence of Otitis or Mastoiditis. No epistaxis or discharge Eyes System: Pupils equal, round, and reactive. Extraocular muscles intact. Neck: Supple, without adenopathy, No jugular venous distention. No thyromegaly , neck mass, or prior surgery apparent. Respiratory System: Chest clear to auscultation. Cardiovascular System: Heart with regular rate and rhythm. No murmur. GI System: Abdomen soft, minimally and generally tender. Normo active bowel sounds present. Musculoskeletal System: limbs with no pedal edema. Full distal pulses. Neurological System: No discernable sensory deficit. No aphasia Psychiatric System: Conversation is rational Results - Labs CBC & BMP: 03/08/17 04:49 03/08/17 04:49 Lab Results: I have reviewed the past 24 hour labs Quality Measures - VTE Contraindication to Pharmacological VTE Prophylaxis: High Risk of Bleeding
[2017-03-09] MEDS: INSULIN LISPRO 100 UNIT/ML SUBCUT SCH ×3 (00:28→13:09)
[2017-03-09 05:04] LABS: Basophils % 0.6 % (0.0-0.8); Eosinophils # 0.6 10*3/uL (0.0-0.87); Eosinophils % 12.1 % (0.00-10.9); Hemoglobin 9.7 GM/DL (14.0-18.0); Immature Granulocytes % 0.4 %; Immature Granulocytes Absolute 0.02 #; Lymphocytes # 0.8 10*3/uL (1.4-4.0); Mean Corpuscular HGB Conc 34.6 GM/DL (32-36); Mean Corpuscular Hemoglobin 22 PG (27-34); Mean Corpuscular Volume 62.4 FL (87-102); Monocytes # 0.5 10*3/uL (0.11-0.8); Monocytes % 10.4 % (1.7-12.7); Neutrophils # 3.2 10*3/uL (1.4-7.4); Neutrophils % 61.5 % (38.7-73.9); Red Blood Count 4.49 MC/CUMM (3.8-5.5); Red Cell Distribution Width 23.3 % (9.3-17.3); White Blood Count 5.1 T/CUMM (4-12)
[2017-03-09 05:07] LABS: Platelet Count 159 T/CUMM (130-400)
[2017-03-09 05:37] LABS: Calcium 7.8 MG/DL (8.5-10.1); Eosinophils 11 % (0-10); Lymphocytes 12 % (20-55); Magnesium 1.4 MG/DL (1.8-2.4); Segmented Neutrophils 70 % (50-85); Total Cells Counted 100
[2017-03-09 05:38] LABS: Hypochromasia 2+; Platelet Estimate Adequate
[2017-03-09 05:39] LABS: Microcytosis Slight; Target Cells 3+
[2017-03-09 05:40] LABS: Burr Cells Slight; Tear Drop Cells Slight
[2017-03-09] MEDS: LEVOTHYROXINE 50 MCG TABLET PO SCH (06:41)
[2017-03-09] MEDS ORDERED: MAGNESIUM SULF RIDER 4 GM in PREMIX 1 EACH IV ONE (08:43)
--- NOTE | 2017-03-09 08:47 | Discharge Summary ---
Hospital Course - Hospital Course Hospital Course: The patient was admitted to the hospital with abdominal distention and generalized abdominal pain due to ascites. The patient had some diuresis of his lower extremity edema. The patient had paracentesis for palliative measure. The patient's symptoms have improved. The patient was encouraged to be compliant with diuretic medications. The patient confirms that he did not fill his medications at the time of last discharge. At the time of discharge, the chest is clear and abdomen soft. Heart has regular rate and rhythm. Discharge required 32 minutes time. - Time spent with patient Time with patient DS: Greater than 30 minutes Diagnosis - Discharge Diagnosis (1) CKD (chronic kidney disease) stage 3, GFR 30-59 ml/min Status: Chronic (2) Cirrhosis Status: Chronic Discharge Plan - Discharge Data Disposition: Disch To Home/Self Care Condition at Discharge: Stable Discharge Diet: low salt diet Activity: resume usual activities as tolerated - Discharge Medications Continue Allopurinol 100 mg PO BID #100 Carvedilol [Coreg] 6.25 mg PO BID #100 Furosemide Tab [Lasix Tab] 40 mg PO BID DIURETIC #100 tablet Levothyroxine Tab [Synthroid Tab] 50 mcg PO DAILY@0700 #100 tablet Potassium Chloride [Klor-Con Sprinkle] 10 meq PO BID #100 Spironolactone [Aldactone] 12.5 mg PO BID #100 Aspirin EC Tab 81 mg PO DAILY #100 tablet Pantoprazole Tab [Protonix Tab] 40 mg PO DAILY #100 tablet - Follow Up or Referral - Forms/Instructions Exam - Constitutional Vitals: Period Temp Pulse Resp BP Sys/English Pulse Ox Last 24 Hr 97 F-98.7 F 60-89 18-20 89-109/58-81 94-100 Discharge Results Labs on day of discharge: Labs from last 24 hours 03/09/17 03/09/17 03/09/17 06:02 04:42 04:42 WBC 5.1 RBC 4.49 Hgb 9.7 L Hct 28.0 L MCV 62.4 L MCH 22 L MCHC 34.6 RDW 23.3 H Plt Count 159 D Neut % (Auto) 61.5 Lymph % (Auto) 15.0 L Lyon % (Auto) 10.4 Eos % (Auto) 12.1 H Baso % (Auto) 0.6 Neut # (Auto) 3.2 Lymph # (Auto) 0.8 L Lyon # (Auto) 0.5 Eos # (Auto) 0.6 Baso # (Auto) 0.0 Total Counted 100 Immature Gran % 0.4 Nucleated RBC % 0.0 Immature Gran # 0.02 Segmented Neutrophils 70 Lymphocytes 12 L Monocytes 7 Eosinophils 11 H Nucleated RBCs # 0.00 Platelet Estimate Adequate Hypochromasia 2+ Microcytosis Slight Target Cells 3+ Tear Drop Cells Slight Mariano Cells Slight Sodium 136 Potassium 3.0 L Chloride 100 Carbon Dioxide 25 Anion Gap 14.0 BUN 27 H Creatinine 1.60 H GFR Calculation 61 BUN/Creatinine Ratio 16.00 Glucose 112 H POC Glucose 137 H Calculated Osmolality 277.0 Calcium 7.8 L Magnesium 1.4 L 03/08/17 03/08/17 03/08/17 23:43 16:50 11:34 WBC RBC Hgb Hct MCV MCH MCHC RDW Plt Count Neut % (Auto) Lymph % (Auto) Lyon % (Auto) Eos % (Auto) Baso % (Auto) Neut # (Auto) Lymph # (Auto) Lyon # (Auto) Eos # (Auto) Baso # (Auto) Total Counted Immature Gran % Nucleated RBC % Immature Gran # Segmented Neutrophils Lymphocytes Monocytes Eosinophils Nucleated RBCs # Platelet Estimate Hypochromasia Microcytosis Target Cells Tear Drop Cells [place] Cells Sodium Potassium Chloride Carbon Dioxide Anion Gap BUN Creatinine GFR Calculation BUN/Creatinine Ratio Glucose POC Glucose 138 H 134 H 93 Calculated Osmolality Calcium Magnesium 03/08/17 07:35 WBC RBC Hgb Hct MCV MCH MCHC RDW Plt Count Neut % (Auto) Lymph % (Auto) Lyon % (Auto) Eos % (Auto) Baso % (Auto) Neut # (Auto) Lymph # (Auto) Lyon # (Auto) Eos # (Auto) Baso # (Auto) Total Counted Immature Gran % Nucleated RBC % Immature Gran # Segmented Neutrophils Lymphocytes Monocytes Eosinophils Nucleated RBCs # Platelet Estimate Hypochromasia Microcytosis Target Cells Tear Drop Cells [place] Cells Sodium Potassium Chloride Carbon Dioxide Anion Gap BUN Creatinine GFR Calculation BUN/Creatinine Ratio Glucose POC Glucose 90 Calculated Osmolality Calcium Magnesium DS: Provider Date of admission: 03/05/17 20:43 Primary care physician: . No PCP Attending physician on admission: Jorge Alberto Santana MD Discharging clinician: Qamar Cornell MD
[2017-03-09] MEDS ORDERED: SPIRONOLACTONE 25 MG TABLET PO SCH (09:00)
[2017-03-09] MEDS ORDERED: POTASSIUM CHLORIDE 10 MEQ TABLET PO SCH (09:00)
[2017-03-09] MEDS: FUROSEMIDE 40 MG/4 ML VIAL IV SCH (09:59)
[2017-03-09] MEDS: POTASSIUM CHLORIDE 20 MEQ TABLET PO SCH ×3 (10:00→15:01)
[2017-03-09] MEDS: ASPIRIN EC 81 MG TABLET PO SCH (10:00)
[2017-03-09] MEDS: PANTOPRAZOLE 40 MG TABLET PO SCH (10:00)
[2017-03-09] MEDS: ALLOPURINOL 100 MG TABLET PO SCH (10:01)
[2017-03-09] MEDS: CARVEDILOL 6.25 MG TABLET PO SCH (10:01)
[2017-03-09 12:10] VITALS: BP 90/69
[2017-03-09] MEDS ORDERED: FUROSEMIDE 40 MG TABLET PO SCH (16:00)
== END 2017-03-09 18:48 | disposition home or self-care (01) | DRG 432 ==
LOC: N.ED 16:57 → N.EDINP 20:43 → SUATTDRO 20:43 → N.TELES 21:13
PROVIDERS: ADMIT Student in an Organized Health Care Education/Training Program; ATTEND Internal Medicine

== ENCOUNTER 2017-03-16 16:23 | Observation (INO) ==
--- NOTE | 2017-03-16 17:17 | Emergency Department Note ---
Kaya Rosales Hilary, am scribing for, and in the presence of, Jeet Crane MD 17:09. Rosa Maria Rosales Charles R, MD, personally performed the services described in this documentation, ascribed by Shirley Kirkpatrick in my presence, and it is both accurate and complete 717 . Arrival - Arrival Chief Complaint: Abdominal / Flank Pain Stated Complaint: fluid in abdomen,weakness ED Nursing Triage Note: pt was here two weeks and had abd tapped. pt has swelling in abd again Mode of Arrival: Wheelchair Limitations: No Limitations Source: Patient, RN Notes Reviewed Time Seen by Provider: 03/16/17 16:56 - History of Present Illness HPI Narrative: Pt is a 51 y/o black male presenting to the ED with c/o abdominal swelling. Pt states that he is in liver failure and he is here to get tapped. He reports having an appointment in [place] on the . He confirms weakness and SOB but denies chest pain or abdominal pain. No other complaints or problems stated in the ED. Onset (ago): unknown Severity: mild Severity scale (1-10): 1 Quality: fullness Allergies/Adverse Reactions: Allergies Allergy/AdvReac Type Severity Reaction Status Date / Time Shellfish Allergy SHORTNESS Verified 08/28/16 17:28 OF BREATH Home Medications: Home Medications Medication Instructions Recorded Confirmed Type Allopurinol 100 mg PO BID #100 03/09/17 03/16/17 Rx Aspirin EC Tab 81 mg PO DAILY #100 tablet 03/09/17 03/16/17 Rx Carvedilol [Coreg] 6.25 mg PO BID #100 03/09/17 03/16/17 Rx Furosemide Tab [Lasix Tab] 40 mg PO BID DIURETIC #100 tablet 03/09/17 03/16/17 Rx Levothyroxine Tab [Synthroid Tab] 50 mcg PO DAILY@0700 #100 tablet 03/09/17 Rx Pantoprazole Tab [Protonix Tab] 40 mg PO DAILY #100 tablet 03/09/17 03/16/17 Rx Potassium Chloride [Klor-Con 10 meq PO BID #100 03/09/17 03/16/17 Rx Sprinkle] Spironolactone [Aldactone] 12.5 mg PO BID #100 06/13/17 06/20/17 Rx Review of System - Review of System 12 point system: reviewed and no additional remarkable complaints except as stated - Review of System Constitutional: Present: weakness. Absent: fever Respiratory: Present: respiratory distress (SOB) Cardiovascular: Absent: chest pain Gastrointestinal: Absent: abdominal pain Neurological: Present: weakness Medical,Surgical,& Family Hx - Medical History Cardio: History of: Cardiac Dysrhythmia (sinus tach), CHF, CAD, Hypertension, Cardiovascular Problems ("Two blocked arteries per Dr Mariano") No history of: [place], Pacemaker Psychological: No history of: Anxiety Disorders, Bipolar Disorder, Depression HEENT: No history of: Dental Problems Endocrine: History of: Diabetes Mellitus (IDDM) (states he was told last admission DM but nothing follow up with) No history of: Diabetes Mellitus (NIDDM) Rheumatology: History of;: Gout Respiratory: History of: Asthma, Bronchitis, Obstructive Sleep Apnea No history of: Pulmonary Embolism, Pneumonia Renal: History of: Renal Failure (RI), Renal Problems No history of: Renal (Kidney) Cancer Genitourinary: No history of: Bladder Problem, Kidney Stones Gastrointestinal: History of: GERD, Liver Problems (cirrhosis) No history of: Hemorrhoids Musculoskeletal: History of: Musculoskeletal Problems (Right Knee Surg) No history of: Amputation, Back/Neck Problems, Osteoporosis Hematology: No history of: Anemia, Blood Transfusion Reaction, Sickle Cell Disease, Blood Disorders Other: No history of: Anesthesia Reactions, HIV, MRSA, Skin Problems - Surgical History Cardiac Surgeries: Patient Denies: Cardiac Catheterization, Cardiac Surgery Thoracic Surgeries: Patient denies;: Organ Transplant, Lobectomy Neurologic Surgeries: Patient denies: Neurologic Surgery HEENT Surgeries: Patient denies: Tonsilectomy & Adenoidectomy Abdominal Surgeries: Surgical HX of: Colonoscopy Patient denies: Abdominal Surgery, Appendectomy, Splenectomy Orthopedic Surgeries: Surgical HX of;: Orthopedic Surgery (Knee surgery) Patient denies;: Total Knee Replacement - Family History Family History: Reports;: Family Cancer (mom - lung cancer), Family Heart Disease, Family Hypertension - Social History Smoking Status: Former smoker Frequency of Alcohol Use: None Type of Drug Use: None Exam Vital Signs: Vital Signs Temperature 98.3 F 03/16/17 17:29 Pulse Rate 122 H 03/16/17 17:29 Respiratory Rate 18 03/16/17 17:29 Blood Pressure 108/87 03/16/17 17:29 O2 Sat by Pulse Oximetry 100 03/16/17 16:28 - General General appearance: alert, in no apparent distress - Head Head exam: Present: atraumatic, normocephalic - Eye Eye exam: Present: normal appearance, PERRL, EOMI - ENT ENT exam: Present: mucous membranes moist, TM's normal bilaterally. Absent: mucous membranes dry - Neck Neck exam: Present: full ROM, trachea midline. Absent: tenderness - Chest Chest inspection: Present: symmetric chest wall rise. Absent: tenderness - Respiratory Respiratory exam: Present: normal lung sounds bilaterally, rales (rales in the base) - Cardiovascular Cardiovascular exam: Present: normal rhythm, tachycardia, normal heart sounds. Absent: murmur, rubs, gallop - Abdominal Exam Abdominal exam: Present: soft, distention (slightly distended), normal bowel sounds. Absent: tenderness - Extremities Exam Extremities exam: Present: full ROM, pedal edema (2+ pedal edema). Absent: tenderness - Back Exam Back exam: Present: full ROM. Absent: tenderness - Neurological Exam Neurological exam: Present: alert, oriented X3, CN II-XII intact. Absent: motor sensory deficit - Psychiatric Psychiatric exam: Present: normal affect, normal mood - Skin Skin exam: Present: warm, dry, intact, normal color. Absent: rash Course - Consultations Consultation #1: Hospitalist will admit patient Time: 20:28 Results - Labs CBC & BMP: 03/16/17 17:44 03/16/17 17:44 Disposition Clinical Impression: Tachycardia, CKD (chronic kidney disease) stage 3, GFR 30-59 ml/min, Cirrhosis , Abdominal distension, Debility, Coronary artery disease, Cardiomyopathy Case discussed with: patient, patient's family Disposition: Still a Patient Condition: Stable Time of Disposition: 20:29
--- NOTE | 2017-03-16 17:31 | EKG Report ---
Stationary ECG Study 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
[2017-03-16 17:52] LABS: Basophils # 0.1 10*3/uL (0.0-0.2); Basophils % 1.2 % (0.0-0.8); Eosinophils # 0.5 10*3/uL (0.0-0.87); Eosinophils % 8.9 % (0.00-10.9); Hematocrit 33.4 VOL% (42.0-52.0); Hemoglobin 11.2 GM/DL (14.0-18.0); Immature Granulocytes % 0.3 %; Immature Granulocytes Absolute 0.02 #; Lymphocytes # 1.5 10*3/uL (1.4-4.0); Lymphocytes % 25.9 % (21.2-54.2); Mean Corpuscular HGB Conc 33.5 GM/DL (32-36); Mean Corpuscular Hemoglobin 21 PG (27-34); Mean Corpuscular Volume 62.9 FL (87-102); Monocytes # 0.5 10*3/uL (0.11-0.8); Monocytes % 8.5 % (1.7-12.7); Neutrophils # 3.2 10*3/uL (1.4-7.4); Neutrophils % 55.2 % (38.7-73.9); Platelet Count 218 T/CUMM (130-400); Red Blood Count 5.31 MC/CUMM (3.8-5.5); Red Cell Distribution Width 22.4 % (9.3-17.3); White Blood Count 5.8 T/CUMM (4-12)
[2017-03-16 18:12] LABS: Alanine Aminotransferase 15 U/L (16-61); Alkaline Phosphatase 178 U/L (45-117); Aspartate Amino Transferase 21 U/L (0-37); Calcium 9.1 MG/DL (8.5-10.1); Total Protein 6.9 G/DL (6.4-8.3)
[2017-03-16 18:13] LABS: Amylase 47 U/L (25-115); Blood Urea Nitrogen 38 MG/DL (7-18); Glucose 96 MG/DL (74-106); Magnesium 2.3 MG/DL (1.8-2.4); Osmolality,Calculated 276.2 MOS/KG (273-304); Potassium 4.4 MMOL/L (3.5-5.1); Sodium 134 MMOL/L (136-145); Troponin I Only 0.038 NG/ML (0.00-0.045)
--- NOTE | 2017-03-16 18:42 | XRay Report ---
XR chest 1V Indication: Abdominal pain. Chest one view: Comparison 03/05/2017. Cardiomegaly and calcified atheromatous disease the aorta are stable. Lungs are better aerated than previous with decreased interstitial prominence throughout. Central pulmonary arteries remain slightly prominent. No focal pneumonia. Pleural spaces are clear. Impression: Improved aeration of the lungs since 03/05/2017. There is still some degree of mild pulmonary vascular congestion centrally. PROCEDURE INTERPRETED AT [facility] DEPARTMENT OF RADIOLOGY Final Report Signed by: Jorge Alberto Evans M.D.
--- NOTE | 2017-03-16 18:43 | XRay Report ---
XR abdomen 2V Indication: Abdominal pain. Abdomen 3 views: Short segment reactive small bowel is present in the left mid abdomen, without dilatation. Normal amount of stool and gas is seen in the colon. Stomach is decompressed. No free air. No abnormal calcifications or masses. Impression: Mild gastroenteritis. No obstruction. PROCEDURE INTERPRETED AT [facility] DEPARTMENT OF RADIOLOGY Final Report Signed by: Jorge Alberto Evans M.D.
[2017-03-16 19:08] LABS: Ammonia 60 UMOL/L (11-32)
[2017-03-16 19:23] LABS: Amorphous Crystals,Urine Occasional /HPF (Few); Apearance,Urine Slightly Hazy (Clear); Blood, Urine Negative (Negative); Glucose,Urine (UA) Negative (Negative); Hyaline Casts,Urine 29 /LPF (0-3); Ketones,Urine Negative (Negative); Mucus,Urine Occasional /LPF (Occasional); Nitrite,Urine Negative (Negative); Protein,Urine 100 MG/DL; RBC,Urine 1 /HPF (0-4); Squamous Epithelial Cell,Urine Occasional /HPF (0-10); Urine Color Amber (Yellow); Urine Specific Gravity 1.016 (1.001-1.035)
[2017-03-16 19:24] LABS: Bilirubin,Urine Small mg/dL (Negative)
[2017-03-16 19:30] LABS: Barbiturates Screen,Urine Negative (Negative); Benzodiazepines Screen,Urine Negative (Negative); Cannabinoid Screen,Urine Positive (Negative); Opiate Screen,Urine Negative (Negative); Phencyclidine Screen,Urine Negative (Negative)
--- NOTE | 2017-03-16 21:25 | Hospitalist History & Physical ---
Assessment and Plan (1) Abdominal distension Status: Acute Current Visit: Yes (2) Debility Status: Acute Current Visit: Yes (3) Tachycardia Status: Acute Current Visit: Yes (4) CKD (chronic kidney disease) stage 3, GFR 30-59 ml/min Status: Chronic Current Visit: Yes (5) Cardiomyopathy Status: Chronic Current Visit: Yes (6) Cirrhosis Status: Chronic Current Visit: Yes (7) MELODY (acute kidney injury) Status: Acute Assessment and plan: Per review of the records from previous hospitalization patient has an ejection fraction of 10% with severe global hypokinesis. He has a history of nonsustained V. tach but does not have a device in place. He will need to be admitted on monitored bed. He has not been taking his medications I am going to restart his medications he should be on. Will not try the IV diuresis on his kidneys at this point. His creatinine has bumped up a little bit. My concern is creatinine will continue to increase. He would benefit from a symptom standpoint is having removed some of his ascites that is present. Discussed CODE STATUS with the patient. He would not want to be coded or resuscitated. He reports that he has been sick a long time and he is just getting tired Current Visit: No (8) Medical non-compliance Status: Acute Current Visit: Yes History of Present Illness Chief complaint: Increased abdominal distention shortness of breath and weakness History of present illness: Mr. Drummond is a 51 year old male with past medical history significant for liver cirrhosis ascites and systolic heart failure with ejection fraction of 10 % comes to our ER today complaining of generalized weakness and increased abdominal distention. I was consulted to admit the patient through the emergency room. He had told the ER physician that he had been taking his medications. He admits to me that he has not been taking any medication since discharge. Patient's creatinine has worsened since last discharge. I do feel that we need to admit the patient to monitor this and make sure that he is not developing hepatorenal syndrome. Home Medications Medication Instructions Recorded Confirmed Type Allopurinol 100 mg PO BID #100 03/09/17 03/16/17 Rx Aspirin EC Tab 81 mg PO DAILY #100 tablet 03/09/17 03/16/17 Rx Carvedilol [Coreg] 6.25 mg PO BID #100 06/13/17 06/20/17 Rx Furosemide Tab [Lasix Tab] 40 mg PO BID DIURETIC #100 tablet 03/09/17 03/16/17 Rx Levothyroxine Tab [Synthroid Tab] 50 mcg PO DAILY@0700 #100 tablet 03/09/17 Rx Pantoprazole Tab [Protonix Tab] 40 mg PO DAILY #100 tablet 03/09/17 03/16/17 Rx Potassium Chloride [Klor-Con 10 meq PO BID #100 03/09/17 03/16/17 Rx Sprinkle] Spironolactone [Aldactone] 12.5 mg PO BID #100 03/09/17 03/16/17 Rx Allergies Allergy/AdvReac Type Severity Reaction Status Date / Time Shellfish Allergy SHORTNESS Verified 08/28/16 17:28 OF BREATH Medical,Surgical,& Family Hx - Medical History Cardio: History of: Cardiac Dysrhythmia (sinus tach), CHF, CAD, Hypertension, Cardiovascular Problems ("Two blocked arteries per Dr Mariano") No history of: [place], Pacemaker Psychological: No history of: Anxiety Disorders, Bipolar Disorder, Depression HEENT: No history of: Dental Problems Endocrine: History of: Diabetes Mellitus (IDDM) (states he was told last admission DM but nothing follow up with) No history of: Diabetes Mellitus (NIDDM) Rheumatology: History of;: Gout Respiratory: History of: Asthma, Bronchitis, Obstructive Sleep Apnea No history of: Pulmonary Embolism, Pneumonia Renal: History of: Renal Failure (RI), Renal Problems No history of: Renal (Kidney) Cancer Genitourinary: No history of: Bladder Problem, Kidney Stones Gastrointestinal: History of: GERD, Liver Problems (cirrhosis) No history of: Hemorrhoids Musculoskeletal: History of: Musculoskeletal Problems (Right Knee Surg) No history of: Amputation, Back/Neck Problems, Osteoporosis Hematology: No history of: Anemia, Blood Transfusion Reaction, Sickle Cell Disease, Blood Disorders Other: No history of: Anesthesia Reactions, HIV, MRSA, Skin Problems - Surgical History Cardiac Surgeries: Patient Denies: Cardiac Catheterization, Cardiac Surgery Thoracic Surgeries: Patient denies;: Organ Transplant, Lobectomy Neurologic Surgeries: Patient denies: Neurologic Surgery HEENT Surgeries: Patient denies: Tonsilectomy & Adenoidectomy Abdominal Surgeries: Surgical HX of: Colonoscopy Patient denies: Abdominal Surgery, Appendectomy, Splenectomy Orthopedic Surgeries: Surgical HX of;: Orthopedic Surgery (Knee surgery) Patient denies;: Total Knee Replacement - Family History Family History: Reports;: Family Cancer (mom - lung cancer), Family Heart Disease, Family Hypertension - Social History Smoking Status: Former smoker Frequency of Alcohol Use: None Type of Drug Use: None 12 point system: reviewed and no additional remarkable complaints except as stated Exam - Constitutional Vitals: Period Temp Pulse Resp BP Sys/English Pulse Ox Last 24 Hr 98.3 F-98.3 F 122-122 18-18 108-108/87-87 100 General appearance: over weight - Head Head exam: Present: normal inspection - Eye Eye exam: Present: EOMI Pupils: Present: RACHEAL - ENT ENT exam: Present: normal exam - Neck Neck exam: Present: normal inspection - Respiratory Respiratory exam: Present: clear to auscultation bilaterally - Cardiovascular Cardiovascular exam: Present: tachycardia - GI/Abdominal GI/Abdominal exam: Present: normal bowel sounds, ascites, distended - Extremities Exam Extremities exam: Present: edema - Back Exam Back exam: Present: normal inspection - Neurological Exam Neurological exam: Present: alert, oriented X3 - Psychiatric Psychiatric exam: Present: normal affect, normal mood - Skin Skin exam: Present: normal color Results - Labs CBC & BMP: 03/17/17 06:48 03/17/17 06:48
[2017-03-16] MEDS ORDERED: ONDANSETRON 4 MG/2 ML VIAL IV PRN (21:51)
[2017-03-16] MEDS: CARVEDILOL 6.25 MG TABLET PO SCH (22:45)
[2017-03-16 23:03] LABS: Free T4 (Free Thyroxine) 1.42 NG/DL (0.76-1.46); Thyroid Stimulating Hormone 21.8 uIU/ml (0.358-3.74)
[2017-03-17 06:58] LABS: Basophils # 0.1 10*3/uL (0.0-0.2); Basophils % 1.1 % (0.0-0.8); Eosinophils # 0.6 10*3/uL (0.0-0.87); Eosinophils % 11.3 % (0.00-10.9); Hematocrit 32.2 VOL% (42.0-52.0); Hemoglobin 10.7 GM/DL (14.0-18.0); Immature Granulocytes % 0.2 %; Immature Granulocytes Absolute 0.01 #; Lymphocytes # 1.3 10*3/uL (1.4-4.0); Lymphocytes % 23.4 % (21.2-54.2); Mean Corpuscular HGB Conc 33.2 GM/DL (32-36); Mean Corpuscular Hemoglobin 21 PG (27-34); Mean Corpuscular Volume 63.4 FL (87-102); Monocytes # 0.4 10*3/uL (0.11-0.8); Monocytes % 7.5 % (1.7-12.7); Neutrophils # 3.1 10*3/uL (1.4-7.4); Neutrophils % 56.5 % (38.7-73.9); Platelet Count 208 T/CUMM (130-400); Red Blood Count 5.08 MC/CUMM (3.8-5.5); Red Cell Distribution Width 22.4 % (9.3-17.3); White Blood Count 5.5 T/CUMM (4-12)
[2017-03-17] MEDS ORDERED: LEVOTHYROXINE 50 MCG TABLET PO SCH (07:00)
[2017-03-17 07:18] LABS: Acanthocytes Few; Eosinophils 8 % (0-10); Hypochromasia 2+; Lymphocytes 28 % (20-55); Segmented Neutrophils 57 % (50-85); Total Cells Counted 100
[2017-03-17 07:19] LABS: Anisocytosis 2+; Microcytosis 2+; Target Cells 1+
[2017-03-17 07:20] LABS: Platelet Estimate Normal; Polychromasia Slight
[2017-03-17 07:27] LABS: Albumin 2.6 G/DL (3.4-5.0); Bilirubin,Total 3.5 MG/DL (0.2-1.0); Calcium 8.9 MG/DL (8.5-10.1); Osmolality,Calculated 277.1 MOS/KG (273-304); Potassium 3.8 MMOL/L (3.5-5.1)
[2017-03-17] MEDS: PANTOPRAZOLE 40 MG TABLET PO SCH (09:13)
[2017-03-17] MEDS: FUROSEMIDE 40 MG TABLET PO SCH ×2 (09:13→17:00)
[2017-03-17] MEDS: ALLOPURINOL 100 MG TABLET PO SCH ×2 (09:13→20:54)
[2017-03-17] MEDS: ASPIRIN EC 81 MG TABLET PO SCH (09:14)
[2017-03-17] MEDS: CARVEDILOL 6.25 MG TABLET PO SCH ×2 (09:14→20:54)
--- NOTE | 2017-03-17 13:37 | Post Interventional Procedure ---
Pre-op diagnosis: cirrhosis and ascites Post-op diagnosis: same Procedure: therapeutic paracentesis Contrast: none Flouroscopy: none Radiologist: Fransico Flores Anesthesia: local Specimens: none sent Estimated blood loss: none Complications: none Condition: stable Description/Findings: 2200 serous ascitic fluid removed without difficulty Assessment and Plan - Time spent with patient Time spent with patient: Less than 30 minutes
--- NOTE | 2017-03-17 13:41 | Ultrasound Report ---
Exam: Ultrasound-guided paracentesis Clinical history: Cirrhosis with recurrent ascites. Physician: Dr. Flores. Procedure: Informed consent was obtained prior to procedure. A formal timeout was performed. Maximum sterile barrier technique was used. The right lower quadrant was prepped and draped in sterile fashion. Under sonographic guidance, a 6 [place]ian safety centesis catheter and needle were advanced into the ascites using trocar technique. A captured sonographic image documents needle position. The needle was removed. Through the catheter, we obtained a total of 2200 cc of straw-colored ascites. No additional fluid could be obtained. Therefore, the catheter was removed. A bandage was placed at the puncture site. The patient tolerated the procedure well. Complications: None. Estimated blood loss: Less than 5 mL. Impression: Technically successful ultrasound guided paracentesis. PROCEDURE INTERPRETED AT [facility] DEPARTMENT OF RADIOLOGY Final Report Signed by: Fransico Flores
--- NOTE | 2017-03-17 16:23 | Hospitalist Progress Note ---
Assessment and Plan - Time spent with patient Time spent with patient: Greater than 30 minutes (1) Debility Status: Acute Assessment and plan: Likely secondary to severe CHF and medication noncompliance with his hypothyroidism. Will ask physical therapy to evaluate. Current Visit: Yes (2) CKD (chronic kidney disease) stage 3, GFR 30-59 ml/min Status: Chronic Assessment and plan: Creatinine levels are stable relatively speaking he does have a wide range of creatinine levels during his recent hospital stay. Current Visit: Yes (3) Cirrhosis Status: Chronic Assessment and plan: Status post 2.2 L of fluid removed. Current Visit: Yes (4) CHF (congestive heart failure) Status: Acute Assessment and plan: No crackles on exam. Appears euvolemic currently. Current Visit: No Qualifiers: Congestive heart failure type: combined Congestive heart failure chronicity : acute on chronic Qualified Code(s): I50.43 - Acute on chronic combined systolic (congestive) and diastolic (congestive) heart failure (5) Hypothyroidism Status: Chronic Assessment and plan: We will administer IV Synthroid for the time being. Current Visit: No (6) Noncompliance with medication regimen Status: Chronic Assessment and plan: Social work is assisting to identify the issue. Current Visit: No Hospitalist: Subjective Interval history: Mr. Ocampo presented with weakness and abdominal distention. He states he has not taken his medications since discharge as he has been unable to afford them. He had a paracentesis done this morning with 2200 mL of fluid removed. He admits his his weakness is chronic and may be secondary to his severe CHF and cirrhosis. Exam - Constitutional Vitals: Period Temp Pulse Resp BP Sys/English Pulse Ox Last 24 Hr 96.3 F-98.3 F 75-122 16-24 87-125/55-91 96-100 General appearance: no acute distress - Head Head exam: Present: normocephalic, atraumatic - Eye Eye exam: Present: EOMI Pupils: Present: RACHEAL - ENT ENT exam: Present: normal exam - Neck Neck exam: Present: normal inspection - Respiratory Respiratory exam: Present: clear to auscultation bilaterally. Absent: rhonchi, wheezes - Cardiovascular Cardiovascular exam: Present: regular rate and rhythm, systolic murmur. Absent : gallop, rubs - GI/Abdominal GI/Abdominal exam: Present: normal bowel sounds, ascites, distended, soft. Absent: firm, guarding, tenderness, rebound - Extremities Exam Extremities exam: Present: normal inspection, edema (1- edema bilaterally). Absent: calf tenderness Results - Labs CBC & BMP: 03/17/17 06:48 03/17/17 06:48 Lab Results: I have reviewed the past 24 hour labs
[2017-03-18] MEDS ORDERED: LEVOTHYROXINE 100 MCG VIAL IV SCH (07:00)
[2017-03-18] MEDS: CARVEDILOL 6.25 MG TABLET PO SCH (09:26)
[2017-03-18] MEDS: FUROSEMIDE 40 MG TABLET PO SCH ×2 (09:26→16:28)
[2017-03-18] MEDS: PANTOPRAZOLE 40 MG TABLET PO SCH (09:26)
[2017-03-18] MEDS: ALLOPURINOL 100 MG TABLET PO SCH (09:26)
[2017-03-18] MEDS: ASPIRIN EC 81 MG TABLET PO SCH (09:28)
[2017-03-18 15:53] VITALS: BP 99/59
--- NOTE | 2017-03-18 15:55 | Discharge Summary ---
Hospital Course - Hospital Course Hospital Course: Mr. Drummond was admitted for evaluation of abdominal distention. He has history of cirrhosis and congestive heart failure has been noncompliant with his medications due to social circumstances. He had a paracentesis performed with 2.2 L removed. Patient was improved after this. His TSH was noted to be in the low 20s indicative of poor control he states he has not been taking his Synthroid either. Social work evaluated the patient and provided assistance with Venancio regarding his medication regimen. I instructed him how to properly take his Synthroid dose and he understood. I discharge she had met maximum benefit of hospitalization and I instructed him to obtain a primary care provider or seek health at [facility]. I spent 38 minutes coordinating this discharge. - Time spent with patient Time with patient DS: Greater than 30 minutes Diagnosis - Discharge Diagnosis (1) Debility Status: Acute (2) CKD (chronic kidney disease) stage 3, GFR 30-59 ml/min Status: Chronic (3) Cirrhosis Status: Chronic (4) CHF (congestive heart failure) Status: Acute (5) Hypothyroidism Status: Chronic (6) Noncompliance with medication regimen Status: Chronic Discharge Plan - Discharge Data Disposition: Disch To Home/Self Care Condition at Discharge: Stable Discharge Diet: advance to your usual diet Activity: resume usual activities as tolerated - Discharge Medications Continue Allopurinol 100 mg PO BID #100 Carvedilol [Coreg] 6.25 mg PO BID #100 Furosemide Tab [Lasix Tab] 40 mg PO BID DIURETIC #100 tablet Levothyroxine Tab [Synthroid Tab] 50 mcg PO DAILY@0700 #100 tablet Potassium Chloride [Klor-Con Sprinkle] 10 meq PO BID #100 Spironolactone [Aldactone] 12.5 mg PO BID #100 Aspirin EC Tab 81 mg PO DAILY #100 tablet Pantoprazole Tab [Protonix Tab] 40 mg PO DAILY #100 tablet - Follow Up or Referral - Forms/Instructions Exam - Constitutional Vitals: Period Temp Pulse Resp BP Sys/English Pulse Ox Last 24 Hr 97.1 F-98.0 F 75-97 18-20 74-94/40-88 90-99 General appearance: normal weight, no acute distress - Head Head exam: Present: normal inspection, normocephalic, atraumatic - Eye Eye exam: Present: EOMI Pupils: Present: RACHEAL - ENT ENT exam: Present: normal exam - Neck Neck exam: Present: normal inspection - Respiratory Respiratory exam: Present: clear to auscultation bilaterally. Absent: accessory muscle use, prolonged expiratory phase, wheezes - Cardiovascular Cardiovascular exam: Present: regular rate and rhythm. Absent: bradycardia, irregular rhythm, systolic murmur - GI/Abdominal GI/Abdominal exam: Present: normal bowel sounds. Absent: ascites, hypoactive bowel sounds, tenderness - Extremities Exam Extremities exam: Present: normal inspection DS: Provider Date of admission: 03/16/17 21:51 Primary care physician: . No PCP Attending physician on admission: Jorge Alberto Swan MD Consults: 03/16/17 22:33 Consult to Dietitian [CONS] Routine Reason for Dietitian: Diet Recommendations 03/17/17 16:26 Consult to Physical Therapy [CONS] Routine Reason for Physical Therapy: Evaluate and Treat Discharging clinician: Renita Orozco MD Expected date of discharge: 03/18/17
== END 2017-03-18 17:43 | disposition home or self-care (01) ==
LOC: N.EDINP 16:23 → N.ED 16:23 → SUATTDRO 21:51 → N.5E 22:11
PROVIDERS: ADMIT Internal Medicine; ATTEND Internal Medicine